=== PATIENT | female | born 1970 | race Caucasian/White ===

== ENCOUNTER 2020-12-01 14:52 | Outpatient (REF) | payer OTHER, MEDICAID, SELFPAY ==
--- NOTE | 2020-12-01 14:58 | XR_ITS ---
EXAMINATION: XR HIP, RIGHT CLINICAL INFORMATION: Pain COMPARISON: None TECHNIQUE: Two views of the right hip. FINDINGS: Bone alignment is normal. No fracture or dislocation is seen. The joint space is normal. Soft tissues are normal. XR/XR hip RT min 2V IMPRESSION: Normal right hip.
== END 2020-12-01 14:53 | disposition home or self-care (01) ==
LOC: HO.HMGCX 14:52
PROVIDERS: PCP Nurse Practitioner Family; Visit Provider Nurse Practitioner Family
DX: M25.551 Pain in right hip (principal)
CPT/HCPCS: 73502

== ENCOUNTER 2020-12-02 17:04 | Outpatient (REF) | payer OTHER, MEDICAID, SELFPAY ==
--- NOTE | 2020-12-02 17:09 | XR_ITS ---
EXAMINATION: XR LUMBAR SPINE AND SI JOINTS CLINICAL INFORMATION: Low back pain. COMPARISON: None. TECHNIQUE: 3 views lumbar spine. 3 views SI joint. FINDINGS: Lumbar Spine: There is normal lumbar lordosis. The vertebral heights and alignments are normal. The disc heights are preserved. There is moderate L4-L5 facet joint arthropathy and hypertrophy. No fracture or lytic process seen. Si Joint: There is mild sclerosis and hypertrophic changes left SI joint from sacroiliitis. The right SI joint space is normal. There is no sclerosis or lytic process. The sacrum appears unremarkable. XR/XR lumbar spine 2-3V IMPRESSION: Moderate left sacroiliitis. Moderate L4-L5 facet joint arthropathy. Unremarkable lumbar spine and right SI joint.
--- NOTE | 2020-12-02 17:09 | XR_ITS ---
EXAMINATION: XR LUMBAR SPINE AND SI JOINTS CLINICAL INFORMATION: Low back pain. COMPARISON: None. TECHNIQUE: 3 views lumbar spine. 3 views SI joint. FINDINGS: Lumbar Spine: There is normal lumbar lordosis. The vertebral heights and alignments are normal. The disc heights are preserved. There is moderate L4-L5 facet joint arthropathy and hypertrophy. No fracture or lytic process seen. Si Joint: There is mild sclerosis and hypertrophic changes left SI joint from sacroiliitis. The right SI joint space is normal. There is no sclerosis or lytic process. The sacrum appears unremarkable. XR/XR sacroiliac joint min 3V IMPRESSION: Moderate left sacroiliitis. Moderate L4-L5 facet joint arthropathy. Unremarkable lumbar spine and right SI joint.
== END 2020-12-02 17:05 | disposition home or self-care (01) ==
LOC: HO.HMGCX 17:04
PROVIDERS: PCP Nurse Practitioner Family; Visit Provider Nurse Practitioner Family
DX: M54.5 Low back pain (principal)
CPT/HCPCS: 72100; 72202

== ENCOUNTER 2022-02-08 08:42 | Outpatient (REF) | payer OTHER, SELFPAY ==
[2022-02-08 11:48] LABS: Basophils Absolute Auto 0.1 X10*3/uL (0.0-0.2); Basophils Percent Auto 0.5 % (0-2); Eosinophils Absolute Auto 0.2 X10*3/uL (0.0-0.4); Hemoglobin 12.7 g/dl (12.0-16.0); Imm Gran Abs Auto 0.02 X10*3/uL (0.00-0.03); Imm Gran Pct Auto 0.2 % (0.0-0.4); Lymphocytes Absolute Auto 2.8 X10*3/uL (1.2-4.9); Lymphocytes Percent Auto 29.3 % (20-40); MANUAL DIFF FLAG SCAN; Mean Corpuscular Volume 80.9 fL (80.0-98.0); Mean Platelet Volume 12.8 fL (9.4-12.3); Monocytes Absolute Auto 0.6 X10*3/uL (0.1-1.2); Monocytes Percent Auto 5.8 % (2-11); Neutrophils Absolute Auto 5.9 x10*3/uL (2.0-8.3); Neutrophils Percent Auto 62.2 % (45-73); PLT CLUMP 1; Red Blood Count 5.07 X10*6/uL (4.20-5.50); Red Cell Distribution Width 14.9 % (11.0-16.0); SCAN SMEAR FLAG 1
[2022-02-08 11:56] LABS: Estimated Average Glucose 212 mg/dL
[2022-02-08 12:02] LABS: White Blood Count 9.5 X10*3/uL (4.8-10.8)
[2022-02-08 12:03] LABS: Platelet Count 286 X10*3/uL (160-400)
[2022-02-08 12:04] LABS: Alanine Aminotransferase 21 U/L (0-31); Alkaline Phosphatase 95 U/L (39-117); Anion Gap 14 (12-20); Aspartate Amino Transferase 17 U/L (5-31); Bilirubin Total 0.5 mg/dL (0.0-1.0); Blood Urea Nitrogen 14 mg/dL (9-16); Calcium 9.3 mg/dL (8.4-10.2); Carbon Dioxide 22 mmol/L (22-29); Chloride 105 mmol/L (96-108); Cholesterol 178 mg/dL; Estimated Glomerular Filt Rate > 60; Glucose Fasting 222 mg/dL (60-99); HDL Cholesterol 47 mg/dL; LDL Cholesterol Calculated 111 mg/dl; Potassium 4.4 mmol/L (3.3-5.1); Sodium 137 mmol/L (135-145); Total Protein 7.5 g/dL (6.5-8.0); Triglycerides 104 mg/dL
[2022-02-08 12:08] LABS: Appearance Urine HAZY; Color Urine YELLOW; Glucose Urine UA 250 MG/DL (NEG); Leukocyte Esterase Urine NEG (NEG); Nitrite Urine NEG (NEG); PH 5.5 (5.0-8.0); Specific Gravity - Urine >= 1.030 (1.005-1.025); Urine Blood NEG (NEG); Urine Ketones 5 MG/DL (NEG); Urine Protein TRACE MG/DL (NEG-TRACE)
[2022-02-08 12:12] LABS: B Type Natriuretic Peptide 12 pg/mL (<100)
[2022-02-08 12:27] LABS: TSH reflex Free T4 1.32 uIU/mL (0.32-4.0)
[2022-02-08 12:57] LABS: SLIDE REVIEW VERIFIED
[2022-02-08 21:50] LABS: Creatinine Urine 156.83 mg/dL; Microalbum/Creatinine Ratio Ur 18.4 ug/mg cr
== END 2022-02-08 08:43 | disposition home or self-care (01) ==
LOC: HO.HMGCLDS 08:42
PROVIDERS: Visit Provider Nurse Practitioner Family
DX: N39.0 Urinary tract infection, site not specified (principal); R03.0 Elevated blood-pressure reading, without diagnosis of hypertension; R06.02 Shortness of breath; E11.9 Type 2 diabetes mellitus without complications; K58.9 Irritable bowel syndrome, unspecified
CPT/HCPCS: 36415; 80053; 80061; 81003; 82043; 83036; 83880; 84443; 85025

== ENCOUNTER 2022-03-12 09:00 | Outpatient (REF) | payer OTHER, SELFPAY ==
[2022-03-12 11:17] LABS: Appearance Urine CLOUDY; Color Urine YELLOW; Glucose Urine UA NEG (NEG); Leukocyte Esterase Urine 1+ (NEG); Nitrite Urine POS (NEG); PH 5.5 (5.0-8.0); Specific Gravity - Urine 1.025 (1.005-1.025); UACC Culture Trigger YES; Urine Blood TRACE (NEG); Urine Ketones NEG (NEG); Urine Protein NEG (NEG-TRACE)
[2022-03-12 11:25] LABS: Amorphous Sediment Urine 4+ /LPF; Squamous Epithelial Cell Urine TRACE /LPF
[2022-03-12 11:26] LABS: WBC Urine 50-75 /HPF (0-4)
[2022-03-12 11:30] LABS: Bacteria Urine TRACE /LPF; RBC Urine 0 /HPF (0)
[2022-03-12 12:04] LABS: Alanine Aminotransferase 23 U/L (0-31); Albumin Level 3.7 g/dL (3.5-5.0); Alkaline Phosphatase 92 U/L (39-117); Anion Gap 10 (12-20); Aspartate Amino Transferase 18 U/L (5-31); Bilirubin Total 0.4 mg/dL (0.0-1.0); Blood Urea Nitrogen 10 mg/dL (9-16); Carbon Dioxide 27 mmol/L (22-29); Chloride 103 mmol/L (96-108); Estimated Glomerular Filt Rate > 60; Glucose Random 173 mg/dL (60-115); Potassium 4.3 mmol/L (3.3-5.1); Sodium 136 mmol/L (135-145); Total Protein 6.9 g/dL (6.5-8.0)
[2022-03-12 12:40] LABS: Folate 7.7 ng/mL (> or = 4.0); Vitamin B12 464 pg/mL (200-900)
[2022-03-15 13:26] LABS: Anti Nuclear Antibody Screen NEGATIVE (NEGATIVE)
[2022-03-15 18:41] LABS: Lyme Abs Screen <0.90 index
[2022-03-17 21:37] LABS: DNAds, Crithidia Antibody Negative (Negative)
== END 2022-03-12 09:01 | disposition home or self-care (01) ==
LOC: HO.HMGCLDS 09:00
PROVIDERS: PCP Nurse Practitioner Family; Visit Provider Nurse Practitioner Family
DX: R53.83 Other fatigue (principal); R20.3 Hyperesthesia
CPT/HCPCS: 36415; 80053; 81001; 82607; 82746; 86038; 86039; 86255; 86617; 86618; 87086; 87088; 87186

== ENCOUNTER 2022-04-26 08:39 | Outpatient (REF) | payer OTHER, SELFPAY ==
--- NOTE | ~2022-04-26 | CT_ITS ---
EXAMINATION: CT CHEST WITHOUT CONTRAST CLINICAL INFORMATION: Abnormal lung findings. COMPARISON: Chest 03/04/2020. TECHNIQUE: Multidetector volumetric CT imaging of the chest was done. Axial MIP volume rendering provided. Sagittal and coronal reformatted images were obtained. This CT examination was performed using dose optimization techniques as appropriate, variously including the following: *Automated exposure control *Adjustment of mA and/or kV according to patient size (this includes techniques or standardized protocols for targeted exams where dose is matched to indication/reason for exam; i.e. extremities or head) *Use of iterative reconstruction technique DLP: 395 mGy-cm. 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 LUNGS: There is a 1 cm density with a punctate calcification in right lung apex image 93/7. There is a 1 cm pleural-based density left upper lobe image 100/7. There is a 7 mm nodule in the lingula axial image 342/7 and 5 mm nodule in the left lower lobe lateral basal segment axial image 351/7. Linear scarring is seen in the left lower lobe lateral basal segment. MEDIASTINUM: The thyroid lobes are symmetric and normal. The central trachea and the bronchi are widely patent. Heart size and the great vessels are normal caliber. There is no pericardial effusion. There are no abnormal lymph nodes. PLEURA: There is no pleural effusion. No pleural mass or thickening. AXILLA: Small shotty lymph nodes are seen in bilateral axilla. UPPER ABDOMEN: The liver is enlarged. Gallbladder is unremarkable. There is evidence of previous gastric reduction/sleeve surgery. OSSEOUS STRUCTURES: No aggressive lytic or sclerotic process seen. There is mild ventral spondylosis mid and lower dorsal spine. CT/CT chest wo con IMPRESSION: Small pulmonary nodules, largest 7 mm in the lingula. As per Fleischner guidelines, recommend follow-up in 6-12 months based on patient risk factors. No abnormal mediastinal or axillary lymphadenopathy. Fleischner guidelines were followed.
[2022-04-26 09:15] LABS: MANUAL DIFF FLAG NO
[2022-04-26 10:09] LABS: Basophils Absolute Auto 0.1 X10*3/uL (0.0-0.2); Basophils Percent Auto 0.5 % (0-2); Eosinophils Absolute Auto 0.2 X10*3/uL (0.0-0.4); Eosinophils Percent Auto 1.8 % (0-4); Hemoglobin 11.2 g/dl (12.0-16.0); Imm Gran Abs Auto 0.06 X10*3/uL (0.00-0.03); Imm Gran Pct Auto 0.5 % (0.0-0.4); Lymphocytes Absolute Auto 2.5 X10*3/uL (1.2-4.9); Lymphocytes Percent Auto 21.7 % (20-40); Mean Corpuscular Hemoglobin 25.5 pg (27.0-33.0); Mean Corpuscular Volume 79.5 fL (80.0-98.0); Mean Platelet Volume 11.7 fL (9.4-12.3); Monocytes Absolute Auto 0.6 X10*3/uL (0.1-1.2); Monocytes Percent Auto 5.6 % (2-11); Neutrophils Percent Auto 69.9 % (45-73); Platelet Count 295 X10*3/uL (160-400); Red Cell Distribution Width 14.3 % (11.0-16.0); White Blood Count 11.5 X10*3/uL (4.8-10.8)
[2022-04-26 10:52] LABS: Alanine Aminotransferase 20 U/L (0-31); Albumin Level 3.7 g/dL (3.5-5.0); Alkaline Phosphatase 90 U/L (39-117); Anion Gap 11 (12-20); Aspartate Amino Transferase 17 U/L (5-31); Bilirubin Total 0.4 mg/dL (0.0-1.0); Blood Urea Nitrogen 10 mg/dL (9-16); Calcium 8.6 mg/dL (8.4-10.2); Carbon Dioxide 27 mmol/L (22-29); Chloride 104 mmol/L (96-108); Estimated Glomerular Filt Rate > 60; Glucose Random 183 mg/dL (60-115); Potassium 4.3 mmol/L (3.3-5.1); Sodium 138 mmol/L (135-145); Total Protein 6.7 g/dL (6.5-8.0)
== END 2022-04-26 08:40 | disposition home or self-care (01) ==
LOC: HO.CT 08:39
PROVIDERS: PCP Nurse Practitioner Family; Visit Provider Nurse Practitioner Family
DX: R91.8 Other nonspecific abnormal finding of lung field (principal); R32 Unspecified urinary incontinence; R53.83 Other fatigue
CPT/HCPCS: 36415; 71250; 80053; 85025

== ENCOUNTER 2022-04-27 09:46 | Outpatient (REF) | payer OTHER, SELFPAY ==
[2022-04-27 12:16] LABS: Appearance Urine HAZY; Color Urine YELLOW; Glucose Urine UA NEG (NEG); Leukocyte Esterase Urine NEG (NEG); Nitrite Urine NEG (NEG); Specific Gravity - Urine 1.025 (1.005-1.025); Urine Blood NEG (NEG); Urine Ketones NEG (NEG); Urine Protein NEG (NEG-TRACE)
== END 2022-04-27 09:47 | disposition home or self-care (01) ==
LOC: HO.HMGCLNP 09:46
PROVIDERS: PCP Nurse Practitioner Family; Visit Provider Nurse Practitioner Family
DX: R32 Unspecified urinary incontinence (principal); R53.83 Other fatigue
CPT/HCPCS: 81003

== ENCOUNTER → 2022-04-29 09:29 | Outpatient (BNVA) | payer OTHER, SELFPAY | PROVIDERS: PCP Nurse Practitioner Family; Visit Provider Nurse Practitioner Family | DX: R25.1 Tremor, unspecified (principal); H53.9 Unspecified visual disturbance; G43.909 Migraine, unspecified, not intractable, without status migrainosus; R06.83 Snoring; G47.19 Other hypersomnia; M54.2 Cervicalgia; Z79.899 Other long term (current) drug therapy | CPT/HCPCS: 99202 ==

== ENCOUNTER 2022-04-30 10:16 | Outpatient (REF) | payer OTHER, SELFPAY ==
[2022-04-30 11:12] LABS: MANUAL DIFF FLAG NO
[2022-04-30 11:24] LABS: Basophils Absolute Auto 0.1 X10*3/uL (0.0-0.2); Basophils Percent Auto 0.6 % (0-2); Eosinophils Absolute Auto 0.1 X10*3/uL (0.0-0.4); Eosinophils Percent Auto 1.3 % (0-4); Hematocrit 36.3 % (37.0-47.0); Hemoglobin 11.6 g/dl (12.0-16.0); Imm Gran Abs Auto 0.05 X10*3/uL (0.00-0.03); Imm Gran Pct Auto 0.5 % (0.0-0.4); Lymphocytes Absolute Auto 2.5 X10*3/uL (1.2-4.9); Lymphocytes Percent Auto 23.5 % (20-40); Mean Corpuscular Hemoglobin 25.3 pg (27.0-33.0); Mean Corpuscular Volume 79.3 fL (80.0-98.0); Mean Platelet Volume 11.4 fL (9.4-12.3); Monocytes Absolute Auto 0.4 X10*3/uL (0.1-1.2); Monocytes Percent Auto 4.1 % (2-11); Neutrophils Absolute Auto 7.4 x10*3/uL (2.0-8.3); Platelet Count 333 X10*3/uL (160-400); Red Blood Count 4.58 X10*6/uL (4.20-5.50); Red Cell Distribution Width 14.4 % (11.0-16.0); White Blood Count 10.5 X10*3/uL (4.8-10.8)
[2022-04-30 11:32] LABS: Appearance Urine CLEAR; Color Urine YELLOW; Glucose Urine UA NEG (NEG); Leukocyte Esterase Urine NEG (NEG); Nitrite Urine NEG (NEG); Specific Gravity - Urine 1.025 (1.005-1.025); Urine Blood NEG (NEG); Urine Ketones NEG (NEG); Urine Protein NEG (NEG-TRACE)
[2022-04-30 11:57] LABS: Alanine Aminotransferase 19 U/L (0-31); Albumin Level 3.8 g/dL (3.5-5.0); Alkaline Phosphatase 92 U/L (39-117); Anion Gap 12 (12-20); Aspartate Amino Transferase 16 U/L (5-31); Bilirubin Total 0.3 mg/dL (0.0-1.0); Blood Urea Nitrogen 12 mg/dL (9-16); Calcium 8.8 mg/dL (8.4-10.2); Carbon Dioxide 27 mmol/L (22-29); Chloride 103 mmol/L (96-108); Estimated Glomerular Filt Rate > 60; Glucose Random 269 mg/dL (60-115); Potassium 4.4 mmol/L (3.3-5.1); Sodium 138 mmol/L (135-145)
[2022-05-03 17:32] LABS: Lyme Abs Screen <0.90 index
[2022-05-06 06:26] LABS: A. Phagocytophilum Ab IgG <1:64 (<1:64); A. Phagocytophilum Ab IgM <1:20 (<1:20); E. Chaffeensis Ab IgG <1:64 (<1:64); E. Chaffeensis Ab IgM <1:20 (<1:20)
== END 2022-04-30 10:17 | disposition home or self-care (01) ==
LOC: HO.HMGCLDS 10:16
PROVIDERS: Visit Provider Nurse Practitioner Family
DX: D72.829 Elevated white blood cell count, unspecified (principal); G43.909 Migraine, unspecified, not intractable, without status migrainosus; R53.83 Other fatigue
CPT/HCPCS: 36415; 80053; 81003; 85025; 86617; 86618; 86666

== ENCOUNTER → 2022-05-12 10:00 | Outpatient (REF) | payer OTHER, SELFPAY | LOC: HO.SL 10:00 | PROVIDERS: PCP Nurse Practitioner Family; Visit Provider Nurse Practitioner Family | DX: R06.83 Snoring (principal); G47.19 Other hypersomnia | CPT/HCPCS: 95806 ==

== ENCOUNTER 2022-06-03 10:25 | Outpatient (REF) | payer OTHER, SELFPAY | END 2022-06-03 10:26 | disposition home or self-care (01) | LOC: HO.LAB 10:25 | DX: R32 Unspecified urinary incontinence (principal); R33.9 Retention of urine, unspecified; N39.0 Urinary tract infection, site not specified | CPT/HCPCS: 51798; 87086; 87088; 87186; 99202 ==

== ENCOUNTER → 2022-07-22 09:02 | Outpatient (BNVA) | payer OTHER, SELFPAY | PROVIDERS: PCP Nurse Practitioner Family; Visit Provider Nurse Practitioner Family | DX: G43.909 Migraine, unspecified, not intractable, without status migrainosus (principal); R25.1 Tremor, unspecified; R26.9 Unspecified abnormalities of gait and mobility; F80.81 Childhood onset fluency disorder; H53.9 Unspecified visual disturbance; R44.2 Other hallucinations; Z79.899 Other long term (current) drug therapy | CPT/HCPCS: 99212 ==

== ENCOUNTER 2022-07-27 08:10 | Outpatient (REF) | payer OTHER, SELFPAY ==
[2022-07-27 11:31] LABS: MANUAL DIFF FLAG NO
[2022-07-27 11:41] LABS: Basophils Absolute Auto 0.1 X10*3/uL (0.0-0.2); Basophils Percent Auto 0.6 % (0-2); Eosinophils Absolute Auto 0.2 X10*3/uL (0.0-0.4); Eosinophils Percent Auto 1.5 % (0-4); Imm Gran Abs Auto 0.05 X10*3/uL (0.00-0.03); Imm Gran Pct Auto 0.5 % (0.0-0.4); Lymphocytes Absolute Auto 2.8 X10*3/uL (1.2-4.9); Lymphocytes Percent Auto 27.9 % (20-40); Mean Corpuscular HGB Conc 31.6 g/dl (31.0-35.0); Mean Corpuscular Volume 79.2 fL (80.0-98.0); Mean Platelet Volume 11.4 fL (9.4-12.3); Monocytes Absolute Auto 0.5 X10*3/uL (0.1-1.2); Monocytes Percent Auto 5.1 % (2-11); Neutrophils Absolute Auto 6.4 x10*3/uL (2.0-8.3); Neutrophils Percent Auto 64.4 % (45-73); Platelet Count 331 X10*3/uL (160-400); Red Cell Distribution Width 15.6 % (11.0-16.0); White Blood Count 9.9 X10*3/uL (4.8-10.8)
[2022-07-27 11:43] LABS: Appearance Urine Turbid; Color Urine Yellow; Glucose Urine UA Negative (Negative); Leukocyte Esterase Urine Large (3+) (Negative); Nitrite Urine Negative (Negative); Urine Blood Moderate (2+) (Negative); Urine Ketones Trace mg/dL (Negative); Urine Protein 100 (2+) mg/dL (Neg-Trace)
[2022-07-27 11:54] LABS: UMIC TRIGGER UACC YES
[2022-07-27 11:56] LABS: Alanine Aminotransferase 9 U/L (0-31); Albumin Level 3.9 g/dL (3.5-5.0); Alkaline Phosphatase 91 U/L (39-117); Anion Gap 15 (12-20); Aspartate Amino Transferase 15 U/L (5-31); Bilirubin Total 0.4 mg/dL (0.0-1.0); Blood Urea Nitrogen 14 mg/dL (9-16); Calcium 9.1 mg/dL (8.4-10.2); Carbon Dioxide 29 mmol/L (22-29); Chloride 100 mmol/L (96-108); Cholesterol 214 mg/dL; Estimated Glomerular Filt Rate > 60; Glucose Fasting 163 mg/dL (60-99); HDL Cholesterol 45 mg/dL; LDL Cholesterol Calculated 147 mg/dl; Potassium 4.6 mmol/L (3.3-5.1); Sodium 139 mmol/L (135-145); Total Protein 7.4 g/dL (6.5-8.0); Triglycerides 110 mg/dL
[2022-07-27 12:17] LABS: TSH reflex Free T4 1.57 uIU/mL (0.32-4.0)
[2022-07-27 12:18] LABS: Estimated Average Glucose 183 mg/dL
[2022-07-27 12:55] LABS: Bacteria Urine 2+ (None Seen); Hyaline Casts Urine 0-2 /LPF (0-2); RBC Urine >20 /HPF (0-2); Squamous Epithelial Cell Urine 0-2 /HPF (0-2); UACC Culture Trigger YES; WBC Urine >50 /HPF (0-5)
[2022-07-29 20:12] LABS: A. Phagocytphilium DNA,RT-PCR NOT DETECTED (NOT DETECTED); Babesia Microti DNA, RT-PCR NOT DETECTED (NOT DETECTED); Borrelia Miyamotoi,DNA RT-PCR NOT DETECTED (NOT DETECTED); E.Chaffeensis DNA RT-PCR NOT DETECTED (NOT DETECTED); Lyme(Borrelia ssp)DNA RT-PCR NOT DETECTED (NOT DETECTED)
[2022-07-30 17:25] LABS: Source-Tick borne disease BLOOD
== END 2022-07-27 08:11 | disposition home or self-care (01) ==
LOC: HO.HMGCLDS 08:10
PROVIDERS: PCP Nurse Practitioner Family; Visit Provider Nurse Practitioner Family
DX: E11.9 Type 2 diabetes mellitus without complications (principal); F80.81 Childhood onset fluency disorder; R41.0 Disorientation, unspecified; I10 Essential (primary) hypertension
CPT/HCPCS: 36415; 80053; 80061; 81001; 83036; 84443; 85025; 87086; 87798; 87801

== ENCOUNTER 2022-08-25 10:06 | Outpatient (REF) | payer OTHER, SELFPAY ==
[2022-08-25 12:05] LABS: C Reactive Protein 1.76 mg/dL (< or = 0.50)
[2022-08-25 14:27] LABS: Erythrocyte Sedimentation Rate 19 MM/HR (0-20)
[2022-08-31 09:16] LABS: HLA B27 Positive (Negative)
== END 2022-08-25 10:07 | disposition home or self-care (01) ==
LOC: HO.10HDL 10:06
PROVIDERS: Visit Provider Nurse Practitioner Family
DX: M25.50 Pain in unspecified joint (principal); Z79.899 Other long term (current) drug therapy
CPT/HCPCS: 36415; 85652; 86140; 86812; 99212

== ENCOUNTER 2022-09-01 12:57 | Outpatient (REF) | payer OTHER, SELFPAY ==
--- NOTE | 2022-09-01 13:02 | EEG_ITS ---
This is a 16-channel EEG with an EKG lead. The patient is reported awake during the tracing. Background EEG rhythm is 12 to 14 hertz 5 to 20 microvolt posteriorly and lower amplitude fast anteriorly. Photic stimulation does not produce any significant driving. Hyperventilation was not performed. Cardiac lead does not reveal any significant abnormalities. No sharp wave spikes or paroxysmal tendencies noted. IMPRESSION: Unremarkable EEG. MD MADDIE Moe/KOSTAS / [id number]
== END 2022-09-01 12:58 | disposition home or self-care (01) ==
LOC: HO.NEURO 12:57
PROVIDERS: PCP Nurse Practitioner Family; Visit Provider Nurse Practitioner Family
DX: R44.2 Other hallucinations (principal); R25.1 Tremor, unspecified; H53.9 Unspecified visual disturbance
CPT/HCPCS: 95816

== ENCOUNTER 2022-09-17 15:22 | Outpatient (REF) | payer OTHER, SELFPAY | END 2022-09-17 15:23 | disposition home or self-care (01) | LOC: HO.LAB 15:22 | PROVIDERS: Visit Provider Urology | DX: R33.9 Retention of urine, unspecified (principal); N39.0 Urinary tract infection, site not specified | CPT/HCPCS: 87086; 99212 ==

== ENCOUNTER → 2022-09-28 12:57 | Outpatient (BNVA) | payer OTHER, SELFPAY | PROVIDERS: PCP Nurse Practitioner Family; Visit Provider Nurse Practitioner Family | DX: M25.50 Pain in unspecified joint (principal) | CPT/HCPCS: 99212 ==

== ENCOUNTER 2022-09-30 15:34 | Outpatient (REF) | payer OTHER, SELFPAY ==
--- NOTE | ~2022-09-30 | XR_ITS ---
EXAMINATION: XR SACROILIAC JOINTS CLINICAL INFORMATION: Myalgia COMPARISON: None TECHNIQUE: 3 views of the sacroiliac joints FINDINGS: There is increased sclerosis at the left sacroiliac joint. The right sacroiliac joint is normal. No fracture or dislocation is seen. There are degenerative changes of the lower lumbar spine. Soft tissues are unremarkable. XR/XR sacroiliac joint min 3V IMPRESSION: Increased sclerosis at the left sacroiliac joint.
[2022-10-01 13:24] LABS: HBS Num1 0.55 mIU/mL (0-7.99); HBsAGNum1 0.38 S/CO (0.00-0.99); Hepatitis A Antibody IgM 0.11 Index (0-0.79); Hepatitis B Core Antibody Nonreactive (Nonreactive); Hepatitis B Surface Antigen Negative (Negative); ~HepC Num1 0.06 S/CO (0.00-0.79); ~Hepatitis A Antibody IgM Nonreactive (Nonreactive); ~Hepatitis B Surface Antibody NONREACTIVE (Nonreactive); ~Hepatitis C Antibody Nonreactive (Nonreactive)
[2022-10-03 15:31] LABS: TS Negative Control Passed; TS Panel A 0; TS Panel B 0; TS Positive Control Passed; TSpotTB Negative (Negative)
== END 2022-09-30 15:35 | disposition home or self-care (01) ==
LOC: HO.LAB 15:34
PROVIDERS: PCP Nurse Practitioner Family; Visit Provider Nurse Practitioner Family
DX: M79.18 Myalgia, other site (principal); M25.50 Pain in unspecified joint
CPT/HCPCS: 36415; 72202; 86481; 86704; 86706; 86709; 86803; 87340

== ENCOUNTER → 2022-11-03 09:05 | Outpatient (BNVA) | payer OTHER, SELFPAY | PROVIDERS: PCP Nurse Practitioner Family; Visit Provider Nurse Practitioner Family | DX: R25.1 Tremor, unspecified (principal); F80.81 Childhood onset fluency disorder; G43.909 Migraine, unspecified, not intractable, without status migrainosus; Z79.899 Other long term (current) drug therapy | CPT/HCPCS: 99212 ==

== ENCOUNTER → 2022-11-19 09:07 | Outpatient (BNVA) | payer OTHER, SELFPAY | PROVIDERS: PCP Nurse Practitioner Family; Visit Provider Urology | DX: Z13.89 Encounter for screening for other disorder (principal) ==

== ENCOUNTER → 2022-12-29 15:13 | Outpatient (BNVA) | payer OTHER, SELFPAY | PROVIDERS: PCP Nurse Practitioner Family; Visit Provider Nurse Practitioner Family | DX: M45.9 Ankylosing spondylitis of unspecified sites in spine (principal); Z79.899 Other long term (current) drug therapy | CPT/HCPCS: 99212 ==

== ENCOUNTER → 2023-02-03 14:27 | Outpatient (BNVA) | payer OTHER, SELFPAY | PROVIDERS: PCP Nurse Practitioner Family; Visit Provider Nurse Practitioner Family | DX: G43.909 Migraine, unspecified, not intractable, without status migrainosus (principal); G20 Parkinson's disease; G25.81 Restless legs syndrome | CPT/HCPCS: 99212 ==

== ENCOUNTER 2023-02-08 09:43 | Outpatient (REF) | payer OTHER, SELFPAY ==
[2023-02-08 11:24] LABS: Appearance Urine Clear; Color Urine Yellow; Glucose Urine UA Negative (Negative); Leukocyte Esterase Urine Moderate (2+) (Negative); Nitrite Urine Negative (Negative); Specific Gravity - Urine 1.015 (1.005-1.025); UMIC TRIGGER UACC YES; Urine Blood Negative (Negative); Urine Ketones Negative (Negative); Urine Protein Negative (Neg-Trace)
[2023-02-08 11:28] LABS: Bacteria Urine Trace (None Seen); Hyaline Casts Urine 0-2 /LPF (0-2); RBC Urine 0-2 /HPF (0-2); UACC Culture Trigger YES; WBC Urine >50 /HPF (0-5)
[2023-02-08 11:39] LABS: MANUAL DIFF FLAG NO
[2023-02-08 11:56] LABS: Basophils Absolute Auto 0.1 X10*3/uL (0.0-0.2); Basophils Percent Auto 0.8 % (0-2); Eosinophils Absolute Auto 0.2 X10*3/uL (0.0-0.4); Eosinophils Percent Auto 1.7 % (0-4); Hematocrit 39.6 % (37.0-47.0); Hemoglobin 12.4 g/dl (12.0-16.0); Imm Gran Abs Auto 0.01 X10*3/uL (0.00-0.03); Imm Gran Pct Auto 0.1 % (0.0-0.4); Lymphocytes Absolute Auto 3.4 X10*3/uL (1.2-4.9); Lymphocytes Percent Auto 37.5 % (20-40); Mean Corpuscular HGB Conc 31.3 g/dl (31.0-35.0); Mean Corpuscular Hemoglobin 24.9 pg (27.0-33.0); Mean Corpuscular Volume 79.7 fL (80.0-98.0); Mean Platelet Volume 11.5 fL (9.4-12.3); Monocytes Absolute Auto 0.6 X10*3/uL (0.1-1.2); Monocytes Percent Auto 6.6 % (2-11); Neutrophils Absolute Auto 4.9 x10*3/uL (2.0-8.3); Neutrophils Percent Auto 53.3 % (45-73); Platelet Count 276 X10*3/uL (160-400); Red Blood Count 4.97 X10*6/uL (4.20-5.50); Red Cell Distribution Width 14.6 % (11.0-16.0); White Blood Count 9.1 X10*3/uL (4.8-10.8)
[2023-02-08 12:21] LABS: Estimated Average Glucose 232 mg/dL; Hemoglobin A1c % 9.7 %
[2023-02-08 12:38] LABS: Erythrocyte Sedimentation Rate 14 MM/HR (0-20)
[2023-02-08 13:14] LABS: Alanine Aminotransferase 10 U/L (0-31); Albumin Level 3.8 g/dL (3.5-5.0); Alkaline Phosphatase 93 U/L (39-117); Anion Gap 13 (12-20); Aspartate Amino Transferase 19 U/L (5-31); Bilirubin Total 0.5 mg/dL (0.0-1.0); Blood Urea Nitrogen 8 mg/dL (9-16); C Reactive Protein 1.34 mg/dL (< or = 0.50); Calcium 9.1 mg/dL (8.4-10.2); Carbon Dioxide 29 mmol/L (22-29); Chloride 102 mmol/L (96-108); Cholesterol 194 mg/dL; Estimated Glomerular Filt Rate > 60; Glucose Fasting 192 mg/dL (60-99); HDL Cholesterol 42 mg/dL; LDL Cholesterol Calculated 132 mg/dl; Potassium 4.7 mmol/L (3.3-5.1); Sodium 139 mmol/L (135-145); Total Protein 6.9 g/dL (6.5-8.0); Triglycerides 104 mg/dL
[2023-02-08 13:22] LABS: Microalbum/Creatinine Ratio Ur 9.3 ug/mg cr
== END 2023-02-08 09:44 | disposition home or self-care (01) ==
LOC: HO.HMGCLDS 09:43
PROVIDERS: Nurse Practitioner Family; PCP Nurse Practitioner Family; Visit Provider Nurse Practitioner Family
DX: M45.9 Ankylosing spondylitis of unspecified sites in spine (principal); G20 Parkinson's disease; E11.9 Type 2 diabetes mellitus without complications; M54.9 Dorsalgia, unspecified; Z79.899 Other long term (current) drug therapy
CPT/HCPCS: 36415; 80053; 80061; 81001; 82043; 83036; 84443; 85025; 85652; 86140; 87086

== ENCOUNTER → 2023-02-22 13:59 | Outpatient (BNVA) | payer OTHER, SELFPAY | PROVIDERS: PCP Nurse Practitioner Family; Visit Provider Nurse Practitioner Family | DX: M45.9 Ankylosing spondylitis of unspecified sites in spine (principal) | CPT/HCPCS: 99212 ==

== ENCOUNTER → 2023-05-16 13:56 | Outpatient (BNVA) | payer OTHER, SELFPAY | PROVIDERS: PCP Nurse Practitioner Family; Visit Provider Nurse Practitioner Family | DX: G20 Parkinson's disease (principal); G25.81 Restless legs syndrome | CPT/HCPCS: 99212 ==

== ENCOUNTER 2023-05-20 13:15 | Outpatient (REF) | payer OTHER, SELFPAY ==
--- NOTE | ~2023-05-20 | CT_ITS ---
EXAMINATION: CT CHEST WITHOUT CONTRAST CLINICAL INFORMATION: Follow-up pulmonary nodules. COMPARISON: Prior CT examinations, most recently 04/26/2022. TECHNIQUE: Multidetector volumetric CT imaging of the chest was done. Axial MIP volume rendering provided. Sagittal and coronal reformatted images were obtained. This CT examination was performed using dose optimization techniques as appropriate, variously including the following: *Automated exposure control *Adjustment of mA and/or kV according to patient size (this includes techniques or standardized protocols for targeted exams where dose is matched to indication/reason for exam; i.e. 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 There is moderate elevation of the right hemidiaphragm. LUNGS: At the lateral right apex (7:169), a small endobronchial density is seen, likely inspissated mucous. Within the superior segment of the right lower (4:259), a stable 5 mm noncalcified pleural-based lymph node is seen. At the lateral right base (7:434), a stable 8 mm benign pleural-based lymph node is seen. At the posterior left apex (7:182), a stable 9 mm benign pleural-based lymph node is seen. In the lateral basal segment of the left lower lobe (7:490 and 491), stable 1.0 cm and 6 mm noncalcified nodules are seen. There is linear scar/subsegmental atelectasis seen at the lateral left base. These nodules are all stable from 08/25/2017, and they are considered benign. There is no mass, infiltrate or groundglass opacity. No generalized increase is seen in peripheral interlobular septal markings. No bleb or bullous formation is seen. There is no small airway thickening. The central airways appear patent. MEDIASTINUM: The mediastinum is normal. CORONARY ARTERY CALCIFICATION: None visualized on this study. PLEURA: There is no pleural effusion. No pleural mass or thickening. AXILLA: No lymphadenopathy. UPPER ABDOMEN: There is hepatic steatosis. The gallbladder is surgically absent. The adrenal glands are unremarkable. Postoperative changes are seen of the stomach. OSSEOUS STRUCTURES: There is multi-level thoracic spondylosis. No acute or aggressive osseous abnormality is seen. CT/CT chest wo IV con IMPRESSION: 1. There are multiple benign, stable bilateral lung nodules, as detailed. No new nodule, mass, infiltrate or groundglass opacity is seen. There is no thoracic lymphadenopathy or pleural effusion. 2. No new nodule, mass, infiltrate or groundglass opacity is seen 3. There is mild linear scar/subsegmental atelectasis at the lateral left base, without associated focal airway obstruction. 4. There are degenerative changes of the spine. No aggressive osseous lesion is seen. 5. There is hepatic steatosis. Fleischner guidelines were followed.
== END 2023-05-20 13:16 | disposition home or self-care (01) ==
LOC: HO.CT 13:15
PROVIDERS: PCP Nurse Practitioner Family; Visit Provider Nurse Practitioner Family
DX: R91.8 Other nonspecific abnormal finding of lung field (principal)
CPT/HCPCS: 71250

== ENCOUNTER 2023-06-15 09:35 | Outpatient (REF) | payer OTHER, SELFPAY ==
[2023-06-15 09:57] LABS: MANUAL DIFF FLAG NO
[2023-06-15 10:03] LABS: Basophils Absolute Auto 0.1 X10*3/uL (0.0-0.2); Basophils Percent Auto 0.6 % (0-2); Eosinophils Absolute Auto 0.2 X10*3/uL (0.0-0.4); Eosinophils Percent Auto 2.3 % (0-4); Hematocrit 38.3 % (37.0-47.0); Hemoglobin 12.2 g/dl (12.0-16.0); Imm Gran Abs Auto 0.04 X10*3/uL (0.00-0.03); Imm Gran Pct Auto 0.4 % (0.0-0.4); Lymphocytes Absolute Auto 3.4 X10*3/uL (1.2-4.9); Lymphocytes Percent Auto 35.8 % (20-40); Mean Corpuscular HGB Conc 31.9 g/dl (31.0-35.0); Mean Corpuscular Hemoglobin 25.4 pg (27.0-33.0); Mean Corpuscular Volume 79.8 fL (80.0-98.0); Mean Platelet Volume 11.1 fL (9.4-12.3); Monocytes Absolute Auto 0.6 X10*3/uL (0.1-1.2); Monocytes Percent Auto 6.1 % (2-11); Neutrophils Absolute Auto 5.1 x10*3/uL (2.0-8.3); Neutrophils Percent Auto 54.8 % (45-73); Platelet Count 283 X10*3/uL (160-400); Red Cell Distribution Width 14.3 % (11.0-16.0); White Blood Count 9.4 X10*3/uL (4.8-10.8)
[2023-06-15 10:47] LABS: Erythrocyte Sedimentation Rate 12 MM/HR (0-20)
[2023-06-15 10:55] LABS: Alanine Aminotransferase 14 U/L (0-31); Albumin Level 3.6 g/dL (3.5-5.0); Alkaline Phosphatase 73 U/L (39-117); Anion Gap 13 (12-20); Aspartate Amino Transferase 20 U/L (5-31); Bilirubin Total 0.3 mg/dL (0.0-1.0); Blood Urea Nitrogen 8 mg/dL (9-16); C Reactive Protein 0.74 mg/dL (< or = 0.50); Calcium 8.7 mg/dL (8.4-10.2); Carbon Dioxide 27 mmol/L (22-29); Chloride 106 mmol/L (96-108); Estimated Glomerular Filt Rate > 60; Glucose Random 157 mg/dL (60-115); Sodium 142 mmol/L (135-145); Total Protein 6.9 g/dL (6.5-8.0)
== END 2023-06-15 09:36 | disposition home or self-care (01) ==
LOC: HO.LAB 09:35
PROVIDERS: PCP Nurse Practitioner Family; Visit Provider Nurse Practitioner Family
DX: M45.9 Ankylosing spondylitis of unspecified sites in spine (principal)
CPT/HCPCS: 36415; 80053; 85025; 85652; 86140

== ENCOUNTER 2023-08-15 13:11 | Outpatient (AMB) | payer OTHER, SELFPAY ==
[2023-08-15 13:18] VITALS: BP 142/88; PULSE 88; O2SAT 95; BMI 56.6
--- NOTE | 2023-08-15 13:18 | MHC.PC.OV ---
Vital Signs 08/15/23 13:18 Height 5 ft 7 in Weight 361 lb 4 oz BMI 56.6 BP 142/88 H Blood Pressure Location Lt brachial Position Sitting Pulse 88 Pulse Source Pulse Oximeter Pulse Oximetry (%) 95 Oxygen Delivery Method Room Air Intake Visit Reasons: 3 Month F/Up Allergies No Known Allergies Allergy (Verified 08/15/23 13:21) Medication List - Last Reconciled 08/15/23 by ELENA Avalos-BC [4 wheeled walker with seat daily use] adalimumab (Humira(CF) Pen) inject one - 40 mg/0.4 mL pen every 2 weeks subcut alcohol swabs (CareTouch Alcohol Prep Pad topical pads) 1 pad topical DAILY amitriptyline 25 mg PO BEDTIME 30 days aspirin 81 mg PO DAILY 90 days atorvastatin 40 mg PO DAILY 90 days blood sugar diagnostic (FreeStyle Lite Strips) Use to check blood sugar daily blood-glucose meter (FreeStyle Lite Meter kit) Use to check blood sugar daily carbidopa-levodopa 25-100 mg 1 tab PO QID 30 days cholecalciferol (vitamin D3) 50 mcg PO DAILY 90 days dulaglutide 3 mg (0.5 mL) subcut QWEEK 30 days ferrous sulfate 325 mg PO TID 90 days FreeStyle Josias 2 Rheems (flash glucose scanning reader) tid NS FreeStyle Josias 2 Sensor (flash glucose sensor) tid NS gabapentin 1 cap at 8pm, 1 cap at 9:30pm, 3 caps at 11pm orally 3 times a day; 30 days galcanezumab-gnlm (Emgality Pen) 120 mg subcut ONCE 30 days insulin degludec (Tresiba FlexTouch U-100 insulin) 20 units (0.2 mL) subcut BEDTIME 30 days lancets (FreeStyle Lancets) Use to check blood sugar daily lisinopril 2.5 mg PO DAILY 90 days magnesium oxide 400 mg PO BEDTIME 30 days meloxicam 7.5 mg PO BID PRN 30 days metformin 1,000 mg PO BID 90 days naproxen 500 mg PO BID omeprazole 40 mg PO DAILY 90 days pen needle, diabetic (BD Ultra-Fine Emily Pen Needle) Use to inject insulin daily riboflavin (vitamin B2) 400 mg PO DAILY 30 days sertraline 200 mg (2 x 100 mg) PO DAILY sumatriptan succinate 100 mg PO Q2H PRN 21 days trazodone 100 mg PO BEDTIME 30 days trazodone 25 mg (1/2 x 50 mg) PO BEDTIME 30 days Tobacco use date assessed: 08/15/23 Dental Screening Dental Screen Date: 08/15/23 Did you have a dental visit in the last 12 months?: No Did you have a dental problem in the last 6 months where you did not have access to dental care?: No Was dental information given to patient?: No HPI 3 Month F/Up HPI Details Pt is a diabetic, on an NELLY and a statin. A1C in office today is 9.4. Microalbumin is up to date. Denies polyuria, polydipsia, does report neuropathy. Pt denies any signs and symptoms of hypoglycemia and does know how to correct it. Will increase tresiba from 12 units to 20 units. Pt reports intermittent chest discomfort. Will do an EKG in office today. Pt is following up with neurology and rheumatology. [facility] Medical History HLA B27 (HLA B27 positive) Retention of urine, unspecified UTI (urinary tract infection) Sacroiliitis Knee pain, bilateral Surgical History S/P gastric sleeve procedure Hx of cholecystectomy Family History Father HTN (hypertension) Diabetes Mother HTN (hypertension) Diabetes HLD (hyperlipidemia) Maternal Grandfather Substance use disorder Maternal Grandmother Diabetes Substance use disorder Maternal Uncle Substance use disorder Mental health disorder Paternal Grandmother Substance use disorder Social History Housing: House Alcohol intake: never Patient Tobacco Use Status: Never used Tobacco e-Cigarette/Vaping Use: Never Used Second Hand Smoke Exposure: No service: No Current occupational status: unemployed Cognitive needs: No Hearing needs: No Vision needs: No Questionnaire Thrive Questionnaire Date Thrive assessed: 07/12/22 Review of Systems Const Reports as per HPI Physical exam (Primary Care) Vital Signs: Last Vital Signs Pulse 88 08/15/23 13:18 BP 142/88 H 08/15/23 13:18 Pulse Ox 95 08/15/23 13:18 Oxygen Delivery Method Room Air 08/15/23 13:18 BMI result Body Mass Index 56.6 Tobacco/Smoking Status: Tobacco use Status Tobacco use date assessed 08/15/23 08/15/23 13:25 Patient Tobacco Use Status Never used Tobacco 08/15/23 13:25 e-Cigarette/Vaping Use Never Used 08/15/23 13:25 Thrive Assessment: Date of Thrive Assessment Date Thrive assessed 07/12/22 08/15/23 13:25 Const General: cooperative Nutritional Appearance: obese morbidly obese Orientation/consciousness: patient oriented x3 Resp Effort & Inspection: normal respiratory effort Auscultation: clear to auscultation bilaterally Cardio Rate: regular rate Rhythm: regular rhythm Heart sounds: S1 normal heart sound present and S2 normal heart sound present Neuro General: patient oriented x3 Extrem Other: bilat feet: minimal sensation with use of monofilament to right foot, + sensation to left foot Psych Appearance: grossly normal Mental Status: mental status grossly normal Affect: normal affect Attitude: cooperative Thought process: Normal thought process present Thought content: Normal thought content present Insight: Good insight present (Psych) Judgement: Good judgement present (Psych) Results AMB Hemoglobin A1c AMB Hemoglobin A1c 9.4 % Last Edit by Ara Patel CMA on 08/15/23 14:14 Results Reviewed Results Reviewed: Laboratory Last Values Hgb A1c (Clinic) 9.4 % (4.0-6.0) H 08/15/23 14:12 Assessment and Plan Assessment & Plan (1) Diabetes: Code(s): E11.9 - Type 2 diabetes mellitus without complications Plan The patient agreed to the use of a director medical science for this encounter. Scribed for CESILIA Ramírez by Estelita Laurent director medical science, on 08/15/2023 at 13:35 EST Orders: Orders AMB Hemoglobin A1c Today E11.9 - Type 2 diabetes mellitus without complications Medications: Changed From insulin degludec (Tresiba FlexTouch U-100 insulin) 12 units (0.12 mL) subcut BEDTIME 15 mL 1RF To insulin degludec (Tresiba FlexTouch U-100 insulin) 20 units (0.2 mL) subcut BEDTIME 6 mL 1RF 30 days Refilled FreeStyle Josais 2 Sensor (flash glucose sensor) tid 1 ea 0RF NS E11.9 - Type 2 diabetes mellitus without complications FreeStyle Josias 2 Rheems (flash glucose scanning reader) tid 1 ea 0RF NS E11.9 - Type 2 diabetes mellitus without complications Coding Level of Care Code Est Pt Level 3 (96569) Diagnoses Diabetes E11.9
== END 2023-08-15 14:37 | disposition home or self-care (01) ==
PROVIDERS: PCP Nurse Practitioner Family; Visit Provider Nurse Practitioner Family
DX: E11.9 Type 2 diabetes mellitus without complications (principal)
CPT/HCPCS: 83036; 99213

== ENCOUNTER 2023-09-16 16:03 | Emergency (ER) | payer OTHER, SELFPAY ==
--- NOTE | ~2023-09-16 | CT_ITS ---
EXAMINATION: CT ABDOMEN AND PELVIS WITH CONTRAST CLINICAL INFORMATION: Abdominal pain. Nausea and vomiting. COMPARISON: CT scan abdomen pelvis August 08, 2017 TECHNIQUE: Multidetector volumetric images were obtained from the superior aspect of the liver through the pubic symphysis following administration 85 mL of Omnipaque 350 intravenous contrast. Sagittal and coronal reformatted images were obtained on the technologist's workstation. Oral contrast: No This CT examination was performed using dose optimization techniques as appropriate, variously including the following: *Automated exposure control *Adjustment of mA and/or kV according to patient size (this includes techniques or standardized protocols for targeted exams where dose is matched to indication/reason for exam; i.e. extremities or head) *Use of iterative reconstruction technique DLP: 1498 mGy-cm FINDINGS: LUNG BASES: The visualized lung bases are unremarkable. LIVER, GALLBLADDER, AND BILIARY TREE: Diffuse low attenuation of liver parenchyma due to fatty change. No focal liver lesion or intrahepatic bile duct dilatation. The liver is enlarged. Right lobe of liver measures 25 cm superior inferior. Status post cholecystectomy. No calcified stone in the bile ducts. PANCREAS: Unremarkable. SPLEEN: Unremarkable. ADRENAL GLANDS: Unremarkable. KIDNEYS AND URETERS: The kidneys are normal in size, shape, and attenuation. No hydronephrosis, hydroureter, or calculi seen. No perinephric stranding. BLADDER: Unremarkable. GASTROINTESTINAL TRACT: Status post gastric surgery. No acute change of bowel. No bowel obstruction. No bowel wall thickening or edema. Moderate volume of stool in colon. The appendix is not visualized. There are no inflammatory changes of the mesentery. ABDOMINAL WALL: No significant hernia is appreciated. LYMPH NODES: Normal. VASCULAR: Unremarkable. PELVIC VISCERA: Unremarkable. OSSEOUS STRUCTURES: Unremarkable. CT/CT abdomen pelvis w IV con IMPRESSION: 1. No acute abnormality CT scan abdomen pelvis. 2. Hepatomegaly. Diffuse fatty change of liver. 3. Status post cholecystectomy. 4. Status post gastric surgery. No acute abnormality of the bowel. Fleischner guidelines were followed.
--- NOTE | ~2023-09-16 | US_ITS ---
EXAMINATION: US ABDOMEN LIMITED CLINICAL INFORMATION: Right upper quadrant tenderness. COMPARISON: 05/20/2023 CT scan TECHNIQUE: Real-time imaging of the right upper quadrant abdominal viscera. Examination is limited due to the patient's body habitus FINDINGS: PANCREAS: Obscured by overlying bowel gas LIVER: Limited evaluation due to diffusely increased echotexture and attenuation of sound beam likely related to underlying diffuse fatty infiltration. No focal hepatic lesion. There is no visible intrahepatic biliary duct dilatation seen. GALLBLADDER: Status post cholecystectomy. COMMON BILE DUCT: Not well delineated although there is a small 0.4 cm probable portion visualized RIGHT KIDNEY: Normal. No hydronephrosis. No renal calculi or focal parenchymal lesions. The kidney measures 11.8 cm in maximum dimension. FREE FLUID: None. US/US abdomen limited IMPRESSION: Limited examination due to the patient's body habitus and overlying bowel gas. Diffuse fatty infiltration of the liver.
[2023-09-16 16:20] VITALS: BP 171/107; PULSE 124; RESP 18; TEMP 36; O2SAT 97; BMI 58.1
--- NOTE | 2023-09-16 16:21 | ED_ITS ---
HPI - General Adult General Chief complaint: Abdominal Pain Stated complaint: Parkinson's, stomach pain, unable to eat Time Seen by Provider: 09/16/23 18:19 Source: patient Mode of arrival: ambulatory Limitations: no limitations History of Present Illness HPI narrative: Patient is a 53 year old assigned female at with a history of parkinsons, IBS, and DM presenting to the emergency department today with nausea, vomiting, and inability to eat for 3 weeks. Patient states that over the last 3 weeks she has had abdominal pain, nausea, vomiting, and has not been able to tolerate any solid foods. Patient denies any dizziness, lightheadedness, fever, chills, blurry vision, double vision, loss of vision, chest pain, difficulty breathing, shortness of breath, back pain, night sweats, pain with urination, increased urinary frequency, increased urinary urgency, blood in her urine or stool, syncope or a near syncopal episode, recent trauma or falls, bowel incontinence, bladder incontinence, bowel retention, bladder retention, or any other complaints at this time. Onset (ago): week(s) (3) Location: abdomen Radiation: non-radiation Severity: mild Severity scale (1-10): 4 Quality: aching and dull Pain Consistency: constant Relieving factors: none Exacerbating factors: none Associated symptoms: nausea/vomiting Treatments prior to arrival: none Related Data Home Medications Medication Instructions Recorded Confirmed naproxen 500 mg tablet 500 mg PO BID 05/16/23 08/15/23 Previous Rx's Medication Instructions Recorded alcohol swabs (CareTouch Alcohol 1 pad topical DAILY #100 ea 02/15/22 Prep Pad topical pads) blood-glucose meter (FreeStyle #1 ea 02/15/22 Lite Meter kit) magnesium oxide 400 mg (241.3 mg 400 mg PO BEDTIME 30 days #30 tabs 04/29/22 magnesium) tablet riboflavin (vitamin B2) 400 mg 400 mg PO DAILY 30 days #30 tabs 04/29/22 tablet sumatriptan succinate 100 mg tablet 100 mg PO Q2H PRN migraine 04/29/22 headache 21 days #12 tabs 4 wheeled walker with seat #1 ea 05/18/22 lancets 28 gauge (FreeStyle #100 ea 06/01/22 Lancets) ferrous sulfate 325 mg (65 mg 325 mg PO TID 90 days #270 tabs 08/05/22 iron) tablet cholecalciferol (vitamin D3) 50 50 mcg PO DAILY 90 days #90 caps 11/07/22 mcg (2,000 unit) capsule pen needle, diabetic 32 gauge x #100 ea 03/17/23 (BD Ultra-Fine Emily Pen Needle) aspirin 81 mg chewable tablet 81 mg PO DAILY 90 days #90 tabs 04/03/23 lisinopril 2.5 mg tablet 2.5 mg PO DAILY 90 days #90 tabs 04/03/23 metformin 1,000 mg tablet 1,000 mg PO BID 90 days #180 tabs 04/03/23 omeprazole 40 mg capsule,delayed 40 mg PO DAILY 90 days #90 caps 04/03/23 release atorvastatin 40 mg tablet 40 mg PO DAILY 90 days #90 tabs 04/20/23 blood sugar diagnostic (FreeStyle #100 ea 05/08/23 Lite Strips) dulaglutide 3 mg/0.5 mL 3 mg (0.5 mL) subcut QWEEK 30 days 05/12/23 subcutaneous pen injector #2.5 mL carbidopa 25 mg-levodopa 100 mg 1 tab PO QID 30 days #120 tabs 06/06/23 tablet amitriptyline 25 mg tablet 25 mg PO BEDTIME migraine 06/14/23 prevention 30 days #30 tabs gabapentin 100 mg capsule See Rx Instructions PO TID 30 days 06/27/23 #150 caps adalimumab 40 mg/0.4 mL See Rx Instructions subcut 06/28/23 subcutaneous pen kit (Humira(CF) .COMPLEX #2 ea Pen) galcanezumab-gnlm 120 mg/mL 120 mg subcut ONCE 30 days #1 mL 07/01/23 subcutaneous pen injector (Emgality Pen) sertraline 100 mg tablet 200 mg (2 x 100 mg) PO DAILY #180 08/09/23 tabs trazodone 100 mg tablet 100 mg PO BEDTIME 30 days #30 tabs 08/09/23 trazodone 50 mg tablet 25 mg (1/2 x 50 mg) PO BEDTIME 30 08/09/23 days #15 tabs FreeStyle Josias 2 Sensor (flash #1 ea 08/15/23 glucose sensor) insulin degludec 100 unit/mL (3 20 unit (0.2 mL) subcut BEDTIME 30 10/02/23 mL) subcutaneous pen (Tresiba days #6 mL FlexTouch U-100 insulin) FreeStyle Josias 2 [place] (flash #1 ea 08/18/23 glucose scanning reader) meloxicam 7.5 mg tablet 7.5 mg PO BID PRN pain 30 days #60 09/14/23 tabs cefuroxime axetil 250 mg tablet 250 mg PO BID 7 days #14 tabs 09/17/23 ondansetron 4 mg disintegrating 4 mg PO Q8H 3 days #9 tabs 09/17/23 tablet Allergies Allergy/AdvReac Type Severity Reaction Status Date / Time No Known Allergies Allergy Verified 09/16/23 16:25 Review of Systems 2 Constitutional: Constitutional: Reports no additional constitutional complaints, Denies chills, Denies fever(s) and Denies night sweats Eyes: Eyes: Reports no additional eye complaints, Denies blurry vision, Denies change in vision, Denies diplopia, Denies eye discharge, Denies loss of vision and Denies eye pain ENT: Denies dizziness Cardiovascular: Cardiovascular: Reports no additional cardiovascular complaints, Denies chest pain, Denies lightheadedness, Denies Loss of Consciousness and Denies dyspnea Respiratory: Respiratory: Reports no additional respiratory complaints and Denies dyspnea Gastrointestinal: Gastrointestinal: Reports no additional gastrointestinal complaints, Reports abdominal pain, Denies melena, Denies hematochezia, Denies change in bowel habits, Denies change in stool character, Reports nausea and Reports vomiting Genitourinary: Genitourinary: Denies hematuria, Denies urinary frequency, Denies dysuria, Denies urinary incontinence, Denies urinary hesitancy and Denies urinary urgency Musculoskeletal: Musculoskeletal: Reports no additional musculoskeletal complaints, Denies numbness and Denies tingling Neurologic: Denies dizziness, Denies loss of vision, Denies numbness and Denies tingling Psychiatric: Psychiatric: Reports no additional psychiatric complaints Endocrine: Endocrine: Reports no additional endocrine complaints Hematologic/Lymphatic: Hematologic/Lymphatic: Reports no additional hematologic/lymphatic complaints Allergic/Immunologic: Allergic/Immunologic: Reports no additional allergic/immunologic complaints PMFSH Past Medical History Attestation statement: The following information was validated with the patient. Source: old records reviewed and nursing notes reviewed Medical History HLA B27 (HLA B27 positive) Retention of urine, unspecified UTI (urinary tract infection) Sacroiliitis Knee pain, bilateral Surgical History S/P gastric sleeve procedure Hx of cholecystectomy Family History Family History Father HTN (hypertension) Diabetes Mother HTN (hypertension) Diabetes HLD (hyperlipidemia) Maternal Grandfather Substance use disorder Maternal Grandmother Diabetes Substance use disorder Maternal Uncle Substance use disorder Mental health disorder Paternal Grandmother Substance use disorder Social History Social History Housing: House Alcohol intake: never Patient Tobacco Use Status: Never used Tobacco e-Cigarette/Vaping Use: Never Used Second Hand Smoke Exposure: No Advance Directives: No Advance Directives Information Provided: No service: No Current occupational status: unemployed Cognitive needs: No Hearing needs: No Vision needs: No Physical Exam ED Vital Signs: Vital Signs - 24 hr 09/16/23 16:20 09/16/23 18:10 09/16/23 19:31 Temperature 96.8 F 98.2 F Pulse Rate 124 H 104 H 104 H Respiratory Rate 18 14 14 Blood Pressure 171/107 H 134/88 134/79 Pulse Oximetry 97 95 96 Oxygen Delivery Method Room Air Room Air 09/16/23 21:55 Temperature 98.2 F Pulse Rate 109 H Respiratory Rate 28 H Blood Pressure 147/89 H Pulse Oximetry 97 Oxygen Delivery Method Room Air BMI result Body Mass Index 58.1 Const General: cooperative, no acute distress, alert and awake Nutritional Appearance: obese morbidly obese Orientation/consciousness: patient oriented x3 Limitations: no limitations HENMT Head: Yes normal to inspection and Yes atraumatic Ears: hearing grossly normal bilaterally and external ears normal General nose exam: Normal external nose present, no nasal discharge noted and no epistaxis Face and sinus: Yes normal facial exam, No abrasion and No laceration Mouth: Normal oral and palatal mucosa present, no drooling and no muffled voice Eyes General: appearance normal, both eyes and all related structures Periorbital: periorbital findings normal Eyelids: Yes eyelids normal Conjunctivae: conjunctivae normal Pupils: Equal, round and reactive pupils present EOM: EOMs intact bilaterally Neck Neck: Yes normal visual inspection, Yes full ROM and Yes no lymphadenopathy Chest Chest palpation & inspection: normal inspection of the chest Resp Effort & Inspection: normal respiratory effort and able to speak in complete sentences GI Inspection: Yes normal to inspection Palpation (GI): Soft to palpation, not firm, nontender and no guarding Neuro General: patient oriented x3 and moves all extremities Cranial nerves: Yes Equal, round and reactive pupils present Cognition (Neuro): normal cognition Motor exam (neuro): 5/5 motor strength present throughout Sensory Exam: Normal double simultaneous stimulation for sensation Coordination: [id number] test normal Extrem General: Yes normal to inspection, Yes full ROM and Yes capillary refill normal Psych Appearance: grossly normal Mental Status: mental status grossly normal Affect: normal affect Attitude: cooperative Thought process: Normal thought process present Thought content: Normal thought content present Insight: Good insight present (Psych) Course Course Course Narrative: This is a rapid medical exam: Additional HPI, ROS, PE not included below will be deferred to primary provider. Patient is a 53-year-old female with history of DM, Parkinson's, IBS presenting to the emergency department with complaint of ongoing right upper quadrant abdominal pain radiating to epigastric area. Also reports nausea, vomiting, and diarrhea. Patient very tearful in triage. Patient and state that patient has had the pain for over a year, and has previously had an ultrasound but were told nothing abnormal was found. Patient states she has told all of her doctors about her symptoms but that they're not doing anything. States she has become so weak that she was unable to get out of bed to go to the bathroom today and urinated on herself. Plan: labs, UA, RUQ U/S Medications Administered Discontinued Medications Generic Name Dose Route Start Last Admin Trade Name Freq PRN Reason Stop Dose Admin Al Hydroxide/Mg Hydroxide 15 ml 09/16/23 21:17 09/16/23 22:08 Magnesium Hydrox/Alum Hydrox 30 Ml Oral.Susp PO 09/16/23 21:18 15 ml ONCE ONE Administration Potassium Chloride 10 meq in 100 mls @ 100 mls/hr 09/16/23 18:30 09/16/23 23:59 Potassium Chloride/H20 IV 09/16/23 22:29 100 mls/hr Q1H RABIA Administration Ceftriaxone Sodium 1 gm/ 50 mls @ 100 mls/hr 09/17/23 00:21 09/17/23 01:36 Sodium Chloride IV 09/17/23 00:50 100 mls/hr ONCE ONE Administration Iohexol 100 ml 09/16/23 19:19 09/16/23 19:20 Iohexol 350 Mg/Ml 100 Ml Infus..Btl IV 09/16/23 19:20 85 ml ONCE ONE Administration Morphine Sulfate 4 mg 09/16/23 18:31 09/16/23 18:45 Morphine Sulfate 4 Mg/Ml Cartridge IVPUSH 09/16/23 18:32 4 mg ONCE ONE Administration Protocol Ondansetron HCl 4 mg 09/16/23 18:21 09/16/23 18:45 Ondansetron Hcl 4 Mg/2 Ml Vial IVPUSH 09/16/23 18:22 4 mg ONCE ONE Administration Pantoprazole Sodium 40 mg 09/16/23 21:17 09/16/23 22:08 Pantoprazole Sodium 40 Mg/10 Ml Vial IVPUSH 09/16/23 21:18 40 mg ONCE ONE Administration Medical Decision Making Medical Decision Making [facility] Narrative: Patient is a 53 year old assigned female at with a history of parkinsons, IBS, and DM presenting to the emergency department today with nausea, vomiting, and abdominal pain. Patient's physical exam was unremarkable. Patient's blood work showed a decreased potassium of 2.8. Patient's urine showed an acute UTI. Patient's EKG was unremarkable. Patient's abdominal US and abdomen / pelvis CT with IV contrast showed no acute process. I explained my physical exam findings as well as all test results to the patient. I answered all questions asked by the patient. Patient received pain medication, antiemetic medication, and IV potassium which she stated helped her symptoms significantly. Patient was able to tolerate solids PO as well as liquids. Patient's CMP was repeated and her potassium improved to 3.1. Patient's clinical presentation is most consistent with IBS, UTI, and hypokalemia. Patient's clinical presentation is not consistent with sepsis (@0145). I stressed the importance of the patient taking her medication as prescribed. I stressed the importance of the patient following up with her primary care provider and a GI specialist. I stressed the importance of the patient returning to the emergency department immediately if her symptoms were to worsen or if she were to develop any dizziness, shortness of breath, difficulty breathing, chest pain, blurry vision, loss of vision, nausea, vomiting, abdominal pain, fever, chills, back pain, or any other complaints. Patient verbalized agreement and understanding with this treatment plan and discharge. Differential Diagnosis Differential Diagnoses: The differential diagnosis associated with the presentation includes Hypokalemia Nausea Vomiting Viral illness IBS UTI Admission/Observation Consideration of admission/observation: Escalation of care including admission/observation considered Patient would have been admitted to the hospital had her work up had any findings where hospital admission was appropriate and her clinical presentation warranted hospital admission. Lab Data [facility] Lab Attestation statement: I reviewed the patient's lab results. My interpretation of these results are in the [facility] Rationale portion of this note. 09/16/23 16:49 09/17/23 01:31 Labs: Lab Results 09/16/23 09/16/23 09/17/23 Range/Units 16:49 23:45 01:31 WBC 9.9 (4.8-10.8) X10*3/uL RBC 5.57 H (4.20-5.50) X10*6/uL Hgb 14.1 (12.0-16.0) g/dl Hct 43.6 (37.0-47.0) % MCV 78.3 L (80.0-98.0) fL MCH 25.3 L (27.0-33.0) pg MCHC 32.3 (31.0-35.0) g/dl RDW 13.7 (11.0-16.0) % Plt Count 526 H D (160-400) X10*3/uL MPV 11.1 (9.4-12.3) fL Immature Gran % (Auto) 0.6 H (0.0-0.4) % Neut % (Auto) 65.2 (45-73) % Lymph % (Auto) 25.1 (20-40) % [place] % (Auto) 7.7 (2-11) % Eos % (Auto) 0.6 (0-4) % Baso % (Auto) 0.8 (0-2) % Lymph # (Auto) 2.5 (1.2-4.9) X10*3/uL [place] # (Auto) 0.8 (0.1-1.2) X10*3/uL Eos # (Auto) 0.1 (0.0-0.4) X10*3/uL Baso # (Auto) 0.1 (0.0-0.2) X10*3/uL Abs Immat Gran (auto) 0.06 H (0.00-0.03) X10*3/uL Absolute Neuts (auto) 6.4 (2.0-8.3) x10*3/uL Absolute Nucleated RBC 0.000 (0.0-0.012) X10*3/uL Nucleated RBC % (auto) 0.0 (0.0-0.2) /100WBC Sodium 136 136 (135-145) mmol/L Potassium 2.8 L D 3.1 L (3.3-5.1) mmol/L Chloride 96 99 (96-108) mmol/L Carbon Dioxide 25 23 (22-29) mmol/L Anion Gap 18 17 (12-20) BUN 10 9 (9-16) mg/dL Creatinine 1.03 0.86 (0.5-1.4) mg/dL Estim Creat Clear Calc 99.5 119.1 Estimated GFR 56 > 60 Random Glucose 273 H 252 H (60-115) mg/dL Calcium 9.4 D 8.5 D (8.4-10.2) mg/dL Total Bilirubin 0.5 0.5 (0.0-1.0) mg/dL AST 18 16 (5-31) U/L ALT 18 15 (0-31) U/L Alkaline Phosphatase 77 66 (39-117) U/L Total Protein 8.9 H 7.6 (6.5-8.0) g/dL Albumin 3.9 3.4 L (3.5-5.0) g/dL Urine Color Yellow Urine Appearance Clear Urine pH 6.0 (5.0-9.0) Ur Specific [place] >= 1.030 H (1.005-1.025) Urine Protein 30 (1+) H (Neg-Trace) mg/dL Urine Glucose (UA) 100 H (Negative) mg/dL Urine Ketones 15 (Negative) mg/dL Urine Blood Negative (Negative) Urine Nitrite Negative (Negative) Ur Leukocyte Esterase Small (1+) H (Negative) Urine RBC 0-2 (0-2) /HPF Urine WBC 21-50 (0-5) /HPF Ur Squamous Epith Cells 3-5 (0-2) /HPF Urine Bacteria 3+ (None Seen) Hyaline Casts 6-10 (0-2) /LPF Independent Interpretation I performed an independent interpretation of an: EKG, Ultrasound and CT Scan Interpretation: My interpretation is in agreement with the radiologist's impression of these imaging studies. - EXAMINATION: US ABDOMEN LIMITED CLINICAL INFORMATION: Right upper quadrant tenderness. COMPARISON: 05/20/2023 CT scan TECHNIQUE: Real-time imaging of the right upper quadrant abdominal viscera. Examination is limited due to the patient's body habitus FINDINGS: PANCREAS: Obscured by overlying bowel gas LIVER: Limited evaluation due to diffusely increased echotexture and attenuation of sound beam likely related to underlying diffuse fatty infiltration. No focal hepatic lesion. There is no visible intrahepatic biliary duct dilatation seen. GALLBLADDER: Status post cholecystectomy. COMMON BILE DUCT: Not well delineated although there is a small 0.4 cm probable portion visualized RIGHT KIDNEY: Normal. No hydronephrosis. No renal calculi or focal parenchymal lesions. The kidney measures 11.8 cm in maximum dimension. FREE FLUID: None. US/US abdomen limited IMPRESSION: Limited examination due to the patient's body habitus and overlying bowel gas. Diffuse fatty infiltration of the liver. Dictated By: Dylan Allen MD Signed By: Electronically signed by Dylan Allen MD 09/16/23 4425 - EXAMINATION: CT ABDOMEN AND PELVIS WITH CONTRAST CLINICAL INFORMATION: Abdominal pain. Nausea and vomiting. COMPARISON: CT scan abdomen pelvis August 08, 2017 TECHNIQUE: Multidetector volumetric images were obtained from the superior aspect of the liver through the pubic symphysis following administration 85 mL of Omnipaque 350 intravenous contrast. Sagittal and coronal reformatted images were obtained on the technologist's workstation. Oral contrast: No This CT examination was performed using dose optimization techniques as appropriate, variously including the following: *Automated exposure control *Adjustment of mA and/or kV according to patient size (this includes techniques or standardized protocols for targeted exams where dose is matched to indication/reason for exam; i.e. extremities or head) *Use of iterative reconstruction technique DLP: 1498 mGy-cm FINDINGS: LUNG BASES: The visualized lung bases are unremarkable. LIVER, GALLBLADDER, AND BILIARY TREE: Diffuse low attenuation of liver parenchyma due to fatty change. No focal liver lesion or intrahepatic bile duct dilatation. The liver is enlarged. Right lobe of liver measures 25 cm superior inferior. Status post cholecystectomy. No calcified stone in the bile ducts. PANCREAS: Unremarkable. SPLEEN: Unremarkable. ADRENAL GLANDS: Unremarkable. KIDNEYS AND URETERS: The kidneys are normal in size, shape, and attenuation. No hydronephrosis, hydroureter, or calculi seen. No perinephric stranding. BLADDER: Unremarkable. GASTROINTESTINAL TRACT: Status post gastric surgery. No acute change of bowel. No bowel obstruction. No bowel wall thickening or edema. Moderate volume of stool in colon. The appendix is not visualized. There are no inflammatory changes of the mesentery. ABDOMINAL WALL: No significant hernia is appreciated. LYMPH NODES: Normal. VASCULAR: Unremarkable. PELVIC VISCERA: Unremarkable. OSSEOUS STRUCTURES: Unremarkable. CT/CT abdomen pelvis w IV con IMPRESSION: 1. No acute abnormality CT scan abdomen pelvis. 2. Hepatomegaly. Diffuse fatty change of liver. 3. Status post cholecystectomy. 4. Status post gastric surgery. No acute abnormality of the bowel. Fleischner guidelines were followed. Dictated By: Emeterio Cox MD Signed By: Electronically signed by Emeterio Cox MD 09/16/231958 - Vent. Rate: 104 BPM Atrial Rate: 104 BPM P-R Int: 140 ms QRS Dur: 088 ms QT Int: 328 ms P-R-T Axes: 000 -33 -53 degrees QTc Int: 431 ms Sinus tachycardia Left axis deviation Left ventricular hypertrophy with repolarization abnormality ( Rick product ) Abnormal ECG When compared with ECG of 04-MAR-2020 12:36, ST now depressed in Anterior leads DD/ 1805 Radiology Impression Discussion of test interpretation with radiology: I have reviewed the radiologist's reading. Prescription Management I considered prescription management with: Antibiotic (patient prescribed an antibiotic for her UTI) Chronic Conditions Patient?s care impacted by: Diabetes and Other (IBS, parkinsons) Critical Care Time Critical Care Time Critical Care Time: Yes Total Critical Care Time: 60 Attestation: I spent 60 minutes of Critical Care Time with this patient. This does not include time spent on separately reported billable procedures. Discharge Plan Discharge Clinical Impression: Acute hypokalemia, Urinary tract infection Patient Disposition: Home, Self-Care Instructions: Urinary Tract Infection in Women (DC), Potassium Content of Foods List (ED), Hypokalemia (ED) Additional Instructions: Follow up with your primary care provider and a GI specialist. Return to the emergency department immediately if your symptoms worsen or if you develop any dizziness, shortness of breath, difficulty breathing, chest pain, blurry vision, loss of vision, nausea, vomiting, abdominal pain, fever, chills, back pain, or any other complaints. Prescriptions: New cefuroxime axetil 250 mg tablet 250 mg PO BID 7 Days Qty: 14 0RF ondansetron 4 mg tablet,disintegrating 4 mg PO Q8H 3 Days Qty: 9 0RF No Action (DME) blood-glucose meter [FreeStyle Lite Meter] Kit See Rx Instructions .Route Qty: 1 0RF Rx Instructions: Use to check blood sugar daily alcohol swabs [CareTouch Alcohol Prep Pad] Pads, Medicated 1 pad topical DAILY Qty: 100 0RF Rx Instructions: Use to cleanse finger tip prior to checking blood sugar (DME) 4 wheeled walker with seat See Rx Instructions .Route .MEDSUPPLY Qty: 1 0RF Rx Instructions: daily use (DME) lancets [FreeStyle Lancets] 28 gauge misc See Rx Instructions .Route Qty: 100 0RF Rx Instructions: Use to check blood sugar daily ferrous sulfate 325 mg (65 mg iron) tablet 325 mg PO TID 90 Days Qty: 270 0RF cholecalciferol (vitamin D3) 50 mcg (2,000 unit) capsule 50 mcg PO DAILY 90 Days Qty: 90 0RF (DME) pen needle, diabetic [BD Ultra-Fine Emily Pen Needle] 32 gauge x 5/32 needle See Rx Instructions .Route Qty: 100 1RF Rx Instructions: Use to inject insulin daily metformin 1,000 mg tablet 1,000 mg PO BID 90 Days Qty: 180 1RF aspirin 81 mg tablet,chewable 81 mg PO DAILY 90 Days Qty: 90 1RF lisinopril 2.5 mg tablet 2.5 mg PO DAILY 90 Days Qty: 90 1RF omeprazole 40 mg capsule,delayed release(DR/EC) 40 mg PO DAILY 90 Days Qty: 90 1RF atorvastatin 40 mg tablet 40 mg PO DAILY 90 Days Qty: 90 1RF (DME) FreeStyle Lite Strips Strip See Rx Instructions .Route Qty: 100 1RF Rx Instructions: Use to check blood sugar daily carbidopa-levodopa 25-100 mg tablet 1 tab PO QID 30 Days Qty: 120 4RF Rx Instructions: take w/ a cracker 30 minutes before meals, amitriptyline 25 mg tablet 25 mg PO BEDTIME 30 Days Qty: 30 6RF gabapentin 100 mg capsule See Rx Instructions PO TID 30 Days Qty: 150 6RF Rx Instructions: 1 cap at 8pm, 1 cap at 9:30pm, 3 caps at 11pm orally 3 times a day; Humira(CF) Pen 40 mg/0.4 mL pen injector kit See Rx Instructions subcut .COMPLEX Qty: 2 2RF Rx Instructions: inject one - 40 mg/0.4 mL pen every 2 weeks subcut Emgality Pen 120 mg/mL pen injector 120 mg subcut ONCE 30 Days Qty: 1 6RF sertraline 100 mg tablet 200 mg PO DAILY Qty: 180 1RF trazodone 100 mg tablet 100 mg PO BEDTIME 30 Days Qty: 30 3RF Rx Instructions: take w/ 25mg to total 125mg qhs trazodone 50 mg tablet 25 mg PO BEDTIME 30 Days Qty: 15 3RF Rx Instructions: take w/ 100mg = 125mg qhs (DME) FreeStyle Josias 2 [place] Misc See Rx Instructions .Route Qty: 1 0RF Rx Instructions: Test blood sugars 4 times per day meloxicam 7.5 mg tablet 7.5 mg PO BID PRN (Reason: pain) 30 Days Qty: 60 0RF Rx Instructions: not to take concurrently with Naproxen. Use med sparingly dulaglutide 3 mg/0.5 mL pen injector 3 mg subcut QWEEK 30 Days Qty: 2.5 0RF insulin degludec [Tresiba FlexTouch U-100] 100 unit/mL (3 mL) insulin pen 20 unit subcut BEDTIME 30 Days Qty: 6 1RF (DME) FreeStyle Josias 2 Sensor Kit See Rx Instructions .Route Qty: 1 0RF Rx Instructions: tid magnesium oxide 400 mg (241.3 mg magnesium) tablet 400 mg PO BEDTIME 30 Days Qty: 30 6RF Rx Instructions: may hold for loose stools riboflavin (vitamin B2) 400 mg tablet 400 mg PO DAILY 30 Days Qty: 30 6RF sumatriptan succinate 100 mg tablet 100 mg PO Q2H PRN (Reason: migraine headache) 21 Days Qty: 12 6RF Rx Instructions: max 2 tabs per day or 4 tabs per week, may take with Ibuprofen naproxen 500 mg tablet 500 mg PO BID Referrals: [facility] [place] [facility] [Provider Group] (Call to establish and follow up with a GI specialist. ) Omer Pérez, SUPERVISOR [employer] [Primary Care Provider] - Print Language: Uzbek
[2023-09-16 16:55] LABS: MANUAL DIFF FLAG NO
[2023-09-16 17:00] LABS: Basophils Absolute Auto 0.1 X10*3/uL (0.0-0.2); Basophils Percent Auto 0.8 % (0-2); Eosinophils Absolute Auto 0.1 X10*3/uL (0.0-0.4); Eosinophils Percent Auto 0.6 % (0-4); Hematocrit 43.6 % (37.0-47.0); Hemoglobin 14.1 g/dl (12.0-16.0); Imm Gran Abs Auto 0.06 X10*3/uL (0.00-0.03); Imm Gran Pct Auto 0.6 % (0.0-0.4); Lymphocytes Absolute Auto 2.5 X10*3/uL (1.2-4.9); Lymphocytes Percent Auto 25.1 % (20-40); Mean Corpuscular HGB Conc 32.3 g/dl (31.0-35.0); Mean Corpuscular Hemoglobin 25.3 pg (27.0-33.0); Mean Corpuscular Volume 78.3 fL (80.0-98.0); Mean Platelet Volume 11.1 fL (9.4-12.3); Monocytes Absolute Auto 0.8 X10*3/uL (0.1-1.2); Monocytes Percent Auto 7.7 % (2-11); Neutrophils Absolute Auto 6.4 x10*3/uL (2.0-8.3); Neutrophils Percent Auto 65.2 % (45-73); Platelet Count 526 X10*3/uL (160-400); Red Blood Count 5.57 X10*6/uL (4.20-5.50); Red Cell Distribution Width 13.7 % (11.0-16.0); White Blood Count 9.9 X10*3/uL (4.8-10.8)
[2023-09-16 17:16] LABS: Alanine Aminotransferase 18 U/L (0-31); Albumin Level 3.9 g/dL (3.5-5.0); Alkaline Phosphatase 77 U/L (39-117); Anion Gap 18 (12-20); Aspartate Amino Transferase 18 U/L (5-31); Bilirubin Total 0.5 mg/dL (0.0-1.0); Blood Urea Nitrogen 10 mg/dL (9-16); Calcium 9.4 mg/dL (8.4-10.2); Carbon Dioxide 25 mmol/L (22-29); Chloride 96 mmol/L (96-108); Creatinine Clr Calc Pharmacy 99.5; Estimated Glomerular Filt Rate 56; Glucose Random 273 mg/dL (60-115); Potassium 2.8 mmol/L (3.3-5.1); Sodium 136 mmol/L (135-145); Total Protein 8.9 g/dL (6.5-8.0)
--- NOTE | 2023-09-16 17:44 | ECG_ITS ---
Test Reason : WEAKNESS Blood Pressure : / mmHG Vent. Rate : 104 BPM Atrial Rate : 104 BPM P-R Int : 140 ms QRS Dur : 088 ms QT Int : 328 ms P-R-T Axes : 000 -33 -53 degrees QTc Int : 431 ms Sinus tachycardia Left anterior fascicular block Intra-ventricular conduction delay Left ventricular hypertrophy with repolarization abnormality ( Rick product ) Abnormal ECG When compared with ECG of 04-MAR-2020 12:36, Heart rate has increased Nonspecific ST abnormality Lateral leads is new Referred By: Carolina Man Electronically Signed By:NICOLETTE RANDHAWA MD
[2023-09-16 18:10] VITALS: BP 134/88; PULSE 104; RESP 14; O2SAT 95
[2023-09-16] MEDS: ondansetron HCL 4 MG/2 ML VIAL IVPUSH (18:45)
[2023-09-16] MEDS: Morphine Sulfate 4 MG/ML CARTRIDGE IVPUSH (18:45)
[2023-09-16] MEDS: Potassium Chloride/H20 10 MEQ/100 ML PIGGYBACK 100 MEQ IV ×4 (18:46→23:59)
--- NOTE | 2023-09-16 18:52 | PC.NURSE ---
iv established, medicated per the MAR. potassium infusing at this time. call pedersen within reach.
[2023-09-16] MEDS: iohexoL 350 MG/ML 100 ML INFUS..BTL IV (19:20)
[2023-09-16 19:31] VITALS: BP 134/79; PULSE 104; RESP 14; TEMP 36.8; O2SAT 96
--- NOTE | 2023-09-16 19:55 | PC.NURSE ---
Patient reports taking augmentin for bronchitis and developed severe itchines and hives as well as itchy scratchy throat. IV line placed, patient given meds per MAR, ekg complete, VSS, and patient remains on the monitor.
--- NOTE | 2023-09-16 20:08 | PC.NURSE ---
Pt back from CT, 1st bsg of KCL still running
[2023-09-16 21:55] VITALS: BP 147/89; PULSE 109; RESP 28; TEMP 36.8; O2SAT 97
[2023-09-16] MEDS: Magnesium Hydrox/Alum Hydrox 30 ML ORAL.SUSP 15 ML PO (22:08)
[2023-09-16] MEDS: Pantoprazole Sodium 40 MG/10 ML VIAL IVPUSH (22:08)
[2023-09-17 00:03] LABS: Appearance Urine Clear; Color Urine Yellow; Glucose Urine UA 100 mg/dL (Negative); Leukocyte Esterase Urine Small (1+) (Negative); Nitrite Urine Negative (Negative); Specific Gravity - Urine >= 1.030 (1.005-1.025); UMIC TRIGGER UACC YES; Urine Blood Negative (Negative); Urine Ketones 15 mg/dL (Negative); Urine Protein 30 (1+) mg/dL (Neg-Trace)
[2023-09-17 00:17] LABS: Bacteria Urine 3+ (None Seen); RBC Urine 0-2 /HPF (0-2); UACC Culture Trigger YES; WBC Urine 21-50 /HPF (0-5)
[2023-09-17] MEDS: cefTRIAXone sodium 1 GM in 0.9 % Sodium Chloride 50 ML IV (01:36)
[2023-09-17 01:51] LABS: Alanine Aminotransferase 15 U/L (0-31); Albumin Level 3.4 g/dL (3.5-5.0); Alkaline Phosphatase 66 U/L (39-117); Anion Gap 17 (12-20); Aspartate Amino Transferase 16 U/L (5-31); Bilirubin Total 0.5 mg/dL (0.0-1.0); Blood Urea Nitrogen 9 mg/dL (9-16); Calcium 8.5 mg/dL (8.4-10.2); Carbon Dioxide 23 mmol/L (22-29); Chloride 99 mmol/L (96-108); Creatinine Clr Calc Pharmacy 119.1; Estimated Glomerular Filt Rate > 60; Glucose Random 252 mg/dL (60-115); Potassium 3.1 mmol/L (3.3-5.1); Sodium 136 mmol/L (135-145); Total Protein 7.6 g/dL (6.5-8.0)
[2023-09-17 02:19] VITALS: BP 139/79; PULSE 100; RESP 16; TEMP 36.8; O2SAT 95
== END 2023-09-17 02:40 | disposition home or self-care (01) ==
PROVIDERS: Physician Assistant Medical; Registered Nurse Emergency; Emergency Provider Emergency Medicine; PCP Nurse Practitioner Family
DX: G20.A1 Parkinson's disease without dyskinesia, without mention of fluctuations (principal); R10.11 Right upper quadrant pain; R00.0 Tachycardia, unspecified; R11.2 Nausea with vomiting, unspecified; R10.13 Epigastric pain; Z79.899 Other long term (current) drug therapy
CPT/HCPCS: 36415; 74177; 76705; 80053; 81001; 81003; 85025; 87086; 87088; 87186; 93005; 96365; 96366; 96367; 96375; 99285; C9113; J0696; J2270; J2405; Q9967

== ENCOUNTER 2023-09-19 10:32 | Outpatient (AMB) | payer OTHER, SELFPAY ==
--- NOTE | 2023-09-19 10:34 | A.OFFPC_ITS ---
Vital Signs 09/19/23 10:43 BP 120/90 H Blood Pressure Location Rt brachial Position Sitting Pulse 104 H Pulse Source Pulse Oximeter Pulse Oximetry (%) 98 Oxygen Delivery Method Room Air Intake Visit Reasons: ABD pain and gastro Intake Note: Patient here for abdominal pain and Having a hard time eating because it hurts so much, when she went to ed she was advised of potassium being very low. she feels very weak. Allergies No Known Allergies Allergy (Verified 09/19/23 12:14) Medication List - Last Reconciled 09/19/23 by ELENA Avalos- [4 wheeled walker with seat daily use] adalimumab (Humira(CF) Pen) inject one - 40 mg/0.4 mL pen every 2 weeks subcut alcohol swabs (CareTouch Alcohol Prep Pad topical pads) 1 pad topical DAILY amitriptyline 25 mg PO BEDTIME 30 days aspirin 81 mg PO DAILY 90 days atorvastatin 40 mg PO DAILY 90 days carbidopa-levodopa 25-100 mg 1 tab PO QID 30 days cefuroxime axetil 250 mg PO BID 7 days cholecalciferol (vitamin D3) 50 mcg PO DAILY 90 days dulaglutide 3 mg (0.5 mL) subcut QWEEK 30 days ferrous sulfate 325 mg PO TID 90 days FreeStyle Josias 2 [place] (flash glucose scanning reader) Test blood sugars 4 times per day NS FreeStyle Josias 2 Sensor (flash glucose sensor) 4 times a day NS gabapentin 1 cap at 8pm, 1 cap at 9:30pm, 3 caps at 11pm orally 3 times a day; 30 days galcanezumab-gnlm (Emgality Pen) 120 mg subcut ONCE 30 days insulin degludec (Tresiba FlexTouch U-100 insulin) 20 units (0.2 mL) subcut BEDTIME 30 days lancets (FreeStyle Lancets) Use to check blood sugar daily lisinopril 2.5 mg PO DAILY 90 days magnesium oxide 400 mg PO BEDTIME 30 days meloxicam 7.5 mg PO BID PRN 30 days metformin 1,000 mg PO BID 90 days naproxen 500 mg PO BID omeprazole 40 mg PO DAILY 90 days ondansetron 4 mg PO Q8H 3 days pen needle, diabetic (BD Ultra-Fine Emily Pen Needle) Use to inject insulin daily riboflavin (vitamin B2) 400 mg PO DAILY 30 days sertraline 200 mg (2 x 100 mg) PO DAILY sumatriptan succinate 100 mg PO Q2H PRN 21 days trazodone 100 mg PO BEDTIME 30 days trazodone 25 mg (1/2 x 50 mg) PO BEDTIME 30 days Tobacco use date assessed: 08/15/23 HPI ABD pain and gastro HPI Details Pt was seen in the ER on 09/16 c/o abdominal pain, N/V, and inability to eat. Labs showed decreased potassium of 2.8. UA showed acute UTI. EKG was unremarkable. Abdominal US and CT were negative for acute process. Pt was given pain meds, antiemetics, and IV potassium. Pt's potassium improved to 3.1. She was d/c with cefuroxime and zofran. Pt is on a long acting insulin, has difficulty with pricking her finger (parkinsons). She also has weak extremities. WILL SEND SENSOR AND TRANSMITTER. Because of the nausea, ? delayed gastric emptying from use of GLP-1 agonist, will stop this, but will not adjust her tresiba until sugars are witnessed (another reason for the senor). Pt reports that her last bowel movement was diarrhea 3 days ago. Pt is having trouble with her appetite. Encouraged bland diet. referring to Gastro, ? endo PFSH Medical History HLA B27 (HLA B27 positive) Retention of urine, unspecified UTI (urinary tract infection) Sacroiliitis Knee pain, bilateral Surgical History S/P gastric sleeve procedure Hx of cholecystectomy Family History Father HTN (hypertension) Diabetes Mother HTN (hypertension) Diabetes HLD (hyperlipidemia) Maternal Grandfather Substance use disorder Maternal Grandmother Diabetes Substance use disorder Maternal Uncle Substance use disorder Mental health disorder Paternal Grandmother Substance use disorder Social History Housing: House Alcohol intake: never Patient Tobacco Use Status: Never used Tobacco e-Cigarette/Vaping Use: Never Used Second Hand Smoke Exposure: No service: No Current occupational status: unemployed Cognitive needs: No Hearing needs: No Vision needs: No Questionnaire Thrive Questionnaire Date Thrive assessed: 07/12/22 Review of Systems Const Reports as per HPI Physical exam (Primary Care) Vital Signs: Last Vital Signs Pulse 104 H 09/19/23 10:43 BP 120/90 H 09/19/23 10:43 Pulse Ox 98 09/19/23 10:43 Oxygen Delivery Method Room Air 09/19/23 10:43 Tobacco/Smoking Status: Tobacco use Status Tobacco use date assessed 08/15/23 09/19/23 10:37 Patient Tobacco Use Status Never used Tobacco 09/19/23 10:37 e-Cigarette/Vaping Use Never Used 09/19/23 10:37 Thrive Assessment: Date of Thrive Assessment Date Thrive assessed 07/12/22 09/19/23 10:37 Const Other: in a wheelchair General: cooperative Nutritional Appearance: obese morbidly obese Orientation/consciousness: patient oriented x3 Resp Effort & Inspection: normal respiratory effort Auscultation: clear to auscultation bilaterally Cardio Rate: regular rate Rhythm: regular rhythm Heart sounds: S1 normal heart sound present, S2 normal heart sound present and no murmurs GI Other: slightly indurated LLQ, tenderness with palpation (generalized) Neuro General: patient oriented x3 Psych Appearance: grossly normal Mental Status: mental status grossly normal Speech and movement: Normal speech and movement present Affect: normal affect Attitude: cooperative Thought process: Normal thought process present Thought content: Normal thought content present Insight: Good insight present (Psych) Judgement: Good judgement present (Psych) Assessment and Plan Assessment & Plan (1) Parkinsons: Code(s): G20 - Parkinson's disease (2) Nausea & vomiting: Code(s): R11.2 - Nausea with vomiting, unspecified Plan The patient agreed to the use of a certified court/medical interpreter for this encounter. Scribed for CESILIA Ramírez by Estelita Laurent certified court/medical interpreter, on 09/19/2023 at 11:10 EST. Orders: Orders Pancreatic Elastase-1 Today R11.2 - Nausea with vomiting, unspecified H Pylori Breath Test Today R11.2 - Nausea with vomiting, unspecified Referrals Gastroenterology Referral R11.2 - Nausea with vomiting, unspecified Medications: Changed From FreeStyle Josias 2 Sensor (flash glucose sensor) tid 1 ea 0RF NS E11.9 - Type 2 diabetes mellitus without complications, G20 - Parkinson's disease To FreeStyle Josias 2 Sensor (flash glucose sensor) 4 times a day 1 ea 0RF NS E11.9 - Type 2 diabetes mellitus without complications, G20 - Parkinson's disease Coding Level of Care Code Est Pt Level 3 (69867) Diagnoses Parkinsons G20 Nausea & vomiting R11.2
[2023-09-19 10:43] VITALS: BP 120/90; PULSE 104; O2SAT 98
== END 2023-09-19 11:37 | disposition home or self-care (01) ==
LOC: HO.HMGC 10:32
PROVIDERS: PCP Nurse Practitioner Family; Visit Provider Nurse Practitioner Family
DX: G20.A1 Parkinson's disease without dyskinesia, without mention of fluctuations (principal); R11.2 Nausea with vomiting, unspecified
CPT/HCPCS: 99213

== ENCOUNTER 2023-10-04 09:02 | Outpatient (AMB) | payer OTHER, SELFPAY ==
--- NOTE | 2023-10-04 09:05 | MHC.OFFVIS ---
Intake Vital Signs 10/04/23 09:09 Height 5 ft 9 in Weight 364 lb BMI 53.7 BP 140/90 H Blood Pressure Location Lt brachial Position Sitting Pulse 87 Intake Visit Reasons: Nausea with vomiting Intake Note: Jackie presents in the office as a new patient for nausea and vomiting. CC: Extreme pains in her stomach, nausea, vomiting, diarrhea. When she eats her stomach hurts but even when she does not eat her stomach will still have pains. She was told that they do not deal with this in the ED. Her potassium was very low and she was given 4 bags at the ED. She was still having low levels when she left. Her complaint in the ED was changed. She went because she was having difficulty swallowing. She was told to eat a cracker and she was unable to do that. Senior Sql Developer Required: No Allergies No Known Allergies Allergy (Verified 10/04/23 09:10) Medication List - Last Reconciled 10/04/23 by Demi Arenas PA-C [4 wheeled walker with seat daily use] alcohol swabs (CareTouch Alcohol Prep Pad topical pads) 1 pad topical DAILY amitriptyline 25 mg PO BEDTIME 30 days aspirin 81 mg PO DAILY 90 days atorvastatin 40 mg PO DAILY 90 days blood sugar diagnostic (FreeStyle Lite Strips) test blood sugar 3 times per day carbidopa-levodopa 25-100 mg 1 tab PO QID 30 days cefuroxime axetil 250 mg PO BID cholecalciferol (vitamin D3) 50 mcg PO DAILY 90 days ferrous sulfate 325 mg PO TID 90 days FreeStyle Josias 2 [place] (flash glucose scanning reader) Test blood sugars 4 times per day NS FreeStyle Josias 2 Sensor (flash glucose sensor) 4 times a day NS gabapentin 1 cap at 8pm, 1 cap at 9:30pm, 3 caps at 11pm orally 3 times a day; 30 days galcanezumab-gnlm (Emgality Pen) 120 mg subcut ONCE 30 days Humira(CF) Pen (adalimumab) inject one - 40 mg/0.4 mL pen every 2 weeks subcut NS insulin degludec (Tresiba FlexTouch U-100 insulin) 20 units (0.2 mL) subcut BEDTIME 30 days lancets (FreeStyle Lancets) Use to check blood sugar daily lisinopril 2.5 mg PO DAILY 90 days magnesium oxide 400 mg PO BEDTIME 30 days meloxicam 7.5 mg PO BID PRN 30 days metformin 1,000 mg PO BID 90 days naproxen 500 mg PO BID omeprazole 40 mg PO DAILY 90 days ondansetron 4 mg PO Q8H 3 days pen needle, diabetic (BD Ultra-Fine Emily Pen Needle) Use to inject insulin daily riboflavin (vitamin B2) 400 mg PO DAILY 30 days sertraline 200 mg (2 x 100 mg) PO DAILY sumatriptan succinate 100 mg PO Q2H PRN 21 days trazodone 100 mg PO BEDTIME 30 days trazodone 25 mg (1/2 x 50 mg) PO BEDTIME 30 days HPI HPI Comments History of Present Illness Details Reviewed PCP note- Pt was seen in the ER on 09/16 c/o abdominal pain, N/V, and inability to eat. Labs showed decreased potassium of 2.8. UA showed acute UTI. EKG was unremarkable. Abdominal US and CT were negative for acute process. Pt was given pain meds, antiemetics, and IV potassium. Pt's potassium improved to 3.1. She was d/c with cefuroxime and zofran. Pt is on a long acting insulin, has difficulty with pricking her finger (parkinsons). She also has weak extremities 53-year-old female referred after being seen in the ED a with nausea, diarrhea she is extremely anxious today and tearful- present- She has difficulty eating- wandering pain- pain worse with food- could only eat 1 bite -nausea- needs to lie down vomits acid loose stool BS - not well controlled 01/2020- Dr. Lantigua EGD colonoscopy - neg bx, no HP, no polyps DX parkinsons-last year PFSH Medical History HLA B27 (HLA B27 positive) Retention of urine, unspecified UTI (urinary tract infection) Sacroiliitis Knee pain, bilateral Surgical History Hx of colonoscopy S/P gastric sleeve procedure Hx of cholecystectomy Family History Father HTN (hypertension) Diabetes Mother HTN (hypertension) Diabetes HLD (hyperlipidemia) Maternal Grandfather Substance use disorder Maternal Grandmother Diabetes Substance use disorder Maternal Uncle Substance use disorder Mental health disorder Paternal Grandmother Substance use disorder Social History Housing: House Alcohol intake: never Patient Tobacco Use Status: Never used Tobacco e-Cigarette/Vaping Use: Never Used Second Hand Smoke Exposure: No service: No Current occupational status: unemployed Cognitive needs: No Hearing needs: No Vision needs: No Review of Systems Const All systems reviewed & are unremarkable except as noted in HPI and below Card Denies chest pain and Denies dyspnea Resp Denies dyspnea Physical Exam Vital Signs: Last Vital Signs Pulse 87 10/04/23 09:09 BP 140/90 H 10/04/23 09:09 BMI result Body Mass Index 53.7 Const General: no acute distress Nutritional Appearance: obese Limitations: wheelchair Eyes Sclerae: sclerae normal Resp Effort & Inspection: normal respiratory effort and able to speak in complete sentences Auscultation: clear to auscultation bilaterally, no rales, no rhonchi and no wheezes Cardio Rate: regular rate Rhythm: regular rhythm Heart sounds: S1 normal heart sound present, S2 normal heart sound present and no murmurs GI Palpation (GI): Soft to palpation, nontender (Very mild, Diffuse) and no guarding Auscultation: normal bowel sounds Psych Speech and movement: Clear speech present Affect: normal affect Attitude: cooperative Assessment & Plan Assessment & Plan (1) Nausea & vomiting: Comment: A 53-year-old female Parkinson's fairly new diagnosis referred with nausea vomiting, wondering, vague abdominal pain somewhat difficult to assess wheelchair dependent Reviewed EGD colonoscopy blood sugars not well controlled-may play a role Code(s): R11.2 - Nausea with vomiting, unspecified Plan carafate GES F/U T- Orders: Orders NM gastric emptying study 10/04/23 R11.2 - Nausea with vomiting, unspecified, G20 - Parkinson's disease, E11.9 - Type 2 diabetes mellitus without complications Medications: New sucralfate 1 g PO QIDACHS PRN 90 tabs 0RF heartburn 21 days Changed From cefuroxime axetil 250 mg PO BID 7 days 14 tabs 0RF To cefuroxime axetil 250 mg PO BID Patient Instructions: Pleasant, present, somewhat difficult to assess Will get gastric emptying study Trial of sucralfate Monitor blood sugars try to better control Follow-up with Dr. Lantigua is available for consult Encouraged to call questions or concerns Coding Level of Care Code New Pt Level 4 (48844) Diagnoses Nausea & vomiting R11.2 Time Spent (min) 35 Comment present
[2023-10-04 09:09] VITALS: BP 140/90; PULSE 87; BMI 53.7
== END 2023-10-04 10:21 | disposition home or self-care (01) ==
PROVIDERS: PCP Nurse Practitioner Family; Visit Provider Physician Assistant
DX: R11.2 Nausea with vomiting, unspecified (principal)
CPT/HCPCS: 99204

== ENCOUNTER → 2023-10-04 09:02 | Outpatient (BNVA) | payer OTHER, SELFPAY | PROVIDERS: PCP Nurse Practitioner Family; Visit Provider Physician Assistant | DX: R11.2 Nausea with vomiting, unspecified (principal) | CPT/HCPCS: 99202 ==

== ENCOUNTER 2023-11-04 14:24 | Outpatient (AMB) | payer OTHER, SELFPAY ==
[2023-11-04 14:25] VITALS: BP 150/84; PULSE 111; TEMP 36.1; O2SAT 99; BMI 48.8
--- NOTE | 2023-11-04 14:25 | A.OFFVIS_ITS ---
Intake Vital Signs 11/04/23 14:25 Height 5 ft 9 in Weight 330 lb 11.094 oz BMI 48.8 BP 150/84 H Blood Pressure Location Rt radial Position Sitting Pulse 111 H Pulse Source Pulse Oximeter Temp 97 F Temp Source Skin Pulse Oximetry (%) 99 Oxygen Delivery Method Room Air Intake Visit Reasons: Intake Note: Pt last seen 02/22/23 presents today for follow up and test results. 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 Accompanied by: Spouse Allergies No Known Allergies Allergy (Verified 11/04/23 14:32) Medication List - Last Reconciled 11/04/23 by Vijaya Blank MD [4 wheeled walker with seat daily use] alcohol swabs (CareTouch Alcohol Prep Pad topical pads) 1 pad topical DAILY amitriptyline 25 mg PO BEDTIME 30 days aspirin 81 mg PO DAILY 90 days atorvastatin 40 mg PO DAILY 90 days blood sugar diagnostic (FreeStyle Lite Strips) test blood sugar 3 times per day carbidopa-levodopa 25-100 mg 1 tab PO QID 30 days cefuroxime axetil 250 mg PO BID cholecalciferol (vitamin D3) 50 mcg PO DAILY 90 days ferrous sulfate 325 mg PO TID 90 days FreeStyle Josias 2 Rand (flash glucose scanning reader) Test blood sugars 4 times per day NS FreeStyle Josias 2 Sensor (flash glucose sensor) 4 times a day NS gabapentin 1 cap at 8pm, 1 cap at 9:30pm, 3 caps at 11pm orally 3 times a day; 30 days galcanezumab-gnlm (Emgality Pen) 120 mg subcut ONCE 30 days Humira(CF) Pen (adalimumab) inject one - 40 mg/0.4 mL pen every 2 weeks subcut NS insulin degludec (Tresiba FlexTouch U-100 insulin) 20 units (0.2 mL) subcut BEDTIME 30 days lancets (FreeStyle Lancets) Use to check blood sugar daily lisinopril 2.5 mg PO DAILY 90 days magnesium oxide 400 mg PO BEDTIME 30 days meloxicam 7.5 mg PO BID PRN 30 days metformin 1,000 mg PO BID 90 days naproxen 500 mg PO BID omeprazole 40 mg PO DAILY 90 days ondansetron 4 mg PO Q8H 3 days pen needle, diabetic (BD Ultra-Fine Emily Pen Needle) Use to inject insulin daily riboflavin (vitamin B2) 400 mg PO DAILY 30 days sertraline 200 mg (2 x 100 mg) PO DAILY sucralfate 1 g PO QIDACHS PRN 21 days sumatriptan succinate 100 mg PO Q2H PRN 21 days trazodone 100 mg PO BEDTIME 30 days trazodone 25 mg (1/2 x 50 mg) PO BEDTIME 30 days HPI HPI Comments History of Present Illness Details This is a 53-year-old female with HLA B27 positive ankylosing spondylitis who presents for follow-up. She was last seen by Zenia Delarosa 02/2023. On Humira 40 mg every other week. Well tolerated Patient states that she is doing about the same overall. She mentions that was a change/Labs in her insurance for about a month and a half in August. She missed 2-3 doses of her Humira. She is back on it since September. She states that she has been having upper neck pain arm bilateral shoulder pain. She also has diffuse pain. Bilateral eastman pain, hand pain, elbow pain PFSH Medical History HLA B27 (HLA B27 positive) Retention of urine, unspecified UTI (urinary tract infection) Sacroiliitis Knee pain, bilateral Surgical History Hx of colonoscopy S/P gastric sleeve procedure Hx of cholecystectomy Family History Father HTN (hypertension) Diabetes Mother HTN (hypertension) Diabetes HLD (hyperlipidemia) Maternal Grandfather Substance use disorder Maternal Grandmother Diabetes Substance use disorder Maternal Uncle Substance use disorder Mental health disorder Paternal Grandmother Substance use disorder Social History Housing: House Alcohol intake: never Patient Tobacco Use Status: Never used Tobacco e-Cigarette/Vaping Use: Never Used Second Hand Smoke Exposure: No service: No Current occupational status: unemployed Cognitive needs: No Hearing needs: No Vision needs: No Review of Systems ENT Reports neck pain Musc Reports back pain, Reports arthralgias, Denies joint swelling and Reports neck pain Physical Exam Vital Signs: Last Vital Signs Temp 97 F 11/04/23 14:25 Pulse 111 H 11/04/23 14:25 BP 150/84 H 11/04/23 14:25 Pulse Ox 99 11/04/23 14:25 Oxygen Delivery Method Room Air 11/04/23 14:25 BMI result Body Mass Index 48.8 Const General: cooperative, healthy appearing and comfortable Nutritional Appearance: obese morbidly obese Orientation/consciousness: patient oriented x3 Limitations: wheelchair (Wheelchair with long distances, cane at home) HEENT Mouth: moist mucous membranes Resp Effort & Inspection: normal respiratory effort and able to speak in complete sentences Cardio Rate: regular rate Rhythm: regular rhythm Skin General skin exam: no rashes or lesions noted Neuro General: patient oriented x3 Extrem Other: No active synovitis For fibromyalgia tender points Normal range of motion of her neck without significant limitation Results Reviewed Results Reviewed: [address] [address] XRay Report Signed Patient: Jackie Lawson MR#: [id number] : 1970 Acct:[id number] Age/Sex: 52 / F ADM Date: 09/30/22 Loc: [facility].LAB Attending Dr: Jazmine Delarosa NP Ordering Physician: Jazmine Delarosa NP Date of Service: 09/30/22 Procedure(s): XR sacroiliac joint min 3V Accession Number(s): [id number] cc: Jazmine Delarosa NP~ EXAMINATION: XR SACROILIAC JOINTS CLINICAL INFORMATION: Myalgia COMPARISON: None TECHNIQUE: 3 views of the sacroiliac joints FINDINGS: There is increased sclerosis at the left sacroiliac joint. The right sacroiliac joint is normal. No fracture or dislocation is seen. There are degenerative changes of the lower lumbar spine. Soft tissues are unremarkable. XR/XR sacroiliac joint min 3V IMPRESSION: Increased sclerosis at the left sacroiliac joint. Assessment & Plan Assessment & Plan (1) Ankylosing spondylitis: Comment: +HLA b27 dx 09/2022 left sacroiliitis on x-ray. Elevated inflammatory markers Humira 10/2022 effective Code(s): M45.9 - Ankylosing spondylitis of unspecified sites in spine Plan: This is a 53-year-old female with HLA B27 positive ankylosing spondylitis who presents for follow-up. Doing well on Humira 40 mg every other week. Her MSK complaints today are likely due to combination of degenerative arthritis and fibromyalgia. Continue Humira 40 mg every other week. Advised patient to try [id number] Salonpas patches for her neck pain. Labs before next visit in 6 months (2) Immunization counseling: Code(s): Z71.85 - Encounter for immunization safety counseling Plan: Advised patient to get flu vaccine for this season, new COVID booster and RSV vaccines Plan I spent 27 minutes reviewing patient's chart, evaluating patient, ordering diagnostic workup, counseling patient and documenting in the chart Orders: Orders Comprehensive Met. Panel 6 Months M45.9 - Ankylosing spondylitis of unspecified sites in spine T Spot TB 6 Months Z11.7 - Encounter for testing for latent tuberculosis infection Complete Blood Count Auto Diff 6 Months M45.9 - Ankylosing spondylitis of unspecified sites in spine C Reactive Protein 6 Months M45.9 - Ankylosing spondylitis of unspecified sites in spine Erythrocyte Sedimentation Rate 6 Months M45.9 - Ankylosing spondylitis of unspecified sites in spine Hepatitis A,B,C Profile 6 Months Z11.59 - Encounter for screening for other viral diseases Medications: Refilled Humira(CF) Pen (adalimumab) inject one - 40 mg/0.4 mL pen every 2 weeks subcut 2 ea 5RF NS M45.9 - Ankylosing spondylitis of unspecified sites in spine Coding Level of Care Code Est Pt Level 4 (03524) Diagnoses Ankylosing spondylitis M45.9 Immunization counseling Z71.85
== END 2023-11-04 15:01 | disposition home or self-care (01) ==
PROVIDERS: PCP Nurse Practitioner Family; Visit Provider Student in an Organized Health Care Education/Training Program
DX: M45.9 Ankylosing spondylitis of unspecified sites in spine (principal); Z71.85 Encounter for immunization safety counseling
CPT/HCPCS: 99214

== ENCOUNTER → 2023-11-04 14:24 | Outpatient (BNVA) | payer OTHER, SELFPAY | PROVIDERS: PCP Nurse Practitioner Family; Visit Provider Student in an Organized Health Care Education/Training Program | DX: M54.9 Dorsalgia, unspecified (principal); Z71.85 Encounter for immunization safety counseling | CPT/HCPCS: 99212 ==

== ENCOUNTER → 2023-11-08 07:52 | Outpatient (REF) | payer OTHER, MEDICAID, SELFPAY ==
--- NOTE | ~2023-11-08 | NM_ITS ---
EXAMINATION: NM RADIONUCLIDE SOLID FOOD GASTRIC EMPTYING 4-HOUR STUDY CLINICAL INFORMATION: Nausea with vomiting, unspecified. COMPARISON: CT of the abdomen and pelvis and right upper quadrant abdominal ultrasound done on 09/16/2023. TECHNIQUE: A standard meal consisting of 4 oz of Egg Beaters brand tagged with 855 microcuries Tc-99m Sulfur Colloid, 8 oz water and 1/2 of toast with jelly was administered orally to the patient. Images were obtained using a dual head gamma camera in the anterior and posterior projections over of the stomach immediately post ingestion and at hourly intervals up to 4 hours post ingestion. The anterior and posterior counts at each time interval were averaged using the geometric mean and expressed as percentage of the immediate post ingestion counts. FINDINGS: There is good visualization of activity in the stomach immediately post ingestion. As the study progresses, there is good clearance of activity from the stomach and visualization of progressively increasing small bowel activity. By the end of the study, there is almost no retention noted in the stomach. Retention in the stomach at each time interval was: 1 hour 51% (normal 37%-90%) 2 hours 17% (normal 30%-60%) 3 hours 4% 4 hours estimation was not performed since only 4% was detected at 3 hours interval. MI/MI gastric emptying study IMPRESSION: Normal 4-hour solid food gastric emptying study. For solid meal, rapid gastric emptying is less than 30% at 60 minutes. Delayed gastric emptying criteria is more than 60% remaining at 120 minutes or more than 10% at 240 minutes. The 4-hour value is the best discriminator of a normal or abnormal result). Gastric emptying study grading per JNMT Consensus Recommendations in 2008 (https://tech.snmjournals.org/content/36//44) Grade 1 (mild retention): 11-20% at 4h Grade 2 (moderate retention): 21-35% at 4h Grade 3 (severe retention): 36-50% at 4h Grade 4 (very severe retention): >50% retention at 4h
== END ==
LOC: HO.NUCMED 07:52
PROVIDERS: PCP Nurse Practitioner Family; Visit Provider Physician Assistant
DX: R11.2 Nausea with vomiting, unspecified (principal); G20.C Parkinsonism, unspecified; E11.9 Type 2 diabetes mellitus without complications
CPT/HCPCS: 78264; A9541

== ENCOUNTER 2023-11-18 11:32 | Outpatient (REF) | payer OTHER, SELFPAY ==
[2023-11-18 13:34] LABS: MANUAL DIFF FLAG NO
[2023-11-18 13:53] LABS: Basophils Absolute Auto 0.1 X10*3/uL (0.0-0.2); Basophils Percent Auto 0.7 % (0-2); Eosinophils Absolute Auto 0.1 X10*3/uL (0.0-0.4); Hematocrit 37.5 % (37.0-47.0); Hemoglobin 12.3 g/dl (12.0-16.0); Imm Gran Abs Auto 0.04 X10*3/uL (0.00-0.03); Imm Gran Pct Auto 0.3 % (0.0-0.4); Lymphocytes Percent Auto 24.2 % (20-40); Mean Corpuscular HGB Conc 32.8 g/dl (31.0-35.0); Mean Corpuscular Hemoglobin 25.8 pg (27.0-33.0); Mean Corpuscular Volume 78.6 fL (80.0-98.0); Mean Platelet Volume 11.4 fL (9.4-12.3); Monocytes Absolute Auto 0.6 X10*3/uL (0.1-1.2); Monocytes Percent Auto 4.7 % (2-11); Neutrophils Absolute Auto 8.5 x10*3/uL (2.0-8.3); Neutrophils Percent Auto 69.1 % (45-73); Platelet Count 348 X10*3/uL (160-400); Red Blood Count 4.77 X10*6/uL (4.20-5.50); Red Cell Distribution Width 14.9 % (11.0-16.0); White Blood Count 12.3 X10*3/uL (4.8-10.8)
[2023-11-18 14:34] LABS: Erythrocyte Sedimentation Rate 29 MM/HR (0-20)
[2023-11-18 14:35] LABS: Ferritin 203 ng/mL (10-250)
[2023-11-18 14:39] LABS: Albumin Level 3.7 g/dL (3.5-5.0); Alkaline Phosphatase 93 U/L (39-117); Anion Gap 11 (12-20); Aspartate Amino Transferase 14 U/L (5-31); Bilirubin Total 0.3 mg/dL (0.0-1.0); Blood Urea Nitrogen 9 mg/dL (9-16); C Reactive Protein 1.83 mg/dL (< or = 0.50); Calcium 9.3 mg/dL (8.4-10.2); Carbon Dioxide 28 mmol/L (22-29); Chloride 100 mmol/L (96-108); Estimated Glomerular Filt Rate > 60; Glucose Random 303 mg/dL (60-115); Magnesium 1.9 mg/dL (1.6-2.6); Potassium 4.4 mmol/L (3.3-5.1); Sodium 135 mmol/L (135-145); Total Protein 8.1 g/dL (6.5-8.0)
[2023-11-18 14:48] LABS: Folate 4.5 ng/mL (> or = 4.0); Vitamin B12 536 pg/mL (200-900)
[2023-11-18 14:50] LABS: Alanine Aminotransferase < 5 U/L (0-31)
[2023-11-21 16:34] LABS: Ceruloplasmin 33 mg/dL (18-53)
[2023-11-22 14:38] LABS: Anti Nuclear Antibody Screen NEGATIVE (NEGATIVE)
[2023-11-22 15:23] LABS: IgA 375 mg/dL (47-310); IgG 1819 mg/dL (600-1640); IgM 64 mg/dL (50-300)
[2023-11-23 09:13] LABS: Zinc 58 mcg/dL (60-130)
[2023-11-23 18:58] LABS: Vitamin K1 300 pg/mL (130-1500)
[2023-11-24 05:39] LABS: Vitamin A 51 mcg/dL (38-98)
[2023-11-24 05:53] LABS: Alpha-Tocopherol 11.1 mg/L (5.7-19.9); Beta-Gamma Tocopherol <1.0 mg/L (<=4.3)
[2023-11-24 12:08] LABS: Vitamin B6 <2.0 ng/mL (2.1-21.7)
[2023-11-24 20:49] LABS: Transglutaminase Ab IgG 7.6 U/mL; Transglutaminase IgA <1.0 U/mL
[2023-11-24 22:23] LABS: Vitamin B1 9 nmol/L (8-30)
[2023-11-25 08:14] LABS: Immunoglobulin E 24 kU/L (<OR=114)
[2023-11-25 21:48] LABS: Nicotinamide 23 ng/mL; Vit B3 - Nicotinic Acid <20 ng/mL
[2023-11-26 06:13] LABS: Calcitonin 17 pg/mL (<=5)
[2023-11-26 16:58] LABS: Vitamin C <0.1 mg/dL (0.3-2.7)
[2023-11-28 01:59] LABS: Vitamin B5 (Pantothenic Acid) 42 ng/mL (<275)
== END 2023-11-18 11:33 | disposition home or self-care (01) ==
LOC: HO.LAB 11:32
PROVIDERS: PCP Nurse Practitioner Family; Visit Provider Internal Medicine Gastroenterology
DX: R11.2 Nausea with vomiting, unspecified (principal); G25.81 Restless legs syndrome; M45.9 Ankylosing spondylitis of unspecified sites in spine; R10.33 Periumbilical pain; G89.29 Other chronic pain; K75.81 Nonalcoholic steatohepatitis (NASH); R79.82 Elevated C-reactive protein (CRP); G20.C Parkinsonism, unspecified
CPT/HCPCS: 36415; 80053; 82164; 82180; 82306; 82308; 82390; 82607; 82728; 82746; 82784; 82785; 83735; 84207; 84425; 84446; 84590; 84591; 84597; 84630; 85025; 85652; 86003; 86038; 86140; 86364; 99212

== ENCOUNTER 2023-11-18 11:32 | Outpatient (AMB) | payer OTHER, SELFPAY ==
--- NOTE | 2023-11-18 11:40 | MHC.OFFVIS ---
Intake Vital Signs 11/18/23 11:44 Height 5 ft 9 in BMI Reason not done Patient refused/unable BP 140/74 H Blood Pressure Location Lt brachial Position Sitting Pulse 81 Intake Visit Reasons: N/V Intake Note: Jackie presents in the office as a follow up for Nausea and Vomiting. CC: She is having a lot of nausea and abdominal pains. She states that she gets on and off constipation and diarrhea. 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 Labs showed decreased potassium of 2.8. UA suggestive of acute UTI. EKG was unremarkable. Abdominal US and CT were negative for acute process. Pt was given pain meds, antiemetics, and IV potassium. Pt's potassium improved to 3.1. She was d/c with cefuroxime and zofran. OTHER DATA: 01/2020-EGD colonoscopy - neg bx, no HP, no polyp 11/05- GES--normal 4 hr emptying INTERIM: she feels v bad with nausea, on carbidopa for long time she has epigastric pain and hardness she has diarrhea and constipation both she takes humira for and emglaity for migraines she feels zofran ODT doesn;t work well due to taste she takes meloxicam on and off and variable effect for OA she has lost 35# over 3-4 months but does say has had stomach issues for years but not as bad EXAM: GENERAL: The patient is obese and in wheel chair VITAL SIGNS:see workflow HEENT: Nonicteric sclerae, PERRLA, EOMI. Oropharynx clear. Moist mucous membranes. Conjunctivae appear well perfused. No thyroid mass. CHEST: Chest wall is nontender. HEART: Regular rate and rhythm without murmurs. LUNGS: Clear to auscultation bilaterally. ABDOMEN: Soft, positive bowel sounds, nontender, no organomegaly.no flank tenderness SKIN: No rash, no excessive bruising, petechiae, or purpura. NEUROLOGIC: Cranial nerves II-XII intact without motor/sensory deficit. Tremor noted A/P: 1/ Nausea, maybe due to PD or meds vs GI toxicity, gastritis PLAN: 1/ change meloxicam to celebrex and consistency with PPI 2/ consider changing levidopa to longer acting form and take with snack 3/ small bowle follow thru to r/o stricture, mass, inflammation 4/ check rast for food allergies 5/ might need brain imaging to r/o central lesion 6/ change zofran can also consider tigan 7/ check nutrient levels PFSH Medical History HLA B27 (HLA B27 positive) Retention of urine, unspecified UTI (urinary tract infection) Sacroiliitis Knee pain, bilateral Surgical History Hx of colonoscopy S/P gastric sleeve procedure Hx of cholecystectomy Family History Father HTN (hypertension) Diabetes Mother HTN (hypertension) Diabetes HLD (hyperlipidemia) Maternal Grandfather Substance use disorder Maternal Grandmother Diabetes Substance use disorder Maternal Uncle Substance use disorder Mental health disorder Paternal Grandmother Substance use disorder Social History Housing: House Alcohol intake: never Patient Tobacco Use Status: Never used Tobacco e-Cigarette/Vaping Use: Never Used Second Hand Smoke Exposure: No service: No Current occupational status: unemployed Cognitive needs: No Hearing needs: No Vision needs: No Physical Exam Vital Signs: Last Vital Signs Pulse 81 11/18/23 11:44 BP 140/74 H 11/18/23 11:44 Assessment & Plan Assessment & Plan (1) Nausea & vomiting: Code(s): R11.2 - Nausea with vomiting, unspecified Plan: A/P: 1/ Nausea, maybe due to PD or meds vs GI toxicity, gastritis PLAN: 1/ change meloxicam to celebrex and consistency with PPI 2/ consider changing levidopa to longer acting form and take with snack 3/ small bowle follow thru to r/o stricture, mass, inflammation 4/ check rast for food allergies 5/ might need brain imaging to r/o central lesion 6/ change zofran can also consider tigan 7/ check nutrient levels (2) Restless leg syndrome: Code(s): G25.81 - Restless legs syndrome Plan: A/P: 1/ Nausea, maybe due to PD or meds vs GI toxicity, gastritis PLAN: 1/ change meloxicam to celebrex and consistency with PPI 2/ consider changing levidopa to longer acting form and take with snack 3/ small bowle follow thru to r/o stricture, mass, inflammation 4/ check rast for food allergies 5/ might need brain imaging to r/o central lesion 6/ change zofran can also consider tigan 7/ check nutrient levels (3) Parkinsonism: Code(s): G20 - Parkinson's disease Plan: A/P: 1/ Nausea, maybe due to PD or meds vs GI toxicity, gastritis PLAN: 1/ change meloxicam to celebrex and consistency with PPI 2/ consider changing levidopa to longer acting form and take with snack 3/ small bowle follow thru to r/o stricture, mass, inflammation 4/ check rast for food allergies 5/ might need brain imaging to r/o central lesion 6/ change zofran can also consider tigan 7/ check nutrient levels (4) Ankylosing spondylitis: Comment: +HLA b27 dx 09/2022 left sacroiliitis on x-ray. Elevated inflammatory markers Humira 10/2022 effective Code(s): M45.9 - Ankylosing spondylitis of unspecified sites in spine Plan: A/P: 1/ Nausea, maybe due to PD or meds vs GI toxicity, gastritis PLAN: 1/ change meloxicam to celebrex and consistency with PPI 2/ consider changing levidopa to longer acting form and take with snack 3/ small bowle follow thru to r/o stricture, mass, inflammation 4/ check rast for food allergies 5/ might need brain imaging to r/o central lesion 6/ change zofran can also consider tigan 7/ check nutrient levels Orders: Orders Vitamin B1 Today G20 - Parkinson's disease, G2.81 - Restless legs syndrome, M45.9 - Ankylosing spondylitis of unspecified sites in spine, R11.2 - Nausea with vomiting, unspecified Vitamin B3 (Niacin) Today G20 - Parkinson's disease, G25.81 - Restless legs syndrome, M45.9 - Ankylosing spondylitis of unspecified sites in spine, R11.2 - Nausea with vomiting, unspecified Vitamin B6 Today G20 - Parkinson's disease, G25.81 - Restless legs syndrome, M45.9 - Ankylosing spondylitis of unspecified sites in spine, R11.2 - Nausea with vomiting, unspecified Vitamin C Today G20 - Parkinson's disease, G25.81 - Restless legs syndrome, M45.9 - Ankylosing spondylitis of unspecified sites in spine, R11.2 - Nausea with vomiting, unspecified Vitamin K1 Today G20 - Parkinson's disease, G25.81 - Restless legs syndrome, M45.9 - Ankylosing spondylitis of unspecified sites in spine, R11.2 - Nausea with vomiting, unspecified Zinc Today G20 - Parkinson's disease, G25.81 - Restless legs syndrome, M45.9 - Ankylosing spondylitis of unspecified sites in spine, R11.2 - Nausea with vomiting, unspecified Vitamin E Today G20 - Parkinson's disease, G25.81 - Restless legs syndrome, M45.9 - Ankylosing spondylitis of unspecified sites in spine, R11.2 - Nausea with vomiting, unspecified Complete Blood Count Auto Diff Today G20 - Parkinson's disease, G25.81 - Restless legs syndrome, M45.9 - Ankylosing spondylitis of unspecified sites in spine, R11.2 - Nausea with vomiting, unspecified Transglutaminase Ab IgG Today G20 - Parkinson's disease, G25.81 - Restless legs syndrome, G89.29 - Other chronic pain, M45.9 - Ankylosing spondylitis of unspecified sites in spine, R10.33 - Periumbilical pain, R11.2 - Nausea with vomiting, unspecified Rast Allergen Today G20 - Parkinson's disease, G25.81 - Restless legs syndrome, M45.9 - Ankylosing spondylitis of unspecified sites in spine, R11.2 - Nausea with vomiting, unspecified C Reactive Protein Today G20 - Parkinson's disease, G25.81 - Restless legs syndrome, M45.9 - Ankylosing spondylitis of unspecified sites in spine, R11.2 - Nausea with vomiting, unspecified Angiotensin Converting Enzyme Today G20 - Parkinson's disease, G25.81 - Restless legs syndrome, M45.9 - Ankylosing spondylitis of unspecified sites in spine, R11.2 - Nausea with vomiting, unspecified MARGOTH Reflex Titer and Pattern Today G20 - Parkinson's disease, G25.81 - Restless legs syndrome, M45.9 - Ankylosing spondylitis of unspecified sites in spine, R11.2 - Nausea with vomiting, unspecified, R79.82 - Elevated C-reactive protein (CRP) Vitamin A Today G20 - Parkinson's disease, G25.81 - Restless legs syndrome, M45.9 - Ankylosing spondylitis of unspecified sites in spine, R11.2 - Nausea with vomiting, unspecified Vitamin B12 and Folate Today G20 - Parkinson's disease, G25.81 - Restless legs syndrome, M45.9 - Ankylosing spondylitis of unspecified sites in spine, R11.2 - Nausea with vomiting, unspecified Vitamin B5 (Pantothenic Acid) Today G20 - Parkinson's disease, G25.81 - Restless legs syndrome, M45.9 - Ankylosing spondylitis of unspecified sites in spine, R11.2 - Nausea with vomiting, unspecified Vitamin D 25-OH Total Today G20 - Parkinson's disease, G25.81 - Restless legs syndrome, M45.9 - Ankylosing spondylitis of unspecified sites in spine, R11.2 - Nausea with vomiting, unspecified Comprehensive Met. Panel Today G20 - Parkinson's disease, G25.81 - Restless legs syndrome, K75.81 - Nonalcoholic steatohepatitis (ZAMUDIO), M45.9 - Ankylosing spondylitis of unspecified sites in spine, R11.2 - Nausea with vomiting, unspecified Transglutaminase IgA Today G20 - Parkinson's disease, G25.81 - Restless legs syndrome, M45.9 - Ankylosing spondylitis of unspecified sites in spine, R11.2 - Nausea with vomiting, unspecified Immunoglobulin E Today G20 - Parkinson's disease, G25.81 - Restless legs syndrome, M45.9 - Ankylosing spondylitis of unspecified sites in spine, R11.2 - Nausea with vomiting, unspecified Immunoglobulins,IgG IgA IgM Today G20 - Parkinson's disease, G25.81 - Restless legs syndrome, M45.9 - Ankylosing spondylitis of unspecified sites in spine, R11.2 - Nausea with vomiting, unspecified Magnesium Today G20 - Parkinson's disease, G25.81 - Restless legs syndrome, M45.9 - Ankylosing spondylitis of unspecified sites in spine, R11.2 - Nausea with vomiting, unspecified Ferritin Today G20 - Parkinson's disease, G25.81 - Restless legs syndrome, M45.9 - Ankylosing spondylitis of unspecified sites in spine, R11.2 - Nausea with vomiting, unspecified Erythrocyte Sedimentation Rate Today G20 - Parkinson's disease, G25.81 - Restless legs syndrome, M45.9 - Ankylosing spondylitis of unspecified sites in spine, R11.2 - Nausea with vomiting, unspecified Ceruloplasmin Today G20 - Parkinson's disease, G25.81 - Restless legs syndrome, M45.9 - Ankylosing spondylitis of unspecified sites in spine, R11.2 - Nausea with vomiting, unspecified Calcitonin Today G20 - Parkinson's disease, G25.81 - Restless legs syndrome, M45.9 - Ankylosing spondylitis of unspecified sites in spine, R11.2 - Nausea with vomiting, unspecified FL upper GI small bowel Today G20 - Parkinson's disease, R11.2 - Nausea with vomiting, unspecified Medications: New ondansetron HCl 4 mg PO Q8H 60 tabs 1RF celecoxib (Celebrex) 200 mg PO BID 60 caps 2RF Discontinued ondansetron Discontinued Reason: Doctor's Order 4 mg PO Q8H 3 days 9 tabs 0RF meloxicam not to take concurrently with Naproxen. Use med sparingly Discontinued Reason: Doctor's Order 7.5 mg PO BID 30 days PRN 60 tabs 0RF pain Coding Level of Care Code Est Pt Level 4 (44746) Diagnoses Nausea & vomiting R11.2 Restless leg syndrome G25.81 Parkinsonism G20 Ankylosing spondylitis M45.9
[2023-11-18 11:44] VITALS: BP 140/74; PULSE 81
== END 2023-11-18 12:39 | disposition home or self-care (01) ==
PROVIDERS: PCP Nurse Practitioner Family; Visit Provider Internal Medicine Gastroenterology
DX: R11.2 Nausea with vomiting, unspecified (principal); G25.81 Restless legs syndrome; M45.9 Ankylosing spondylitis of unspecified sites in spine
CPT/HCPCS: 99214

== ENCOUNTER 2023-11-23 14:35 | Outpatient (AMB) | payer OTHER, SELFPAY ==
--- NOTE | 2023-11-23 14:31 | MHC.PC.OV ---
Intake Visit Reasons: [facility] [phone] Allergies No Known Allergies Allergy (Verified 11/23/23 14:31) Medication List - Last Reconciled 11/23/23 by ELENA Avalos- [4 wheeled walker with seat daily use] alcohol swabs (CareTouch Alcohol Prep Pad topical pads) 1 pad topical DAILY amitriptyline 25 mg PO BEDTIME 30 days aspirin 81 mg PO DAILY 90 days atorvastatin 40 mg PO DAILY 90 days blood sugar diagnostic (FreeStyle Lite Strips) test blood sugar 3 times per day carbidopa-levodopa 25-100 mg 1 tab PO QID 30 days celecoxib (Celebrex) 200 mg PO BID cholecalciferol (vitamin D3) 50 mcg PO DAILY 90 days ferrous sulfate 325 mg PO TID 90 days FreeStyle Josias 2 [place] (flash glucose scanning reader) Test blood sugars 4 times per day NS FreeStyle Josias 2 Sensor (flash glucose sensor) 4 times a day NS gabapentin 1 cap at 8pm, 1 cap at 9:30pm, 3 caps at 11pm orally 3 times a day; 30 days galcanezumab-gnlm (Emgality Pen) 120 mg subcut ONCE 30 days Humira(CF) Pen (adalimumab) inject one - 40 mg/0.4 mL pen every 2 weeks subcut NS insulin degludec (Tresiba FlexTouch U-100 insulin) 30 units (0.3 mL) subcut BEDTIME 30 days lancets (FreeStyle Lancets) Use to check blood sugar daily lisinopril 2.5 mg PO DAILY 90 days magnesium oxide 400 mg PO BEDTIME 30 days metformin 1,000 mg PO BID 90 days omeprazole 40 mg PO DAILY 90 days ondansetron HCl 4 mg PO Q8H pen needle, diabetic (BD Ultra-Fine Emily Pen Needle) Use to inject insulin daily riboflavin (vitamin B2) 400 mg PO DAILY 30 days sertraline 200 mg (2 x 100 mg) PO DAILY sucralfate 1 g PO QIDACHS PRN 21 days sumatriptan succinate 100 mg PO Q2H PRN 21 days trazodone 100 mg PO BEDTIME 30 days trazodone 25 mg (1/2 x 50 mg) PO BEDTIME 30 days Tobacco use date assessed: 11/23/23 Dental Screening Dental Screen Date: 11/23/23 Did you have a dental visit in the last 12 months?: No Did you have a dental problem in the last 6 months where you did not have access to dental care?: No Was dental information given to patient?: Patient has dentist HPI [facility] [phone] HPI Details Pt is a diabetic, on an NELLY and a statin. Due for A1C, will order. Microalbumin is up to date. Denies polyuria, polydipsia, does report neuropathy. Pt denies any signs and symptoms of hypoglycemia and does know how to correct it. Pt reports that her blood sugar has been in the 200s +. Will increase tresiba from 20 to 30 units. [facility] Medical History HLA B27 (HLA B27 positive) Retention of urine, unspecified UTI (urinary tract infection) Sacroiliitis Knee pain, bilateral Surgical History Hx of colonoscopy S/P gastric sleeve procedure Hx of cholecystectomy Family History Father HTN (hypertension) Diabetes Mother HTN (hypertension) Diabetes HLD (hyperlipidemia) Maternal Grandfather Substance use disorder Maternal Grandmother Diabetes Substance use disorder Maternal Uncle Substance use disorder Mental health disorder Paternal Grandmother Substance use disorder Social History Housing: House Alcohol intake: never Patient Tobacco Use Status: Never used Tobacco e-Cigarette/Vaping Use: Never Used Second Hand Smoke Exposure: No service: No Current occupational status: unemployed Cognitive needs: No Hearing needs: No Vision needs: No Questionnaire Thrive Questionnaire Date Thrive assessed: 07/12/22 Review of Systems Const Reports as per HPI Physical exam (Primary Care) Tobacco/Smoking Status: Tobacco use Status Tobacco use date assessed 11/23/23 11/23/23 14:34 Patient Tobacco Use Status Never used Tobacco 11/23/23 14:34 e-Cigarette/Vaping Use Never Used 11/23/23 14:34 Thrive Assessment: Date of Thrive Assessment Date Thrive assessed 07/12/22 11/23/23 14:34 Const General: cooperative Orientation/consciousness: patient oriented x3 Neuro General: patient oriented x3 Psych Mental Status: mental status grossly normal Speech and movement: Clear speech present Affect: normal affect Attitude: cooperative Thought process: Normal thought process present Thought content: Normal thought content present Insight: Good insight present (Psych) Judgement: Good judgement present (Psych) Telehealth Telehealth Location of provider rendering services: practice address Location of patient: address on file Patient Identification confirmed using: Name, : Yes Telehealth method: voice only Patient verbally consented to treatment: Yes Patient verbally consented to billing insurance company: Yes Patient informed of any privacy concerns related to visit: Yes Minutes spent on Phone/Video with Pt.: 15 Assessment and Plan Assessment & Plan (1) Diabetes: Code(s): E11.9 - Type 2 diabetes mellitus without complications Plan The patient agreed to the use of a medical practitioners for this encounter. Scribed for CESILIA Ramírez by Estelita Laurent medical practitioners, on 11/23/2023 at 15:00 EST. Medications: Changed From insulin degludec (Tresiba FlexTouch U-100 insulin) 20 units (0.2 mL) subcut BEDTIME 30 days 6 mL 1RF To insulin degludec (Tresiba FlexTouch U-100 insulin) 30 units (0.3 mL) subcut BEDTIME 30 days 9 mL 1RF Coding Level of Care Code Tele Est Pt Level 3 (72907) Diagnoses Diabetes E11.9
== END 2023-11-23 15:52 | disposition home or self-care (01) ==
LOC: HO.HMGC 14:35
PROVIDERS: PCP Nurse Practitioner Family; Visit Provider Nurse Practitioner Family
DX: E11.9 Type 2 diabetes mellitus without complications (principal)
CPT/HCPCS: 99213

== ENCOUNTER 2023-12-13 10:25 | Outpatient (AMB) | payer OTHER, SELFPAY ==
--- NOTE | 2023-12-13 10:40 | A.OFFVIS_ITS ---
Intake Vital Signs 12/13/23 10:46 Height 5 ft 9 in Weight 331 lb 8 oz BMI 48.9 BP 140/70 H Blood Pressure Location Lt brachial Position Sitting Pulse 84 Pulse Source Pulse Oximeter Pulse Oximetry (%) 97 Oxygen Delivery Method Room Air Intake Visit Reasons: 3m f/u visual disturbance/hyperasthesia -CONF Intake Note: Patient presents for 3 month f/u increasing med Carbidoba. Having some constipation problems. Allergies No Known Allergies Allergy (Verified 12/13/23 10:45) HPI HPI Comments History of Present Illness Details 53-year-old female presents for f/u visi t of parkinsonism, migraine, and RLS. She is having increased constipation and nausea. She has seen Dr Lantigua [facility], who has scheduled her for GI studies . Started her on Zofran prn. She is trying to increase fluids, takes prunes in the am. She does take iron for h/o anemia. She also states her recent lab work, showed multiple vitamin deficiencies and she is to be scheduled for a thyroid ultrasound. Pt reports she is is tolerating CD-LD well, and it is still helpful- may notice some wearing off before next dose. When on, she has decreased tremor, decreased brain fog, improved ability to speak. Swallowing is a bit better- trying to be mindful of doing the swallowing strategies. Pt reports that her RLS is better She notes she is not sleeping as well, Trazodone used to help but not as much now. Her migraines are better- less often and less severe. She is having 1-2 migraine days per week- not needing to lay down, She does think the Amitriptyline and propranolol was helping. She has started Emgality, which is working well. Sumatriptan usually works well, if taken at the 1st sign. But sometimes if takes too late or migraine attack more severe it may not work as well.?? ? [facility] Medical History (Updated 12/25/23 @ 22:14 by ELENA Amaya) Parkinsons HLA B27 (HLA B27 positive) Retention of urine, unspecified UTI (urinary tract infection) Sacroiliitis Knee pain, bilateral Surgical History Hx of colonoscopy S/P gastric sleeve procedure Hx of cholecystectomy Family History Father HTN (hypertension) Diabetes Mother HTN (hypertension) Diabetes HLD (hyperlipidemia) Maternal Grandfather Substance use disorder Maternal Grandmother Diabetes Substance use disorder Maternal Uncle Substance use disorder Mental health disorder Paternal Grandmother Substance use disorder Social History Housing: House Alcohol intake: never Patient Tobacco Use Status: Never used Tobacco e-Cigarette/Vaping Use: Never Used Second Hand Smoke Exposure: No service: No Current occupational status: unemployed Cognitive needs: No Hearing needs: No Vision needs: No Review of Systems Const All systems reviewed & are unremarkable except as noted in HPI and below Physical Exam Vital Signs: Last Vital Signs Pulse 84 12/13/23 10:46 BP 140/70 H 12/13/23 10:46 Pulse Ox 97 12/13/23 10:46 Oxygen Delivery Method Room Air 12/13/23 10:46 BMI result Body Mass Index 48.9 Const General: cooperative and no acute distress Resp Effort & Inspection: normal respiratory effort and able to speak in complete sentences Neuro Other: General: Decreased facial expression Mild hypophonia- less stuttering and bradyphrenia BUE postural tremor. Improved FFM Stands slowly, short steps, steady gait with walker Results Reviewed Results Reviewed: Last Resulted Lab Tests 11/18/23 13:30 WBC 12.3 H RBC 4.77 Hgb 12.3 Hct 37.5 MCV 78.6 L MCH 25.8 L MCHC 32.8 RDW 14.9 Plt Count 348 D ESR 29 H Sodium 135 Potassium 4.4 D Chloride 100 Carbon Dioxide 28 Anion Gap 11 L BUN 9 Creatinine 0.78 Random Glucose 303 H Calcium 9.3 D Magnesium 1.9 Ferritin 203 Total Bilirubin 0.3 AST 14 ALT < 5 Alkaline Phosphatase 93 C-Reactive Protein 1.83 H Total Protein 8.1 H Albumin 3.7 Ceruloplasmin 33 Angiotensin Convert Enz 21.0 Vitamin A 51 Vitamin B1 9 Nicotinic Acid <20 Nicotinamide 23 Pantothenic Acid 42 Vitamin B6 <2.0 L Vitamin B12 536 Vitamin C <0.1 L 25-OH Vitamin D Total 20.0 L Alpha-Tocopherol Vit E 11.1 B- and G-Tocopherol <1.0 Vitamin K1 300 Folate 4.5 Zinc 58 L IgG Total 1819 H IgA Total 375 H IgM 64 IgE 24 MARGOTH Screen NEGATIVE Tiss Transglutamin IgG 7.6 Tiss Transglutamin IgA <1.0 Assessment & Plan Assessment & Plan (1) Parkinsonism: Code(s): G20 - Parkinson's disease (2) Tremor: Comment: ? neuroleptic induced PDism Code(s): R25.1 - Tremor, unspecified (3) Restless leg syndrome: Code(s): G25.81 - Restless legs syndrome (4) Migraine: Code(s): G43.909 - Migraine, unspecified, not intractable, without status migrainosus (5) Vitamin C deficiency: Code(s): E54 - Ascorbic acid deficiency (6) Vitamin B6 deficiency: Code(s): E53.1 - Pyridoxine deficiency (7) Zinc deficiency: Code(s): E60 - Dietary zinc deficiency (8) Constipation: Code(s): K59.00 - Constipation, unspecified (9) Vitamin D deficiency: Code(s): E55.9 - Vitamin D deficiency, unspecified Plan Reviewed recent lab results and notes from GI. Pt misunderstood communication letter from GI. Sent orders for Vit C, Zinc, Vit D, Vit B6 supplementation. Ordered f/u parathyroid, TSH, ion Ca levels. Pt does want to proceed w/ thyroid US. Recent H&H, ferritin- WNL. Advised to stop ferrous sulfate. Monitor constipation. Communicated w/ GI of above. For tremor, gait difficulties, and visual/olfactory disturbances: DaTSCAN- normal. EEG- normal. Continue Carbidopa-Levodopa 25-100mg to 1 tab 3-4 x's per day. Would not increase CD-LD until her vitamin deficiencies have been repleted. For restless legs: Continue decreased dose of trazodone Continue Gabapentin 100mg cap- 1 cap at 8pm, 1 cap at 9:30pm, 3 caps at 11pm ? For swallowing issues: Continue safe swallowing strategies- chin tuck, double swallow, alt liquids/solids, avoiding high choke risk foods. Consider FIELD LABORATORY OPERATOR eval & tx if s/s worsen. ? For migraine: Continue Amitriptyline 25mg qhs- consider decreasing in f/u d/t RLS s/s. Continue Emgality, as pt has had good effect from use. Continue riboflavin 400 mg daily in a.m. and magnesium 400 mg daily at bedtime. Continue sumatriptan to 100 mg as needed. Previous tx trials- Topiramate- effective but caused cognitive difficulties. Pt currently on Lisinopril- no effect for migraine. Propranolol- ineffective, Migraine tx contraindications- None at this time. ? f/u in 3-4 months or sooner prn. Orders: Orders TSH reflex Free T4 12/15/23 R25.1 - Tremor, unspecified, E34.9 - Endocrine disorder, unspecified, R53.83 - Other fatigue, K59.00 - Constipation, unspecified, E55.9 - Vitamin D deficiency, unspecified Parathyroid Hormone Intact 12/15/23 R25.1 - Tremor, unspecified, E34.9 - Endocrine disorder, unspecified, R53.83 - Other fatigue, K59.00 - Constipation, unspecified, E55.9 - Vitamin D deficiency, unspecified Calcium, Ionized 12/15/23 R25.1 - Tremor, unspecified, E34.9 - Endocrine disorder, unspecified, R53.83 - Other fatigue, K59.00 - Constipation, unspecified, E55.9 - Vitamin D deficiency, unspecified Medications: New pyridoxine (vitamin B6) 50 mg PO BID 60 tabs 3RF 30 days E53.1 - Pyridoxine deficiency cholecalciferol (vitamin D3) 1,250 mcg PO QWEEK 8 caps 0RF 8 weeks ascorbic acid (vitamin C) 500 mg PO BID 60 tabs 3RF 30 days E54 - Ascorbic acid deficiency zinc gluconate 50 mg PO DAILY 30 tabs 3RF 30 days E60 - Dietary zinc deficiency Coding Level of Care Code Est Pt Level 4 (64237) Diagnoses Parkinsonism G20 Tremor R25.1 Restless leg syndrome G25.81 Migraine G43.909 Vitamin C deficiency E54 Vitamin B6 deficiency E53.1 Zinc deficiency E60 Constipation K59.00 Vitamin D deficiency E55.9
[2023-12-13 10:46] VITALS: BP 140/70; PULSE 84; O2SAT 97; BMI 48.9
== END 2023-12-13 11:32 | disposition home or self-care (01) ==
PROVIDERS: PCP Nurse Practitioner Family; Visit Provider Nurse Practitioner Family
DX: G20.A1 Parkinson's disease without dyskinesia, without mention of fluctuations (principal); G25.81 Restless legs syndrome; G43.909 Migraine, unspecified, not intractable, without status migrainosus; E54 Ascorbic acid deficiency; E53.1 Pyridoxine deficiency; E60 Dietary zinc deficiency; K59.00 Constipation, unspecified; E55.9 Vitamin D deficiency, unspecified
CPT/HCPCS: 99214

== ENCOUNTER → 2023-12-13 10:25 | Outpatient (BNVA) | payer OTHER, SELFPAY | PROVIDERS: PCP Nurse Practitioner Family; Visit Provider Nurse Practitioner Family | DX: G20.A1 Parkinson's disease without dyskinesia, without mention of fluctuations (principal); G25.81 Restless legs syndrome; G43.909 Migraine, unspecified, not intractable, without status migrainosus; E54 Ascorbic acid deficiency; E53.1 Pyridoxine deficiency; E60 Dietary zinc deficiency; K59.00 Constipation, unspecified; E55.9 Vitamin D deficiency, unspecified; Z79.899 Other long term (current) drug therapy | CPT/HCPCS: 99212 ==

== ENCOUNTER 2023-12-15 16:36 | Outpatient (REF) | payer OTHER, SELFPAY ==
[2023-12-15 17:40] LABS: TSH reflex Free T4 1.08 uIU/mL (0.32-4.0)
[2023-12-16 05:37] LABS: Parathyroid Hormone Intact 58.8 pg/mL (8.7-77.1)
[2023-12-16 19:28] LABS: Calcium, Ionized 5.1 mg/dL (4.7-5.5)
== END 2023-12-15 16:37 | disposition home or self-care (01) ==
LOC: HO.LAB 16:36
PROVIDERS: PCP Nurse Practitioner Family; Visit Provider Nurse Practitioner Family
DX: R25.1 Tremor, unspecified (principal); E34.9 Endocrine disorder, unspecified; R53.83 Other fatigue; K59.00 Constipation, unspecified; E55.9 Vitamin D deficiency, unspecified
CPT/HCPCS: 36415; 82330; 83970; 84443

== ENCOUNTER 2023-12-20 07:59 | Outpatient (REF) | payer OTHER, SELFPAY ==
--- NOTE | ~2023-12-20 | FL_ITS ---
EXAMINATION: XR FLUOROSCOPY UPPER GI WITH AIR WITH SMALL BOWEL SERIES CLINICAL INFORMATION: Dysphagia. Abdominal pain. Constipation/diarrhea. History of sleeve gastrectomy. COMPARISON: No prior upper GI or small bowel series. Correlation made with CT abdomen and pelvis 09/16/2023. TECHNIQUE: Fluoroscopic air contrast upper GI examination was performed utilizing standard techniques with thin and thick barium and effervescent granules. Numerous spot images were obtained. FINDINGS: Lateral cine images of the oropharynx and hypopharynx demonstrate normal swallow mechanism with normal epiglottic inversion and soft palate elevation. There is trace laryngeal penetration with thick barium. No tracheal penetration, glottic or subglottic aspiration identified. No nasopharyngeal reflux present. Hypopharyngeal structures appear normal without evidence of mass or diverticulum. There was no significant cricopharyngeal achalasia. Dual and single contrast images of the esophagus demonstrate normal caliber, contour, and mucosal pattern. No evidence of stricture, mass, or ulcerations identified. Esophageal peristalsis was normal. No evidence of hiatus hernia identified. No significant gastroesophageal reflux was seen during the course of the examination and on reflux views. Dual contrast and single contrast images of the stomach demonstrated a contour consistent with prior history of sleeve gastrectomy. There are multiple areas of contrast pooling in the fundus and body of the stomach that may represent superficial mucosal ulcers. No masses or other abnormalities are seen.. Contrast freely passed into the gastric antrum and duodenal bulb without delay. Single and air-contrast images of the duodenal bulb demonstrate no abnormality. The duodenal sweep has a normal appearance, course, and mucosal fold appearance. No malrotation. The imaged proximal jejunum has a normal fold pattern and caliber. There are no dilated loops of small bowel present. No strictures or masses are present. The terminal ileum has a normal appearance. Contrast is seen within the colon at 30 minutes, representing mildly increased transit time. Circuit Court Magistrate view demonstrates periarticular sclerosis of the left SI joint synovial aspect, and ankylosis of the fibrous portion of the joint. Right SI joint appears largely normal. There are mild degenerative changes in both hip joints. Facet disease is noted in the lower lumbar spine, degenerative in nature. There are cholecystectomy clips present. Liver shadow appears enlarged. Surgical clips seen overlying the stomach region from prior sleeve gastrectomy. FLUOROSCOPY TIME: 3 minutes 54 seconds Number of Spot Images: 15 Number of Cine: 11 DOSE AREA PRODUCT: 3700 uGy-m2 (microgray-meter squared) FL/FL upper GI small bowel IMPRESSION: 1. Trace laryngeal penetration with thick barium. 2. Postsurgical changes consistent with prior history of sleeve gastrectomy, with expected postop appearance. No dilatation noted. 3. Multiple small foci of contrast pooling in the fundus and body the stomach that may represent superficial mucosal ulcerations. Erosive gastritis is a consideration. Recommend correlation with EGD. 4. Somewhat increased transit time through the small bowel, which otherwise has a normal caliber and mucosal appearance. This is nonspecific. 5. There are changes of left sacroiliitis as detailed. Given unilaterality and appearance, this is most likely degenerative. 6. Suspect hepatomegaly. This procedure was performed by Meño Blackwell PA-C, and supervised by Dr. Martinez
== END 2023-12-20 08:00 | disposition home or self-care (01) ==
LOC: HO.XRAY 07:59
PROVIDERS: PCP Nurse Practitioner Family; Visit Provider Internal Medicine Gastroenterology
DX: R11.2 Nausea with vomiting, unspecified (principal); G20.C Parkinsonism, unspecified
CPT/HCPCS: 74240; 74248

== ENCOUNTER → 2023-12-20 08:02 | Outpatient (BNV) | payer OTHER, SELFPAY | PROVIDERS: PCP Nurse Practitioner Family; Visit Provider Radiology Diagnostic Radiology | DX: R13.10 Dysphagia, unspecified (principal) | CPT/HCPCS: 74246 ==

== ENCOUNTER 2024-01-03 13:14 | Outpatient (REF) | payer OTHER, SELFPAY ==
--- NOTE | ~2024-01-03 | US_ITS ---
EXAMINATION: US THYROID CLINICAL INFORMATION: Endocrine disorder, unspecified. High calcitonin-rule out thyroid lesion. COMPARISON: None available. TECHNIQUE: Linear transducer fermin-scale and color Doppler examination with attention to the region of the thyroid. FINDINGS: SIZE: Measurements of the thyroid lobes and nodules are given in sagittal, anteroposterior and transverse dimensions respectively. Right Thyroid Lobe: 4.2 x 1.5 x 1.7 cm, volume 5.3 mL. Parenchyma: The gland echotexture is homogeneous. Thyroid vascularity is normal. Left Thyroid Lobe: 4.4 x 1.2 x 1.6 cm, volume 4.4 mL. Parenchyma: The gland echotexture is homogeneous. Thyroid vascularity is normal. Isthmus: 0.6 cm in maximum AP dimension. Estimated total number of nodules greater than or equal to 1 cm: 1. Proofing Machine Operator nodules are described as follows: 1. Location: Right isthmus. Size: 0.9 x 0.5 x 1 cm, volume 0.25 mL. Nodule characteristics: Composition: Cystic(0). ACR TI-RADS total points: 0 ACR TI-RADS category: 1 2. Location: Left mid. Size: 0.3 x 0.2 x 0.3 cm, volume 0.01 mL. Nodule characteristics: Composition: Spongiform (0). Echogenicity: Anechoic (0). Shape: Not taller than wide (0). Margins: Smooth (0). Echogenic Foci: None (0). ACR TI-RADS total points: 0 ACR TI-RADS category: 1 3. Location: Right isthmus. Size: 0.7 x 0.4 x 0.5 cm, volume 0.08 mL. Nodule characteristics: Composition: Solid (2). Echogenicity: Hyperechoic (1). Shape: Taller than wide (3). Margins: Irregular (2). Echogenic Foci: None (0). ACR TI-RADS total points: 8 ACR TI-RADS category: 5 NODES: No lymphadenopathy is seen in the tissue surrounding the thyroid gland. US/US thyroid IMPRESSION: A 0.7 cm right isthmus TR5 thyroid nodule. ACR TI-RADS RECOMMENDATION REFERENCE: Ultrasound-guided fine-needle aspiration, followup ultrasound, no further follow up. * TR1 (0 point) and TR2 (2 points): No FNA or follow up. * TR3 (3 points): FNA if more than or equal to 2.5 cm in maximum dimension, followup ultrasound in 1, 3 and 5 years if 1.5 to 2.4 cm in maximum dimension. * TR4 (4-6 points): FNA if more than or equal to 1.5 cm in maximum dimension, followup ultrasound in 1, 2, 3 and 5 years if 1 to 1.4 cm in maximum dimension. * TR5 (more than or equal to 7 points): FNA if more than or equal to 1 cm in maximum dimension, followup ultrasound every year for 5 years if 0.5 to 0.9 cm in maximum dimension. * TR3, TR4 or TR5 nodules that are below the size threshold for followup receive no follow up.
== END 2024-01-03 13:15 | disposition home or self-care (01) ==
LOC: HO.US 13:14
PROVIDERS: PCP Nurse Practitioner Family; Visit Provider Internal Medicine Gastroenterology
DX: E34.9 Endocrine disorder, unspecified (principal)
CPT/HCPCS: 76536

== ENCOUNTER 2024-03-09 11:16 | Outpatient (REF) | payer OTHER, SELFPAY ==
[2024-03-09 14:14] LABS: Magnesium 1.6 mg/dL (1.6-2.6)
[2024-03-09 14:23] LABS: Ferritin 129 ng/mL (10-250); Vitamin D 25-OH Total 14.2 ng/mL (>30)
[2024-03-09 14:35] LABS: Folate 4.4 ng/mL (> or = 4.0); Vitamin B12 524 pg/mL (200-900)
[2024-03-13 17:03] LABS: Zinc 60 mcg/dL (60-130)
[2024-03-13 21:44] LABS: Calcitonin 13 pg/mL (<=5)
[2024-03-14 02:33] LABS: Alpha-Tocopherol 5.7 mg/L (5.7-19.9); Beta-Gamma Tocopherol <1.0 mg/L (<=4.3)
[2024-03-14 13:08] LABS: Vitamin B6 <2.0 ng/mL (2.1-21.7)
[2024-03-14 17:04] LABS: Vitamin A 33 mcg/dL (38-98)
[2024-03-14 22:53] LABS: Vitamin C 0.2 mg/dL (0.3-2.7)
[2024-03-15 06:19] LABS: Vitamin B1 9 nmol/L (8-30)
[2024-03-15 19:57] LABS: Vitamin K1 216 pg/mL (130-1500)
[2024-03-16 02:38] LABS: Nicotinamide <20 ng/mL; Vit B3 - Nicotinic Acid <20 ng/mL
[2024-03-16 02:43] LABS: Vitamin B5 (Pantothenic Acid) 42 ng/mL (<275)
== END 2024-03-09 11:17 | disposition home or self-care (01) ==
LOC: HO.LAB 11:16
PROVIDERS: PCP Nurse Practitioner Family; Visit Provider Internal Medicine Gastroenterology
DX: M54.9 Dorsalgia, unspecified (principal); R11.2 Nausea with vomiting, unspecified; E46 Unspecified protein-calorie malnutrition; E55.9 Vitamin D deficiency, unspecified
CPT/HCPCS: 36415; 82180; 82306; 82308; 82607; 82728; 82746; 83735; 84207; 84425; 84446; 84590; 84591; 84597; 84630; 99212

== ENCOUNTER 2024-03-09 11:16 | Outpatient (AMB) | payer OTHER, SELFPAY ==
[2024-03-09 11:21] VITALS: BP 146/74; PULSE 82; BMI 48.9
--- NOTE | 2024-03-09 11:21 | MHC.OFFVIS ---
Vital Signs 03/09/24 11:21 Height 5 ft 9 in Weight 331 lb BMI 48.9 BP 146/74 H Blood Pressure Location Lt brachial Position Sitting Pulse 82 Intake Visit Reasons: 8 weeks follow up Intake Note: Jackie presents in the office as a 8 week follow up. CC: Pain in her stomach when she eats, mucus in her throat constantly. Allergies No Known Allergies Allergy (Verified 03/09/24 11:25) HPI HPI 8 weeks follow up: Details: 53 yr old f w/ Parkinsons, DM, and OA being seen for f/u for nausea and vomiting RECAP: Saw [facility] initially Pt was seen in the ER on 09/16 c/o abdominal pain, N/V, and inability to eat. Labs showed decreased potassium of 2.8. UA suggestive of acute UTI. EKG was unremarkable. Abdominal US and CT were negative for acute process. Pt was given pain meds, antiemetics, and IV potassium. Pt's potassium improved to 3.1. She was d/c with cefuroxime and zofran. OTHER DATA: 01/2020-EGD colonoscopy - neg bx, no HP, no polyp 11/05- GES--normal 4 hr emptying INTERIM: she has been taking celebrex and works better than meloxicam she still has fullness, mucous and swallowing she has nausea, not been changed to long form of levidopa to see if helps the nausea yet migraines are better, not as bad still gets soem pain from spine from she has pin point pain in RUQ, abn ba swallow ? erosive gastritis EXAM: GENERAL: The patient is obese and in wheel chair VITAL SIGNS:see workflow HEENT: Nonicteric sclerae, PERRLA, EOMI. Oropharynx clear. Moist mucous membranes. Conjunctivae appear well perfused. No thyroid mass. CHEST: Chest wall is nontender. HEART: Regular rate and rhythm without murmurs. LUNGS: Clear to auscultation bilaterally. ABDOMEN: Soft, positive bowel sounds, tender epigastrium, pin point over RUQ, no organomegaly.no flank tenderness SKIN: No rash, no excessive bruising, petechiae, or purpura. NEUROLOGIC: Cranial nerves II-XII intact without motor/sensory deficit. Tremor noted A/P: 1/ Nausea, maybe due to PD or meds vs GI toxicity, gastritis 2/ multiple nutrient defcn 3/ rasied calcitionin but neg US thyroid PLAN: 1/ EGD--check with anesthesia due to BMI 2/ recheck nutrient levels and calcitonin 3/ cont with celebrex PFSH Medical History Parkinsons HLA B27 (HLA B27 positive) Retention of urine, unspecified UTI (urinary tract infection) Sacroiliitis Knee pain, bilateral Surgical History Hx of colonoscopy S/P gastric sleeve procedure Hx of cholecystectomy Family History Father HTN (hypertension) Diabetes Mother HTN (hypertension) Diabetes HLD (hyperlipidemia) Maternal Grandfather Substance use disorder Maternal Grandmother Diabetes Substance use disorder Maternal Uncle Substance use disorder Mental health disorder Paternal Grandmother Substance use disorder Social History Housing: House Alcohol intake: never Patient Tobacco Use Status: Never used Tobacco e-Cigarette/Vaping Use: Never Used Second Hand Smoke Exposure: No service: No Current occupational status: unemployed Cognitive needs: No Hearing needs: No Vision needs: No Physical Exam Vital Signs: Last Vital Signs Pulse 82 03/09/24 11:21 BP 146/74 H 03/09/24 11:21 BMI result Body Mass Index 48.9 Assessment & Plan Assessment & Plan (1) Ankylosing spondylitis: Code(s): M45.9 - Ankylosing spondylitis of unspecified sites in spine Category: Medical Plan: A/P: 1/ Nausea, maybe due to PD or meds vs GI toxicity, gastritis 2/ multiple nutrient defcn 3/ rasied calcitionin but neg US thyroid PLAN: 1/ EGD--check with anesthesia due to BMI 2/ recheck nutrient levels and calcitonin 3/ cont with celebrex (2) Nausea & vomiting: Code(s): R11.2 - Nausea with vomiting, unspecified Category: Medical Plan: A/P: 1/ Nausea, maybe due to PD or meds vs GI toxicity, gastritis 2/ multiple nutrient defcn 3/ rasied calcitionin but neg US thyroid PLAN: 1/ EGD--check with anesthesia due to BMI 2/ recheck nutrient levels and calcitonin 3/ cont with celebrex (3) Malnutrition: Code(s): E46 - Unspecified protein-calorie malnutrition Category: Medical Plan: A/P: 1/ Nausea, maybe due to PD or meds vs GI toxicity, gastritis 2/ multiple nutrient defcn 3/ rasied calcitionin but neg US thyroid PLAN: 1/ EGD--check with anesthesia due to BMI 2/ recheck nutrient levels and calcitonin 3/ cont with celebrex (4) Vitamin D deficiency: Code(s): E55.9 - Vitamin D deficiency, unspecified Category: Medical Plan: A/P: 1/ Nausea, maybe due to PD or meds vs GI toxicity, gastritis 2/ multiple nutrient defcn 3/ rasied calcitionin but neg US thyroid PLAN: 1/ EGD--check with anesthesia due to BMI 2/ recheck nutrient levels and calcitonin 3/ cont with celebrex Orders: Orders Vitamin A 03/09/24 E46 - Unspecified protein-calorie malnutrition Vitamin B12 and Folate 03/09/24 E46 - Unspecified protein-calorie malnutrition Vitamin B3 (Niacin) 03/09/24 E46 - Unspecified protein-calorie malnutrition Vitamin D 25-OH Total 03/09/24 E46 - Unspecified protein-calorie malnutrition Vitamin C 03/09/24 E46 - Unspecified protein-calorie malnutrition Vitamin K1 03/09/24 E46 - Unspecified protein-calorie malnutrition Vitamin E 03/09/24 E46 - Unspecified protein-calorie malnutrition Ferritin 03/09/24 E46 - Unspecified protein-calorie malnutrition Magnesium 03/09/24 E46 - Unspecified protein-calorie malnutrition Vitamin B1 03/09/24 E46 - Unspecified protein-calorie malnutrition Vitamin B5 (Pantothenic Acid) 03/09/24 E46 - Unspecified protein-calorie malnutrition Vitamin B6 03/09/24 E46 - Unspecified protein-calorie malnutrition Zinc 03/09/24 E46 - Unspecified protein-calorie malnutrition Calcitonin 03/09/24 E55.9 - Vitamin D deficiency, unspecified Referrals Pain Management Referral M45.9 - Ankylosing spondylitis of unspecified sites in spine, R11.2 - Nausea with vomiting, unspecified Coding Level of Care Code Est Pt Level 4 (39592) Diagnoses Ankylosing spondylitis M45.9 Nausea & vomiting R11.2 Malnutrition E46 Vitamin D deficiency E55.9
== END 2024-03-09 12:47 | disposition home or self-care (01) ==
PROVIDERS: PCP Nurse Practitioner Family; Visit Provider Internal Medicine Gastroenterology
DX: M45.9 Ankylosing spondylitis of unspecified sites in spine (principal); R11.2 Nausea with vomiting, unspecified; E46 Unspecified protein-calorie malnutrition; E55.9 Vitamin D deficiency, unspecified
CPT/HCPCS: 99214

== ENCOUNTER 2024-04-05 12:06 | Outpatient (REF) | payer OTHER, SELFPAY ==
--- NOTE | ~2024-04-05 | US_ITS ---
EXAMINATION: US THYROID CLINICAL INFORMATION: Endocrine disorder, unspecified. Follow up of right isthmus nodule. COMPARISON: Thyroid ultrasound 01/03/2024. TECHNIQUE: Linear transducer grayscale and color Doppler examination with attention to the region of the thyroid. FINDINGS: SIZE: Measurements of the thyroid lobes and nodules are given in sagittal, anteroposterior and transverse dimensions respectively. Right Thyroid Lobe: 5.1 x 1.6 x 1.7 cm, volume 7.1 mL. Previously 4.2 x 1.5 x 1.7 cm, volume 5.3 mL. Parenchyma: The gland echotexture is homogeneous. Thyroid vascularity is normal. Left Thyroid Lobe: 4.8 x 1.5 x 1.6 cm, volume 5.7 mL. Previously 4.4 x 1.2 x 1.6 cm, volume 4.4 mL. Parenchyma: The gland echotexture is homogeneous. Thyroid vascularity is normal. Isthmus: 0.6 cm in maximum AP dimension. Previously 0.6 cm. Estimated total number of nodules greater than or equal to 1 cm: 0. 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 Location: Right lower pole. Size: 0.4 x 0.3 x 0.2 cm, volume 0.01 mL. Previously: Not documented. Nodule characteristics: Composition: Cystic(0). ACR TI-RADS total points: 0 ACR TI-RADS category: 1 2. Location: Right isthmus. Size: 0.7 x 0.5 x 0.6 cm, volume 0.09 mL. Previously: 0.9 x 0.5 x 1.0 cm, volume 0.25 mL. Nodule characteristics: Composition: Cystic(0). ACR TI-RADS total points: 0 Previous: 0 ACR TI-RADS category: 1 Previous: 1 Significant change in size (>/= 20% in 2 dimensions and minimal increase of 2 mm or 50% or greater increase in volume): No Change in features: No Change in ACR TI-RADS risk category: No 3. Location: Left mid pole. Size: 0.3 x 0.3 x 0.2 cm, volume 0.01 mL. Previously: 0.3 x 0.3 x 0.3 cm, volume 0.01 mL. Nodule characteristics: Composition: Spongiform (0). ACR TI-RADS total points: 0 Previous: 0 ACR TI-RADS category: 1 Previous: 1 Significant change in size (>/= 20% in 2 dimensions and minimal increase of 2 mm or 50% or greater increase in volume): No Change in features: No Change in ACR TI-RADS risk category: No 4. Location: Right isthmus. Size: 0.9 x 0.5 x 0.4 cm, volume 0.12 mL. Previously: 0.7 x 0.4 x 0.5 cm, volume 0.07 mL. Nodule characteristics: Composition: Solid/almost completely solid (2). Echogenicity: Hyperechoic (1). Shape: Not taller than wide (0). Margins: Smooth (0). Echogenic Foci: None (0). ACR TI-RADS total points: 3 Previous: 8 ACR TI-RADS category: 3 Previous: 5 Significant change in size (>/= 20% in 2 dimensions and minimal increase of 2 mm or 50% or greater increase in volume): Yes Change in features: No Change in ACR TI-RADS risk category: No NODES: No lymphadenopathy is seen in the tissue surrounding the thyroid gland. US/US thyroid IMPRESSION: Bilateral thyroid nodules and cysts are seen, as detailed. No specific imaging follow-up is recommended. ACR TI-RADS RECOMMENDATION REFERENCE: Ultrasound-guided fine-needle aspiration, follow up ultrasound, no further followup. * TR1 (0 point) and TR2 (2 points): No FNA or followup * TR3 (3 points): FNA if more than or equal to 2.5 cm in maximum dimension, follow up ultrasound in 1, 3 and 5 years if 1.5 to 2.4 cm in maximum dimension. * TR4 (4-6 points): FNA if more than or equal to 1.5 cm in maximum dimension, follow up ultrasound in 1, 2, 3 and 5 years if 1 to 1.4 cm in maximum dimension. * TR5 (more than or equal to 7 points): FNA if more than or equal to 1 cm in maximum dimension, follow up ultrasound every year for 5 years if 0.5 to 0.9 cm in maximum dimension. * TR3, TR4 or TR5 nodules that are below the size threshold for follow up receive no followup.
== END 2024-04-05 12:07 | disposition home or self-care (01) ==
LOC: HO.US 12:06
PROVIDERS: PCP Nurse Practitioner Family; Visit Provider Internal Medicine Gastroenterology
DX: E34.9 Endocrine disorder, unspecified (principal)
CPT/HCPCS: 76536

== ENCOUNTER 2024-04-12 08:13 | Day surgery (SDC) | payer OTHER, SELFPAY ==
--- NOTE | 2024-04-11 08:35 | P.CONAN_ITS ---
Documented by User: Rivka Mcginnis NP 04/11/24 08:36 HPI - Anesthesia Eval Consult details Narrative: 53yo F for Upper Endoscopy PMFSH Active Problems Active Problems: All Active Problems Malnutrition (Acute) Vitamin D deficiency (Acute) Constipation (Acute) Elevated calcitonin level (Acute) Zinc deficiency (Acute) Vitamin B6 deficiency (Acute) Vitamin C deficiency (Acute) Immunization counseling (Acute) Nausea & vomiting (Acute) Restless leg syndrome (Acute) Parkinsonism (Acute) Ankylosing spondylitis (Acute) Diabetes (Acute) Mental confusion (Acute) Stuttering (Acute) Retention of urine, unspecified (Acute) UTI (urinary tract infection) (Acute) Pulmonary nodules/lesions, multiple (Acute) Cervicalgia (Acute) Gait difficulty (Acute) Migraine (Acute) Sleep disorder (Acute) Tremor (Acute) Body aches (Acute) Leukocytosis (Acute) Fatigue (Acute) Obesity (Acute) Pulmonary nodules (Acute) Urinary incontinence (Acute) Touch sensitivity increased (Acute) Fatigue (Acute) Visual disturbances (Acute) Increasing shortness of breath (Acute) IBS (irritable bowel syndrome) (Acute) Diabetes (Acute) Elevated BP without diagnosis of hypertension (Acute) Lower back pain (Acute) Right hip pain (Acute) Knee pain, bilateral (Acute) UTI (urinary tract infection) (Acute) Past Medical History Medical History Parkinsons HLA B27 (HLA B27 positive) Retention of urine, unspecified UTI (urinary tract infection) Sacroiliitis Knee pain, bilateral Family History Family History Father HTN (hypertension) Diabetes Mother HTN (hypertension) Diabetes HLD (hyperlipidemia) Maternal Grandfather Substance use disorder Maternal Grandmother Diabetes Substance use disorder Maternal Uncle Substance use disorder Mental health disorder Paternal Grandmother Substance use disorder Surgical History Surgical History Hx of colonoscopy S/P gastric sleeve procedure Hx of cholecystectomy Social History Social History Housing: House Alcohol intake: never Patient Tobacco Use Status: Never used Tobacco e-Cigarette/Vaping Use: Never Used Second Hand Smoke Exposure: No service: No Current occupational status: unemployed Cognitive needs: No Hearing needs: No Vision needs: No Meds Allergies Allergy/AdvReac Type Severity Reaction Status Date / Time No Known Allergies Allergy Verified 03/09/24 11:25 Assessment and Plan Assessment Anesthesia Assessment: Chart Reviewed Documented by User: Trista Roberts MD 04/12/24 10:31 [facility] Active Problems Active Problems: All Active Problems Malnutrition (Acute) Vitamin D deficiency (Acute) Constipation (Acute) Elevated calcitonin level (Acute) Zinc deficiency (Acute) Vitamin B6 deficiency (Acute) Vitamin C deficiency (Acute) Immunization counseling (Acute) Nausea & vomiting (Acute) Restless leg syndrome (Acute) Parkinsonism (Acute) Ankylosing spondylitis (Acute) Diabetes (Acute) Mental confusion (Acute) Stuttering (Acute) Retention of urine, unspecified (Acute) UTI (urinary tract infection) (Acute) Pulmonary nodules/lesions, multiple (Acute) Cervicalgia (Acute) Gait difficulty (Acute) Migraine (Acute) Sleep disorder (Acute) Tremor (Acute) Body aches (Acute) Leukocytosis (Acute) Fatigue (Acute) Morbid Obesity (Acute) BMI 48.9 Pulmonary nodules (Acute) Urinary incontinence (Acute) Touch sensitivity increased (Acute) Fatigue (Acute) Visual disturbances (Acute) Increasing shortness of breath (Acute) IBS (irritable bowel syndrome) (Acute) Diabetes (Acute) Elevated BP without diagnosis of hypertension (Acute) Lower back pain (Acute) Right hip pain (Acute) Knee pain, bilateral (Acute) UTI (urinary tract infection) (Acute) Past Medical History Medical History Parkinsons HLA B27 (HLA B27 positive) Retention of urine, unspecified UTI (urinary tract infection) Sacroiliitis Knee pain, bilateral Family History Family History Father HTN (hypertension) Diabetes Mother HTN (hypertension) Diabetes HLD (hyperlipidemia) Maternal Grandfather Substance use disorder Maternal Grandmother Diabetes Substance use disorder Maternal Uncle Substance use disorder Mental health disorder Paternal Grandmother Substance use disorder Family history of problems with anesthesia: No Surgical History Surgical History Hx of colonoscopy S/P gastric sleeve procedure Hx of cholecystectomy History of Problems with Anesthesia: No Social History Social History Housing: House Alcohol intake: never Patient Tobacco Use Status: Never used Tobacco e-Cigarette/Vaping Use: Never Used Second Hand Smoke Exposure: No service: No Current occupational status: unemployed Cognitive needs: No Hearing needs: No Vision needs: No Meds Allergies Allergy/AdvReac Type Severity Reaction Status Date / Time No Known Allergies Allergy Verified 03/09/24 11:25 Exam Height,Weight and Vital Signs: Height 5 ft 9 in Weight 150.139 kg T 97.2 HR 91 RR 18 BP 127/70 Sats 95%(RA) Pertinent Lab Results Pertinent Lab Results: Lab Results 04/12/24 Range/Units 09:16 POC Glucose 246 H (60-115) mg/dL Airway Mallampati Class: III TM Dist: >3cm Neck ROM: Full Heart: RRR Lungs: CTAB Assessment and Plan Assessment Anesthesia Assessment: Anesthesia Plan Discussed and Chart Reviewed Final Anesthetic Review Family History of Problems with Anesthesia: No History of Problems with Anesthesia: No NPO: Yes ASA Class: III Final Preanesthetic Review: No Changes in Pt Med Stat, Meds/Allgs Chart Reviewe d, Consent Obtained/Reviewed and Anes Risks/Benef Reviewed Patient Risk: Intermediate Procedure Risk: Low Assessment/Block/Sedation in SS: Assess/Block/Sedation-SS Anesthetic Plan Anesthetic Plan: TIVA Disposition: Standard PACU
[2024-04-12 08:40] VITALS: BMI 48.9
--- NOTE | 2024-04-12 08:54 | P.HPSUR_ITS ---
Pre-Procedural Eval Section A - 24 Hr Update-Section A only Date of Service: 04/12/24 Section B - Complete if H&P > 30 days Chief Complaint: Chronic or unspecified gastric ulcer,nausea,vomit Relevant Family History (Specify if Yes): No Relevant Social History: None Present Medications: see Short Stay Collaborative assessment Medical History: Significant History (Parkinsons HLA B27 (HLA B27 positive) Re tention of urine, unspecified UTI (urinary tract infection) Sacroiliitis Knee pain, bilateral) History of Previous Operations: Relevant previous surgery/procedure and date(s) ( Hx of colonoscopy S/P gastric sleeve procedure Hx of cholecystectomy) Allergies: Allergies Allergy/AdvReac Type Severity Reaction Status Date / Time No Known Allergies Allergy Verified 03/09/24 11:25 Review of Systems Sugical H&P ROS: Negative: Constitution, Cardiovascular, Respiratory, Neurological, Psychiatric, Hem-Onc, Allergic/Immunologic, Gastrointestinal, Genitourinary, Musculoskeletal, Integumentary, Endocrine and Eyes/Ears/Nose/Throat Exam Surgical H&P Exam: Normal: HEENT, Normal: Heart, Normal: Lungs, Normal: Extremities, Normal: Abdomen, Normal: Skin and Normal: Neurological Plan Diagnosis/Plan: Unchanged I have reviewed the history and physical and performed a pertinent physical examination on my patient. No changes have occurred unless specified. Time Spent With Patient Time: Total time managing care of this patient today ____ minutes.
[2024-04-12 09:21] LABS: Glucose, Whole Blood 246 mg/dL (60-115)
--- NOTE | 2024-04-12 09:45 | W.PM.OPN ---
Operative Note Operative Note Date of Service: 04/12/24 Narrative: Procedure Description: EGD Indication: nausea Anesthesia: MAC FLEXIBLE TRANSORAL UPPER GASTROINTESTINAL ENDOSCOPY UPPER ENDOSCOPY Consent: Indications for the procedure and potential complications of bleeding, perforation, reaction to medications and missed diagnosis were discussed with the patient and informed consent was obtained. Instrument: Olympus GIF H 190 J mid size upper endoscope Monitoring: Vital signs and clinical assessment, continuous EKG monitoring, Pulse oximetry, Carbon Dioxide monitoring and blood pressure monitoring were done throughout the procedure. Procedure: The patient was placed in the left lateral decubitis position and pre-procedure medications were administered and a bite block was placed. The endoscope was inserted into the mouth and advanced under direct vision to the third part of duodenum. A careful inspection was made as the upper endoscope was withdrawn including a retroflexed examination of the proximal stomach; Findings and interventions are described below. Findings: Larynx:normal Esophagus: GE junction at 38 cm, diaphragm hiatus at 38 cm, mild esophagitis at GEJ, bx taken from here and from distal and proximal esophagus Stomach: Patchy erythema with reduced motility and bile acid . Biopsies were obtained. Grade 2 flap valve on retroflexed examination of the cardia. one area in the fundus was more erythematous and slightly coarse, separate bx taken. Pylorus seemed tight and was dilated using wire guided balloon to 20 mm with some heme noted around the pylorus Duodenum: Normal bulb and descending duodenum, bx taken Intervention: Biopsies as noted above, Impression/Findings: gastritis tight pylorus gastritis mild esophagitis PLAN: await bx results GERD precautions
[2024-04-12 10:28] VITALS: BP 121/59; PULSE 90; RESP 24; TEMP 36.6; O2SAT 97
[2024-04-12 10:43] VITALS: BP 125/68; PULSE 87; RESP 20; O2SAT 96
[2024-04-12 10:58] VITALS: BP 151/86; PULSE 82; RESP 20; TEMP 36.5; O2SAT 97
== END 2024-04-12 11:28 | disposition home or self-care (01) ==
PROVIDERS: PCP Nurse Practitioner Family; Visit Provider Internal Medicine Gastroenterology
PROC: 0DJ08ZZ Inspection of Upper Intestinal Tract, Via Natural or Artificial Opening Endoscopic (ICD-10-PCS; CPT 43235; principal; 2024-04-12 10:10)
DX: R11.0 Nausea (principal); K20.90 Esophagitis, unspecified without bleeding; K29.70 Gastritis, unspecified, without bleeding; K31.89 Other diseases of stomach and duodenum; E11.9 Type 2 diabetes mellitus without complications; G20.A1 Parkinson's disease without dyskinesia, without mention of fluctuations
CPT/HCPCS: 43245; 43239; 82947; 88305; 88313; 88341; 88342; C1726; J2704

== ENCOUNTER → 2024-04-12 08:13 | Outpatient (BNV) | payer OTHER, SELFPAY | PROVIDERS: PCP Nurse Practitioner Family; Visit Provider Internal Medicine Gastroenterology | DX: R11.0 Nausea (principal); K29.70 Gastritis, unspecified, without bleeding; K20.90 Esophagitis, unspecified without bleeding; K31.1 Adult hypertrophic pyloric stenosis | CPT/HCPCS: 43239; 43245 ==

== ENCOUNTER 2024-04-17 14:12 | Outpatient (AMB) | payer OTHER, SELFPAY ==
--- NOTE | 2024-04-17 14:15 | MHC.PC.OV ---
Vital Signs 04/17/24 14:21 04/17/24 15:36 Height 5 ft 9 in Weight 321 lb BMI 47.4 BP 132/98 H 118/80 Blood Pressure Location Rt brachial Lt brachial Position Sitting Sitting Pulse 92 Pulse Source Pulse Oximeter Pulse Oximetry (%) 97 Oxygen Delivery Method Room Air Intake Visit Reasons: 3M F/U rescheduled from 03/01/24 Intake Note: Patient here for Diabetes f/u Allergies No Known Allergies Allergy (Verified 04/17/24 14:22) Tobacco use date assessed: 11/23/23 Dental Screening Dental Screen Date: 11/23/23 HPI 3M F/U rescheduled from 03/01/24 HPI Details Pt is a diabetic, on an NELLY and a statin. A1C in office today is 13.2. Due for microalbumin, Denies polyuria, polydipsia, does report neuropathy. Pt denies any signs and symptoms of hypoglycemia and does know how to correct it. Pt reports that she has only been taking 16 units of tresiba, informed pt that she should be taking at least 30 units. Will have pt increase tresiba by 2 units at a time until her blood sugar is under 200. Will start ozempic 0.25mg. [facility] Medical History Parkinsons HLA B27 (HLA B27 positive) Retention of urine, unspecified UTI (urinary tract infection) Sacroiliitis Knee pain, bilateral Surgical History Hx of colonoscopy S/P gastric sleeve procedure Hx of cholecystectomy Family History Father HTN (hypertension) Diabetes Mother HTN (hypertension) Diabetes HLD (hyperlipidemia) Maternal Grandfather Substance use disorder Maternal Grandmother Diabetes Substance use disorder Maternal Uncle Substance use disorder Mental health disorder Paternal Grandmother Substance use disorder Social History Housing: House Alcohol intake: never Patient Tobacco Use Status: Never used Tobacco e-Cigarette/Vaping Use: Never Used Second Hand Smoke Exposure: No service: No Current occupational status: unemployed Cognitive needs: No Hearing needs: No Vision needs: No Questionnaire PHQ-9 Over the last 2 weeks, how often have you been bothered by any of the following problems? 56793 - PHQ-9 Billing: Patient declined-do not bill Source: Developed by Drs. Mike Busch, Patricia Brandt, Dashawn David and colleagues, with an educational annika from [email or web address]. Thrive Questionnaire Date Thrive assessed: 07/12/22 MANUELA-7 AMB Questionnaire MANUELA-7 Assessment Billing MANUELA-7 Assessment Tool: pt declined-do not bill Review of Systems Const Reports as per HPI Physical exam (Primary Care) Vital Signs: Last Vital Signs Pulse 92 04/17/24 14:21 BP 118/80 04/17/24 15:36 Pulse Ox 97 04/17/24 14:21 Oxygen Delivery Method Room Air 04/17/24 14:21 BMI result Body Mass Index 47.4 Tobacco/Smoking Status: Tobacco use Status Tobacco use date assessed 11/23/23 04/17/24 14:15 Patient Tobacco Use Status Never used Tobacco 04/17/24 14:15 e-Cigarette/Vaping Use Never Used 04/17/24 14:15 Thrive Assessment: Date of Thrive Assessment Date Thrive assessed 07/12/22 04/17/24 14:15 Const General: cooperative Nutritional Appearance: obese morbidly obese Orientation/consciousness: patient oriented x3 Resp Effort & Inspection: normal respiratory effort Auscultation: clear to auscultation bilaterally Cardio Rate: regular rate Rhythm: regular rhythm Heart sounds: S1 normal heart sound present and S2 normal heart sound present Neuro General: patient oriented x3 Extrem Other: bilat feet: + sensation with use of monofilament, feet intact Psych Appearance: grossly normal Mental Status: mental status grossly normal Speech and movement: Normal speech and movement present Affect: normal affect Attitude: cooperative Thought process: Normal thought process present Thought content: Normal thought content present Insight: Good insight present (Psych) Judgement: Good judgement present (Psych) Results AMB Hemoglobin A1c AMB Hemoglobin A1c 13.2 % Last Edit by MALACHI Lowery on 04/17/24 14:49 Results Reviewed Results Reviewed: Laboratory Last Values Hgb A1c (Clinic) 13.2 % (4.0-6.0) H 04/17/24 14:48 Assessment and Plan Assessment & Plan (1) Diabetes: Code(s): E11.9 - Type 2 diabetes mellitus without complications Plan: starting with tresiba 30 units. may go up by 2 units every 3 days, if morning sugars are passed 200. continue increase until morning sugars are under 200 Plan The patient agreed to the use of a medical billing coordinator for this encounter. Scribed for CESILIA Ramírez by Estelita Laurent medical billing coordinator, on 04/17/2024 at 15:05 EST. Orders: Orders AMB Hemoglobin A1c Today E11.9 - Type 2 diabetes mellitus without complications Medications: New semaglutide (Ozempic) for 4 weeks 0.25 mg (0.368 mL) subcut QWEEK 1.84 mL 0RF 30 days Refilled pen needle, diabetic (BD Ultra-Fine Emily Pen Needle) Use to inject insulin daily 100 ea 1RF E11.9 - Type 2 diabetes mellitus without complications Coding Level of Care Code Est Pt Level 3 (26334) Diagnoses Diabetes E11.9
[2024-04-17 14:21] VITALS: BP 132/98; PULSE 92; O2SAT 97; BMI 47.4
[2024-04-17 15:36] VITALS: BP 118/80
== END 2024-04-17 15:41 | disposition home or self-care (01) ==
PROVIDERS: PCP Nurse Practitioner Family; Visit Provider Nurse Practitioner Family
DX: E11.9 Type 2 diabetes mellitus without complications (principal)
CPT/HCPCS: 83036; 99213

== ENCOUNTER 2024-05-03 10:44 | Outpatient (REF) | payer OTHER, SELFPAY ==
[2024-05-03 11:08] LABS: MANUAL DIFF FLAG NO
[2024-05-03 13:01] LABS: Basophils Percent Auto 0.6 % (0-2); Eosinophils Absolute Auto 0.1 X10*3/uL (0.0-0.4); Eosinophils Percent Auto 2.4 % (0-4); Hematocrit 39.6 % (37.0-47.0); Hemoglobin 12.9 g/dl (12.0-16.0); Imm Gran Abs Auto 0.01 X10*3/uL (0.00-0.03); Imm Gran Pct Auto 0.2 % (0.0-0.4); Lymphocytes Absolute Auto 1.8 X10*3/uL (1.2-4.9); Lymphocytes Percent Auto 34.1 % (20-40); Mean Corpuscular HGB Conc 32.6 g/dl (31.0-35.0); Mean Corpuscular Hemoglobin 25.5 pg (27.0-33.0); Mean Corpuscular Volume 78.4 fL (80.0-98.0); Mean Platelet Volume 11.4 fL (9.4-12.3); Monocytes Absolute Auto 0.5 X10*3/uL (0.1-1.2); Monocytes Percent Auto 8.9 % (2-11); Neutrophils Absolute Auto 2.9 x10*3/uL (2.0-8.3); Neutrophils Percent Auto 53.8 % (45-73); Platelet Count 254 X10*3/uL (160-400); Red Blood Count 5.05 X10*6/uL (4.20-5.50); Red Cell Distribution Width 14.2 % (11.0-16.0); White Blood Count 5.4 X10*3/uL (4.8-10.8)
[2024-05-03 13:45] LABS: Alanine Aminotransferase < 5 U/L (0-31); Albumin Level 3.7 g/dL (3.5-5.0); Alkaline Phosphatase 82 U/L (39-117); Anion Gap 14 (12-20); Aspartate Amino Transferase 29 U/L (5-31); Bilirubin Total 0.4 mg/dL (0.0-1.0); Blood Urea Nitrogen 7 mg/dL (9-16); C Reactive Protein 4.22 mg/dL (< or = 0.50); Calcium 9.1 mg/dL (8.4-10.2); Carbon Dioxide 26 mmol/L (22-29); Chloride 102 mmol/L (96-108); Estimated Glomerular Filt Rate > 60; Glucose Random 262 mg/dL (60-115); Potassium 3.5 mmol/L (3.3-5.1); Sodium 138 mmol/L (135-145); Total Protein 7.9 g/dL (6.5-8.0)
[2024-05-03 13:55] LABS: Erythrocyte Sedimentation Rate 27 MM/HR (0-20)
[2024-05-04 04:33] LABS: HBS Num1 0.49 mIU/mL (0-7.99); HBc Num1 0.14 S/CO (0.00-0.79); HBsAGNum1 0.27 S/CO (0.00-0.99); Hepatitis A Antibody IgM 0.16 Index (0-0.79); Hepatitis B Core Antibody Nonreactive (Nonreactive); Hepatitis B Surface Antigen Negative (Negative); ~HepC Num1 0.12 S/CO (0.00-0.79); ~Hepatitis A Antibody IgM Nonreactive (Nonreactive); ~Hepatitis B Surface Antibody NONREACTIVE (Nonreactive); ~Hepatitis C Antibody Nonreactive (Nonreactive)
[2024-05-07 22:39] LABS: TS Negative Control Passed; TS Panel A 0; TS Panel B 0; TS Positive Control Passed; TSpotTB Negative (Negative)
== END 2024-05-03 10:45 | disposition home or self-care (01) ==
LOC: HO.LAB 10:44
PROVIDERS: PCP Nurse Practitioner Family; Visit Provider Student in an Organized Health Care Education/Training Program
DX: M45.9 Ankylosing spondylitis of unspecified sites in spine (principal); Z11.7 Encounter for testing for latent tuberculosis infection; Z11.59 Encounter for screening for other viral diseases
CPT/HCPCS: 36415; 80053; 85025; 85652; 86140; 86481; 86704; 86706; 86709; 86803; 87340

== ENCOUNTER 2024-05-08 13:37 | Outpatient (AMB) | payer OTHER, SELFPAY ==
[2024-05-08 13:38] VITALS: BP 118/68; PULSE 81; O2SAT 98; BMI 46.6
--- NOTE | 2024-05-08 13:38 | A.OFFVIS_ITS ---
Vital Signs 05/08/24 13:38 Height 5 ft 9 in Weight 315 lb 4.176 oz BMI 46.6 BP 118/68 Blood Pressure Location Rt brachial Position Sitting Pulse 81 Pulse Source Pulse Oximeter Pulse Oximetry (%) 98 Oxygen Delivery Method Room Air Intake Visit Reasons: /cm Allergies No Known Allergies Allergy (Verified 05/08/24 13:42) Medication List - Last Reconciled 05/08/24 by Vijaya Blank MD [4 wheeled walker with seat daily use] alcohol swabs (CareTouch Alcohol Prep Pad topical pads) 1 pad topical DAILY amitriptyline 25 mg PO BEDTIME 30 days ascorbic acid (vitamin C) 500 mg PO BID 30 days aspirin 81 mg PO DAILY 90 days atorvastatin 40 mg PO DAILY 90 days blood sugar diagnostic (FreeStyle Lite Strips) test blood sugar 3 times per day carbidopa-levodopa 25-100 mg 1 tab PO QID 90 days celecoxib 200 mg PO BID cholecalciferol (vitamin D3) 50 mcg PO DAILY 90 days cholecalciferol (vitamin D3) 1,250 mcg PO QWEEK 8 weeks ferrous sulfate 325 mg PO TID 90 days FreeStyle Josias 2 [place] (flash glucose scanning reader) Test blood sugars 4 times per day NS FreeStyle Josias 2 Sensor (flash glucose sensor) 4 times a day NS gabapentin 1 cap at 8pm, 1 cap at 9:30pm, 3 caps at 11pm orally 3 times a day; 30 days galcanezumab-gnlm (Emgality Pen) 120 mg subcut ONCE 30 days Humira(CF) Pen (adalimumab) inject one - 40 mg/0.4 mL pen every 2 weeks subcut NS insulin degludec (Tresiba FlexTouch U-100 insulin) 30 units (0.3 mL) subcut BEDTIME 30 days lancets (FreeStyle Lancets) Use to check blood sugar daily lisinopril 2.5 mg PO DAILY 90 days magnesium oxide 400 mg PO BEDTIME 30 days metformin 1,000 mg PO BID 90 days omeprazole 40 mg PO DAILY 90 days ondansetron HCl 4 mg PO Q8H pen needle, diabetic (BD Ultra-Fine Emily Pen Needle) Use to inject insulin daily pyridoxine (vitamin B6) 50 mg PO BID 30 days riboflavin (vitamin B2) 400 mg PO DAILY 30 days semaglutide (Ozempic) 0.25 mg (0.368 mL) subcut QWEEK 30 days sertraline 200 mg (2 x 100 mg) PO DAILY sumatriptan succinate 100 mg PO Q2H PRN 21 days trazodone 25 mg (1/2 x 50 mg) PO BEDTIME 30 days trazodone 100 mg PO BEDTIME 90 days zinc gluconate 50 mg PO DAILY 30 days HPI Comments Details: This is a 53-year-old female with HLA B27 positive ankylosing spondylitis who presents for follow-up. She was last seen 10/2023 On Humira 40 mg every other week. Well tolerated Patient states that she feels a little worse overall. Continues to have pain in her neck, upper back, lower back, elbows, hands, shins, knees. Morning stiffness of her back lasts 1-2 hours. She states that she had a viral infection about 2-3 weeks ago and cleared it about a week ago. [facility] Medical History Parkinsons HLA B27 (HLA B27 positive) Retention of urine, unspecified UTI (urinary tract infection) Sacroiliitis Knee pain, bilateral Surgical History Hx of colonoscopy S/P gastric sleeve procedure Hx of cholecystectomy Family History Father HTN (hypertension) Diabetes Mother HTN (hypertension) Diabetes HLD (hyperlipidemia) Maternal Grandfather Substance use disorder Maternal Grandmother Diabetes Substance use disorder Maternal Uncle Substance use disorder Mental health disorder Paternal Grandmother Substance use disorder Social History Housing: House Alcohol intake: never Patient Tobacco Use Status: Never used Tobacco e-Cigarette/Vaping Use: Never Used Second Hand Smoke Exposure: No service: No Current occupational status: unemployed Cognitive needs: No Hearing needs: No Vision needs: No Female Reproductive History Menstrual Total pregnancies: 3 Full term: 2 Ab spontaneous: 1 Review of Systems ENT Reports neck pain Musc Reports back pain, Reports arthralgias, Denies joint swelling, Reports neck pain and Reports stiffness Physical Exam Vital Signs: Last Vital Signs Pulse 81 05/08/24 13:38 BP 118/68 05/08/24 13:38 Pulse Ox 98 05/08/24 13:38 Oxygen Delivery Method Room Air 05/08/24 13:38 BMI result Body Mass Index 46.6 Const General: cooperative, healthy appearing and comfortable Nutritional Appearance: obese morbidly obese Orientation/consciousness: patient oriented x3 Limitations: wheelchair (Wheelchair with long distances, cane at home) HEENT Mouth: moist mucous membranes Resp Effort & Inspection: normal respiratory effort and able to speak in complete sentences Cardio Rate: regular rate Rhythm: regular rhythm Skin General skin exam: no rashes or lesions noted Neuro General: patient oriented x3 Extrem Other: Multiple tender paraspinal muscles in the cervical and lumbar area Few tender MCPs and PIP is both hands Bilateral wrist pain with full flexion and extension Bilateral knee pain with flexion Bilateral knee warmth Results Reviewed Results Reviewed: [address] [address] XRay Report Signed Patient: Jackie Lawson MR#: [id number] : 1970 Acct:[id number] Age/Sex: 52 / F ADM Date: 09/30/22 Loc: HO.LAB Attending Dr: Jazmine Delarosa NP Ordering Physician: Jazmine Delarosa NP Date of Service: 09/30/22 Procedure(s): XR sacroiliac joint min 3V Accession Number(s): [id number] cc: Jazmine Delarosa NP~ EXAMINATION: XR SACROILIAC JOINTS CLINICAL INFORMATION: Myalgia COMPARISON: None TECHNIQUE: 3 views of the sacroiliac joints FINDINGS: There is increased sclerosis at the left sacroiliac joint. The right sacroiliac joint is normal. No fracture or dislocation is seen. There are degenerative changes of the lower lumbar spine. Soft tissues are unremarkable. XR/XR sacroiliac joint min 3V IMPRESSION: Increased sclerosis at the left sacroiliac joint. Assessment & Plan Assessment & Plan (1) Ankylosing spondylitis: Comment: +HLA b27 sacroiliitis on x-ray dx 09/2022 Humira 10/2022 Code(s): M45.9 - Ankylosing spondylitis of unspecified sites in spine Category: Medical Qualifiers: Ankylosing spondylitis location: multiple sites in spine Qualified Code(s): M45.0 - Ankylosing spondylitis of multiple sites in spine Plan: This is a 53-year-old female with HLA B27 positive ankylosing spondylitis who presents for follow-up. On Humira 40 mg every other week. Patient continues to have active disease. Continues to have multiple swollen and tender joints. Ongoing back stiffness. Inflammatory markers significantly elevated. Will need to change DMARDs. JOANN Gonzales Discussed risks and benefits of Rinvoq. Discussed black box warning associated with JAYDA inhibitors including increased risk of cardiovascular events, thromboembolic phenomenon and increased risk of malignancy. Patient fully aware. I provided patient with a Rinvoq sample for 3-4 weeks. Advised patient to start Rinvoq at least 2 weeks after last Humira dose. Get the 1st dose of Shingrix vaccine before she starts Rinvoq. Advised patient to call the office if she feels improved and we will work on prior authorization Labs before next visit in 3 months (2) Immunization counseling: Code(s): Z71.85 - Encounter for immunization safety counseling Category: Medical Plan: Shingrix vaccine as mentioned above Plan I spent 27 minutes reviewing patient's chart, evaluating patient, ordering diagnostic workup, counseling patient and documenting in the chart Orders: Orders Erythrocyte Sedimentation Rate 3 Months M45.0 - Ankylosing spondylitis of multiple sites in spine Rheumatoid Factor 3 Months M25.50 - Pain in unspecified joint Complete Blood Count Auto Diff 3 Months M45.0 - Ankylosing spondylitis of multiple sites in spine Comprehensive Met. Panel 3 Months M45.0 - Ankylosing spondylitis of multiple sites in spine C Reactive Protein 3 Months M45.0 - Ankylosing spondylitis of multiple sites in spine Cyclic Citrullinated Peptide 3 Months M25.50 - Pain in unspecified joint Medications: New Rinvoq ER (upadacitinib) lot # [id number] Exp date: 08/05/25 2 boxes sample 15 mg PO DAILY 28 tabs 0RF NS Discontinued Humira(CF) Pen (adalimumab) Discontinued Reason: Doctor's Order inject one - 40 mg/0.4 mL pen every 2 weeks subcut 2 ea 5RF NS M45.9 - Ankylosing spondylitis of unspecified sites in spine Coding Level of Care Code Est Pt Level 4 (57534) Diagnoses Ankylosing spondylitis of multiple sites in spine M45.0 Ankylosing spondylitis location: multiple sites in spine Immunization counseling Z71.85
== END 2024-05-08 14:15 | disposition home or self-care (01) ==
PROVIDERS: PCP Nurse Practitioner Family; Visit Provider Student in an Organized Health Care Education/Training Program
DX: M45.0 Ankylosing spondylitis of multiple sites in spine (principal); Z71.85 Encounter for immunization safety counseling
CPT/HCPCS: 99214

== ENCOUNTER → 2024-05-08 13:37 | Outpatient (BNVA) | payer OTHER, SELFPAY | PROVIDERS: PCP Nurse Practitioner Family; Visit Provider Student in an Organized Health Care Education/Training Program | DX: M45.0 Ankylosing spondylitis of multiple sites in spine (principal); Z71.85 Encounter for immunization safety counseling; Z79.620 Long term (current) use of immunosuppressive biologic | CPT/HCPCS: 99212 ==

== ENCOUNTER 2024-05-09 10:54 | Outpatient (AMB) | payer OTHER, SELFPAY ==
--- NOTE | 2024-05-09 10:55 | MHC.OFFVIS ---
Vital Signs 05/09/24 11:09 Height 5 ft 9 in Weight 315 lb BMI 46.5 BP 138/96 H Blood Pressure Location Lt radial Position Sitting Respiration 16 Pulse 74 Pulse Source Pulse Oximeter Pulse Oximetry (%) 95 Oxygen Delivery Method Room Air Intake Visit Reasons: myofascial pain Allergies No Known Allergies Allergy (Verified 05/09/24 11:09) HPI Comments Details: Jackie is a very pleasant 53-year-old female who presents to the office today, accompanied by her , for evaluation and management of her chronic neck and lower back pain. Past medical history significant for restless leg syndrome, Parkinson's disease, ankylosing spondylitis, diabetes, fibromyalgia, urinary retention, gait difficulty, migraines, sleep disorder, tremor, leukocytosis, fatigue, obesity, pulmonary nodules, fatigue, irritable bowel syndrome. Endorses neck and lower back pain. Pain midline cervical across the upper back and tops of both shoulders. Worse with movement in tender to palpation. Pain today is rated as an 8/10, constant and worse in the evenings in the middle of the night. Endorses midline lower back pain with radiation across to both sides, left worse than right. Worse with movement and tender to palpation Endorses some tenderness to palpation along bilateral thoracic lumbar musculature also. Lower back pain does not radiate down either lower extremity, denies any new numbness, tingling, shooting, zipping, stabbing, electrical pain of either lower extremity. Neck pain radiates towards the base of the head and across to the left shoulder. Patient suffers from migraines along with headaches, potentially associated with this neck pain. Most recent A1c 04/17/2024 was 13.2. She reports there have been some difficulties in treating as at times insurance would not approve her medications and she had to struggle to get them. Recently started a 2nd injection for her diabetes. Currently averaging blood sugar just above 200, working on dietary modifications. Previously blood sugars would be in the 400s. Currently under the care of Neurology for the headaches, restless leg, Parkinson's and migraines. For her restless legs prescribed gabapentin 500mg in a staggered dose near bedtime. Currently under the care of rheumatology. Had a visit yesterday where they discontinued Humira and are starting her on Rinvoq. Her CRP was 4.22 on 05/03/2024 states she feels like the Humira initially had helped but feels like over time it has started to lose its effectiveness. Patient has completed physical therapy more than 1 year ago at [facility]. She is currently taking nonsteroidal anti-inflammatory medications daily with minimal improvement of her pain. Patient has never attempted chiropractor, acupuncture, massage or injections for her neck or back pain. In terms of muscle damage condition is described as aching, stabbing, sharp, dull, tiring, exhausting, throbbing. Pain is negatively impacting patient's enjoyment of life, general activity, mood, recreational activity, sleep and walking [facility] Medical History Parkinsons HLA B27 (HLA B27 positive) Retention of urine, unspecified UTI (urinary tract infection) Sacroiliitis Knee pain, bilateral Surgical History Hx of colonoscopy S/P gastric sleeve procedure Hx of cholecystectomy Family History Father HTN (hypertension) Diabetes Mother HTN (hypertension) Diabetes HLD (hyperlipidemia) Maternal Grandfather Substance use disorder Maternal Grandmother Diabetes Substance use disorder Maternal Uncle Substance use disorder Mental health disorder Paternal Grandmother Substance use disorder Social History Housing: House Alcohol intake: never Patient Tobacco Use Status: Never used Tobacco e-Cigarette/Vaping Use: Never Used Second Hand Smoke Exposure: No service: No Current occupational status: unemployed Cognitive needs: No Hearing needs: No Vision needs: No Review of Systems Const All systems reviewed & are unremarkable except as noted in HPI and below Physical Exam Vital Signs: Last Vital Signs Pulse 74 05/09/24 11:09 Resp 16 05/09/24 11:09 BP 138/96 H 05/09/24 11:09 Pulse Ox 95 05/09/24 11:09 Oxygen Delivery Method Room Air 05/09/24 11:09 BMI result Body Mass Index 46.5 General: awake, alert, oriented. Answers questions appropriately. Fully engaged in examination. Skin: warm, dry, intact HEENT: Normocephalic. Hearing intact. Cardiac: External chest normal in appearance. Respiratory: No cough, audible wheezing or stridor. Abdomen: without gross distension. MS: No obvious swelling or deformities. Significantly tender across upper, middle, lower trapezius muscle. Tenderness along thoracic and lumbar musculature. Tenderness to cervical and lumbar midline vertebrae and paraspinal muscles. Cervical range motion intact Neurological: Oriented to person, place, time and situation. Thought process intact. Utilizing wheelchair for transportation Psychiatric: Appropriate mood and affect. Good judgment and insight. Results Reviewed Results Reviewed: 09/2022 XR/XR sacroiliac joint min 3V FINDINGS: There is increased sclerosis at the left sacroiliac joint. The right sacroiliac joint is normal. No fracture or dislocation is seen. There are degenerative changes of the lower lumbar spine. Soft tissues are unremarkable. IMPRESSION: Increased sclerosis at the left sacroiliac joint. Assessment & Plan Assessment & Plan (1) Ankylosing spondylitis: Comment: +HLA b27 sacroiliitis on x-ray dx 09/2022 Humira 10/2022 Code(s): M45.9 - Ankylosing spondylitis of unspecified sites in spine Category: Medical Qualifiers: Ankylosing spondylitis location: multiple sites in spine Qualified Code(s): M45.0 - Ankylosing spondylitis of multiple sites in spine (2) Myofascial low back pain: Code(s): M54.50 - Low back pain, unspecified Category: Medical (3) Myofascial neck pain: Code(s): M54.2 - Cervicalgia Category: Medical Plan Jackie is a very pleasant 53-year-old female who presented to the office today for evaluation management of her chronic neck and back pain. Order placed for PT eval and treat Discussed options for treatment including increasing gabapentin to 300 mg t.i.d. versus adding muscle relaxer and maintaining gabapentin at 500 mg daily. Will start patient on tizanidine, re-evaluate in 1 month and may increase gabapentin dose at that time. Tizanidine 2 mg p.o. t.i.d. as needed, patient advised on cautions for use Lengthy discussion with the patient and her today regarding treatment options. Given current A1c greater than 13, steroid injections and surgical procedures are not an option due to the increased risks. We will plan to follow up after physical therapy, this will also allow time for therapeutic effects of the Rinvoq and evaluate effects of tizanidine. All questions and concerns were answered, patient agrees to the plan. Follow-up in 1 month, sooner if needed Medications: New tizanidine May cause drowsiness. Do not take with alcohol or other [employer] Depressants. 2 mg PO TID PRN 90 tabs 1RF muscle spasticity Coding Level of Care Code New Pt Level 4 (03709) Diagnoses Ankylosing spondylitis of multiple sites in spine M45.0 Ankylosing spondylitis location: multiple sites in spine Myofascial low back pain M54.50 Myofascial neck pain M54.2
[2024-05-09 11:09] VITALS: BP 138/96; PULSE 74; RESP 16; O2SAT 95; BMI 46.5
== END 2024-05-09 12:01 | disposition home or self-care (01) ==
PROVIDERS: PCP Nurse Practitioner Family; Referring Provider Nurse Practitioner; Visit Provider Registered Nurse Emergency
DX: M45.0 Ankylosing spondylitis of multiple sites in spine (principal); M54.50 Low back pain, unspecified; M54.2 Cervicalgia
CPT/HCPCS: 99204

== ENCOUNTER → 2024-05-09 10:54 | Outpatient (BNVA) | payer OTHER, SELFPAY | PROVIDERS: PCP Nurse Practitioner Family; Referring Provider Nurse Practitioner; Visit Provider Registered Nurse Emergency | DX: M45.0 Ankylosing spondylitis of multiple sites in spine (principal); M79.7 Fibromyalgia; M54.2 Cervicalgia; G89.29 Other chronic pain | CPT/HCPCS: 99202 ==

== ENCOUNTER 2024-05-10 12:25 | Outpatient (REF) | payer OTHER, SELFPAY ==
--- NOTE | ~2024-05-10 | MM_ITS ---
EXAMINATION: MM SCREENING DIGITAL BREAST TOMOSYNTHESIS, BILATERAL CLINICAL INFORMATION: Screening. Asymptomatic. COMPARISON: Mammography: This study is compared with the prior exam dated 2016. There are no interval mammograms. TECHNIQUE: Digital breast tomosynthesis is performed in both the craniocaudal and mediolateral oblique views along with computer-aided detection (CAD). Synthesized 2D images are generated from the tomosynthesis. FINDINGS: The breasts are almost entirely fatty (ACR BI-RADS breast composition Category a). There are no significant masses, abnormal calcifications, or other abnormalities. MM/MM tomosynthesis screening BI IMPRESSION: No mammographic evidence of malignancy. ASSESSMENT: BI-RADS BI-RADS 1 - Negative RECOMMENDATION: Routine annual mammography screening. 1 year F/U This examination should not preclude the clinical evaluation of a suspicious palpable abnormality. This patient's information was entered into a reminder system with a target due date for their next mammogram.
== END 2024-05-10 12:26 | disposition home or self-care (01) ==
LOC: HO.MAMMO 12:25
PROVIDERS: PCP Nurse Practitioner Family; Visit Provider Nurse Practitioner Family
DX: Z12.31 Encounter for screening mammogram for malignant neoplasm of breast (principal)
CPT/HCPCS: 77063; 77067

== ENCOUNTER → 2024-05-10 12:30 | Outpatient (BNV) | payer OTHER, SELFPAY | PROVIDERS: PCP Nurse Practitioner Family; Visit Provider Radiology Diagnostic Radiology | DX: Z12.31 Encounter for screening mammogram for malignant neoplasm of breast (principal) | CPT/HCPCS: 77063; 77067 ==

== ENCOUNTER 2024-06-06 12:54 | Outpatient (AMB) | payer OTHER, SELFPAY ==
--- NOTE | 2024-06-06 13:03 | MHC.OFFVIS ---
Vital Signs 06/06/24 13:05 Height 5 ft 9 in Weight 315 lb BMI 46.5 BP 140/70 H Blood Pressure Location Rt brachial Position Sitting Pulse 73 Pulse Source Pulse Oximeter Pulse Oximetry (%) 96 Oxygen Delivery Method Room Air Intake Visit Reasons: 1 Month Follow Up Allergies No Known Allergies Allergy (Verified 05/09/24 11:09) HPI Comments Details: Jackie presents back to the office today for follow-up, she is accompanied by her . Reports some improvement with the tizanidine. Started physical therapy last week ago. States feeling better after starting physical therapy. At last visit patient used a wheelchair to get from the car to the office, today she was able to ambulate that distance with a cane. States is unsure i she is feeling any improvement in her inflammation since starting Rinvoq. She will be following up with this at rheumatology shortly She reports her blood sugars have been improved recently though at her last PCP visit her A1c was 13.5. Insurance had denied continuous glucose monitor. She has not been evaluated by Endocrinology and would welcome a referral. Prior: Jackie is a very pleasant 53-year-old female who presents to the office today, accompanied by her , for evaluation and management of her chronic neck and lower back pain. Past medical history significant for restless leg syndrome, Parkinson's disease, ankylosing spondylitis, diabetes, fibromyalgia, urinary retention, gait difficulty, migraines, sleep disorder, tremor, leukocytosis, fatigue, obesity, pulmonary nodules, fatigue, irritable bowel syndrome. Endorses neck and lower back pain. Pain midline cervical across the upper back and tops of both shoulders. Worse with movement in tender to palpation. Pain today is rated as an 8/10, constant and worse in the evenings in the middle of the night. Endorses midline lower back pain with radiation across to both sides, left worse than right. Worse with movement and tender to palpation Endorses some tenderness to palpation along bilateral thoracic lumbar musculature also. Lower back pain does not radiate down either lower extremity, denies any new numbness, tingling, shooting, zipping, stabbing, electrical pain of either lower extremity. Neck pain radiates towards the base of the head and across to the left shoulder. Patient suffers from migraines along with headaches, potentially associated with this neck pain. Most recent A1c 04/17/2024 was 13.2. She reports there have been some difficulties in treating as at times insurance would not approve her medications and she had to struggle to get them. Recently started a 2nd injection for her diabetes. Currently averaging blood sugar just above 200, working on dietary modifications. Previously blood sugars would be in the 400s. Currently under the care of Neurology for the headaches, restless leg, Parkinson's and migraines. For her restless legs prescribed gabapentin 500mg in a staggered dose near bedtime. Currently under the care of rheumatology. Had a visit yesterday where they discontinued Humira and are starting her on Rinvoq. Her CRP was 4.22 on 05/03/2024 states she feels like the Humira initially had helped but feels like over time it has started to lose its effectiveness. Patient has completed physical therapy more than 1 year ago at [facility]. She is currently taking nonsteroidal anti-inflammatory medications daily with minimal improvement of her pain. Patient has never attempted chiropractor, acupuncture, massage or injections for her neck or back pain. In terms of muscle damage condition is described as aching, stabbing, sharp, dull, tiring, exhausting, throbbing. Pain is negatively impacting patient's enjoyment of life, general activity, mood, recreational activity, sleep and walking [facility] Medical History Parkinsons HLA B27 (HLA B27 positive) Retention of urine, unspecified UTI (urinary tract infection) Sacroiliitis Knee pain, bilateral Surgical History Hx of colonoscopy S/P gastric sleeve procedure Hx of cholecystectomy Family History Father HTN (hypertension) Diabetes Mother HTN (hypertension) Diabetes HLD (hyperlipidemia) Maternal Grandfather Substance use disorder Maternal Grandmother Diabetes Substance use disorder Maternal Uncle Substance use disorder Mental health disorder Paternal Grandmother Substance use disorder Social History Housing: House Alcohol intake: never Patient Tobacco Use Status: Never used Tobacco e-Cigarette/Vaping Use: Never Used Second Hand Smoke Exposure: No service: No Current occupational status: unemployed Cognitive needs: No Hearing needs: No Vision needs: No Review of Systems Const All systems reviewed & are unremarkable except as noted in HPI and below Physical Exam Vital Signs: Last Vital Signs Pulse 73 06/06/24 13:05 BP 140/70 H 06/06/24 13:05 Pulse Ox 96 06/06/24 13:05 Oxygen Delivery Method Room Air 06/06/24 13:05 BMI result Body Mass Index 46.5 General: awake, alert, oriented. Answers questions appropriately. Fully engaged in examination. Skin: warm, dry, intact HEENT: Normocephalic. Hearing intact. Cardiac: External chest normal in appearance. Respiratory: No cough, audible wheezing or stridor. Abdomen: without gross distension. MS: No obvious swelling or deformities. Able to transition from sit to stand with minimal assistance Significantly tender across upper, middle, lower trapezius muscle. Tenderness along thoracic and lumbar musculature. Tenderness to cervical and lumbar midline vertebrae and paraspinal muscles. Cervical range motion intact Neurological: Oriented to person, place, time and situation. Thought process intact. Ambulates with use of cane Psychiatric: Appropriate mood and affect. Good judgment and insight. Results Reviewed Results Reviewed: 09/2022 XR/XR sacroiliac joint min 3V FINDINGS: There is increased sclerosis at the left sacroiliac joint. The right sacroiliac joint is normal. No fracture or dislocation is seen. There are degenerative changes of the lower lumbar spine. Soft tissues are unremarkable. IMPRESSION: Increased sclerosis at the left sacroiliac joint. Assessment & Plan Assessment & Plan (1) Diabetes: Code(s): E11.9 - Type 2 diabetes mellitus without complications Category: Medical (2) Ankylosing spondylitis: Comment: +HLA b27 sacroiliitis on x-ray dx 09/2022 Humira 10/2022 Code(s): M45.9 - Ankylosing spondylitis of unspecified sites in spine Category: Medical Qualifiers: Ankylosing spondylitis location: multiple sites in spine Qualified Code(s): M45.0 - Ankylosing spondylitis of multiple sites in spine (3) Myofascial low back pain: Code(s): M54.50 - Low back pain, unspecified Category: Medical (4) Myofascial neck pain: Code(s): M54.2 - Cervicalgia Category: Medical Plan Continue with physical therapy as planned Tizanidine dose increase to 4 mg p.o. t.i.d. as needed. Patient advised on cautions for use. Referral placed for endocrinology due to patient's current A1c greater than 13. All questions and concerns were answered, patient agrees to the plan. Follow-up after PT, sooner if needed Orders: Referrals Endocrinology Referral E11.9 - Type 2 diabetes mellitus without complications Medications: Changed From tizanidine May cause drowsiness. Do not take with alcohol or other FAST FOOD SALES ASSISTANT Depressants. 2 mg PO TID PRN 90 tabs 1RF muscle spasticity To tizanidine May cause drowsiness. Do not take with alcohol or other FAST FOOD SALES ASSISTANT Depressants. 4 mg PO TID PRN 90 tabs 1RF muscle spasticity Coding Level of Care Code Est Pt Level 3 (02584) Diagnoses Diabetes E11.9 Ankylosing spondylitis of multiple sites in spine M45.0 Ankylosing spondylitis location: multiple sites in spine Myofascial low back pain M54.50 Myofascial neck pain M54.2
[2024-06-06 13:05] VITALS: BP 140/70; PULSE 73; O2SAT 96; BMI 46.5
== END 2024-06-06 13:42 | disposition home or self-care (01) ==
PROVIDERS: PCP Nurse Practitioner Family; Visit Provider Registered Nurse Emergency
DX: M45.0 Ankylosing spondylitis of multiple sites in spine (principal); M54.50 Low back pain, unspecified; M54.2 Cervicalgia; E11.9 Type 2 diabetes mellitus without complications
CPT/HCPCS: 99213

== ENCOUNTER → 2024-06-06 12:54 | Outpatient (BNVA) | payer OTHER, SELFPAY | PROVIDERS: PCP Nurse Practitioner Family; Visit Provider Registered Nurse Emergency | DX: M45.0 Ankylosing spondylitis of multiple sites in spine (principal); M54.50 Low back pain, unspecified; M54.2 Cervicalgia; E11.9 Type 2 diabetes mellitus without complications | CPT/HCPCS: 99212 ==

== ENCOUNTER 2024-06-26 10:59 | Outpatient (AMB) | payer OTHER, SELFPAY ==
--- NOTE | 2024-06-26 11:13 | A.OFFVIS_ITS ---
Vital Signs 06/26/24 11:14 Height 5 ft 9 in Weight 328 lb 7.82 oz BMI 48.5 BP 100/70 Blood Pressure Location Rt brachial Position Sitting Pulse 82 Pulse Source Pulse Oximeter Intake Visit Reasons: T2DM/LVM Intake Note: New Patient presents today for to establish treatment for Type 2 Diabetes Mellitus: Last Diabetic eye exam was on: DUE Last Podiatry exam was on: Does not see a Document Management Analyst Most recent HbA1c: 13.2%, 04/17/2024 Random Glucose- 342 mg/dL, Today Motorcycle Maker Required: No Accompanied by: Self / Same As Patient Allergies No Known Allergies Allergy (Verified 05/09/24 11:09) HPI Comments Details: This is a 53-year-old female with a past medical history of type 2 diabetes with neuropathy, parkinsonism, migraine, pulmonary nodules, multinodular thyroid, IBS and obesity presenting for a diabetic consult. She is accompanied by her , Kailash. She was diagnosed some 3 or 4 years ago with type 2 diabetes. She has been managed by her primary care. Hemoglobin a1c 13.2% 04/17/24. She did not have her glucometer. She does not check her blood glucose regularly due to difficulty with her tremor. POC 342. Glucose was 259 this morning at home, fasting. Denies dizziness, blurry vision, nausea, polyuria. Current medication regimen: Ozempic 0.25 mg, metformin 1000 mg twice daily, Tresiba 30 units She had gastric sleeve surgery more than 10 years ago. Compliance issues: none Diet: Breakfast-egg sandwich with cheese or bowl of cereal Lunch-sometimes does not eat lunch, frozen dinner, sliced cheese and crackers, lr salad kit from grocery store Dinner-grilled chicken, pork chops, rice, fried or baked potato Snacks/desserts: granola, breakfast bars, bbq chips Hypoglycemia symptoms: no hypoglycemic events Hyperglycemia symptoms: polydipsia. Month ago she had a couple of times at home when she checked her sugar, and the machine would not read. She drinks lot of water and rested. When she rechecked it was in range of the machine. Her mother and grandmother have type 2 diabetes. No family history of type 1 diabetes. Eye exam: [facility] She received a text message to schedule the appointment. Microvascular complications: bilateral neuropathy Macrovascular complications: no known Hypertension: treated with Lisinopril 2.5 mg. Hyperlipidemia: treated with Atorvastatin 40 mg. LDL at goal <100. ROS: Constitutional: No fevers or chills or unexplained weight loss Respiratory: No shortness of breath Cardiovascular: No chest pain Neurologic: No headache, dizziness, syncope Physical exam: Constitutional: Alert, in no distress. Eyes: Pupils are equal, round and reactive to light. Extraocular muscles intact. Neck: Supple, Full range of motion. No lymphadenopathy. No palpable thyroid masses. Respiratory: Clear to auscultation. Cardiovascular: S1 S2 regular. No murmurs. Neurologic: Resting tremor Right foot: Warm and well perfused. No clubbing, cyanosis or edema. DP pulse 3+. Decreased vibratory sensation. Mildly decreased sensation to monofilament. Left foot: Warm and well perfused. No clubbing, cyanosis or edema. DP pulse 3+. Decreased vibratory sensation. Mildly decreased sensation to monofilament. Psychiatric: Normal mood and affect [facility] Medical History (Updated 06/26/24 @ 13:05 by ROGE Roach) Hyperlipidemia Diabetic neuropathy Diabetes mellitus with hyperglycemia Parkinsons HLA B27 (HLA B27 positive) Retention of urine, unspecified UTI (urinary tract infection) Sacroiliitis Knee pain, bilateral Surgical History Hx of colonoscopy S/P gastric sleeve procedure Hx of cholecystectomy Family History Father HTN (hypertension) Diabetes Mother HTN (hypertension) Diabetes HLD (hyperlipidemia) Maternal Grandfather Substance use disorder Maternal Grandmother Diabetes Substance use disorder Maternal Uncle Substance use disorder Mental health disorder Paternal Grandmother Substance use disorder Social History Housing: House Alcohol intake: never Patient Tobacco Use Status: Never used Tobacco e-Cigarette/Vaping Use: Never Used Second Hand Smoke Exposure: No service: No Current occupational status: unemployed Cognitive needs: No Hearing needs: No Vision needs: No Physical Exam Vital Signs: Last Vital Signs Pulse 82 06/26/24 11:14 BP 100/70 06/26/24 11:14 BMI result Body Mass Index 48.5 Results Reviewed Results Reviewed: Laboratory Last Values Glucose (Clinic) 342 mg/dL (60-115) H 06/26/24 11:22 Laboratory Tests 02/08/23 09/16/23 04/17/24 09:56 23:45 14:48 Creatinine Estimated GFR Hgb A1c (Clinic) 13.2 H Urine Protein 30 (1+) H Microalb/Creat Ratio 9.3 05/03/24 11:07 Creatinine 0.73 Estimated GFR > 60 Hgb A1c (Clinic) Urine Protein Microalb/Creat Ratio Assessment & Plan Assessment & Plan (1) Diabetes mellitus with hyperglycemia: Code(s): E11.65 - Type 2 diabetes mellitus with hyperglycemia Category: Medical Qualifiers: Diabetes mellitus group home insulin use: with director long term care use Diabetes mellitus type: type 2 Qualified Code(s): E11.65 - Type 2 diabetes mellitus with hyperglycemia; Z79.4 - alf (current) use of insulin (2) Diabetic neuropathy: Code(s): E11.40 - Type 2 diabetes mellitus with diabetic neuropathy, unspecified Category: Medical Qualifiers: Diabetes mellitus complication detail: diabetic polyneuropathy Diabetes mellitus type: type 2 Qualified Code(s): E11.42 - Type 2 diabetes mellitus with diabetic polyneuropathy (3) Hyperlipidemia: Code(s): E78.5 - Hyperlipidemia, unspecified Category: Medical Qualifiers: Hyperlipidemia type: mixed hyperlipidemia Qualified Code(s): E78.2 - Mixed hyperlipidemia Plan In summary this is a very pleasant, 53-year-old female with Parkinson's seen today for poorly controlled type 2 diabetes. Case discussed with Dr. Stewart. Patient would benefit greatly from CGM. She has difficulty with fingerstick glucose due to parkinsonian tremor. Ordered Dexcom. Referred to community health educator. Refer to dietitian. Reviewed treatment for hypo and hyperglycemia. Glucose tablets sent to pharmacy. She will picker feeder the prescription for Ozempic 0.5 mg and start that. If a.m. readings are still over 200 in a week she will increase Tresiba from 30 to 35 units. Continue metformin 1000 mg twice daily. Discussed pathophysiology of Type II Diabetes Mellitus with the patient in detail.? I explained the group home risks and complications associated with uncontrolled diabetes including nephropathy, neuropathy, peripheral vascular disease, retinopathy, increased risk of heart disease and stroke.? She will contact the [facility] to schedule her eye exam. She needs an updated lipid profile and urine for microalbumin. Follow-up in 1 month to review CGM data. 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 Medications: New blood-glucose sensor (Dexcom G7 Sensor device) apply new sensor every 7 days as directed 3 ea 11RF blood-glucose meter,continuous (Dexcom G7 Senior Procurement Manager) As directed 1 ea 0RF Discontinued FreeStyle Josias 2 [place] (flash glucose scanning reader) Discontinued Reason: Doctor's Order Test blood sugars 4 times per day 1 ea 0RF diabetes NS E11.9 - Type 2 diabetes mellitus without complications, G20 - Parkinson's disease FreeStyle Josias 2 Sensor (flash glucose sensor) Discontinued Reason: Doctor's Order 4 times a day 1 ea 0RF NS E11.9 - Type 2 diabetes mellitus without complications, G20 - Parkinson's disease Patient Instructions: property and supply officer ozempic 0.5 mg once weekly and start this In a week if morning glucose readings is still over 200 increase Tresiba to 35 units I will send a continuous glucometer to the pharmacy I have referred you to see the community health educator and entertainment agent Please have labwork completed Coding Level of Care Code New Pt Level 5 (88127) Complex EM visit Add On G2211 Diagnoses Type 2 diabetes mellitus with hyperglycemia, with long-term current use of insulin E11.65; Z79.4 Diabetes mellitus director long term care insulin use: with director long term care use Diabetes mellitus type: type 2 Diabetic polyneuropathy associated with type 2 diabetes mellitus E11.42 Diabetes mellitus complication detail: diabetic polyneuropathy Diabetes mellitus type: type 2 Mixed hyperlipidemia E78.2 Hyperlipidemia type: mixed hyperlipidemia Time Spent (min) 60 Comment Seeing the patient, diabetic Education, reviewing chart and labs, updating chart
[2024-06-26 11:14] VITALS: BP 100/70; PULSE 82; BMI 48.5
[2024-06-26 11:27] LABS: Glucose, Whole Blood 342 mg/dL (60-115)
== END 2024-06-26 15:53 | disposition home or self-care (01) ==
PROVIDERS: PCP Nurse Practitioner Family; Visit Provider Physician Assistant Medical
DX: E11.65 Type 2 diabetes mellitus with hyperglycemia (principal); Z79.4 Long term (current) use of insulin; E11.42 Type 2 diabetes mellitus with diabetic polyneuropathy; E78.2 Mixed hyperlipidemia
CPT/HCPCS: 99205; G2211

== ENCOUNTER → 2024-06-26 10:59 | Outpatient (BNVA) | payer OTHER, SELFPAY | PROVIDERS: PCP Nurse Practitioner Family; Visit Provider Physician Assistant Medical | DX: E11.65 Type 2 diabetes mellitus with hyperglycemia (principal); E11.42 Type 2 diabetes mellitus with diabetic polyneuropathy; E78.2 Mixed hyperlipidemia; Z79.4 Long term (current) use of insulin | CPT/HCPCS: 82947; 99202 ==

== ENCOUNTER 2024-07-02 11:37 | Outpatient (AMB) | payer OTHER, SELFPAY ==
[2024-07-02 11:45] VITALS: BMI 47.2
--- NOTE | 2024-07-02 11:45 | A.OFFVIS_ITS ---
VS Expanded 07/02/24 11:45 07/09/24 11:36 Height 5 ft 9 in 5 ft 9 in Weight 319 lb 10.724 oz 319 lb BMI 47.2 47.1 Intake Visit Reasons: T2DM/CONFIRMED Allergies No Known Allergies Allergy (Verified 05/09/24 11:09) Nutrition Presentation Details: Pt presents for MNT for T2DM on custodial insulin. The Pt was referred by Cindy Molina Pt reports having hx of gastric sleeve surgery > 10 yrs ago Meal preparation - mostly by food frequency Pt reports finding increase snacks throughout the day fruits: 0-1/d veg:daily 2-3 servings dairy: 3-5 serving/d fish : 0-1x/wk starches > 25 serving/d ETOH: denies smoking: denies BS Monitoring Most Recent Diabetes Results: Creatinine 0.73 mg/dL (0.5-1.4) 05/03/24 Blood Urea Nitrogen 7 mg/dL (9-16) L 05/03/24 Sodium 138 mmol/L (135-145) 05/03/24 Potassium 3.5 mmol/L (3.3-5.1) 05/03/24 Chloride 102 mmol/L (96-108) 05/03/24 Carbon Dioxide 26 mmol/L (22-29) 05/03/24 Calcium 9.1 mg/dL (8.4-10.2) 05/03/24 AST 29 U/L (5-31) 05/03/24 ALT < 5 U/L (0-31) 05/03/24 Total Protein 7.9 g/dL (6.5-8.0) 05/03/24 Albumin 3.7 g/dL (3.5-5.0) 05/03/24 HMS-Pxkqsok-Sl.Jeor Equation Height: 5 ft 9 in Weight: 319 lb Resting Metabolic Rate: 2114.21 Calculated Activity Level: Sedentary Calories Needed to Maintain Weight: 2537.05 Diagnosis Nutrition problem #1: food nutri know defi As related to (etiology) #1: lack of nutrit education and diagnosis (A1c at 13.2 (04/2024)) As evidenced by (sign/symptom) #1: knowledge deficit of diet [facility] Medical History (Updated 06/26/24 @ 13:05 by ROGE Roach) Hyperlipidemia Diabetic neuropathy Diabetes mellitus with hyperglycemia Parkinsons HLA B27 (HLA B27 positive) Retention of urine, unspecified UTI (urinary tract infection) Sacroiliitis Knee pain, bilateral Surgical History Hx of colonoscopy S/P gastric sleeve procedure Hx of cholecystectomy Family History Father HTN (hypertension) Diabetes Mother HTN (hypertension) Diabetes HLD (hyperlipidemia) Maternal Grandfather Substance use disorder Maternal Grandmother Diabetes Substance use disorder Maternal Uncle Substance use disorder Mental health disorder Paternal Grandmother Substance use disorder Social History Housing: House Alcohol intake: never Patient Tobacco Use Status: Never used Tobacco e-Cigarette/Vaping Use: Never Used Second Hand Smoke Exposure: No service: No Current occupational status: unemployed Cognitive needs: No Hearing needs: No Vision needs: No Assessment & Plan Assessment & Plan (1) Diabetes mellitus with hyperglycemia: Code(s): E11.65 - Type 2 diabetes mellitus with hyperglycemia Category: Medical Qualifiers: Diabetes mellitus type: type 2 Diabetes mellitus custodial insulin use: with custodial use Qualified Code(s): E11.65 - Type 2 diabetes mellitus with hyperglycemia; Z79.4 - 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 Plan: Wt: 145 Kg ( 06/2024 ) Est kcal needs as per MSJ: 2500 (40% carb, 30% protein/fat) Est fluid needs as per 25-30 ml/d: 4400 Est prot per day as per 1 g/kg bw: 145 Recommend fiber intake : 8-10 g per day and gradually increase to 25-28 g per day for women and 35-38 g for men or as tolerated Recommend sodium intake per day : less than 1500 mg less than 2000 mg Educated patient on: ( R = reviewed V = verbalizes understanding N/R = needs review N/A = not applicable * Food sources of carbohydrate, adequate serving sizes and its role in various health conditions: R V N/R * Differences between complex carbohydrates a simple carbohydrates, role of fiber in diet: R V N/R * Lean protein sources of foods: R * Differences between types of fats and role in diet (mono on saturated fat fatty acids, saturated fatty acids, trans fats): R V N/R * Food sources of sodium in salt and healthy modifications for heart health in kidney health: R V R/V * Vitamins and minerals: R V N/R * Healthy plate method concept: R * Physical activity: Benefits a precaution: R V N/R * Hypoglycemia protocol (rule of 15): R V N/R * Dietary prevention of Hyperglycemia: R Patient Instructions: Have milk in place of juice or sugary beverages with meals Follow healthy plate method at dinner Include 1-2 serving of protein as bedtime snack and reduce carb to less than 30 g Coding Level of Care Code Nutr Indiv Intake (26583) Diagnoses Type 2 diabetes mellitus with hyperglycemia, with long-term current use of insulin E11.65; Z79.4 Diabetes mellitus type: type 2 Diabetes mellitus custodial insulin use: with long term care administrator use Time Spent (min) 30
[2024-07-09 11:36] VITALS: BMI 47.1
== END 2024-07-02 12:18 | disposition home or self-care (01) ==
PROVIDERS: PCP Nurse Practitioner Family; Visit Provider Dietitian, Registered
DX: E11.65 Type 2 diabetes mellitus with hyperglycemia (principal); Z79.4 Long term (current) use of insulin

== ENCOUNTER → 2024-07-02 11:37 | Outpatient (BNVA) | payer OTHER, SELFPAY | PROVIDERS: PCP Nurse Practitioner Family; Visit Provider Dietitian, Registered | DX: E11.65 Type 2 diabetes mellitus with hyperglycemia (principal); Z71.3 Dietary counseling and surveillance; Z79.4 Long term (current) use of insulin | CPT/HCPCS: 97802 ==

== ENCOUNTER 2024-07-18 11:00 | Outpatient (AMB) | payer OTHER, SELFPAY ==
--- NOTE | 2024-07-18 11:35 | MHC.AMDMED ---
Intake Intake Visit Reasons: [place] Reviewer Sales Required: No Accompanied by: Spouse Allergies No Known Allergies Allergy (Verified 07/18/24 13:20) HPI Comprehensive Diabetes Asmnt Most Recent Diabetes Results: Microalb/Creat Ratio 7.2 ug/mg cr (<30) 07/18/24 Cholesterol 176 mg/dL (<200) 07/18/24 HDL Cholesterol 42 mg/dL (>40) 07/18/24 Triglycerides 67 mg/dL (<150) 07/18/24 [facility] Medical History (Updated 06/26/24 @ 13:05 by ROGE Rocah) Hyperlipidemia Diabetic neuropathy Diabetes mellitus with hyperglycemia Parkinsons HLA B27 (HLA B27 positive) Retention of urine, unspecified UTI (urinary tract infection) Sacroiliitis Knee pain, bilateral Surgical History Hx of colonoscopy S/P gastric sleeve procedure Hx of cholecystectomy Family History Father HTN (hypertension) Diabetes Mother HTN (hypertension) Diabetes HLD (hyperlipidemia) Maternal Grandfather Substance use disorder Maternal Grandmother Diabetes Substance use disorder Maternal Uncle Substance use disorder Mental health disorder Paternal Grandmother Substance use disorder Social History Housing: House Alcohol intake: never Patient Tobacco Use Status: Never used Tobacco e-Cigarette/Vaping Use: Never Used Second Hand Smoke Exposure: No service: No Current occupational status: unemployed Cognitive needs: No Hearing needs: No Vision needs: No Assessment & Plan Assessment & Plan (1) Diabetes mellitus with hyperglycemia: Code(s): E11.65 - Type 2 diabetes mellitus with hyperglycemia Qualifiers: Diabetes mellitus type: type 2 Diabetes mellitus intermediate card tender insulin use: with intermediate card tender use Qualified Code(s): E11.65 - Type 2 diabetes mellitus with hyperglycemia; 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 Discussed lag time between finger stick and sensor data.? Instructed patient she should always keep blood glucometer for backup testing if needed Reviewed delay of CGM from fingersticks Reminded pt that if symptoms do not match sensor still needs to check fingersticks. Reviewed patient's glucose data from salesperson handbags Patient's average glucose 294 mg/dL Patient above 97% At target 3% Below target 0% Learning objectives: The patient was provided with verbal and written education on the following topics as outlined below. The patient met all learning objectives and was able to verbalize understanding and provide teach back of education topics discussed . The patient was provided with the opportunity to ask questions and all questions were answered. Patient Assessment Assess patient education level/literacy/barriers Patient questions/concerns patient was diagnosed approximately 3-4 years ago, patient's last A1c on 04/17/2024 13.2% Patient is currently on Ozempic 0.5 mg weekly Tresiba 35 units daily What is Diabetes? Pathophysiology How the body produces and uses insulin Identify type of DM Risk factors Signs of Diabetes Brief overview of Diabetes Management Monitoring blood sugar Following a meal plan Regular exercise Maintaining a healthy weight Taking medication as needed Members of the care team (PCP, RN, MA, RD, CDE, air cargo ground crew supervisor) Introduction to Nutrition Importance of healthy diet in managing DM Diet is personalized to individual preference Review patient?s regular diet/food preferences Who prepares meals/does food shopping/ Dining out?/ Barriers? How diet effects glucose Eating 3 balanced meals a day with small, healthy snacks between meals Review food groups Carbohydrates: What is a carbohydrate/Which food/food groups are considered carbohydrates Effect of carbohydrates on blood glucose Portion sizes Reading food labels Basic carb counting (if applicable per nursing assessment) Plate method Meal planning Recommendations: Follow plate method, consistent carbs and read nutritional labels. Smart Goal: Educational Materials: The patient was provided with the following written educational materials: Planning Healthy Meals Handout Patient Response to instructions: Comprehension of Instructions: Fair Readiness to make changes: Contemplation How confident they feel about making changes: Fair Portions of this note were created using voice recognition software, please excuse any words or phrases that may have been misinterpreted. Patient Instructions: Patient instruction: CGM provides information on blood glucose control throughout the day, including hyperglycemia and hypoglycemia. ? Continue to monitor blood glucose as instructed. Follow nutrition guidelines provided. Report any discomfort promptly to health care provider. ?Stay well-hydrated. You can bathe ,shower, swim and exercise while wearing the glucose sensor. Do not submerge glucose sensor in water for more than 30 minutes. Include regular daily activity. ADA recommends 30 minutes of exercise 5 days a week. Weight loss talk to PCP or Wrapper Stemmer Operator before starting new plan. Test blood sugar as directed; Fasting and 2hpp largest meal. Watch trends in results. Utilize results and to assess how food, physical activity and medications affect blood sugar results. Bring glucometer or CGM to next visit. Be knowledgeable about diabetes medication, its action, side effects, efficacy, toxicity, prescribed dosage, appropriate timing and frequency of administration, effect of missed and delayed doses and instructions for storage, travel and safety. Problem solving techniques to monitor hypo/hyperglycemia episodes and treatments. Reduce risk reduction behaviors, smoking cessation, regular eye, foot and dental examinations. Patient will follow-up with clinical nurse educator in 6 weeks Coding Level of Care Code Est Pt Level 1 (41410) Diagnoses Type 2 diabetes mellitus with hyperglycemia, with long-term current use of insulin E11.65; Z79.4 Diabetes mellitus type: type 2 Diabetes mellitus intermediate card tender insulin use: with retirement use
== END 2024-07-18 11:58 | disposition home or self-care (01) ==
PROVIDERS: PCP Nurse Practitioner Family; Visit Provider Registered Nurse Diabetes Educator
DX: E11.65 Type 2 diabetes mellitus with hyperglycemia (principal); Z79.4 Long term (current) use of insulin

== ENCOUNTER → 2024-07-18 11:00 | Outpatient (BNVA) | payer OTHER, SELFPAY | PROVIDERS: PCP Nurse Practitioner Family; Visit Provider Registered Nurse Diabetes Educator | DX: E11.65 Type 2 diabetes mellitus with hyperglycemia (principal); Z79.4 Long term (current) use of insulin | CPT/HCPCS: 99211 ==

== ENCOUNTER 2024-07-18 12:03 | Outpatient (REF) | payer OTHER, SELFPAY ==
[2024-07-18 13:16] LABS: Cholesterol 176 mg/dL (<200); HDL Cholesterol 42 mg/dL (>40); LDL Cholesterol Calculated 121 mg/dL (<100); Triglycerides 67 mg/dL (<150)
[2024-07-18 13:57] LABS: Creatinine Urine 96.32 mg/dL; Microalbum/Creatinine Ratio Ur 7.2 ug/mg cr (<30)
[2024-07-22 21:48] LABS: Glutamic acid decarboxylase Ab <5 IU/mL (<5)
== END 2024-07-18 12:04 | disposition home or self-care (01) ==
LOC: HO.10HDL 12:03
PROVIDERS: Visit Provider Physician Assistant Medical
DX: E11.65 Type 2 diabetes mellitus with hyperglycemia (principal); M45.0 Ankylosing spondylitis of multiple sites in spine; M54.50 Low back pain, unspecified; M54.2 Cervicalgia
CPT/HCPCS: 36415; 80061; 82043; 82570; 86341; 99212

== ENCOUNTER 2024-07-18 12:59 | Outpatient (AMB) | payer OTHER, SELFPAY ==
[2024-07-18 13:19] VITALS: BP 119/71; PULSE 84; O2SAT 94; BMI 46.9
--- NOTE | 2024-07-18 13:19 | MHC.OFFVIS ---
Vital Signs 07/18/24 13:19 Height 5 ft 9 in Weight 317 lb 7.45 oz BMI 46.9 BP 119/71 Blood Pressure Location Lt brachial Position Sitting Pulse 84 Pulse Source Pulse Oximeter Pulse Oximetry (%) 94 Oxygen Delivery Method Room Air Intake Visit Reasons: 6 Week Follow Up Allergies No Known Allergies Allergy (Verified 07/18/24 13:20) Medication List - Last Reconciled 07/18/24 by Brittany Willis [4 wheeled walker with seat daily use] alcohol swabs (CareTouch Alcohol Prep Pad topical pads) 1 pad topical DAILY amitriptyline 25 mg PO BEDTIME 30 days ascorbic acid (vitamin C) 500 mg PO BID 30 days aspirin 81 mg PO DAILY 90 days atorvastatin 40 mg PO DAILY 90 days blood sugar diagnostic (FreeStyle Lite Strips) test blood sugar 3 times per day blood-glucose meter,continuous (DexWiseNetworks G7 Market Risk Analyst) As directed blood-glucose sensor ([employer] G7 Sensor device) apply new sensor every 10 days as directed carbidopa-levodopa 25-100 mg 1 tab PO QID 90 days celecoxib 200 mg PO BID cholecalciferol (vitamin D3) 50 mcg PO DAILY 90 days cholecalciferol (vitamin D3) 1,250 mcg PO QWEEK 8 weeks ferrous sulfate 325 mg PO TID 90 days gabapentin 1 cap at 8pm, 1 cap at 9:30pm, 3 caps at 11pm orally 3 times a day; 30 days galcanezumab-gnlm (Emgality Pen) 120 mg subcut ONCE 30 days glucose 16 grams (4 x 4 gram) PO Q15M PRN insulin degludec (Tresiba FlexTouch U-100 insulin) 30 units (0.3 mL) subcut BEDTIME 30 days lancets (FreeStyle Lancets) Use to check blood sugar daily lisinopril 2.5 mg PO DAILY 90 days magnesium oxide 400 mg PO BEDTIME 30 days metformin 1,000 mg PO BID 90 days omeprazole 40 mg PO DAILY 90 days ondansetron HCl 4 mg PO Q8H pen needle, diabetic (BD Ultra-Fine Emily Pen Needle) Use to inject insulin daily pyridoxine (vitamin B6) 50 mg PO BID 30 days riboflavin (vitamin B2) 400 mg PO DAILY 30 days Rinvoq ER (upadacitinib) 15 mg PO DAILY NS semaglutide (Ozempic) 0.5 mg (0.736 mL) subcut QWEEK 30 days sertraline 200 mg (2 x 100 mg) PO DAILY sumatriptan succinate 100 mg PO Q2H PRN 21 days tizanidine 4 mg PO TID PRN trazodone 25 mg (1/2 x 50 mg) PO BEDTIME 30 days trazodone 100 mg PO BEDTIME 90 days zinc gluconate 50 mg PO DAILY 30 days HPI Comments Details: Patient presents back to the office today for follow-up, she is accompanied by her Today reporting pain at 9/10 She was attending PT but stopped going in June as it became too difficult. She finds some relief with the tizanidine muscle relaxer but pain persists Since last visit she was evaluated by endocrinology. She has CGM, states her blood sugars are now averaging in the low 200s where previously they were in the upper 300s Appointment with follow up for endocrinology this month, she is hoping that her A1c will be much improved Prior: Jackie presents back to the office today for follow-up, she is accompanied by her . Reports some improvement with the tizanidine. Started physical therapy last week ago. States feeling better after starting physical therapy. At last visit patient used a wheelchair to get from the car to the office, today she was able to ambulate that distance with a cane. States is unsure i she is feeling any improvement in her inflammation since starting Rinvoq. She will be following up with this at rheumatology shortly She reports her blood sugars have been improved recently though at her last PCP visit her A1c was 13.5. Insurance had denied continuous glucose monitor. She has not been evaluated by Endocrinology and would welcome a referral. Prior: Jackie is a very pleasant 53-year-old female who presents to the office today, accompanied by her , for evaluation and management of her chronic neck and lower back pain. Past medical history significant for restless leg syndrome, Parkinson's disease, ankylosing spondylitis, diabetes, fibromyalgia, urinary retention, gait difficulty, migraines, sleep disorder, tremor, leukocytosis, fatigue, obesity, pulmonary nodules, fatigue, irritable bowel syndrome. Endorses neck and lower back pain. Pain midline cervical across the upper back and tops of both shoulders. Worse with movement in tender to palpation. Pain today is rated as an 8/10, constant and worse in the evenings in the middle of the night. Endorses midline lower back pain with radiation across to both sides, left worse than right. Worse with movement and tender to palpation Endorses some tenderness to palpation along bilateral thoracic lumbar musculature also. Lower back pain does not radiate down either lower extremity, denies any new numbness, tingling, shooting, zipping, stabbing, electrical pain of either lower extremity. Neck pain radiates towards the base of the head and across to the left shoulder. Patient suffers from migraines along with headaches, potentially associated with this neck pain. Most recent A1c 04/17/2024 was 13.2. She reports there have been some difficulties in treating as at times insurance would not approve her medications and she had to struggle to get them. Recently started a 2nd injection for her diabetes. Currently averaging blood sugar just above 200, working on dietary modifications. Previously blood sugars would be in the 400s. Currently under the care of Neurology for the headaches, restless leg, Parkinson's and migraines. For her restless legs prescribed gabapentin 500mg in a staggered dose near bedtime. Currently under the care of rheumatology. Had a visit yesterday where they discontinued Humira and are starting her on Rinvoq. Her CRP was 4.22 on 05/03/2024 states she feels like the Humira initially had helped but feels like over time it has started to lose its effectiveness. Patient has completed physical therapy more than 1 year ago at [facility]. She is currently taking nonsteroidal anti-inflammatory medications daily with minimal improvement of her pain. Patient has never attempted chiropractor, acupuncture, massage or injections for her neck or back pain. In terms of muscle damage condition is described as aching, stabbing, sharp, dull, tiring, exhausting, throbbing. Pain is negatively impacting patient's enjoyment of life, general activity, mood, recreational activity, sleep and walking [facility] Medical History (Updated 06/26/24 @ 13:05 by ROGE Roach) Hyperlipidemia Diabetic neuropathy Diabetes mellitus with hyperglycemia Parkinsons HLA B27 (HLA B27 positive) Retention of urine, unspecified UTI (urinary tract infection) Sacroiliitis Knee pain, bilateral Surgical History Hx of colonoscopy S/P gastric sleeve procedure Hx of cholecystectomy Family History Father HTN (hypertension) Diabetes Mother HTN (hypertension) Diabetes HLD (hyperlipidemia) Maternal Grandfather Substance use disorder Maternal Grandmother Diabetes Substance use disorder Maternal Uncle Substance use disorder Mental health disorder Paternal Grandmother Substance use disorder Social History Housing: House Alcohol intake: never Patient Tobacco Use Status: Never used Tobacco e-Cigarette/Vaping Use: Never Used Second Hand Smoke Exposure: No service: No Current occupational status: unemployed Cognitive needs: No Hearing needs: No Vision needs: No Review of Systems Const All systems reviewed & are unremarkable except as noted in HPI and below Physical Exam Vital Signs: Last Vital Signs Pulse 84 07/18/24 13:19 BP 119/71 07/18/24 13:19 Pulse Ox 94 07/18/24 13:19 Oxygen Delivery Method Room Air 07/18/24 13:19 BMI result Body Mass Index 46.9 General: awake, alert, oriented. Answers questions appropriately. Fully engaged in examination. Skin: warm, dry, intact HEENT: Normocephalic. Hearing intact. Cardiac: External chest normal in appearance. Respiratory: No cough, audible wheezing or stridor. Abdomen: without gross distension. MS: No obvious swelling or deformities. Neurological: Oriented to person, place, time and situation. Thought process intact. Patient in wheelchair Psychiatric: Appropriate mood and affect. Good judgment and insight. Results Reviewed Results Reviewed: 09/2022 XR/XR sacroiliac joint min 3V FINDINGS: There is increased sclerosis at the left sacroiliac joint. The right sacroiliac joint is normal. No fracture or dislocation is seen. There are degenerative changes of the lower lumbar spine. Soft tissues are unremarkable. IMPRESSION: Increased sclerosis at the left sacroiliac joint. Assessment & Plan Assessment & Plan (1) Diabetes: Code(s): E11.9 - Type 2 diabetes mellitus without complications Category: Medical (2) Ankylosing spondylitis: Comment: +HLA b27 sacroiliitis on x-ray dx 09/2022 Humira 10/2022 Code(s): M45.9 - Ankylosing spondylitis of unspecified sites in spine Category: Medical Qualifiers: Ankylosing spondylitis location: multiple sites in spine Qualified Code(s): M45.0 - Ankylosing spondylitis of multiple sites in spine (3) Myofascial low back pain: Code(s): M54.50 - Low back pain, unspecified Category: Medical (4) Myofascial neck pain: Code(s): M54.2 - Cervicalgia Category: Medical Plan Will add gabapentin 300 mg twice daily, 300 in the morning and 300 in the afternoon. She will continue with her routine bedtime dosing that is prescribed by Neurology. Continue with Tizanidine dose increase to 4 mg p.o. t.i.d. as needed. Patient advised on cautions for use. Follow up with endocrinology as planned All questions and concerns were answered, patient agrees to the plan. Follow-up in 3 months, sooner if needed Medications: New gabapentin 300 mg in the morning and 300 mg in the afternoon. Continue with current gabapentin bedtime dosing 300 mg PO BID 60 caps 3RF Coding Level of Care Code Est Pt Level 3 (56889) Complex EM visit Add On G2211 Diagnoses Diabetes E11.9 Ankylosing spondylitis of multiple sites in spine M45.0 Ankylosing spondylitis location: multiple sites in spine Myofascial low back pain M54.50 Myofascial neck pain M54.2
== END 2024-07-18 14:02 | disposition home or self-care (01) ==
PROVIDERS: PCP Nurse Practitioner Family; Visit Provider Registered Nurse Emergency
DX: E11.9 Type 2 diabetes mellitus without complications (principal); M45.0 Ankylosing spondylitis of multiple sites in spine; M54.50 Low back pain, unspecified; M54.2 Cervicalgia
CPT/HCPCS: 99213; G2211

== ENCOUNTER 2024-07-24 11:34 | Outpatient (AMB) | payer OTHER, SELFPAY ==
--- NOTE | 2024-07-24 11:35 | MHC.OFFVIS ---
Vital Signs 07/24/24 11:40 BMI Reason not done Patient refused/unable BP 128/84 Blood Pressure Location Rt brachial Position Sitting Pulse 80 Pulse Source Pulse Oximeter Intake Visit Reasons: DMII/CONFIRMED Intake Note: Patient present today to follow up on Type 2 Diabetes Mellitus. Last Diabetic Eye exam: Has an appointment tomorrow 07/25/2024 Last Podiatry Visit: Does not see a Licensed Funeral Director Random Glucose: 203 mg/dl through Dexcom G7, tried finger sticking x3 unable to get results. HgA1C: 10.2% 07/24/2024 Commercial Administrator Required: No Accompanied by: Spouse Allergies No Known Allergies Allergy (Verified 07/24/24 13:53) HPI Comments Details: This is a 54-year-old female with a past medical history of type 2 diabetes with neuropathy, parkinsonism, migraine, pulmonary nodules, multinodular thyroid, IBS and obesity presenting for continued diabetic management. She is accompanied by her , Kailash. She was diagnosed some 3 or 4 years ago with type 2 diabetes. I reviewed today's CGM download: GMI 9.5% Average glucose: 260 Standard deviation 61 mg/dL Blood glucose in target range (70-180) 9% of the time Blood glucose high (181-250) 39 % of the time Blood glucose very high (>250) 52% of the time Blood glucose low (55-69) 0% of the time Blood glucose very low (less than 55) 0% of the time She has persistent hyperglycemia throughout the course of 24 hours with an increase in BG around 6pm. Hemoglobin a1c 13.2% 04/17/24. Today it is 10.2%. Current medication regimen: Ozempic 0.5 mg, metformin 1000 mg twice daily, Tresiba 35 units She had gastric sleeve surgery more than 10 years ago. Compliance issues: none She met with the in service educator and machine operator general. She is happy with how these visits went. Hypoglycemia symptoms: no hypoglycemic events Hyperglycemia symptoms: Polydipsia. Eye exam: [facility] She received a text message to schedule the appointment. Microvascular complications: bilateral neuropathy Macrovascular complications: no known Hypertension: treated with Lisinopril 2.5 mg. Her blood pressure is suboptimal today, but she was emotionally charged during the visit talking about her chronic medical issues and how she has lost her independence. Hyperlipidemia: treated with Atorvastatin 40 mg. LDL 121 with a goal of less than 100. ROS: Constitutional: No fevers or chills or unexplained weight loss Respiratory: No shortness of breath Cardiovascular: No chest pain Neurologic: No headache, dizziness, syncope Physical exam: Constitutional: Alert, in no distress. Eyes: Pupils are equal, round and reactive to light. Extraocular muscles intact. Neck: Supple, Full range of motion. No lymphadenopathy. No palpable thyroid masses. Respiratory: Clear to auscultation. Cardiovascular: S1 S2 regular. No murmurs. Neurologic: Resting tremor Psychiatric: Tearful at times [facility] Medical History (Updated 06/26/24 @ 13:05 by ROGE Roach) Hyperlipidemia Diabetic neuropathy Diabetes mellitus with hyperglycemia Parkinsons HLA B27 (HLA B27 positive) Retention of urine, unspecified UTI (urinary tract infection) Sacroiliitis Knee pain, bilateral Surgical History Hx of colonoscopy S/P gastric sleeve procedure Hx of cholecystectomy Family History Father HTN (hypertension) Diabetes Mother HTN (hypertension) Diabetes HLD (hyperlipidemia) Maternal Grandfather Substance use disorder Maternal Grandmother Diabetes Substance use disorder Maternal Uncle Substance use disorder Mental health disorder Paternal Grandmother Substance use disorder Social History Housing: House Alcohol intake: never Patient Tobacco Use Status: Never used Tobacco e-Cigarette/Vaping Use: Never Used Second Hand Smoke Exposure: No service: No Current occupational status: unemployed Cognitive needs: No Hearing needs: No Vision needs: No Physical Exam Vital Signs: Last Vital Signs Pulse 80 07/24/24 11:40 BP 128/84 07/24/24 11:40 Results AMB Hemoglobin A1c AMB Hemoglobin A1c 10.2 % Last Edit by BERNICE Epps on 07/24/24 12:06 Results Reviewed Results Reviewed: Laboratory Last Values Hgb A1c (Clinic) 10.2 % (4.0-6.0) H 07/24/24 12:01 Laboratory Tests 04/17/24 05/03/24 07/18/24 14:48 11:07 12:10 Creatinine 0.73 Estimated GFR > 60 Hgb A1c (Clinic) 13.2 H Triglycerides 67 Cholesterol 176 LDL Cholesterol, Calc 121 H HDL Cholesterol 42 Urine Creatinine 96.32 Urine Microalbumin 7.0 Microalb/Creat Ratio 7.2 Assessment & Plan Assessment & Plan (1) Diabetes mellitus with hyperglycemia: Code(s): E11.65 - Type 2 diabetes mellitus with hyperglycemia Category: Medical Qualifiers: Diabetes mellitus intermission coordinator insulin use: with intermission coordinator use Diabetes mellitus type: type 2 Qualified Code(s): E11.65 - Type 2 diabetes mellitus with hyperglycemia; Z79.4 - intermediate teacher (current) use of insulin (2) Diabetic neuropathy: Code(s): E11.40 - Type 2 diabetes mellitus with diabetic neuropathy, unspecified Category: Medical Qualifiers: Diabetes mellitus complication detail: diabetic polyneuropathy Diabetes mellitus type: type 2 Qualified Code(s): E11.42 - Type 2 diabetes mellitus with diabetic polyneuropathy (3) Hyperlipidemia: Code(s): E78.5 - Hyperlipidemia, unspecified Category: Medical Qualifiers: Hyperlipidemia type: mixed hyperlipidemia Qualified Code(s): E78.2 - Mixed hyperlipidemia Plan In summary this is a very pleasant, 54-year-old female with Parkinson's seen today for poorly controlled type 2 diabetes with improving glycemic control. Appreciate consultation with in service educator and dietitian. Reviewed treatment for hypo and hyperglycemia. She will increase Tresiba from 35 to 40 units nightly and increase Ozempic to 1 mg weekly. Continue metformin 1000 mg twice daily. We discussed prandial insulin, however she is not prepared for this, and she notes that she has had issues for many years with her stomach. She has seen GI for this. She is concerned she could administer short-acting insulin and then not eat as big of a meal as planned and cause low blood sugar. We will defer it at this time. I will see how she does with these medication changes. We could also consider adding an SGLT2 now that her A1c has improved. Discussed pathophysiology of Type II Diabetes Mellitus with the patient in detail.? I explained the intermission coordinator risks and complications associated with uncontrolled diabetes including nephropathy, neuropathy, peripheral vascular disease, retinopathy, increased risk of heart disease and stroke.? Her LDL cholesterol is not at goal. We discussed options. Continue lifestyle modifications. Trial increase atorvastatin to 80 mg. If she develops increase in body aches or muscle pains from baseline she will decrease to 40 mg again and contact the office. Check LFTs and lipid profile in 6 weeks. She will contact the [facility] to schedule her eye exam. Patient and I discussed her chronic health concerns at length today. She feels depressed about her loss of independence and is tearful frequently during the visit. Patient says that she has looked into support groups for Parkinson's. Her has also encouraged her. I have also recommended individual therapy and offered to place a referral. She will think about this. I gave her information for [email or web address]-they have a help line that may be able to connect her with a support group. Follow-up in 2 months for diabetes. Orders: Orders AMB Hemoglobin A1c Today E11.65 - Type 2 diabetes mellitus with hyperglycemia, Z79.4 - intermediate teacher (current) use of insulin Lipid Panel Today E11.65 - Type 2 diabetes mellitus with hyperglycemia, E78.2 - Mixed hyperlipidemia, Z79.4 - intermediate teacher (current) use of insulin Aspartate Amino Transferase Today E11.65 - Type 2 diabetes mellitus with hyperglycemia, E78.2 - Mixed hyperlipidemia, Z79.4 - care home (current) use of insulin Alanine Aminotransferase Today E11.65 - Type 2 diabetes mellitus with hyperglycemia, E78.2 - Mixed hyperlipidemia, Z79.4 - intermediate teacher (current) use of insulin Medications: New atorvastatin 80 mg PO BEDTIME 90 tabs 3RF semaglutide (Ozempic) 1 mg (0.75 mL) subcut QWEEK 3 mL 3RF Discontinued atorvastatin Discontinued Reason: Doctor's Order 40 mg PO DAILY 90 days 90 tabs 1RF semaglutide (Ozempic) for 4 weeks Discontinued Reason: Doctor's Order 0.5 mg (0.736 mL) subcut QWEEK 30 days 3.68 mL 0RF Patient Instructions: increase Ozempic 1 mg once weekly Increase Tresiba to 40 units nightly Call the office if you have any low blood sugar events Please return to the lab in 6 weeks for fasting labs INcrease Atorvastatin to 80 mg nightly. If you develop body aches or muscle pains or different than baseline please stop it and call the office Coding Level of Care Code Est Pt Level 5 (34185) Diagnoses Type 2 diabetes mellitus with hyperglycemia, with long-term current use of insulin E11.65; Z79.4 Diabetes mellitus [facility] insulin use: with [facility] use Diabetes mellitus type: type 2 Diabetic polyneuropathy associated with type 2 diabetes mellitus E11.42 Diabetes mellitus complication detail: diabetic polyneuropathy Diabetes mellitus type: type 2 Mixed hyperlipidemia E78.2 Hyperlipidemia type: mixed hyperlipidemia Time Spent (min) 50 Comment direct patient care and completing documentation
[2024-07-24 11:40] VITALS: BP 128/84; PULSE 80
== END 2024-07-24 12:40 | disposition home or self-care (01) ==
PROVIDERS: PCP Nurse Practitioner Family; Visit Provider Physician Assistant Medical
DX: E11.65 Type 2 diabetes mellitus with hyperglycemia (principal); Z79.4 Long term (current) use of insulin; E11.42 Type 2 diabetes mellitus with diabetic polyneuropathy; E78.2 Mixed hyperlipidemia
CPT/HCPCS: 99215

== ENCOUNTER → 2024-07-24 11:34 | Outpatient (BNVA) | payer OTHER, SELFPAY | PROVIDERS: PCP Nurse Practitioner Family; Visit Provider Physician Assistant Medical | DX: E11.65 Type 2 diabetes mellitus with hyperglycemia (principal); E11.42 Type 2 diabetes mellitus with diabetic polyneuropathy; E78.2 Mixed hyperlipidemia; Z79.4 Long term (current) use of insulin | CPT/HCPCS: 83036; 99212 ==

== ENCOUNTER 2024-07-24 13:51 | Outpatient (AMB) | payer OTHER, SELFPAY ==
[2024-07-24 13:53] VITALS: BP 122/88; PULSE 81; O2SAT 99; BMI 46.8
--- NOTE | 2024-07-24 13:53 | A.OFFPC_ITS ---
Vital Signs 07/24/24 13:53 Height 5 ft 9 in Weight 317 lb BMI 46.8 BP 122/88 Blood Pressure Location Rt brachial Position Sitting Pulse 81 Pulse Source Pulse Oximeter Pulse Oximetry (%) 99 Oxygen Delivery Method Room Air Intake Visit Reasons: 3 month follow up Allergies No Known Allergies Allergy (Verified 07/24/24 13:53) Tobacco use date assessed: 07/24/24 Dental Screening Dental Screen Date: 07/24/24 Did you have a dental visit in the last 12 months?: Yes Did you have a dental problem in the last 6 months where you did not have access to dental care?: No Was dental information given to patient?: Patient has dentist HPI 3 month follow up HPI Details Pt is a diabetic, sees endo. Pt is following up with pain management and neurology. Pt reports doing well overall, speaking in full sentences. She is losing weight. Denies fever, chills, and dizziness. [facility] Medical History Hyperlipidemia Diabetic neuropathy Diabetes mellitus with hyperglycemia Parkinsons HLA B27 (HLA B27 positive) Retention of urine, unspecified UTI (urinary tract infection) Sacroiliitis Knee pain, bilateral Surgical History Hx of colonoscopy S/P gastric sleeve procedure Hx of cholecystectomy Family History Father HTN (hypertension) Diabetes Mother HTN (hypertension) Diabetes HLD (hyperlipidemia) Maternal Grandfather Substance use disorder Maternal Grandmother Diabetes Substance use disorder Maternal Uncle Substance use disorder Mental health disorder Paternal Grandmother Substance use disorder Social History Housing: House Alcohol intake: never Patient Tobacco Use Status: Never used Tobacco e-Cigarette/Vaping Use: Never Used Second Hand Smoke Exposure: No service: No Current occupational status: unemployed Cognitive needs: No Hearing needs: No Vision needs: No Questionnaire Thrive Questionnaire Date Thrive assessed: 07/24/24 I am a: Patient What is your living situation today?: I choose not to answer this question Within the past 12 months, did the food you bought not last and you didn't have the money to get more?: I choose not to answer this question Within the past 12 months, did you worry whether your food would run out before you got money to buy more?: I choose not to answer this question Do you have trouble paying for medicines?: I choose not to answer this question Do you have trouble getting transportation to medical appointments?: I choose not to answer this question Do you have trouble paying your heating and electricity bill?: I choose not to answer this question Do you have trouble taking care of your child, family member or friend?: I choose not to answer this question Do you have trouble with day-to-day activities such as bathing, preparing meals, shopping, managing finances, etc.?: I choose not to answer this question Are you currently unemployed and looking for a job?: I choose not to answer this question Are you interested in more education?: I choose not to answer this question Please select the resources that you would like help with: None Currently or been in a relationship where the following occur: I choose not to answer THRIVE Score: 0 AUDIT C Alcohol Use Questionnaire (AUDIT-C) 1. How often do you have a drink containing alcohol?: Never 3. How often do you have six or more drinks on one occasion?: Never Total Score: 0 Score Reviewed/Action Taken: Yes MANUELA-7 AMB Questionnaire MANUELA-7 Date MANUELA - 7 assessed: 07/24/24 Feeling nervous, anxious, or on edge: 3 = Nearly every day Not being able to stop or control worryin = Not at all Worrying too much about different things: 0 = Not at all Trouble relaxin = Not at all Being so restless that it is hard to sit still: 0 = Not at all Becoming easily annoyed or irritable: 0 = Not at all Feeling afraid as if something awful might happen: 0 = Not at all Total MANUELA-7 score (0-4 normal; 5-9 mild; 10-14 moderate; 15-21 severe): 3 Source: Developed by Drs. Mike Busch, Patricia Brandt, Dashawn David and colleagues, with an educational annika from [employer] MANUELA-7 Assessment Billing MANUELA-7 Assessment Tool: MANUELA-7 Assessment 88938 Review of Systems Const Reports as per HPI Physical exam (Primary Care) Vital Signs: Last Vital Signs Pulse 81 07/24/24 13:53 BP 122/88 07/24/24 13:53 Pulse Ox 99 07/24/24 13:53 Oxygen Delivery Method Room Air 07/24/24 13:53 BMI result Body Mass Index 46.8 Tobacco/Smoking Status: Tobacco use Status Tobacco use date assessed 07/24/24 07/24/24 13:54 Patient Tobacco Use Status Never used Tobacco 07/24/24 13:54 e-Cigarette/Vaping Use Never Used 07/24/24 13:54 Thrive Assessment: Date of Thrive Assessment Date Thrive assessed 07/24/24 07/24/24 13:54 Currently or been in a relationship where the following occur: I choose not to answer Const General: cooperative Nutritional Appearance: obese morbidly obese Orientation/consciousness: patient oriented x3 Resp Effort & Inspection: normal respiratory effort Auscultation: clear to auscultation bilaterally Cardio Rate: regular rate Rhythm: regular rhythm Heart sounds: S1 normal heart sound present and S2 normal heart sound present Neuro General: patient oriented x3 Psych Appearance: grossly normal Mental Status: mental status grossly normal Speech and movement: Normal speech and movement present Affect: normal affect Attitude: cooperative Thought process: Normal thought process present Thought content: Normal thought content present Insight: Good insight present (Psych) Judgement: Good judgement present (Psych) Results AMB Hemoglobin A1c AMB Hemoglobin A1c 10.2 % Last Edit by BERNICE Epps on 07/24/24 12:06 Assessment and Plan Assessment & Plan (1) Diabetes mellitus with hyperglycemia: Code(s): E11.65 - Type 2 diabetes mellitus with hyperglycemia Qualifiers: Diabetes mellitus remote computer terminal operator insulin use: with remote computer terminal operator use Diabetes mellitus type: type 2 Qualified Code(s): E11.65 - Type 2 diabetes mellitus with hyperglycemia; Z79.4 - remote computer terminal operator (current) use of insulin Plan: seeing endo (2) Obesity: Code(s): E66.9 - Obesity, unspecified Plan: working on diet, on a GLP-1 agonist Plan The patient agreed to the use of a medical review coordinator for this encounter. Scribed for CESILIA Ramírez by rené Marroquin scribe, on 07/24/2024 at 14:05 EST. Orders: Referrals Endocrinology Referral E11.65 - Type 2 diabetes mellitus with hyperglycemia, Z79.4 - remote computer terminal operator (current) use of insulin Coding Level of Care Code Est Pt Level 3 (98981) Diagnoses Type 2 diabetes mellitus with hyperglycemia, with long-term current use of insulin E11.65; Z79.4 Diabetes mellitus remote computer terminal operator insulin use: with long-term use Diabetes mellitus type: type 2 Obesity E66.9 Additional Codes MANUELA-7 Assessment Billing - MANUELA-7 Assessment Tool: MANUELA-7 Assessment [id number] ([id number])
== END 2024-07-24 14:52 | disposition home or self-care (01) ==
PROVIDERS: PCP Nurse Practitioner Family; Visit Provider Nurse Practitioner Family
DX: E11.65 Type 2 diabetes mellitus with hyperglycemia (principal); Z79.4 Long term (current) use of insulin; Z68.42 Body mass index [BMI] 45.0-49.9, adult; E66.9 Obesity, unspecified
CPT/HCPCS: 83036; 99213

== ENCOUNTER 2024-09-25 11:33 | Outpatient (AMB) | payer OTHER, SELFPAY ==
--- NOTE | 2024-09-25 11:36 | MHC.OFFVIS ---
Vital Signs 09/25/24 11:39 Height 5 ft 9 in Weight 306 lb 3.553 oz BMI 45.2 BP 134/84 Blood Pressure Location Lt brachial Position Sitting Pulse 79 Pulse Source Pulse Oximeter Intake Visit Reasons: DM Intake Note: Patient present today to follow up on Type 2 Diabetes Mellitus. Last Diabetic Eye exam: Jul 25, 2024 Last Podiatry Visit: Does not see a Power Transformer Assembler Random Glucose: 214 mg/dl HgA1C: 10.2% 07/24/2024 Pack Puller Required: No Accompanied by: Sister Allergies No Known Allergies Allergy (Verified 09/25/24 11:40) HPI Comments Details: This is a 54-year-old female with a past medical history of type 2 diabetes with neuropathy, parkinsonism, migraine, pulmonary nodules, multinodular thyroid, IBS and obesity presenting for continued diabetic management. She was last seen in endocrinology on 07/24/2024. She is accompanied by her sister today. Her sister is visiting from [place] because their brother from liver failure secondary to alcoholism. He really struggled, and they are very sad but also feel a sense of a relief he is not suffering anymore. Patient lost her father 6 months ago. She was diagnosed about 4 years ago with type 2 diabetes. Reviewed CGM download 09/11-09/24 Average glucose 168 GMI 7.3% Standard deviation 46 mg/dL Very high 7% High 25% In range 68% 0% hypoglycemia There is a pattern of hyperglycemia in the evenings. Hemoglobin a1c 13.2% 04/17/24. 07/24/2024 10.2%. Current medication regimen: Ozempic 1 mg weekly, metformin 1000 mg twice daily, Tresiba 40 units She had gastric sleeve surgery more than 10 years ago. Compliance issues: none She met with the clinical staff educator and vocational training instructor. She is happy with how these visits went. She has lost about 10 lb since 07/24/2024. Hypoglycemia symptoms: no hypoglycemic events Hyperglycemia symptoms: None. Previous polydipsia. Eye exam: [facility]. Microvascular complications: bilateral neuropathy Macrovascular complications: no known Hypertension: treated with Lisinopril 2.5 mg. Her blood pressure is suboptimal again today. Hyperlipidemia: treated with Atorvastatin 80 mg. LDL 121 with a goal of less than 100. The dose was increased. ROS: Constitutional: No fevers or chills or unexplained weight loss Respiratory: No shortness of breath Cardiovascular: No chest pain Neurologic: No headache, dizziness, syncope Physical exam: Constitutional: Alert, in no distress. Eyes: Pupils are equal, round and reactive to light. Extraocular muscles intact. Neck: Supple, Full range of motion. No lymphadenopathy. No palpable thyroid masses. Respiratory: Clear to auscultation. Cardiovascular: S1 S2 regular. No murmurs. Neurologic: Resting tremor, speech sometimes slower Psychiatric: Tearful at times [facility] Medical History (Reviewed 07/24/24 @ 14:53 by Omer Pérez, [facility]) Hyperlipidemia Diabetic neuropathy Diabetes mellitus with hyperglycemia Parkinsons HLA B27 (HLA B27 positive) Retention of urine, unspecified UTI (urinary tract infection) Sacroiliitis Knee pain, bilateral Surgical History Hx of colonoscopy S/P gastric sleeve procedure Hx of cholecystectomy Family History Father HTN (hypertension) Diabetes Mother HTN (hypertension) Diabetes HLD (hyperlipidemia) Maternal Grandfather Substance use disorder Maternal Grandmother Diabetes Substance use disorder Maternal Uncle Substance use disorder Mental health disorder Paternal Grandmother Substance use disorder Social History Housing: House Alcohol intake: never Patient Tobacco Use Status: Never used Tobacco e-Cigarette/Vaping Use: Never Used Second Hand Smoke Exposure: No service: No Current occupational status: unemployed Cognitive needs: No Hearing needs: No Vision needs: No Physical Exam Vital Signs: Last Vital Signs Pulse 79 09/25/24 11:39 BP 134/84 09/25/24 11:39 BMI result Body Mass Index 45.2 Assessment & Plan Assessment & Plan (1) Diabetes mellitus with hyperglycemia: Code(s): E11.65 - Type 2 diabetes mellitus with hyperglycemia Category: Medical Qualifiers: Diabetes mellitus type: type 2 Diabetes mellitus [facility] insulin use: with [facility] use Qualified Code(s): E11.65 - Type 2 diabetes mellitus with hyperglycemia; Z79.4 - tank terminal gauger (current) use of insulin (2) Diabetic neuropathy: Code(s): E11.40 - Type 2 diabetes mellitus with diabetic neuropathy, unspecified Category: Medical Qualifiers: Diabetes mellitus type: type 2 Diabetes mellitus complication detail: diabetic polyneuropathy Qualified Code(s): E11.42 - Type 2 diabetes mellitus with diabetic polyneuropathy (3) Hyperlipidemia: Code(s): E78.5 - Hyperlipidemia, unspecified Category: Medical Qualifiers: Hyperlipidemia type: mixed hyperlipidemia Qualified Code(s): E78.2 - Mixed hyperlipidemia (4) Hypertension: Code(s): I10 - Essential (primary) hypertension Category: Medical Qualifiers: Hypertension type: primary hypertension Qualified Code(s): I10 - Essential (primary) hypertension Plan In summary this is a very pleasant, 54-year-old female with Parkinson's seen today for type 2 diabetes with significantly improved glycemic control per CGM. Appreciate consultation with clinical staff educator and dietitian. Reviewed treatment for hypo and hyperglycemia. She will continue Tresiba 40 units nightly and increase Ozempic to 2 mg weekly. Continue metformin 1000 mg twice daily. Congratulated patient on weight loss. She is making substantial efforts to improve her diet. Discussed pathophysiology of Type II Diabetes Mellitus with the patient in detail.? I explained the [facility] risks and complications associated with uncontrolled diabetes including nephropathy, neuropathy, peripheral vascular disease, retinopathy, increased risk of heart disease and stroke.? Her LDL cholesterol was not at goal. She increased atorvastatin to 80 mg. Check LFTs and lipid panel prior to next appointment since she will also be due for A1C then. Ordered screening BNP per current ADA recommendations. [facility] her [facility]. Hypertension-Increase Lisinopril to 5 mg daily. Check renal function and K prior to next visit. Follow-up in 5 weeks for Type II diabetes. Orders: Orders Basic Metabolic Panel Today I10 - Essential (primary) hypertension B Type Natriuretic Peptide Today E11.9 - Type 2 diabetes mellitus without complications Hemoglobin A1c Today E11.9 - Type 2 diabetes mellitus without complications Medications: New semaglutide (Ozempic) 2 mg (0.75 mL) subcut QWEEK 3 mL 5RF lisinopril 5 mg PO DAILY 90 tabs 0RF Discontinued lisinopril Discontinued Reason: Doctor's Order 2.5 mg PO DAILY 90 days 90 tabs 1RF semaglutide (Ozempic) Discontinued Reason: Doctor's Order 1 mg (0.75 mL) subcut QWEEK 3 mL 3RF Patient Instructions: Please have fasting blood work done in about 1 month to recheck your cholesterol and liver function tests on the higher dose of atorvastatin and BNP level and hemoglobin a1c. Increase Lisinopril 5 mg. Increase Ozempic to 2 mg once weekly. Continue Tresiba 40 units and metformin 1000 mg twice daily. Coding Level of Care Code Est Pt Level 5 (73319) Complex EM visit Add On G2211 Diagnoses Type 2 diabetes mellitus with hyperglycemia, with long-term current use of insulin E11.65; Z79.4 Diabetes mellitus type: type 2 Diabetes mellitus [facility] insulin use: with [facility] use Diabetic polyneuropathy associated with type 2 diabetes mellitus E11.42 Diabetes mellitus type: type 2 Diabetes mellitus complication detail: diabetic polyneuropathy Mixed hyperlipidemia E78.2 Hyperlipidemia type: mixed hyperlipidemia Primary hypertension I10 Hypertension type: primary hypertension Time Spent (min) 60 Comment direct patient care, completing documentation
[2024-09-25 11:39] VITALS: BP 134/84; PULSE 79; BMI 45.2
[2024-09-25 11:52] LABS: Glucose, Whole Blood 214 mg/dL (60-115)
== END 2024-09-25 12:40 | disposition home or self-care (01) ==
PROVIDERS: PCP Nurse Practitioner Family; Visit Provider Physician Assistant Medical
DX: E11.65 Type 2 diabetes mellitus with hyperglycemia (principal); Z79.4 Long term (current) use of insulin; E11.42 Type 2 diabetes mellitus with diabetic polyneuropathy; E78.2 Mixed hyperlipidemia; I10 Essential (primary) hypertension

== ENCOUNTER → 2024-09-25 11:33 | Outpatient (BNVA) | payer OTHER, SELFPAY | PROVIDERS: PCP Nurse Practitioner Family; Visit Provider Physician Assistant Medical | DX: E11.65 Type 2 diabetes mellitus with hyperglycemia (principal); E11.42 Type 2 diabetes mellitus with diabetic polyneuropathy; E78.2 Mixed hyperlipidemia; I10 Essential (primary) hypertension; Z79.4 Long term (current) use of insulin | CPT/HCPCS: 82947; 99212 ==

== ENCOUNTER 2024-10-17 12:42 | Outpatient (AMB) | payer OTHER, SELFPAY ==
--- NOTE | 2024-10-17 12:57 | MHC.OFFVIS ---
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 Denies any side effects. Continues with tizanidine 4 mg 3 times daily Blood sugars have been well controlled with her continuous glucose monitor. Now averaging around 160. Pain today is rated as an 8/10 Prior: Patient presents back to the office today for follow-up, she is accompanied by her Today reporting pain at 9/10 She was attending PT but stopped going in June as it became too difficult. She finds some relief with the tizanidine muscle relaxer but pain persists Since last visit she was evaluated by endocrinology. She has CGM, states her blood sugars are now averaging in the low 200s where previously they were in the upper 300s Appointment with follow up for endocrinology this month, she is hoping that her A1c will be much improved Prior: Jackie presents back to the office today for follow-up, she is accompanied by her . Reports some improvement with the tizanidine. Started physical therapy last week ago. States feeling better after starting physical therapy. At last visit patient used a wheelchair to get from the car to the office, today she was able to ambulate that distance with a cane. States is unsure i she is feeling any improvement in her inflammation since starting Rinvoq. She will be following up with this at rheumatology shortly She reports her blood sugars have been improved recently though at her last PCP visit her A1c was 13.5. Insurance had denied continuous glucose monitor. She has not been evaluated by Endocrinology and would welcome a referral. Prior: Jackie is a very pleasant 53-year-old female who presents to the office today, accompanied by her , for evaluation and management of her chronic neck and lower back pain. Past medical history significant for restless leg syndrome, Parkinson's disease, ankylosing spondylitis, diabetes, fibromyalgia, urinary retention, gait difficulty, migraines, sleep disorder, tremor, leukocytosis, fatigue, obesity, pulmonary nodules, fatigue, irritable bowel syndrome. Endorses neck and lower back pain. Pain midline cervical across the upper back and tops of both shoulders. Worse with movement in tender to palpation. Pain today is rated as an 8/10, constant and worse in the evenings in the middle of the night. Endorses midline lower back pain with radiation across to both sides, left worse than right. Worse with movement and tender to palpation Endorses some tenderness to palpation along bilateral thoracic lumbar musculature also. Lower back pain does not radiate down either lower extremity, denies any new numbness, tingling, shooting, zipping, stabbing, electrical pain of either lower extremity. Neck pain radiates towards the base of the head and across to the left shoulder. Patient suffers from migraines along with headaches, potentially associated with this neck pain. Most recent A1c 04/17/2024 was 13.2. She reports there have been some difficulties in treating as at times insurance would not approve her medications and she had to struggle to get them. Recently started a 2nd injection for her diabetes. Currently averaging blood sugar just above 200, working on dietary modifications. Previously blood sugars would be in the 400s. Currently under the care of Neurology for the headaches, restless leg, Parkinson's and migraines. For her restless legs prescribed gabapentin 500mg in a staggered dose near bedtime. Currently under the care of rheumatology. Had a visit yesterday where they discontinued Humira and are starting her on Rinvoq. Her CRP was 4.22 on 05/03/2024 states she feels like the Humira initially had helped but feels like over time it has started to lose its effectiveness. Patient has completed physical therapy more than 1 year ago at [facility]. She is currently taking nonsteroidal anti-inflammatory medications daily with minimal improvement of her pain. Patient has never attempted chiropractor, acupuncture, massage or injections for her neck or back pain. In terms of muscle damage condition is described as aching, stabbing, sharp, dull, tiring, exhausting, throbbing. Pain is negatively impacting patient's enjoyment of life, general activity, mood, recreational activity, sleep and walking [facility] Medical History (Updated 09/25/24 @ 13:01 by ROGE Roach) Hypertension Hyperlipidemia Diabetic neuropathy Diabetes mellitus with hyperglycemia Parkinsons HLA B27 (HLA B27 positive) Retention of urine, unspecified UTI (urinary tract infection) Sacroiliitis Knee pain, bilateral Surgical History Hx of colonoscopy S/P gastric sleeve procedure Hx of cholecystectomy Family History Father HTN (hypertension) Diabetes Mother HTN (hypertension) Diabetes HLD (hyperlipidemia) Maternal Grandfather Substance use disorder Maternal Grandmother Diabetes Substance use disorder Maternal Uncle Substance use disorder Mental health disorder Paternal Grandmother Substance use disorder Social History Housing: House Alcohol intake: never Patient Tobacco Use Status: Never used Tobacco e-Cigarette/Vaping Use: Never Used Second Hand Smoke Exposure: No service: No Current occupational status: unemployed Cognitive needs: No Hearing needs: No Vision needs: No Review of Systems Const All systems reviewed & are unremarkable except as noted in HPI and below Physical Exam Vital Signs: Last Vital Signs Pulse 79 10/17/24 13:04 BP 141/91 H 10/17/24 13:04 Pulse Ox 98 10/17/24 13:04 Oxygen Delivery Method Room Air 10/17/24 13:04 BMI result Body Mass Index 44.9 General: awake, alert, oriented. Answers questions appropriately. Fully engaged in examination. Skin: warm, dry, intact HEENT: Normocephalic. Hearing intact. Cardiac: External chest normal in appearance. Respiratory: No cough, audible wheezing or stridor. Abdomen: without gross distension. MS: No obvious swelling or deformities. Neurological: Oriented to person, place, time and situation. Thought process intact. Patient in wheelchair Psychiatric: Appropriate mood and affect. Good judgment and insight. Results Reviewed Results Reviewed: 09/2022 XR/XR sacroiliac joint min 3V FINDINGS: There is increased sclerosis at the left sacroiliac joint. The right sacroiliac joint is normal. No fracture or dislocation is seen. There are degenerative changes of the lower lumbar spine. Soft tissues are unremarkable. IMPRESSION: Increased sclerosis at the left sacroiliac joint. Assessment & Plan Assessment & Plan (1) Diabetes: Code(s): E11.9 - Type 2 diabetes mellitus without complications Category: Medical (2) Ankylosing spondylitis: Comment: +HLA b27 sacroiliitis on x-ray dx 09/2022 Humira 10/2022 Code(s): M45.9 - Ankylosing spondylitis of unspecified sites in spine Category: Medical Qualifiers: Ankylosing spondylitis location: multiple sites in spine Qualified Code(s): M45.0 - Ankylosing spondylitis of multiple sites in spine (3) Myofascial low back pain: Code(s): M54.50 - Low back pain, unspecified Category: Medical (4) Myofascial neck pain: Code(s): M54.2 - Cervicalgia Category: Medical Plan Will increase gabapentin to 300 mg 3 times daily. If patient tolerates 3 times daily dosing will consider increase to 400 mg 3 times daily at next visit. Continue with Tizanidine dose increase to 4 mg p.o. t.i.d. as needed. Patient advised on cautions for use. All questions and concerns were answered, patient agrees to the plan. Follow-up in 1 month, sooner if needed Medications: Changed From gabapentin 300 mg in the morning and 300 mg in the afternoon. Continue with current gabapentin bedtime dosing 300 mg PO BID 60 caps 3RF To gabapentin 300 mg PO TID 60 caps 3RF Coding Level of Care Code Est Pt Level 4 (68178) Complex EM visit Add On G2211 Diagnoses Diabetes E11.9 Ankylosing spondylitis of multiple sites in spine M45.0 Ankylosing spondylitis location: multiple sites in spine Myofascial low back pain M54.50 Myofascial neck pain M54.2
[2024-10-17 13:04] VITALS: BP 141/91; PULSE 79; O2SAT 98; BMI 44.9
== END 2024-10-17 13:51 | disposition home or self-care (01) ==
PROVIDERS: PCP Nurse Practitioner Family; Visit Provider Registered Nurse Emergency
DX: E11.9 Type 2 diabetes mellitus without complications (principal); M45.0 Ankylosing spondylitis of multiple sites in spine; M54.50 Low back pain, unspecified; M54.2 Cervicalgia
CPT/HCPCS: 99214; G2211

== ENCOUNTER → 2024-10-17 12:42 | Outpatient (BNVA) | payer OTHER, SELFPAY | PROVIDERS: PCP Nurse Practitioner Family; Visit Provider Registered Nurse Emergency | DX: M45.0 Ankylosing spondylitis of multiple sites in spine (principal); M54.50 Low back pain, unspecified; M54.2 Cervicalgia; E11.9 Type 2 diabetes mellitus without complications | CPT/HCPCS: 99212 ==

== ENCOUNTER 2024-10-30 09:39 | Outpatient (AMB) | payer OTHER, SELFPAY ==
--- NOTE | 2024-10-30 09:51 | A.OFFVIS_ITS ---
Vital Signs 10/30/24 09:52 Height 5 ft 9 in Weight 299 lb 13.259 oz BMI 44.3 BP 124/78 Blood Pressure Location Rt brachial Position Sitting Pulse 79 Pulse Source Pulse Oximeter Intake Visit Reasons: DM/LVM Intake Note: Patient present today to follow up on Type 2 Diabetes Mellitus. Last Diabetic Eye exam: Jul 25, 2024 Last Podiatry Visit: Does not see a Field Crop Technical Officer Most Recent HgA1C: 7.2% 10/30/2024 Random Glucose: 131 mg/dL, Today Lathmaker Required: No Accompanied by: Significant Other Allergies No Known Allergies Allergy (Verified 10/17/24 13:05) HPI Comments Details: This is a 54-year-old female with a past medical history of type 2 diabetes with neuropathy, parkinsonism, migraine, pulmonary nodules, multinodular thyroid, IBS and obesity presenting for continued diabetic management. Accompanied by her , Kailash. She was diagnosed about 4 years ago with type 2 diabetes. Reviewed Dexcom download dated 10/16/2024 through 10/29/2024 GMI 6.9% Average glucose 148 Standard deviation 40 mg/dL 20% hyperglycemia 80% in range She has some hyperglycemia in the afternoon and evening. The sensor reports some lows, but the patient says this was from laying on her sensor at night, and when she changed position it corrected and she had no symptoms of hypoglycemia. There is a pattern of hyperglycemia in the evenings. Hemoglobin a1c 13.2% 04/17/24. 07/24/2024 10.2%. 10/30/24 7.2%. Current medication regimen: Ozempic 2 mg weekly, metformin 1000 mg twice daily, Tresiba 40 units She had gastric sleeve surgery more than 10 years ago. Compliance issues: none She met with the staff development educator and tea bag packer. She is happy with how these visits went. She is happy with her weight loss. Hypoglycemia symptoms: no hypoglycemic events Hyperglycemia symptoms: None. Eye exam: due for eye [facility]. Microvascular complications: bilateral neuropathy Macrovascular complications: no known Hypertension: Her blood pressure is normal today following a dose increase from 2.5-5 mg of lisinopril. Hyperlipidemia: treated with Atorvastatin 80 mg. LDL 121 with a goal of less than 100. The dose was increased. She is due for blood work. She reports chronic abdominal pain x at least 1 year on the right/middle area. It has gradually worsened over the last several months and is fairly constant for a couple months. Patient says it is always tender to press on it. It is not associated with eating, nausea, vomiting, diarrhea or blood in stools. They were wondering how to get this addressed. She reports a history of frequent UTIs and thinks she has one now due to urinary frequency and malodorous urine for several days. Denies hematuria, dysuria, nausea, vomiting, flank pain, fevers or chills. ROS: Constitutional: No unexplained weight loss, fever, chills or night sweats. Respiratory: No shortness of breath Cardiovascular: No chest pain Gastrointestinal: No anorexia, nausea, vomiting or diarrhea. No blood in stool. Genitourinary: see HPI Endocrine: No cold or heat intolerance. No polyuria or polydipsia. Physical exam: Constitutional: Alert, in no distress. Neck: Supple, Full range of motion. No lymphadenopathy. Respiratory: Clear to auscultation. Cardiovascular: S1 S2 regular. No murmurs. No carotid bruits. Gastrointestinal: Abdomen soft, +tenderness of the right mid abdomen, no guarding or rigitidty, no palpable mass but exam is limited due to habitus Genitourinary: No costovertebral angle tenderness. Psychiatric: Normal mood and affect [facility] Medical History (Updated 10/30/24 @ 10:34 by ROGE Roach) Urinary frequency Chronic abdominal pain Hypertension Hyperlipidemia Diabetic neuropathy Diabetes mellitus with hyperglycemia Parkinsons HLA B27 (HLA B27 positive) Retention of urine, unspecified UTI (urinary tract infection) Sacroiliitis Knee pain, bilateral Surgical History Hx of colonoscopy S/P gastric sleeve procedure Hx of cholecystectomy Family History Father HTN (hypertension) Diabetes Mother HTN (hypertension) Diabetes HLD (hyperlipidemia) Maternal Grandfather Substance use disorder Maternal Grandmother Diabetes Substance use disorder Maternal Uncle Substance use disorder Mental health disorder Paternal Grandmother Substance use disorder Social History Housing: House Alcohol intake: never Patient Tobacco Use Status: Never used Tobacco e-Cigarette/Vaping Use: Never Used Second Hand Smoke Exposure: No service: No Current occupational status: unemployed Cognitive needs: No Hearing needs: No Vision needs: No Office Procedures Glucose Monitoring Details Details: see HPI [id number] - Glucose monitoring, continuous-physician I&R Procedure code (CPT) selection complete Results AMB Hemoglobin A1c AMB Hemoglobin A1c 7.2 % Last Edit by BERNICE Teran on 10/30/24 10:09 Assessment & Plan Assessment & Plan (1) Diabetes mellitus with hyperglycemia: Code(s): E11.65 - Type 2 diabetes mellitus with hyperglycemia Category: Medical Qualifiers: Diabetes mellitus type: type 2 Diabetes mellitus skilled nursing insulin use: with skilled nursing use Qualified Code(s): E11.65 - Type 2 diabetes mellitus with hyperglycemia; Z79.4 - extermination supervisor (current) use of insulin (2) Diabetic neuropathy: Code(s): E11.40 - Type 2 diabetes mellitus with diabetic neuropathy, unspecified Category: Medical Qualifiers: Diabetes mellitus type: type 2 Diabetes mellitus complication detail: diabetic polyneuropathy Qualified Code(s): E11.42 - Type 2 diabetes mellitus with diabetic polyneuropathy (3) Hyperlipidemia: Code(s): E78.5 - Hyperlipidemia, unspecified Category: Medical Qualifiers: Hyperlipidemia type: mixed hyperlipidemia Qualified Code(s): E78.2 - Mixed hyperlipidemia (4) Hypertension: Code(s): I10 - Essential (primary) hypertension Category: Medical Qualifiers: Hypertension type: primary hypertension Qualified Code(s): I10 - Essential (primary) hypertension (5) Chronic abdominal pain: Code(s): R10.9 - Unspecified abdominal pain; G89.29 - Other chronic pain Category: Medical (6) Urinary frequency: Code(s): R35.0 - Frequency of micturition Category: Medical Plan In summary this is a very pleasant, 54-year-old female with Parkinson's seen today for controlled Type II diabetes per CGM. Appreciate consultation with staff development educator and dietitian. Reviewed treatment for hypo and hyperglycemia. She will continue Tresiba 40 units nightly, Ozempic to 2 mg weekly and metformin 1000 mg twice daily. Congratulated patient on weight loss. She is making substantial efforts to improve her diet. Discussed pathophysiology of Type II Diabetes Mellitus with the patient in detail.? I explained the joint terminal attack controller risks and complications associated with uncontrolled diabetes including nephropathy, neuropathy, peripheral vascular disease, retinopathy, increased risk of heart disease and stroke.? Her LDL cholesterol was not at goal. She increased atorvastatin to 80 mg. Check LFTs and lipid panel.. Ordered screening BNP per current ADA recommendations. Hypertension-Controlled. Continue Lisinopril to 5 mg daily. Check renal function and K. Ordered UA and Culture for evaluation of possible UTI as a courtesy today. Advised patient to contact her PCP for evaluation of chronic abdominal pain, and I will give him a heads up via [facility].. Warning signs warranting ER evaluation reviewed. Follow-up in 3 months for Type II diabetes. Orders: Orders AMB Hemoglobin A1c Today E11.65 - Type 2 diabetes mellitus with hyperglycemia, Z79.4 - extermination supervisor (current) use of insulin UA w Microscopic Today R35.0 - Frequency of micturition, R39.9 - Unspecified symptoms and signs involving the genitourinary system Urine Culture Today R35.0 - Frequency of micturition, R39.9 - Unspecified symptoms and signs involving the genitourinary system AMB Glucose Monitoring Today E11.9 - Type 2 diabetes mellitus without co mplications Medications: New insulin degludec (Tresiba FlexTouch U-100 insulin) 40 units (0.4 mL) subcut BEDTIME 15 mL 5RF Coding Level of Care Code Est Pt Level 4 (25307) Diagnoses Type 2 diabetes mellitus with hyperglycemia, with long-term current use of insulin E11.65; Z79.4 Diabetes mellitus type: type 2 Diabetes mellitus joint terminal attack controller insulin use: with joint terminal attack controller use Diabetic polyneuropathy associated with type 2 diabetes mellitus E11.42 Diabetes mellitus type: type 2 Diabetes mellitus complication detail: diabetic polyneuropathy Mixed hyperlipidemia E78.2 Hyperlipidemia type: mixed hyperlipidemia Primary hypertension I10 Hypertension type: primary hypertension Chronic abdominal pain R10.9; G89.29 Urinary frequency R35.0 CPT Codes Details - CPT: 78217 - Glucose monitoring, continuous-physician I&R ([id number])
[2024-10-30 09:52] VITALS: BP 124/78; PULSE 79; BMI 44.3
[2024-10-30 10:03] LABS: Glucose, Whole Blood 131 mg/dL (60-115)
== END 2024-10-30 10:31 | disposition home or self-care (01) ==
PROVIDERS: PCP Nurse Practitioner Family; Visit Provider Physician Assistant Medical
DX: E11.65 Type 2 diabetes mellitus with hyperglycemia (principal); Z79.4 Long term (current) use of insulin; E11.42 Type 2 diabetes mellitus with diabetic polyneuropathy; E78.2 Mixed hyperlipidemia; I10 Essential (primary) hypertension; R10.9 Unspecified abdominal pain; G89.29 Other chronic pain; R35.0 Frequency of micturition

== ENCOUNTER → 2024-10-30 09:39 | Outpatient (BNVA) | payer OTHER, SELFPAY | PROVIDERS: PCP Nurse Practitioner Family; Visit Provider Physician Assistant Medical | DX: E11.65 Type 2 diabetes mellitus with hyperglycemia (principal); E11.42 Type 2 diabetes mellitus with diabetic polyneuropathy; E78.2 Mixed hyperlipidemia; I10 Essential (primary) hypertension; R10.9 Unspecified abdominal pain; R35.0 Frequency of micturition; G89.29 Other chronic pain; Z79.4 Long term (current) use of insulin | CPT/HCPCS: 82947; 83036; 99212 ==

== ENCOUNTER 2024-10-30 10:46 | Outpatient (REF) | payer OTHER, SELFPAY ==
[2024-10-30 12:04] LABS: Appearance Urine Cloudy; Color Urine Dark Yellow; Glucose Urine UA Negative (Negative); Leukocyte Esterase Urine Large (3+) (Negative); Nitrite Urine Positive (Negative); PH 5.5 (5.0-9.0); Specific Gravity - Urine 1.025 (1.005-1.025); UMIC TRIGGER UA YES; Urine Blood Trace (Negative); Urine Ketones Negative (Negative); Urine Protein Trace mg/dL (Neg-Trace)
[2024-10-30 12:09] LABS: Bacteria Urine 2+ (None Seen); RBC Urine 0-2 /HPF (0-2); WBC Urine >50 /HPF (0-5)
[2024-10-30 12:11] LABS: Anion Gap 11 (12-20); Blood Urea Nitrogen 11 mg/dL (9-16); Calcium 8.7 mg/dL (8.4-10.2); Carbon Dioxide 28 mmol/L (22-29); Chloride 104 mmol/L (96-108); Estimated Glomerular Filt Rate > 60; Glucose Random 103 mg/dL (60-115); Potassium 3.8 mmol/L (3.3-5.1); Sodium 139 mmol/L (135-145)
[2024-10-30 12:50] LABS: B Type Natriuretic Peptide < 10 pg/mL (<100)
== END 2024-10-30 10:47 | disposition home or self-care (01) ==
LOC: HO.10HDL 10:46
PROVIDERS: Visit Provider Physician Assistant Medical
DX: E11.9 Type 2 diabetes mellitus without complications (principal); R39.9 Unspecified symptoms and signs involving the genitourinary system; R35.0 Frequency of micturition; I10 Essential (primary) hypertension
CPT/HCPCS: 36415; 80048; 81001; 83880; 87086; 87088; 87186

== ENCOUNTER 2024-11-21 10:14 | Outpatient (AMB) | payer OTHER, SELFPAY ==
--- NOTE | 2024-11-21 10:11 | A.OFFVIS_ITS ---
Intake Visit Reasons: 1 month FU Allergies No Known Allergies Allergy (Verified 10/17/24 13:05) HPI Comments Details: Telephone visit completed today for follow-up, medication management At previous visit gabapentin was increased to 300 mg 3 times daily. Patient has been tolerating well. She states she has not noticed a significant improvement in her pain. She is interested in increasing the dose again today. Continues with tizanidine 3 times daily Denies any new medications, diagnoses, allergies since last visit. Prior: Patient presents back to the office today, accompanied by her , for follow-up chronic pain and medication management She reports some improvement with her gabapentin increased to 300 mg twice daily at last visit. Denies any side effects. Continues with tizanidine 4 mg 3 times daily Blood sugars have been well controlled with her continuous glucose monitor. Now averaging around 160. Pain today is rated as an 8/10 Prior: Patient presents back to the office today for follow-up, she is accompanied by her Today reporting pain at 9/10 She was attending PT but stopped going in June as it became too difficult. She finds some relief with the tizanidine muscle relaxer but pain persists Since last visit she was evaluated by endocrinology. She has CGM, states her blood sugars are now averaging in the low 200s where previously they were in the upper 300s Appointment with follow up for endocrinology this month, she is hoping that her A1c will be much improved Prior: Jackie presents back to the office today for follow-up, she is accompanied by her . Reports some improvement with the tizanidine. Started physical therapy last week ago. States feeling better after starting physical therapy. At last visit patient used a wheelchair to get from the car to the office, today she was able to ambulate that distance with a cane. States is unsure i she is feeling any improvement in her inflammation since starting Rinvoq. She will be following up with this at rheumatology shortly She reports her blood sugars have been improved recently though at her last PCP visit her A1c was 13.5. Insurance had denied continuous glucose monitor. She has not been evaluated by Endocrinology and would welcome a referral. Prior: Jackie is a very pleasant 53-year-old female who presents to the office today, accompanied by her , for evaluation and management of her chronic neck and lower back pain. Past medical history significant for restless leg syndrome, Parkinson's disease, ankylosing spondylitis, diabetes, fibromyalgia, urinary retention, gait difficulty, migraines, sleep disorder, tremor, leukocytosis, fatigue, obesity, pulmonary nodules, fatigue, irritable bowel syndrome. Endorses neck and lower back pain. Pain midline cervical across the upper back and tops of both shoulders. Worse with movement in tender to palpation. Pain today is rated as an 8/10, constant and worse in the evenings in the middle of the night. Endorses midline lower back pain with radiation across to both sides, left worse than right. Worse with movement and tender to palpation Endorses some tenderness to palpation along bilateral thoracic lumbar musculature also. Lower back pain does not radiate down either lower extremity, denies any new numbness, tingling, shooting, zipping, stabbing, electrical pain of either lower extremity. Neck pain radiates towards the base of the head and across to the left shoulder. Patient suffers from migraines along with headaches, potentially associated with this neck pain. Most recent A1c 04/17/2024 was 13.2. She reports there have been some difficulties in treating as at times insurance would not approve her medications and she had to struggle to get them. Recently started a 2nd injection for her diabetes. Currently averaging blood sugar just above 200, working on dietary modifications. Previously blood sugars would be in the 400s. Currently under the care of Neurology for the headaches, restless leg, Parkinson's and migraines. For her restless legs prescribed gabapentin 500mg in a staggered dose near bedtime. Currently under the care of rheumatology. Had a visit yesterday where they discontinued Humira and are starting her on Rinvoq. Her CRP was 4.22 on 05/03/2024 states she feels like the Humira initially had helped but feels like over time it has started to lose its effectiveness. Patient has completed physical therapy more than 1 year ago at [facility]. She is currently taking nonsteroidal anti-inflammatory medications daily with minimal improvement of her pain. Patient has never attempted chiropractor, acupuncture, massage or injections for her neck or back pain. In terms of muscle damage condition is described as aching, stabbing, sharp, dull, tiring, exhausting, throbbing. Pain is negatively impacting patient's enjoyment of life, general activity, mood, recreational activity, sleep and walking [facility] Medical History (Updated 10/30/24 @ 17:29 by Omer Pérez, [facility]) Urinary frequency Chronic abdominal pain Hypertension Hyperlipidemia Diabetic neuropathy Diabetes mellitus with hyperglycemia Parkinsons HLA B27 (HLA B27 positive) Retention of urine, unspecified UTI (urinary tract infection) Sacroiliitis Knee pain, bilateral Surgical History Hx of colonoscopy S/P gastric sleeve procedure Hx of cholecystectomy Family History Father HTN (hypertension) Diabetes Mother HTN (hypertension) Diabetes HLD (hyperlipidemia) Maternal Grandfather Substance use disorder Maternal Grandmother Diabetes Substance use disorder Maternal Uncle Substance use disorder Mental health disorder Paternal Grandmother Substance use disorder Social History Housing: House Alcohol intake: never Patient Tobacco Use Status: Never used Tobacco e-Cigarette/Vaping Use: Never Used Second Hand Smoke Exposure: No service: No Current occupational status: unemployed Cognitive needs: No Hearing needs: No Vision needs: No Review of Systems Const All systems reviewed & are unremarkable except as noted in HPI and below Physical Exam Telephone visit only, physical exam and vital signs deferred Telehealth Telehealth Telehealth Platform: Telephone Location of provider rendering services: practice address Location of patient: address on file Patient Identification confirmed using: Name, : Yes Telehealth method: voice only Patient verbally consented to treatment: Yes Patient verbally consented to billing insurance company: Yes Patient informed of any privacy concerns related to visit: Yes Minutes spent on Phone/Video with Pt.: 11 Assessment & Plan Assessment & Plan (1) Diabetes: Code(s): E11.9 - Type 2 diabetes mellitus without complications Category: Medical (2) Ankylosing spondylitis: Comment: +HLA b27 sacroiliitis on x-ray dx 09/2022 Humira 10/2022 Code(s): M45.9 - Ankylosing spondylitis of unspecified sites in spine Category: Medical Qualifiers: Ankylosing spondylitis location: multiple sites in spine Qualified Code(s): M45.0 - Ankylosing spondylitis of multiple sites in spine (3) Myofascial low back pain: Code(s): M54.50 - Low back pain, unspecified Category: Medical (4) Myofascial neck pain: Code(s): M54.2 - Cervicalgia Category: Medical Plan Gabapentin increased to 400 mg 3 times daily. Patient advised on cautions for use. If tolerated well consider increasing to 600 mg 3 times daily at next visit Continue with Tizanidine 4 mg p.o. t.i.d. as needed. Patient advised on cautions for use. All questions and concerns were answered, patient agrees to the plan. Follow-up in 1-2 months, sooner if needed Medications: Changed From gabapentin 300 mg PO TID 60 caps 3RF To gabapentin 400 mg PO TID 90 caps 3RF Coding Level of Care Code Tele Est Pt Level 3 (50900) Complex EM visit Add On G2211 Diagnoses Diabetes E11.9 Ankylosing spondylitis of multiple sites in spine M45.0 Ankylosing spondylitis location: multiple sites in spine Myofascial low back pain M54.50 Myofascial neck pain M54.2
== END 2024-11-21 10:25 | disposition home or self-care (01) ==
LOC: HO.PMC 10:14
PROVIDERS: PCP Nurse Practitioner Family; Visit Provider Registered Nurse Emergency
DX: E11.9 Type 2 diabetes mellitus without complications (principal); M45.0 Ankylosing spondylitis of multiple sites in spine; M54.50 Low back pain, unspecified; M54.2 Cervicalgia
CPT/HCPCS: 99213; G2211

== ENCOUNTER 2024-12-12 16:30 | Outpatient (REF) | payer OTHER, SELFPAY ==
--- NOTE | ~2024-12-12 | CT_ITS ---
CLINICAL HISTORY: R10.9 - Unspecified abdominal pain CT abdomen and pelvis without contrast Comparison: None Findings: The lung bases are clear. The liver, spleen, adrenal glands and pancreas demonstrate no acute process. The pancreas is mildly atrophic. The gallbladder is surgically absent. Kidneys demonstrate neither obstruction nor suspicious lesion. The bladder is decompressed. There is no bowel obstruction or free air. The appendix is not definitively visualized. No focal inflammatory process involving the right lower quadrant. Diffuse haziness throughout the mesentery with scattered subcentimeter lymph nodes present. Uterus and adnexa are unremarkable. No acute osseous abnormality. Impression: Mild diffuse haziness throughout the mesentery with scattered subcentimeter lymph nodes present. This is nonspecific but can be seen with mild mesenteric adenitis. Additional incidental findings as detailed. This document has been electronically signed by: Keith Hurtado MD on 12/13/2024 10:55:23
== END 2024-12-12 16:31 | disposition home or self-care (01) ==
LOC: HO.CT 16:30
PROVIDERS: PCP Nurse Practitioner Family; Visit Provider Nurse Practitioner Family
DX: R10.9 Unspecified abdominal pain (principal)
CPT/HCPCS: 74176

== ENCOUNTER → 2024-12-12 16:33 | Outpatient (BNV) | payer OTHER, SELFPAY | PROVIDERS: PCP Nurse Practitioner Family; Visit Provider Radiology Vascular & Interventional Radiology | DX: R10.9 Unspecified abdominal pain (principal) | CPT/HCPCS: 74176 ==

== ENCOUNTER 2025-01-31 14:26 | Outpatient (AMB) | payer OTHER, SELFPAY ==
--- NOTE | 2025-01-31 14:27 | A.OFFPC_ITS ---
Vital Signs 01/31/25 14:28 Height 5 ft 9 in Weight 281 lb BMI 41.5 BP 132/80 Blood Pressure Location Lt brachial Position Sitting Pulse 81 Pulse Source Pulse Oximeter Pulse Oximetry (%) 98 Oxygen Delivery Method Room Air Intake Visit Reasons: Annual PE Executive Vice President Required: No Accompanied by: Spouse Allergies No Known Allergies Allergy (Verified 01/31/25 14:29) Tobacco use date assessed: 01/31/25 Dental Screening Dental Screen Date: 01/31/25 Did you have a dental visit in the last 12 months?: No Did you have a dental problem in the last 6 months where you did not have access to dental care?: No Was dental information given to patient?: Patient declined HPI Annual PE HPI Details History of Present Illness The patient is a 54-year-old female presenting with continuous abdominal discomfort and mesenteric adenitis. Her symptoms, which are primarily localized to the right upper quadrant, have been longstanding without any significant exacerbation. An earlier CAT scan in November indicated mesenteric adenitis. Despite the discomfort, she denies recent fevers, diarrhea, bloody stools, or any changes in her bowel habits. She experiences intermittent chills and constipation but has not reported vomiting or issues with food tolerance. Physical examination indicates tenderness on deep palpation of the right upper quadrant, yet previous assessments have not shown significant alterations or complications. Health Maintenance - Colon screening is current. - Mammogram is up to date. - Patient continues care with specialist s for neurological, endocrine, and pain management concerns. Social History Review of Systems - Gastrointestinal: Reports continuous a bdominal discomfort, intermittent constipation. - General: Denies recent fever. Reports intermittent chills. - Urinary: Denies any current urinary is sues. - Respiratory: Denies shortness of breat h. - Cardiovascular: Denies chest pain. - Neuropsychiatric: Denies suicidal or h omicidal ideation. Physical Exam General: Cooperative, healthy appearing, comfortable, no acute distress and well developed, obese Orientation: Patient oriented x3 Limitations: No limitations Head: Normal to inspection Ears: Hearing grossly normal bilaterally Nose: Normal external nose present Face and sinus: Normal facial exam Eyes: Appearance normal, both eyes and all related structures Neck: Normal visual inspection and Yes full ROM Respiratory: Normal respiratory effort and able to speak in complete sentences. Clear to auscultation bilaterally Cardiovascular: Regular rate and rhythm. Normal S1 and S2 GI: Tenderness with very deep palpation of the right upper quadrant Skin: No rashes or lesions noted Neuro: Patient oriented x3 Extremities: Normal to inspection, feet were intact, no sensation with use of monofilament to distal toes/feet. Results - Imaging: Previous CAT scan from [facility] showed mesenteric adenitis. Plan A repeat CAT scan is planned to reassess the current status of the mesenteric adenitis and its relation to the patient's persistent abdominal discomfort. During this evaluation, I will continue monitoring her symptoms and manage her constipation as needed. Coordination with her current specialists is essential to ensure a comprehensive treatment approach. As she is not exhibiting any urgent or emergent symptoms, the focus remains on gathering further imaging evidence to guide potential treatment adjustments. Communication regarding the absence of specific symptoms, such as diarrhea or bloody stools, suggests no immediate complication risk. Discussion Notes I discussed with the patient the necessity of repeating the CAT scan to evaluate the persistence or resolution of the mesenteric adenitis. The potential risks and benefits of further imaging were addressed, focusing on ensuring continuous care and evaluation of her long-standing abdominal discomfort. I highlighted the importance of ongoing surveillance for additional symptoms that might suggest other underlying conditions. Possible follow-ups were outlined, contingent upon the new imaging results. The patient was assured of coordinated care alongside her neurological, endocrine, and pain management teams to ensure an integrated treatment plan. Patient Instructions - Schedule and complete a follow-up CAT scan as discussed to reassess abdominal concerns. - Monitor symptoms such as new or worsen ing abdominal pain, fever, or changes in bowel habits, and report any significant changes. - Continue with current specialist appoi ntments for neurological, endocrine, and pain management care. - Maintain usual diet and bowel regimen to manage constipation, and increase fib er as tolerated. - Follow up with the clinic after the CA T scan to discuss results and further management. COUNTS INCLUDE 234 BEDS AT THE [facility] Medical History Urinary frequency Chronic abdominal pain Hypertension Hyperlipidemia Diabetic neuropathy Diabetes mellitus with hyperglycemia Parkinsons HLA B27 (HLA B27 positive) Retention of urine, unspecified UTI (urinary tract infection) Sacroiliitis Knee pain, bilateral Surgical History Hx of colonoscopy S/P gastric sleeve procedure Hx of cholecystectomy Family History Father HTN (hypertension) Diabetes Mother HTN (hypertension) Diabetes HLD (hyperlipidemia) Maternal Grandfather Substance use disorder Maternal Grandmother Diabetes Substance use disorder Maternal Uncle Substance use disorder Mental health disorder Paternal Grandmother Substance use disorder Social History Housing: House Alcohol intake: never Patient Tobacco Use Status: Never used Tobacco e-Cigarette/Vaping Use: Never Used Second Hand Smoke Exposure: No service: No Current occupational status: unemployed Cognitive needs: No Hearing needs: No Vision needs: No Questionnaire PHQ-9 Over the last 2 weeks, how often have you been bothered by any of the following problems? 14342 - PHQ-9 Billing: Patient declined-do not bill Source: Developed by Drs. Mike Busch, Patricia Brandt, Dashawn David and colleagues, with an educational annika from [employer]. Thrive Questionnaire Date Thrive assessed: 01/31/25 I am a: Patient What is your living situation today?: I have a steady place to live Within the past 12 months, did the food you bought not last and you didn't have the money to get more?: Never true Within the past 12 months, did you worry whether your food would run out before you got money to buy more?: Never true Do you have trouble paying for medicines?: I choose not to answer this question Do you have trouble getting transportation to medical appointments?: Yes Do you have trouble paying your heating and electricity bill?: I choose not to answer this question Do you have trouble taking care of your child, family member or friend?: No Do you have trouble with day-to-day activities such as bathing, preparing meals, shopping, managing finances, etc.?: I choose not to answer this question Are you currently unemployed and looking for a job?: No Are you interested in more education?: No Please select the resources that you would like help with: None Currently or been in a relationship where the following occur: No concerns reported THRIVE Score: 1 AUDIT C Alcohol Use Questionnaire (AUDIT-C) 1. How often do you have a drink containing alcohol?: Never 3. How often do you have six or more drinks on one occasion?: Never Total Score: 0 Score Reviewed/Action Taken: Yes MANUELA-7 AMB Questionnaire MANUELA-7 Date MANUELA - 7 assessed: 07/24/24 Source: Developed by Drs. Mike Busch, Patricia Brandt, Dashawn David and colleagues, with an educational annika from [employer]. Physical exam (Primary Care) Vital Signs: Last Vital Signs Pulse 81 01/31/25 14:28 BP 132/80 01/31/25 14:28 Pulse Ox 98 01/31/25 14:28 Oxygen Delivery Method Room Air 01/31/25 14:28 BMI result Body Mass Index 41.5 Tobacco/Smoking Status: Tobacco use Status Tobacco use date assessed 01/31/25 01/31/25 14:33 Patient Tobacco Use Status Never used Tobacco 01/31/25 14:28 e-Cigarette/Vaping Use Never Used 01/31/25 14:28 Thrive Assessment: Date of Thrive Assessment Date Thrive assessed 01/31/25 01/31/25 14:33 Currently or been in a relationship where the following occur: No concerns reported Coding Level of Care Code Est Pt Prev Care 40-64y(35277) Diagnoses Mesenteric lymphadenitis I88.0 Encounter for routine adult physical exam with abnormal findings Z. Assessment & Plan Assessment & Plan (1) Mesenteric lymphadenitis: Code(s): I88.0 - Nonspecific mesenteric lymphadenitis Category: Medical (2) Encounter for routine adult physical exam with abnormal findings: Code(s): Z00. - Encounter for general adult medical examination with abnormal findings Category: Medical Plan . Orders: Orders CT abdomen pelvis wo IV con Today I88.0 - Nonspecific mesenteric lymphadenitis Complete Blood Count Auto Diff Today Z00. - Encounter for general adult medical examination with abnormal findings TSH reflex Free T4 Today Z00. - Encounter for general adult medical examination with abnormal findings Comprehensive Kirkman. Panel Fast Today Z00. - Encounter for general adult medical examination with abnormal findings UA CC w/rflx Micro + Cult Today Z00. - Encounter for general adult medical examination with abnormal findings Lipid Panel Today Z00. - Encounter for general adult medical examination with abnormal findings Vitamin D 25-OH Total Today Z00. - Encounter for general adult medical examination with abnormal findings
[2025-01-31 14:28] VITALS: BP 132/80; PULSE 81; O2SAT 98; BMI 41.5
== END 2025-01-31 16:17 | disposition home or self-care (01) ==
LOC: HO.HMCC 14:27
PROVIDERS: PCP Nurse Practitioner Family; Visit Provider Nurse Practitioner Family
DX: I88.0 Nonspecific mesenteric lymphadenitis (principal); Z00.01 Encounter for general adult medical examination with abnormal findings

== ENCOUNTER → 2025-01-31 14:26 | Outpatient (BNVA) | payer OTHER, SELFPAY | PROVIDERS: PCP Nurse Practitioner Family; Visit Provider Nurse Practitioner Family | DX: Z00.01 Encounter for general adult medical examination with abnormal findings (principal); I88.0 Nonspecific mesenteric lymphadenitis | CPT/HCPCS: 99396 ==

== ENCOUNTER 2025-02-01 10:54 | Outpatient (AMB) | payer OTHER, SELFPAY ==
--- NOTE | 2025-02-01 10:57 | MHC.OFFVIS ---
Vital Signs 02/01/25 11:04 Height 5 ft 9 in Weight 284 lb 2.813 oz BMI 42.0 BP 108/74 Blood Pressure Location Rt brachial Position Sitting Pulse 67 Pulse Source Pulse Oximeter Pulse Oximetry (%) 99 Oxygen Delivery Method Room Air Intake Visit Reasons: T2DM Intake Note: Patient present today to follow up on Type 2 Diabetes Mellitus. Last Diabetic Eye exam: July 25, 2024 Last Podiatry Visit: Does not see a Office Support Specialist Random Glucose: 92 mg/dl HgA1C: 6.0% 02/01/25 Food Service Associate Required: No Accompanied by: Spouse Allergies No Known Allergies Allergy (Verified 02/01/25 11:05) HPI Comments Details: This is a 54-year-old female with a past medical history of type 2 diabetes with neuropathy, parkinsonism, migraine, pulmonary nodules, multinodular thyroid, IBS and obesity presenting for continued diabetic management. Accompanied by her , Kailash. She was diagnosed about 4.5 years ago with type 2 diabetes. Reviewed Dexcom download Average glucose 124 mg/dL G MS 6.3% Coefficient of variation 25.9% 0% very high 8% high 92% in range 0% low Patient has blood sugars within target range throughout the day. Hemoglobin a1c 6.0% today. Current medication regimen: Ozempic 2 mg weekly, metformin 1000 mg twice daily, Tresiba 40 units She had gastric sleeve surgery more than 10 years ago. Compliance issues: none She met with the child day care provider and veterinary radiologist. She is happy with her weight loss. Hypoglycemia symptoms: no hypoglycemic events Hyperglycemia symptoms: None. [facility]. Microvascular complications: bilateral neuropathy Macrovascular complications: no known Hypertension: Controlled on lisinopril 5 mg daily. Hyperlipidemia: treated with Atorvastatin 80 mg. LDL 121 with a goal of less than 100. The dose was increased. She is due for blood work. She saw her primary care provider to evaluate chronic abdominal pain. It started more than a year ago, and she says it predated her medications for diabetes. 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 Respiratory: No shortness of breath Cardiovascular: No chest pain Gastrointestinal: No anorexia, nausea, vomiting or diarrhea. No blood in stool. Endocrine: No cold or heat intolerance. No polyuria or polydipsia. Physical exam: Constitutional: Alert, in no distress. Neck: Supple, Full range of motion. No lymphadenopathy. Respiratory: Clear to auscultation. Cardiovascular: S1 S2 regular. No murmurs. Right foot: Warm and well perfused. No clubbing, cyanosis or edema. Intact the people's. Decreased vibratory sensation. Decreased sensation to monofilament. No open wound. Left foot: Warm and well perfused. No clubbing, cyanosis or edema. Intact DP pulse. Decreased vibratory sensation. Intact sensation to monofilament. No open wound. [facility] Medical History Urinary frequency Chronic abdominal pain Hypertension Hyperlipidemia Diabetic neuropathy Diabetes mellitus with hyperglycemia Parkinsons HLA B27 (HLA B27 positive) Retention of urine, unspecified UTI (urinary tract infection) Sacroiliitis Knee pain, bilateral Surgical History Hx of colonoscopy S/P gastric sleeve procedure Hx of cholecystectomy Family History Father HTN (hypertension) Diabetes Mother HTN (hypertension) Diabetes HLD (hyperlipidemia) Maternal Grandfather Substance use disorder Maternal Grandmother Diabetes Substance use disorder Maternal Uncle Substance use disorder Mental health disorder Paternal Grandmother Substance use disorder Social History Housing: House Alcohol intake: never Patient Tobacco Use Status: Never used Tobacco e-Cigarette/Vaping Use: Never Used Second Hand Smoke Exposure: No service: No Current occupational status: unemployed Cognitive needs: No Hearing needs: No Vision needs: No Physical Exam Vital Signs: Last Vital Signs Pulse 67 02/01/25 11:04 BP 108/74 02/01/25 11:04 Pulse Ox 99 02/01/25 11:04 Oxygen Delivery Method Room Air 02/01/25 11:04 BMI result Body Mass Index 42.0 Office Procedures Glucose Monitoring Details Details: see [facility] [address] - Glucose monitoring, continuous-physician I&R Procedure code (CPT) selection complete Results AMB Hemoglobin A1c AMB Hemoglobin A1c 6.0 % Last Edit by BERNICE Epps on 02/01/25 11:33 Results Reviewed Results Reviewed: Laboratory Last Values Glucose (Clinic) 92 mg/dL (60-115) 02/01/25 11:22 Hgb A1c (Clinic) 6.0 % (4.0-6.0) 02/01/25 11:28 Laboratory Tests 07/18/24 10/30/24 10/30/24 12:10 10:03 10:25 Creatinine Estimated GFR Hgb A1c (Clinic) 7.2 H B-Natriuretic Peptide < 10 LDL Cholesterol, Calc 121 H HDL Cholesterol 42 Urine Creatinine 96.32 Urine Microalbumin 7.0 Microalb/Creat Ratio 7.2 10/30/24 10:52 Creatinine 0.74 Estimated GFR > 60 Hgb A1c (Clinic) B-Natriuretic Peptide LDL Cholesterol, Calc HDL Cholesterol Urine Creatinine Urine Microalbumin Microalb/Creat Ratio Assessment & Plan Assessment & Plan (1) Diabetes mellitus with hyperglycemia: Code(s): E11.65 - Type 2 diabetes mellitus with hyperglycemia Category: Medical Qualifiers: Diabetes mellitus terminal computer operator insulin use: with shelter use Diabetes mellitus type: type 2 Qualified Code(s): E11.65 - Type 2 diabetes mellitus with hyperglycemia; Z79.4 - retirement (current) use of insulin (2) Diabetic neuropathy: Code(s): E11.40 - Type 2 diabetes mellitus with diabetic neuropathy, unspecified Category: Medical Qualifiers: Diabetes mellitus complication detail: diabetic polyneuropathy Diabetes mellitus type: type 2 Qualified Code(s): E11.42 - Type 2 diabetes mellitus with diabetic polyneuropathy (3) Hyperlipidemia: Code(s): E78.5 - Hyperlipidemia, unspecified Category: Medical Qualifiers: Hyperlipidemia type: mixed hyperlipidemia Qualified Code(s): E78.2 - Mixed hyperlipidemia (4) Hypertension: Code(s): I10 - Essential (primary) hypertension Category: Medical Qualifiers: Hypertension type: primary hypertension Qualified Code(s): I10 - Essential (primary) hypertension Plan In summary this is a very pleasant, 54-year-old female with Parkinson's seen today for controlled Type II diabetes. Reviewed treatment for hypo and hyperglycemia. She will continue Tresiba 40 units nightly, Ozempic to 2 mg weekly and metformin 1000 mg twice daily. Congratulated patient on weight loss. She has made substantial efforts to improve her diet. Patient does not feel like her GI symptoms are related to the medications, but I offered to decrease her dose of metformin or Ozempic as a trial since she is very well-controlled. She declined at this time. She will change the metformin to extended release since she is due for the refill, and many patients experience less GI side effects then with immediate release metformin. Discussed pathophysiology of Type II Diabetes Mellitus with the patient in detail.? I explained the shelter risks and complications associated with uncontrolled diabetes including nephropathy, neuropathy, peripheral vascular disease, retinopathy, increased risk of heart disease and stroke.? Her LDL cholesterol was not at goal. She increased atorvastatin to 80 mg. Recheck cholesterol. Hypertension-Controlled. Continue Lisinopril to 5 mg daily. Follow-up in 3 months for Type II diabetes. Orders: Orders AMB Glucose Monitoring Today E11.9 - Type 2 diabetes mellitus without complications Lipid Panel Today E78.5 - Hyperlipidemia, unspecified AMB Hemoglobin A1c Today E11.65 - Type 2 diabetes mellitus with hyperglycemia, Z79.4 - remote computer terminal operator (current) use of insulin Comprehensive Met. Panel Today E11.65 - Type 2 diabetes mellitus with hyperglycemia, Z79.4 - retirement (current) use of insulin Medications: New metformin ER 1,000 mg (2 x 500 mg) PO BID 360 tabs 3RF Discontinued metformin Discontinued Reason: Doctor's Order 1,000 mg PO BID 90 days 180 tabs 1RF Coding Level of Care Code Est Pt Level 4 (28397) Diagnoses Type 2 diabetes mellitus with hyperglycemia, with long-term current use of insulin E11.65; Z79.4 Diabetes mellitus terminal computer operator insulin use: with terminal computer operator use Diabetes mellitus type: type 2 Diabetic polyneuropathy associated with type 2 diabetes mellitus E11.42 Diabetes mellitus complication detail: diabetic polyneuropathy Diabetes mellitus type: type 2 Mixed hyperlipidemia E78.2 Hyperlipidemia type: mixed hyperlipidemia Primary hypertension I10 Hypertension type: primary hypertension CPT Codes Details - CPT: 86470 - Glucose monitoring, continuous-physician I&R ([id number])
[2025-02-01 11:04] VITALS: BP 108/74; PULSE 67; O2SAT 99; BMI 42.0
[2025-02-01 11:38] LABS: Glucose, Whole Blood 92 mg/dL (60-115)
== END 2025-02-01 12:20 | disposition home or self-care (01) ==
LOC: HO.ENCR 10:54
PROVIDERS: PCP Nurse Practitioner Family; Visit Provider Physician Assistant Medical
DX: E11.65 Type 2 diabetes mellitus with hyperglycemia (principal); Z79.4 Long term (current) use of insulin; E11.42 Type 2 diabetes mellitus with diabetic polyneuropathy; E78.2 Mixed hyperlipidemia; I10 Essential (primary) hypertension

== ENCOUNTER → 2025-02-01 10:54 | Outpatient (BNVA) | payer OTHER, SELFPAY | PROVIDERS: PCP Nurse Practitioner Family; Visit Provider Physician Assistant Medical | DX: E11.65 Type 2 diabetes mellitus with hyperglycemia (principal); E11.42 Type 2 diabetes mellitus with diabetic polyneuropathy; Z79.4 Long term (current) use of insulin; Z79.84 Long term (current) use of oral hypoglycemic drugs; E78.2 Mixed hyperlipidemia; I10 Essential (primary) hypertension | CPT/HCPCS: 82947; 83036; 99212 ==

== ENCOUNTER 2025-02-19 08:50 | Outpatient (AMB) | payer OTHER, SELFPAY ==
--- NOTE | 2025-02-19 08:51 | A.OFFVIS_ITS ---
Vital Signs 02/19/25 08:52 Height 5 ft 9 in Weight 285 lb BMI 42.1 BP 140/90 H Blood Pressure Location Rt brachial Position Sitting Pulse 79 Pulse Source Pulse Oximeter Pulse Oximetry (%) 98 Oxygen Delivery Method Room Air Intake Visit Reasons: 3 [id number] Intake Note: Patient presents for follow up. Allergies No Known Allergies Allergy (Verified 02/20/25 09:34) Medication List - Last Reconciled 02/19/25 by ELENA Amaya [4 wheeled walker with seat daily use] alcohol swabs (CareTouch Alcohol Prep Pad topical pads) 1 pad topical DAILY amitriptyline 25 mg PO BEDTIME 30 days ascorbic acid (vitamin C) 500 mg PO BID 30 days aspirin 81 mg PO DAILY 90 days atorvastatin 80 mg PO BEDTIME blood sugar diagnostic (FreeStyle Lite Strips) test blood sugar 3 times per day blood-glucose,translation director,cont (Dexcom G7 Front Office Associate) DIRECTED blood-glucose sensor (Dexcom G7 Sensor device) apply new sensor every 10 days as directed carbidopa-levodopa 25-100 mg 1 tab PO QID 90 days celecoxib 200 mg PO BID cholecalciferol (vitamin D3) 1,250 mcg PO QWEEK 8 weeks ferrous sulfate 325 mg PO TID 90 days gabapentin 400 mg PO TID galcanezumab-gnlm (Emgality Pen) 120 mg subcut ONCE 30 days glucose 16 grams (4 x 4 gram) PO Q15M PRN insulin degludec (Tresiba FlexTouch U-100 insulin) 40 units (0.4 mL) subcut BEDTIME lancets (FreeStyle Lancets) Use to check blood sugar daily lisinopril 5 mg PO DAILY magnesium oxide 400 mg PO BEDTIME 30 days metformin ER 1,000 mg (2 x 500 mg) PO BID omeprazole 40 mg PO DAILY 90 days ondansetron HCl 4 mg PO Q8H pen needle, diabetic (BD Ultra-Fine Emily Pen Needle) Use to inject insulin daily pyridoxine (vitamin B6) 50 mg PO BID 30 days riboflavin (vitamin B2) 400 mg PO DAILY 30 days semaglutide (Ozempic) 2 mg (0.75 mL) subcut QWEEK sertraline 200 mg (2 x 100 mg) PO DAILY sumatriptan succinate 100 mg PO Q2H PRN 21 days tizanidine 4 mg PO TID trazodone 100 mg PO BEDTIME 90 days trazodone 25 mg (1/2 x 50 mg) PO BEDTIME 30 days zinc gluconate 50 mg PO DAILY 30 days HPI Comments Details: 54-year-old female presents for f/u visit of parkinsonism, migraine, and RLS. Patient is accompanied by her . She notes a left lower rib margin painful lump- has had for some time now- and ask us to look at it. She has been slowly loosing weight- states note on a diet- however is on Ozempic. She continues to have tremor and voice, her CD-LD is helpful, but sometimes needs to take an extra 1-2 tablets in a day. She is more prone to dropping something, has difficulty gripping something. For example, difficulty dry coffee filters. This can be frustrating. And worries she will drop something. Denies hand numbness/tingling in her hands. She can still be off-balance at times. But she is trying to stay active. It takes a lot of cognitive energy to do certain tasks- such as going to an appointment- as the effort to speak clearly, think clearly, suppress the tremor- but then is physically and mentally tired. Swallowing is stable- tries to eat slowly and take small bites, but sometimes can cough while eating but no actual choking. She reports her RLS persist- states it is annoying, it is a familial condition. Has added meditation and soothing hobbies- which is overall helpful.. Her migraines are stable. She is having 2 migraine days per week- the migraine attacks are not as severe- not needing to lay down during the attacks. She does think the Amitriptyline and propranolol was helping. She has stopped Emgality, as she was having difficulty filling it. Sumatriptan usually works well, if taken at the 1st sign and lies down. But sometimes if if she takes the sumatriptan to late, the migraine attack we will be more severe in the sumatriptan may not work as well.?? ? Typical migraine characteristics: usually right frontal or parietal associated with photophobia, phonophobia, dizziness, nausea, vomiting, brain fog, runny nose. [facility] Medical History Urinary frequency Chronic abdominal pain Hypertension Hyperlipidemia Diabetic neuropathy Diabetes mellitus with hyperglycemia Parkinsons HLA B27 (HLA B27 positive) Retention of urine, unspecified UTI (urinary tract infection) Sacroiliitis Knee pain, bilateral Surgical History Hx of colonoscopy S/P gastric sleeve procedure Hx of cholecystectomy Family History Father HTN (hypertension) Diabetes Mother HTN (hypertension) Diabetes HLD (hyperlipidemia) Maternal Grandfather Substance use disorder Maternal Grandmother Diabetes Substance use disorder Maternal Uncle Substance use disorder Mental health disorder Paternal Grandmother Substance use disorder Social History Housing: House Alcohol intake: never Patient Tobacco Use Status: Never used Tobacco e-Cigarette/Vaping Use: Never Used Second Hand Smoke Exposure: No service: No Current occupational status: unemployed Cognitive needs: No Hearing needs: No Vision needs: No Physical Exam Vital Signs: Last Vital Signs Pulse 79 02/19/25 08:52 BP 140/90 H 02/19/25 08:52 Pulse Ox 98 02/19/25 08:52 Oxygen Delivery Method Room Air 02/19/25 08:52 BMI result Body Mass Index 42.1 Const General: cooperative and no acute distress Resp Effort & Inspection: normal respiratory effort and able to speak in complete sentences Neuro Other: General: Decreased facial expression Mild hypophonia- less stuttering and bradyphrenia BUE postural tremor. FFM- slightly decreased fluidity Foot taps- decreased fluidity Stands slowly, short steps, steady gait with walker BUE weak hand grasps Carmine weak pinch/pull test. Assessment & Plan Assessment & Plan (1) Parkinsonism: Comment: ? neuroleptic induced PDism Code(s): G20 - Parkinson's disease Category: Medical (2) Tremor: Comment: ? neuroleptic induced PDism Code(s): R25.1 - Tremor, unspecified Category: Medical (3) Restless leg syndrome: Code(s): G25.81 - Restless legs syndrome Category: Medical (4) Migraine: Comment: Episodic migraine without aura Code(s): G43.909 - Migraine, unspecified, not intractable, without status migrainosus Category: Medical Qualifiers: Migraine type: migraine (< 15 days per month) without aura Status migrainosus presence: without status migrainosus Intractability: not intractable Qualified Code(s): G43.009 - Migraine without aura, not intractable, without status migrainosus (5) Paresthesia and pain of both upper extremities: Code(s): R20.2 - Paresthesia of skin; M79.601 - Pain in right arm; M79.602 - Pain in left arm Category: Medical (6) Hand weakness: Code(s): R29.898 - Other symptoms and signs involving the musculoskeletal system Category: Medical Plan Regarding left lower anterior rib lump: Patient advised to go to urgent care to have this further evaluated. For history of gann vitamin deficiency in setting of hand weakness and paresthesias: Check labs for vitamin deficiency status. We will order a BUE EMG/NCS Request orthopedic evaluation For tremor, gait difficulties, and visual/olfactory disturbances: DaTSCAN- normal. EEG- normal. Continue Carbidopa-Levodopa 25-100mg to 1 tab 4 times a day, may take extra 1-2 tabs per day as needed. Encouraged to increase physical activity as able. For restless legs: Recheck ferritin and iron profile Continue decreased dose of trazodone Continue Gabapentin or 100 mg t.i.d. Patient education resources shared, such as the both ?navigating life with restless leg syndrome? by Dr. Henderson. ? For swallowing issues: Continue safe swallowing strategies- chin tuck, double swallow, alt liquids/solids, avoiding high choke risk foods. Consider [employer] eval & tx if s/s worsen. ? Episodic migraine without aura prevention Continue Amitriptyline 25mg qhs- consider decreasing in f/u d/t RLS s/s. Resume Emgality 120mg/ml auto-injection- as this previously was effective with greater than 30% reduction in monthly migraine days. * Loading dose: 240mg (2 120mg/ml auto-injections) via subcutaneous injection in 2 different sites). * Then 30 days after loading dose, start Maintenance dose: 120mg (120mg/ml autoinjector) subcutaneous injection every month. Continue riboflavin 400 mg daily in a.m. and magnesium 400 mg daily at bedtime. Previous tx trials- Topiramate- effective but caused cognitive difficulties. Pt currently on Lisinopril- no effect for migraine. Propranolol- ineffective after 2 months., For acute migraine treatment Continue sumatriptan to 100 mg as needed. Acute migraine tx contraindications- None at this time. ? f/u in 6 months or sooner prn. Orders: Orders NE nerve conduction velocity 02/19/25 R29.898 - Other symptoms and signs involving the musculoskeletal system, R20.2 - Paresthesia of skin, M79.601 - Pain in right arm, M79.602 - Pain in left arm Zinc 02/20/25 R20.2 - Paresthesia of skin, M79.601 - Pain in right arm, M79.602 - Pain in left arm, E66.9 - Obesity, unspecified, E11.9 - Type 2 diabetes melli tus without complications, E60 - Dietary zinc deficiency, E53.1 - Pyridoxine deficiency, E55.9 - Vitamin D deficiency, unspecified, E46 - Unspecified protein-calorie malnutrition Vitamin B6 02/20/25 R20.2 - Paresthesia of skin, M79.601 - Pain in right arm, M79.602 - Pain in left arm, E66.9 - Obesity, unspecified, E11.9 - Type 2 diabetes mellitus without complications, E60 - Dietary zinc deficiency, E53.1 - Pyridoxine deficiency, E55.9 - Vitamin D deficiency, unspecified, E46 - Unspecified protein-calorie malnutrition Complete Blood Count Auto Diff 02/20/25 R20.2 - Paresthesia of skin, M79.601 - Pain in right arm, M79.602 - Pain in left arm, E66.9 - Obesity, unspecified, E11.9 - Type 2 diabetes mellitus without complications, E60 - Dietary zinc deficiency, E53.1 - Pyridoxine deficiency, E55.9 - Vitamin D deficiency, unspecified, E46 - Unspecified protein-calorie malnutrition Comprehensive Met. Panel 02/20/25 R20.2 - Paresthesia of skin, M79.601 - Pain in right arm, M79.602 - Pain in left arm, E66.9 - Obesity, unspecified, E11.9 - Type 2 diabetes mellitus without complications, E60 - Dietary zinc deficiency, E53.1 - Pyridoxine deficiency, E55.9 - Vitamin D deficiency, unspecified, E46 - Unspecified protein-calorie malnutrition Ferritin 02/20/25 R20.2 - Paresthesia of skin, M79.601 - Pain in right arm, M79.602 - Pain in left arm, E66.9 - Obesity, unspecified, E11.9 - Type 2 diabetes mellitus without complications, E60 - Dietary zinc deficiency, E53.1 - Pyridoxine deficiency, E55.9 - Vitamin D deficiency, unspecified, E46 - Unspecified protein-calorie malnutrition Erythrocyte Sedimentation Rate 02/20/25 R20.2 - Paresthesia of skin, M79.601 - Pain in right arm, M79.602 - Pain in left arm, E66.9 - Obesity, unspecified, E11.9 - Type 2 diabetes mellitus without complications, E60 - Dietary zinc deficiency, E53.1 - Pyridoxine deficiency, E55.9 - Vitamin D deficiency, unspecified, E46 - Unspecified protein-calorie malnutrition CRP High Sensitivity 02/20/25 R20.2 - Paresthesia of skin, M79.601 - Pain in right arm, M79.602 - Pain in left arm, E66.9 - Obesity, unspecified, E11.9 - Type 2 diabetes mellitus without complications, E60 - Dietary zinc deficiency, E53.1 - Pyridoxine deficiency, E55.9 - Vitamin D deficiency, unspecified, E46 - Unspecified protein-calorie malnutrition NE electromyogram (EMG) 02/19/25 R29.898 - Other symptoms and signs involving the musculoskeletal system, R20.2 - Paresthesia of skin, M79.601 - Pain in right arm, M79.602 - Pain in left arm Copper, serum 02/20/25 R20.2 - Paresthesia of skin, M79.601 - Pain in right arm, M79.602 - Pain in left arm, E66.9 - Obesity, unspecified, E11.9 - Type 2 diabetes mellitus without complications, E60 - Dietary zinc deficiency, E53.1 - Pyridoxine deficiency, E55.9 - Vitamin D deficiency, unspecified, E46 - Unspecified protein-calorie malnutrition Vitamin B1 02/20/25 R20.2 - Paresthesia of skin, M79.601 - Pain in right arm, M79.602 - Pain in left arm, E66.9 - Obesity, unspecified, E11.9 - Type 2 diabetes mellitus without complications, E60 - Dietary zinc deficiency, E53.1 - Pyridoxine deficiency, E55.9 - Vitamin D deficiency, unspecified, E46 - Unspecified protein-calorie malnutrition IRON PROFILE 02/20/25 R20.2 - Paresthesia of skin, M79.601 - Pain in right arm, M79.602 - Pain in left arm, E66.9 - Obesity, unspecified, E11.9 - Type 2 diabetes mellitus without complications, E60 - Dietary zinc deficiency, E53.1 - Pyridoxine deficiency, E55.9 - Vitamin D deficiency, unspecified, E46 - Unspecified protein-calorie malnutrition Homocysteine 02/19/25 R20.2 - Paresthesia of skin, M79.601 - Pain in right arm, M79.602 - Pain in left arm, E66.9 - Obesity, unspecified, E11.9 - Type 2 diabetes mellitus without complications, E60 - Dietary zinc deficiency, E53.1 - Pyridoxine deficiency, E55.9 - Vitamin D deficiency, unspecified, E46 - Unspecified protein-calorie malnutrition Vitamin B12 and Folate 02/20/25 R20.2 - Paresthesia of skin, M79.601 - Pain in right arm, M79.602 - Pain in left arm, E66.9 - Obesity, unspecified, E11.9 - Type 2 diabetes mellitus without complications, E60 - Dietary zinc deficiency, E53.1 - Pyridoxine deficiency, E55.9 - Vitamin D deficiency, unspecified, E46 - Unspecified protein-calorie malnutrition Vitamin C 02/19/25 R20.2 - Paresthesia of skin, M79.601 - Pain in right arm, M79.602 - Pain in left arm, E66.9 - Obesity, unspecified, E11.9 - Type 2 diabetes mellitus without complications, E60 - Dietary zinc deficiency, E53.1 - Pyridoxine deficiency, E55.9 - Vitamin D deficiency, unspecified, E46 - Unspecified protein-calorie malnutrition Referrals Orthopedics Referral R20.2 - Paresthesia of skin, M79.601 - Pain in right arm, M79.602 - Pain in left arm, R29.898 - Other symptoms and signs involving the musculoskeletal system Medications: New galcanezumab-gnlm (Emgality Pen) Loading dose: 120 mg subcu injection x2 in alternate sites (total 240 mg). To be followed by maintenance dose of 120 mg subcu q.month. 240 mg (2 mL) subcut ONCE 2 mL 0RF 30 days Changed From carbidopa-levodopa 25-100 mg 1 tab PO QID 90 days 360 tabs 1RF To carbidopa-levodopa 25-100 mg and may take extra 1-2 tabs per day prn tremor/voice. 1 tab PO QID 450 tabs 1RF 90 days From sumatriptan succinate max 2 tabs per day or 4 tabs per week, may take with Ibuprofen 100 mg PO Q2H 21 days PRN 12 tabs 6RF migraine headache To sumatriptan succinate max 2 tabs per day or 4 tabs per week 100 mg PO Q2H PRN 12 tabs 6RF migraine headache 30 days Refilled riboflavin (vitamin B2) 400 mg PO DAILY 30 tabs 6RF 30 days Discontinued galcanezumab-gnlm Discontinued Reason: Doctor's Order 120 mg subcut ONCE 30 days 1 mL 6RF G43.909 - Migraine, unspecified, not intractable, without status migrainosus Coding Level of Care Code Est Pt Level 4 (91119) Complex EM visit Add On G2211 Diagnoses Parkinsonism G20 Tremor R25.1 Restless leg syndrome G25.81 Migraine without aura and without status migrainosus, not intractable G43.009 Migraine type: migraine (< 15 days per month) without aura Status migrainosus presence: without status migrainosus Intractability: not intractable Paresthesia and pain of both upper extremities R20.2; M79.601; M79.602 Hand weakness R29.898
[2025-02-19 08:52] VITALS: BP 140/90; PULSE 79; O2SAT 98; BMI 42.1
== END 2025-02-19 10:20 | disposition home or self-care (01) ==
LOC: HO.HSMS 08:50
PROVIDERS: PCP Nurse Practitioner Family; Visit Provider Nurse Practitioner Family
DX: G20.C Parkinsonism, unspecified (principal); G25.81 Restless legs syndrome; G43.009 Migraine without aura, not intractable, without status migrainosus; R20.2 Paresthesia of skin; M79.601 Pain in right arm; M79.602 Pain in left arm; R29.898 Other symptoms and signs involving the musculoskeletal system
CPT/HCPCS: 99214; G2211

== ENCOUNTER → 2025-02-19 08:50 | Outpatient (BNVA) | payer OTHER, SELFPAY | PROVIDERS: PCP Nurse Practitioner Family; Visit Provider Nurse Practitioner Family | DX: G20.C Parkinsonism, unspecified (principal); G43.009 Migraine without aura, not intractable, without status migrainosus; G25.81 Restless legs syndrome; R20.2 Paresthesia of skin; M79.601 Pain in right arm; M79.602 Pain in left arm; R29.898 Other symptoms and signs involving the musculoskeletal system | CPT/HCPCS: 99212 ==

== ENCOUNTER 2025-02-20 09:29 | Outpatient (AMB) | payer OTHER, SELFPAY ==
--- NOTE | 2025-02-20 09:32 | MHC.OFFWIV ---
Intake Vital Signs 02/20/25 09:33 Height 5 ft 9 in Weight 279 lb BMI 41.2 BP 120/88 Blood Pressure Location Rt brachial Position Sitting Pulse 80 Pulse Source Pulse Oximeter Pulse Oximetry (%) 100 Oxygen Delivery Method Room Air Intake Visit Reasons: EP pain on upper LT side under the breast Intake Note: Patient here for lump under left breast that has been present for at least 6 months, it has grown in size and has become very tender. Patient Tobacco Use Status: Never used Tobacco Allergies No Known Allergies Allergy (Verified 02/20/25 09:34) Do you need a note to return to daycare/school/sports/work: No HPI HPI Comments History of Present Illness Details History of Present Illness - The patient is a 54-year-old female presenting with left sided lower rib pain with a painful and growing mass . - Six months duration of a painful and enlarging mass in this area, with increased pain on palpation. - Constipation noted, associated with a history of Irritable Bowel Syndrome (IBS), but no acute changes related to the mass. - Imaging studies, including CAT scans and ultrasounds, previous to this visit showed no acute changes in abdominal organs in both September 2023 and November 2022; however, past results did mention swollen lymph nodes and mesenteric haziness. - The patient has no associated fever, night sweats, bloody stools, or constipation directly connected to this mass, apart from the chronic IBS symptoms. Physical Exam General: Cooperative, healthy appearing, comfortable, no acute distress and well developed Orientation: Patient oriented x3 Limitations: No limitations Head: Normal to inspection Ears: Hearing grossly normal bilaterally Nose: Normal External nose present Face and sinus: Normal facial exam Eyes: Appearance normal, both eyes and all related structures Neck: Normal visual inspection and Yes full ROM Chest: left sided T7-T8 midclavicular area in the soft tissue, I am unable to palpate mass but TTP on the skin in this area Respiratory: Normal respiratory effort and able to speak in complete sentences. Skin: No rashes or lesions noted Neuro: Patient oriented x3 Extremities: Normal to inspection [facility] Medical History Urinary frequency Chronic abdominal pain Hypertension Hyperlipidemia Diabetic neuropathy Diabetes mellitus with hyperglycemia Parkinsons HLA B27 (HLA B27 positive) Retention of urine, unspecified UTI (urinary tract infection) Sacroiliitis Knee pain, bilateral Surgical History Hx of colonoscopy S/P gastric sleeve procedure Hx of cholecystectomy Family History Father HTN (hypertension) Diabetes Mother HTN (hypertension) Diabetes HLD (hyperlipidemia) Maternal Grandfather Substance use disorder Maternal Grandmother Diabetes Substance use disorder Maternal Uncle Substance use disorder Mental health disorder Paternal Grandmother Substance use disorder Social History Housing: House Alcohol intake: never Patient Tobacco Use Status: Never used Tobacco e-Cigarette/Vaping Use: Never Used Second Hand Smoke Exposure: No service: No Current occupational status: unemployed Cognitive needs: No Hearing needs: No Vision needs: No Review of Systems Const All systems reviewed & are unremarkable except as noted in HPI and below Physical Exam Vital Signs: Last Vital Signs Pulse 80 02/20/25 09:33 BP 120/88 02/20/25 09:33 Pulse Ox 100 02/20/25 09:33 Oxygen Delivery Method Room Air 02/20/25 09:33 BMI result Body Mass Index 41.2 Assessment & Plan Assessment & Plan (1) Rib pain on left side: Code(s): R07.81 - Pleurodynia Plan: I messaged pt's PCP to order a targeted soft tissue ultrasound of the soft tissue in the T7-T8 midclavicular rib area to better characterize the mass reported by the patient, taking into account that previous imaging studies did not provide conclusive results. This imaging will be crucial in assessing any potential pathological growth such as a lipoma or other soft tissue concerns. Despite the lack of acute findings in recent studies, the increasing pain and noticeable growth of the mass necessitate further investigation with more specific imaging. This approach will help determine the appropriate management and treatment once the ultrasound findings are reviewed. Instructions for further steps will follow based on the results obtained from this diagnostic procedure. Patient was informed and verbally consented to the use of an ambient scribe for clinic note documentation during this visit. Coding Level of Care Code Est Pt Level 4 (34981) Diagnoses Rib pain on left side R07.81
[2025-02-20 09:33] VITALS: BP 120/88; PULSE 80; O2SAT 100; BMI 41.2
== END 2025-02-20 10:06 | disposition home or self-care (01) ==
PROVIDERS: PCP Nurse Practitioner Family; Visit Provider Physician Assistant
DX: R07.81 Pleurodynia (principal)

== ENCOUNTER 2025-02-20 09:29 | Outpatient (REF) | payer OTHER, SELFPAY ==
[2025-02-20 13:24] LABS: MANUAL DIFF FLAG NO
[2025-02-20 13:33] LABS: Appearance Urine Turbid; Color Urine Yellow; Glucose Urine UA Negative (Negative); Leukocyte Esterase Urine Negative (Negative); Nitrite Urine Negative (Negative); PH 5.5 (5.0-9.0); Specific Gravity - Urine >= 1.030 (1.005-1.025); Urine Blood Negative (Negative); Urine Ketones Negative (Negative); Urine Protein Negative (Neg-Trace)
[2025-02-20 13:44] LABS: Basophils Absolute Auto 0.1 X10*3/uL (0.0-0.2); Basophils Percent Auto 0.6 % (0-2); Eosinophils Absolute Auto 0.2 X10*3/uL (0.0-0.4); Eosinophils Percent Auto 1.4 % (0-4); Hematocrit 38.9 % (37.0-47.0); Hemoglobin 12.4 g/dl (12.0-16.0); Imm Gran Abs Auto 0.04 X10*3/uL (0.00-0.03); Imm Gran Pct Auto 0.4 % (0.0-0.4); Lymphocytes Absolute Auto 2.7 X10*3/uL (1.2-4.9); Mean Corpuscular HGB Conc 31.9 g/dl (31.0-35.0); Mean Corpuscular Hemoglobin 25.2 pg (27.0-33.0); Mean Corpuscular Volume 79.1 fL (80.0-98.0); Mean Platelet Volume 12.1 fL (9.4-12.3); Monocytes Absolute Auto 0.5 X10*3/uL (0.1-1.2); Neutrophils Percent Auto 66.6 % (45-73); Platelet Count 317 X10*3/uL (160-400); Red Blood Count 4.92 X10*6/uL (4.20-5.50); Red Cell Distribution Width 15.8 % (11.0-16.0); White Blood Count 10.6 X10*3/uL (4.8-10.8)
[2025-02-20 14:06] LABS: Alanine Aminotransferase 13 U/L (0-31); Albumin Level 3.8 g/dL (3.5-5.0); Alkaline Phosphatase 92 U/L (39-117); Anion Gap 10 (12-20); Aspartate Amino Transferase 23 U/L (5-31); Bilirubin Total 0.5 mg/dL (0.0-1.0); Blood Urea Nitrogen 14 mg/dL (9-16); Calcium 9.1 mg/dL (8.4-10.2); Carbon Dioxide 24 mmol/L (22-29); Chloride 109 mmol/L (96-108); Cholesterol 176 mg/dL (<200); Estimated Glomerular Filt Rate > 60; Glucose Fasting 124 mg/dL (60-99); Glucose Random 122 mg/dL (60-115); HDL Cholesterol 43 mg/dL (>40); Iron 47 mcg/dL (30-160); LDL Cholesterol Calculated 117 mg/dL (<100); Percent Iron Saturation 17 % (15-50); Potassium 3.8 mmol/L (3.3-5.1); Sodium 139 mmol/L (135-145); Total Iron Binding Capacity 274 mcg/dL (228-428); Total Protein 7.4 g/dL (6.5-8.0); Triglycerides 82 mg/dL (<150); Unsaturated Iron Binding 227 ug/dL
[2025-02-20 14:12] LABS: Alanine Aminotransferase 13 U/L (0-31); Albumin Level 3.8 g/dL (3.5-5.0); Alkaline Phosphatase 96 U/L (39-117); Anion Gap 10 (12-20); Aspartate Amino Transferase 22 U/L (5-31); Bilirubin Total 0.5 mg/dL (0.0-1.0); Blood Urea Nitrogen 14 mg/dL (9-16); Calcium 9.1 mg/dL (8.4-10.2); Carbon Dioxide 24 mmol/L (22-29); Chloride 109 mmol/L (96-108); Cholesterol 173 mg/dL (<200); Estimated Glomerular Filt Rate > 60; Glucose Random 126 mg/dL (60-115); HDL Cholesterol 43 mg/dL (>40); LDL Cholesterol Calculated 114 mg/dL (<100); Potassium 3.8 mmol/L (3.3-5.1); Sodium 139 mmol/L (135-145); Total Protein 7.4 g/dL (6.5-8.0); Triglycerides 83 mg/dL (<150)
[2025-02-20 14:14] LABS: Ferritin 180 ng/mL (10-250)
[2025-02-20 14:26] LABS: Vitamin D 25-OH Total 24.8 ng/mL (>30)
[2025-02-20 14:32] LABS: Folate 5.1 ng/mL (> or = 4.0); Vitamin B12 445 pg/mL (200-900)
[2025-02-20 15:12] LABS: Erythrocyte Sedimentation Rate 27 MM/HR (0-20)
[2025-02-22 22:08] LABS: Zinc 67 mcg/dL (60-130)
[2025-02-26 06:18] LABS: Vitamin B6 2.2 ng/mL (2.1-21.7)
[2025-03-04 15:28] LABS: Vitamin B1 10 nmol/L (8-30)
== END 2025-02-20 09:30 | disposition home or self-care (01) ==
LOC: HO.HMGCLDS 09:29
PROVIDERS: PCP Nurse Practitioner Family; Referring Provider Nurse Practitioner Family; Visit Provider Nurse Practitioner Family
DX: R07.81 Pleurodynia (principal); Z00.01 Encounter for general adult medical examination with abnormal findings; R20.2 Paresthesia of skin; M79.601 Pain in right arm; M79.602 Pain in left arm; E66.9 Obesity, unspecified; E11.9 Type 2 diabetes mellitus without complications; E60 Dietary zinc deficiency; E53.1 Pyridoxine deficiency; E55.9 Vitamin D deficiency, unspecified; E46 Unspecified protein-calorie malnutrition; Z79.4 Long term (current) use of insulin; E78.5 Hyperlipidemia, unspecified
CPT/HCPCS: 36415; 80053; 80061; 81003; 82306; 82607; 82728; 82746; 83540; 84207; 84425; 84443; 84630; 85025; 85652; 99212

== ENCOUNTER 2025-02-26 16:14 | Outpatient (REF) | payer OTHER, SELFPAY ==
--- NOTE | ~2025-02-26 | US_ITS ---
EXAMINATION: US ABDOMEN LIMITED HISTORY: R07.81 - Pleurodynia TECHNIQUE: Real-time grayscale ultrasound imaging of the left anterior abdominal wall in the region of the palpable abnormality was performed and images were reviewed. COMPARISON: There are no prior studies for comparison. FINDINGS: There is the suggestion of an approximately 3 mm nonspecific rounded hypoechoic structure in the subcutaneous fat as seen on cine loops. US/US abdomen limited IMPRESSION: Possible 3 mm nonspecific rounded hypoechoic structure in the subcutaneous fat corresponding to the palpable findings. Electronically signed by: Mike Moran MD 02/27/2025 07:16 AM EDT
== END 2025-02-26 16:15 | disposition home or self-care (01) ==
LOC: HO.US 16:14
PROVIDERS: PCP Nurse Practitioner Family; Visit Provider Nurse Practitioner Family
DX: R07.81 Pleurodynia (principal); R10.12 Left upper quadrant pain
CPT/HCPCS: 76705

== ENCOUNTER → 2025-02-26 16:17 | Outpatient (BNV) | payer OTHER, SELFPAY | PROVIDERS: PCP Nurse Practitioner Family; Visit Provider Radiology Diagnostic Radiology | DX: R10.12 Left upper quadrant pain (principal) | CPT/HCPCS: 76705 ==

== ENCOUNTER 2025-03-19 08:26 | Outpatient (REF) | payer OTHER, SELFPAY ==
--- NOTE | 2025-03-19 08:33 | EMG_ITS ---
Bilateral median and ulnar motor and sensory studies were performed. Bilateral radial sensory studies were performed, and paraspinal muscles were tested with a needle. IMPRESSION: Aatk-sk-wglasfry bilateral median neuropathy across carpal tunnel. MD MADDIE Moe/KOSTAS / [id number]
== END 2025-03-19 08:27 | disposition home or self-care (01) ==
LOC: HO.NEURO 08:26
PROVIDERS: PCP Nurse Practitioner Family; Visit Provider Nurse Practitioner Family
DX: M79.601 Pain in right arm (principal); M79.602 Pain in left arm; R20.2 Paresthesia of skin; R29.898 Other symptoms and signs involving the musculoskeletal system
CPT/HCPCS: 95886; 95911

== ENCOUNTER 2025-03-29 13:11 | Outpatient (REF) | payer OTHER, SELFPAY ==
--- NOTE | ~2025-03-29 | CT_ITS ---
EXAMINATION: CT ABDOMEN PELVIS WITHOUT IV CONTRAST HISTORY: I88.0 - Nonspecific mesenteric lymphadenitis COMPARISON: Comparison is made with the prior examination dated 12/12/2024. TECHNIQUE: CT scan of the abdomen and pelvis was performed without contrast using standard departmental protocol. Coronal and sagittal reformatted images were generated and reviewed. Oral contrast material was not administered at the request of the referring physician. This CT exam was performed with one or more of the following dose reduction techniques: automated exposure control, adjustment of the mA and/or kV according to patient size, use of iterative reconstruction technique. DLP: 904 mGy-cm FINDINGS: LOWER CHEST: The visualized lung bases are clear. There is no pleural effusion. CARDIOVASCULATURE: The heart is normal in size. There is no pericardial effusion. LIVER: The liver is normal in size and contour. The liver has an unremarkable unenhanced appearance. GALLBLADDER / BILE DUCTS: The gallbladder is surgically absent. There is no intra or extrahepatic biliary ductal dilatation. SPLEEN: The spleen is normal in size and has an unremarkable unenhanced appearance. PANCREAS: The pancreas has an unremarkable unenhanced appearance. ADRENAL GLANDS: Unremarkable. KIDNEYS/RETROPERITONEUM: No renal calculi are identified. There is no hydronephrosis. LYMPH NODES: No retroperitoneal lymphadenopathy is identified in the abdomen or pelvis. VASCULATURE: The abdominal aorta is normal in caliber. MESENTERY/PERITONEUM: No free fluid. Again seen is diffuse haziness of the fat of the mesentery which appears more prominent than on the prior study. There are scattered normal size lymph nodes. No masses. There is no free intraperitoneal gas. STOMACH: Postsurgical changes are again noted involving the stomach. SMALL BOWEL: The small bowel is normal in caliber. COLON: The colon is unremarkable. APPENDIX: The appendix is not seen, however no inflammatory changes are seen adjacent to the cecum. URINARY BLADDER/PELVIC ORGANS: The urinary bladder is collapsed, limiting evaluation. The uterus and ovaries have an unremarkable unenhanced appearance. BONES / SOFT TISSUES: No suspicious bony or soft tissue abnormalities. 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 Electronically signed by: Mike Moran MD 03/29/2025 01:55 PM EDT
== END 2025-03-29 13:12 | disposition home or self-care (01) ==
LOC: HO.CT 13:11
PROVIDERS: PCP Nurse Practitioner Family; Visit Provider Nurse Practitioner Family
DX: I88.0 Nonspecific mesenteric lymphadenitis (principal)
CPT/HCPCS: 74176

== ENCOUNTER → 2025-03-29 13:14 | Outpatient (BNV) | payer OTHER, SELFPAY | PROVIDERS: PCP Nurse Practitioner Family; Visit Provider Radiology Diagnostic Radiology | DX: I88.0 Nonspecific mesenteric lymphadenitis (principal) | CPT/HCPCS: 74176 ==

== ENCOUNTER 2025-04-26 14:25 | Outpatient (AMB) | payer OTHER, SELFPAY ==
--- NOTE | 2025-04-26 14:27 | A.OFFVIS_ITS ---
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 Patient reports she is having difficulty with squeezing, gripping, grasping, and lifting. Reports she has dropped objects out of her hands due to her therapist respiratory not being there. Her reports she has cut herself with knives in the pastb and has burned herself from lose of sensation in the hands and loss of her therapist respiratory. She enjoys reading on a Nook or a book and reports holding these objects for a prolonged period of time cause an exacerbation in her cramping and pains. She has numbness and tingling in her bilateral digits, mainly in the thumbs, ring finger, and small fingers. Willing to discuss surgery. Hx of diabetes, last A1C was ~6.0 w/ Endocrinology. Hx of Parkinsons. EMG/NCS done on 03/19/25 IMPRESSION: [id number] bilateral median neuropathy across carpal tunnel. 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 Patient reports she is having difficulty with squeezing, gripping, grasping, and lifting. Reports she has dropped objects out of her hands due to her therapist respiratory not being there. Her reports she has cut herself with knives in the pastb and has burned herself from lose of sensation in the hands and loss of her therapist respiratory. She enjoys reading on a Nook or a book and reports holding these objects for a prolonged period of time cause an exacerbation in her cramping and pains. She has numbness and tingling in her bilateral digits, mainly in the thumbs, ring finger, and small fingers. Willing to discuss surgery. Hx of diabetes, last A1C was ~6.0 w/ Endocrinology. Hx of Parkinsons. EMG/NCS done on 03/19/25 IMPRESSION: [id number]-[id number] bilateral median neuropathy across carpal tunnel. [facility] Medical History Urinary frequency Chronic abdominal pain Hypertension Hyperlipidemia Diabetic neuropathy Diabetes mellitus with hyperglycemia Parkinsons HLA B27 (HLA B27 positive) Retention of urine, unspecified UTI (urinary tract infection) Sacroiliitis Knee pain, bilateral Surgical History Hx of colonoscopy S/P gastric sleeve procedure Hx of cholecystectomy Family History Father HTN (hypertension) Diabetes Mother HTN (hypertension) Diabetes HLD (hyperlipidemia) Maternal Grandfather Substance use disorder Maternal Grandmother Diabetes Substance use disorder Maternal Uncle Substance use disorder Mental health disorder Paternal Grandmother Substance use disorder Social History (Updated 04/26/25 @ 14:33 by MALACHI Hair) Housing: House Alcohol intake: never Patient Tobacco Use Status: Never used Tobacco e-Cigarette/Vaping Use: Never Used Second Hand Smoke Exposure: No service: No Current occupational status: unemployed and disabled Cognitive needs: No Hearing needs: No Vision needs: No Review of Systems Const All systems reviewed & are unremarkable except as noted in HPI and below Physical Exam Vital Signs: BMI result Body Mass Index 40.5 Extrem Other: Neuro: Decreased sensation in the tips of all digits of bilateral hands in the office today Mild thenar wasting, no intrinsic wasting. Good APB muscle firing and good finger cross. Vascular: Capillary refill brisk. ROM: Patient can make a fist and extend all their digits. Skin: No lacerations or abrasions noted. General: No ecchymosis. No erythema or evidence of infection. Assessment & Plan Assessment & Plan (1) Bilateral carpal tunnel syndrome: Code(s): G56.03 - Carpal tunnel syndrome, bilateral upper limbs Category: Medical Plan 1. Carpal tunnel syndrome, right Symptoms intermittent, daily, worse at night I educated the patient about the condition. I discussed both operative and nonoperative treatment options. The patient would like to proceed with surgery. The risks and benefits of operative treatment were discussed with the patient and the patient wishes to proceed with surgery. These risks include, but are not limited to, risk of damage to blood vessels, nerves, tendons, infection, recurrence, incomplete relief of preoperative symptoms, persistent pain, possible need for further surgery, and the risks associated with regional blocks and/or anesthesia. Plan is to take the patient to the operating room at some point in the next few weeks for the following procedures: 1. Right carpal tunnel release under local All of the preoperative paperwork including the consent was discussed today. All of the patient's questions were answered in the clinic today. The patient understands that they will be in contact with our surgical elastic knitter hand frame to discuss scheduling their procedure. Patient reports diabetes, last A1c 6.0 Denies blood thinners, asthma, heart issues, lung issues, kidney issues, or current smoking. Coding Level of Care Code New Pt Level 4 (11143) Diagnoses Bilateral carpal tunnel syndrome G56.03
[2025-04-26 14:29] VITALS: BMI 40.5
== END 2025-04-26 15:07 | disposition home or self-care (01) ==
LOC: HO.HOS 14:26
PROVIDERS: PCP Nurse Practitioner Family
DX: G56.03 Carpal tunnel syndrome, bilateral upper limbs (principal)
CPT/HCPCS: 99204

== ENCOUNTER → 2025-04-26 14:25 | Outpatient (BNVA) | payer OTHER, SELFPAY | PROVIDERS: PCP Nurse Practitioner Family | DX: G56.03 Carpal tunnel syndrome, bilateral upper limbs (principal) | CPT/HCPCS: 99202 ==

== ENCOUNTER 2025-05-03 10:56 | Outpatient (AMB) | payer OTHER, SELFPAY ==
[2025-05-03 11:04] VITALS: BP 104/82; PULSE 74; O2SAT 96
--- NOTE | 2025-05-03 11:04 | A.OFFVIS_ITS ---
Vital Signs 05/03/25 11:04 BMI Reason not done Patient refused/unable BP 104/82 Blood Pressure Location Rt brachial Position Sitting Pulse 74 Pulse Source Pulse Oximeter Pulse Oximetry (%) 96 Oxygen Delivery Method Room Air Intake Visit Reasons: T2DM Intake Note: Patient present today to follow up on Type 2 Diabetes Mellitus. 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: No Accompanied by: Uncle Allergies No Known Allergies Allergy (Verified 05/03/25 11:05) Medication List - Last Reconciled 05/03/25 by ROGE Roach [4 wheeled walker with seat daily use] alcohol swabs (CareTouch Alcohol Prep Pad topical pads) 1 pad topical DAILY ascorbic acid (vitamin C) 500 mg PO BID 30 days aspirin 81 mg PO DAILY 90 days atorvastatin 80 mg PO BEDTIME blood sugar diagnostic (FreeStyle Lite Strips) test blood sugar 3 times per day blood-glucose sensor (Dexcom G7 Sensor device) apply new sensor every 10 days as directed blood-glucose,graduation coach,cont (Dexcom G7 Building Superintendent) DIRECTED carbidopa-levodopa 25-100 mg 1 tab PO QID 90 days cholecalciferol (vitamin D3) 1,250 mcg PO QWEEK 8 weeks ezetimibe (Zetia) 10 mg PO DAILY ferrous sulfate 325 mg PO TID 90 days gabapentin 400 mg PO TID galcanezumab-gnlm (Emgality Pen) 120 mg subcut Q30D 30 days glucose 16 grams (4 x 4 gram) PO Q15M PRN insulin degludec (Tresiba FlexTouch U-100 insulin) 40 units (0.4 mL) subcut BEDTIME lancets (FreeStyle Lancets) Use to check blood sugar daily lisinopril 5 mg PO DAILY magnesium oxide 400 mg PO BEDTIME 30 days metformin ER orally 2 times a day; Take 2 tablets qam and 1 tablet in the evening. omeprazole 40 mg PO DAILY 90 days ondansetron HCl 4 mg PO Q8H pen needle, diabetic (BD Ultra-Fine Emily Pen Needle) Use to inject insulin daily pyridoxine (vitamin B6) 50 mg PO BID 30 days riboflavin (vitamin B2) 400 mg PO DAILY 30 days semaglutide (Ozempic) 2 mg (0.75 mL) subcut QWEEK sertraline 200 mg (2 x 100 mg) PO DAILY sumatriptan succinate 100 mg PO Q2H PRN 30 days tizanidine 4 mg PO TID trazodone 100 mg PO BEDTIME 90 days trazodone 25 mg (1/2 x 50 mg) PO BEDTIME 30 days zinc gluconate 50 mg PO DAILY 30 days HPI Comments Details: This is a 54-year-old female with a past medical history of type 2 diabetes with neuropathy, parkinsonism, migraine, pulmonary nodules, multinodular thyroid, IBS and obesity presenting for continued diabetic management. Accompanied by her , Kailash. She was diagnosed about 4.5 years ago with type 2 diabetes. Reviewed Dexcom data April 20 to May 03 GMI 6.4% Average glucose 128 90% in range 9% high 1% low She has infrequent hypoglycemia buffer chrome on her sensor, but she is not certain if this is accurate. She does not have symptoms and does not treat episodes. Hemoglobin a1c 6.1% today. Current medication regimen: Ozempic 2 mg weekly, metformin 1000 mg twice daily, Tresiba 40 units She had gastric sleeve surgery more than 10 years ago. 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 She is happy with her weight loss. Hypoglycemia symptoms: no hypoglycemic events Hyperglycemia symptoms: None. [facility] exam: [facility]. Microvascular complications: bilateral neuropathy Macrovascular complications: no known Hypertension: Controlled on lisinopril 5 mg daily. Hyperlipidemia: treated with Atorvastatin 80 mg and Zetia 10 mg daily. Zetia was added in February when her LDL was 114. She saw her primary care provider to evaluate chronic abdominal pain. It started more than a year ago, and she says it predated her medications for diabetes. She had a CAT scan which showed mesenteric panniculitis, and she has been referred to General surgery. ROS: Constitutional: No unexplained weight loss, fever, chills or night sweats. Respiratory: No shortness of breath Cardiovascular: No chest pain Gastrointestinal: No anorexia, nausea, vomiting or diarrhea. No blood in stool. Endocrine: No cold or heat intolerance. No polyuria or polydipsia. Physical exam: Constitutional: Alert, in no distress. Neck: Supple, Full range of motion. No lymphadenopathy. Respiratory: Clear to auscultation. Cardiovascular: S1 S2 regular. No murmurs. Right foot: Warm and well perfused. No clubbing, cyanosis or edema. Intact the people's. Decreased vibratory sensation. Decreased sensation to monofilament. No open wound. Left foot: Warm and well perfused. No clubbing, cyanosis or edema. Intact DP pulse. Decreased vibratory sensation. Intact sensation to monofilament. No open wound. [facility] Medical History Urinary frequency Chronic abdominal pain Hypertension Hyperlipidemia Diabetic neuropathy Diabetes mellitus with hyperglycemia Parkinsons HLA B27 (HLA B27 positive) Retention of urine, unspecified UTI (urinary tract infection) Sacroiliitis Knee pain, bilateral Surgical History Hx of colonoscopy S/P gastric sleeve procedure Hx of cholecystectomy Family History Father HTN (hypertension) Diabetes Mother HTN (hypertension) Diabetes HLD (hyperlipidemia) Maternal Grandfather Substance use disorder Maternal Grandmother Diabetes Substance use disorder Maternal Uncle Substance use disorder Mental health disorder Paternal Grandmother Substance use disorder Social History Housing: House Alcohol intake: never Patient Tobacco Use Status: Never used Tobacco e-Cigarette/Vaping Use: Never Used Second Hand Smoke Exposure: No service: No Current occupational status: unemployed and disabled Cognitive needs: No Hearing needs: No Vision needs: No Physical Exam Vital Signs: Last Vital Signs Pulse 74 05/03/25 11:04 BP 104/82 05/03/25 11:04 Pulse Ox 96 05/03/25 11:04 Oxygen Delivery Method Room Air 05/03/25 11:04 Office Procedures Glucose Monitoring Details Details: See HPI 64920 - Glucose monitoring, continuous-physician I&R Procedure code (CPT) selection complete Results AMB Hemoglobin A1c AMB Hemoglobin A1c 6.1 % Last Edit by BERNICE Epps on 05/03/25 11:24 Results Reviewed Results Reviewed: Laboratory Last Values Glucose (Clinic) 94 mg/dL (60-115) 05/03/25 11:13 Hgb A1c (Clinic) 6.1 % (4.0-6.0) H 05/03/25 11:16 Laboratory Tests 07/18/24 02/20/25 12:10 10:15 Creatinine 0.65 Estimated GFR > 60 AST 22 ALT 13 Triglycerides 83 Cholesterol 173 LDL Cholesterol, Calc 114 H HDL Cholesterol 43 TSH 0.90 Urine Creatinine 96.32 Urine Microalbumin 7.0 Microalb/Creat Ratio 7.2 Assessment & Plan Assessment & Plan (1) Diabetes mellitus with hyperglycemia: Code(s): E11.65 - Type 2 diabetes mellitus with hyperglycemia Category: Medical Qualifiers: Diabetes mellitus intermodal dispatcher insulin use: with detention use Diabetes mellitus type: type 2 Qualified Code(s): E11.65 - Type 2 diabetes mellitus with hyperglycemia; Z79.4 - terminal superintendent (current) use of insulin (2) Diabetic neuropathy: Code(s): E11.40 - Type 2 diabetes mellitus with diabetic neuropathy, unspecified Category: Medical Qualifiers: Diabetes mellitus complication detail: diabetic polyneuropathy Diabetes mellitus type: type 2 Qualified Code(s): E11.42 - Type 2 diabetes mellitus with diabetic polyneuropathy (3) Hyperlipidemia: Code(s): E78.5 - Hyperlipidemia, unspecified Category: Medical Qualifiers: Hyperlipidemia type: mixed hyperlipidemia Qualified Code(s): E78.2 - Mixed hyperlipidemia (4) Hypertension: Code(s): I10 - Essential (primary) hypertension Category: Medical Qualifiers: Hypertension type: primary hypertension Qualified Code(s): I10 - Essential (primary) hypertension Plan In summary this is a very pleasant, 54-year-old female with Parkinson's seen today for controlled Type II diabetes. Reviewed treatment for hypo and hyperglycemia. If CGM alerts to low sugar confirm with fingerstick if asymp tomatic. She will continue Tresiba 40 units nightly, Ozempic to 2 mg weekly and decrease metformin to 1000 mg in the morning and 500 mg at night. Congratulated patient on weight loss. She has made substantial efforts to improve her diet. Discussed pathophysiology of Type II Diabetes Mellitus with the patient in detail.? I explained the intermodal dispatcher risks and complications associated with uncontrolled diabetes including nephropathy, neuropathy, peripheral vascular disease, retinopathy, increased risk of heart disease and stroke.? Her LDL cholesterol was not at goal and Zetia was added to atorvastatin. Check lipid profile. Hypertension-Controlled. Continue Lisinopril to 5 mg daily. Follow-up in 3 months for Type II diabetes. Orders: Orders AMB Hemoglobin A1c Today E11.65 - Type 2 diabetes mellitus with hyperglycemia, Z79.4 - terminal superintendent (current) use of insulin Lipid Panel Today E78.5 - Hyperlipidemia, unspecified Microalbumin, Random (w Creat) Today E11.9 - Type 2 diabetes mellitus without complications Creatinine Today E11.9 - Type 2 diabetes mellitus without complications AMB Glucose Monitoring Today E11.9 - Type 2 diabetes mellitus without complicat ions Medications: Changed From metformin ER 1,000 mg (2 x 500 mg) PO BID 360 tabs 3RF To metformin ER orally 2 times a day; Take 2 tablets qam and 1 tablet in the evening. Coding Level of Care Code Est Pt Level 4 (18811) Diagnoses Type 2 diabetes mellitus with hyperglycemia, with long-term current use of insulin E11.65; Z79.4 Diabetes mellitus intermodal dispatcher insulin use: with detention use Diabetes mellitus type: type 2 Diabetic polyneuropathy associated with type 2 diabetes mellitus E11.42 Diabetes mellitus complication detail: diabetic polyneuropathy Diabetes mellitus type: type 2 Mixed hyperlipidemia E78.2 Hyperlipidemia type: mixed hyperlipidemia Primary hypertension I10 Hypertension type: primary hypertension CPT Codes Details - CPT: 76930 - Glucose monitoring, continuous-physician I&R ([id number])
[2025-05-03 11:18] LABS: Glucose, Whole Blood 94 mg/dL (60-115)
== END 2025-05-03 11:52 | disposition home or self-care (01) ==
LOC: HO.ENCR 10:57
PROVIDERS: PCP Nurse Practitioner Family; Visit Provider Physician Assistant Medical
DX: E11.65 Type 2 diabetes mellitus with hyperglycemia (principal); Z79.4 Long term (current) use of insulin; E11.42 Type 2 diabetes mellitus with diabetic polyneuropathy; E78.2 Mixed hyperlipidemia; I10 Essential (primary) hypertension

== ENCOUNTER → 2025-05-03 10:56 | Outpatient (BNVA) | payer OTHER, SELFPAY | PROVIDERS: PCP Nurse Practitioner Family; Visit Provider Physician Assistant Medical | DX: E11.65 Type 2 diabetes mellitus with hyperglycemia (principal); E11.42 Type 2 diabetes mellitus with diabetic polyneuropathy; I10 Essential (primary) hypertension; E78.5 Hyperlipidemia, unspecified; Z79.4 Long term (current) use of insulin | CPT/HCPCS: 82947; 83036; 99212 ==

== ENCOUNTER 2025-05-10 11:05 | Outpatient (AMB) | payer OTHER, SELFPAY ==
--- NOTE | 2025-05-10 11:12 | MHC.OFFVIS ---
Vital Signs 05/10/25 11:27 Height 5 ft 9 in Weight 274 lb BMI 40.5 BP 130/75 Blood Pressure Location Lt brachial Position Sitting Pulse 83 Intake Visit Reasons: Sclerosing mesenteritis Intake Note: Patient is seen in office for evaluation and treatment of Sclerosing mesenteritis. Pt c/o: constant pain in all her stomach, bloated, onset few yrs, past few months worse, constipation/diarrhea on/off, pain worse with meals CT:03/29/25 us:02/26/25 Acrobatic Rigger Required: No Accompanied by: Family/Other Allergies No Known Allergies Allergy (Verified 05/10/25 11:25) Medication List - Last Reconciled 05/13/25 by Omer Thrasher MD [4 wheeled walker with seat daily use] alcohol swabs (CareTouch Alcohol Prep Pad topical pads) 1 pad topical DAILY ascorbic acid (vitamin C) 500 mg PO BID 30 days aspirin 81 mg PO DAILY 90 days atorvastatin 80 mg PO BEDTIME blood sugar diagnostic (FreeStyle Lite Strips) test blood sugar 3 times per day blood-glucose sensor (DexThermoCeramix G7 Sensor device) apply new sensor every 10 days as directed blood-glucose,product development actuary,cont (Dexcom G7 Production Consultant) DIRECTED carbidopa-levodopa 25-100 mg 1 tab PO QID 90 days cholecalciferol (vitamin D3) 1,250 mcg PO QWEEK 8 weeks ezetimibe (Zetia) 10 mg PO DAILY ferrous sulfate 325 mg PO TID 90 days gabapentin 400 mg PO TID galcanezumab-gnlm (Emgality Pen) 120 mg subcut Q30D 30 days glucose 16 grams (4 x 4 gram) PO Q15M PRN insulin degludec (Tresiba FlexTouch U-100 insulin) 40 units (0.4 mL) subcut BEDTIME lancets (FreeStyle Lancets) Use to check blood sugar daily lisinopril 5 mg PO DAILY magnesium oxide 400 mg PO BEDTIME 30 days metformin ER orally 2 times a day; Take 2 tablets qam and 1 tablet in the evening. omeprazole 40 mg PO DAILY 90 days ondansetron HCl 4 mg PO Q8H pen needle, diabetic (BD Ultra-Fine Emily Pen Needle) Use to inject insulin daily pyridoxine (vitamin B6) 50 mg PO BID 30 days riboflavin (vitamin B2) 400 mg PO DAILY 30 days semaglutide (Ozempic) 2 mg (0.75 mL) subcut QWEEK sertraline 200 mg (2 x 100 mg) PO DAILY sumatriptan succinate 100 mg PO Q2H PRN 30 days tizanidine 4 mg PO TID trazodone 100 mg PO BEDTIME 90 days trazodone 25 mg (1/2 x 50 mg) PO BEDTIME 30 days zinc gluconate 50 mg PO DAILY 30 days HPI Comments Details: 54-year-old female patient with a past medical history significant for diabetes mellitus, cervicalgia, gait difficulties, IBS and ankylosing spondylitis, presenting with complaints diffuse abdominal pain with the associated bloating. The pain began several years ago but over the last several months has increased in severity. The pain is associated with constipation with episodes of diarrhea on and off. The pain seems to be made worse with meals and no relieving factors have been identified. Workup with CT abdomen and pelvis performed on 03/29/2025 revealed a diffuse haziness of the fat of the mesentery which appears to be more prominent than the prior study performed on 12/13/2024. There are scattered normal-sized lymph nodes but no mass and no free intraperitoneal gas. No free fluid was identified as well. Findings were felt to be suggestive of mesenteric pancolitis of unknown etiology. She presents today for any surgical options. [facility] Medical History Urinary frequency Chronic abdominal pain Hypertension Hyperlipidemia Diabetic neuropathy Diabetes mellitus with hyperglycemia Parkinsons HLA B27 (HLA B27 positive) Retention of urine, unspecified UTI (urinary tract infection) Sacroiliitis Knee pain, bilateral Surgical History Hx of colonoscopy S/P gastric sleeve procedure Hx of cholecystectomy Family History Father HTN (hypertension) Diabetes Mother HTN (hypertension) Diabetes HLD (hyperlipidemia) Maternal Grandfather Substance use disorder Maternal Grandmother Diabetes Substance use disorder Maternal Uncle Substance use disorder Mental health disorder Paternal Grandmother Substance use disorder Social History Housing: House Alcohol intake: never Patient Tobacco Use Status: Never used Tobacco e-Cigarette/Vaping Use: Never Used Second Hand Smoke Exposure: No service: No Current occupational status: unemployed and disabled Cognitive needs: No Hearing needs: No Vision needs: No Review of Systems Const All systems reviewed & are unremarkable except as noted in HPI and below Physical Exam Vital Signs: Last Vital Signs Pulse 83 05/10/25 11:27 BP 130/75 05/10/25 11:27 BMI result Body Mass Index 40.5 Const General: cooperative and no acute distress Nutritional Appearance: well nourished Orientation/consciousness: patient oriented x3 Limitations: ambulation with walker HEENT Head: Yes normocephalic and Yes atraumatic Ears: hearing grossly normal bilaterally Resp Effort & Inspection: normal respiratory effort, no audible wheezes, no cough and no respiratory distress Cardio Jugular venous distension: no JVD GI Other: Soft, nondistended, large pannus, no rebound, guarding or rigidity. Tenderness to deep palpation diffusely without peritoneal signs. Inspection: Yes normal to inspection Skin Other: Warm, dry, no rash Neuro General: patient oriented x3 Extrem General: Yes no clubbing, cyanosis or edema Assessment & Plan Assessment & Plan (1) Mesenteric panniculitis: Code(s): K65.4 - Sclerosing mesenteritis Category: Medical Plan 54-year-old female patient presenting for evaluation of diffuse abdominal pain found on workup to have evidence of mesenteric pain colitis. I reviewed the CT abdomen and pelvis with the patient and her family and discussed the surgical options. The etiology of this pain colitis is uncertain as the role of surgical intervention. One option for diagnostic purpose would be an exploratory laparoscopy with possible biopsy of the mesenteric panniculitis. Evaluation of the bowel vascularity for evidence of ischemia may also be helpful. Should areas of ischemic be identified a bowel resection may be necessary. After discussion of the procedure, risks, and alternatives, the patient consents to an exploratory laparoscopy, possible bowel resection. This will be performed as a short-stay surgery. Coding Level of Care Code New Pt Level 4 (33967) Diagnoses Mesenteric panniculitis K65.4
[2025-05-10 11:27] VITALS: BP 130/75; PULSE 83; BMI 40.5
== END 2025-05-10 11:48 | disposition home or self-care (01) ==
LOC: HO.HGS 11:05
PROVIDERS: PCP Nurse Practitioner Family; Visit Provider Surgery
DX: K65.4 Sclerosing mesenteritis (principal)
CPT/HCPCS: 99204

== ENCOUNTER → 2025-05-10 11:05 | Outpatient (BNVA) | payer OTHER, SELFPAY | PROVIDERS: PCP Nurse Practitioner Family; Visit Provider Surgery | DX: Z71.2 Person consulting for explanation of examination or test findings (principal); R10.84 Generalized abdominal pain; K65.4 Sclerosing mesenteritis | CPT/HCPCS: 99202 ==

== ENCOUNTER → 2025-05-20 07:45 | Outpatient (BNV) | payer OTHER, SELFPAY | PROVIDERS: PCP Nurse Practitioner Family; Visit Provider Internal Medicine Cardiovascular Disease | DX: K65.4 Sclerosing mesenteritis (principal) | CPT/HCPCS: 93010 ==

== ENCOUNTER 2025-05-20 09:12 | Day surgery (SDC) | payer OTHER, SELFPAY ==
--- NOTE | 2025-05-20 07:45 | ECG_ITS ---
Test Reason : k65.4 Blood Pressure : */* mmHG Vent. Rate : 67 BPM Atrial Rate : 67 BPM P-R Int : 154 ms QRS Dur : 82 ms QT Int : 382 ms P-R-T Axes : 18 -11 40 degrees QTcB Int : 403 ms Normal sinus rhythm Normal ECG When compared with ECG of 16-Sep-2023 18:05, Vent. rate has decreased by [address] no longer depressed in Inferior leads ST no longer depressed in Anterior leads Nonspecific T wave abnormality no longer evident in Inferior leads Referred By: Omer Pérez Electronically Signed By: Herb Rios
[2025-05-20 08:01] LABS: MANUAL DIFF FLAG NO
[2025-05-20 08:52] LABS: Hematocrit 39.3 % (37.0-47.0); Hemoglobin 12.5 g/dl (12.0-16.0); Imm Gran Abs Auto 0.03 X10*3/uL (0.00-0.03); Imm Gran Pct Auto 0.3 % (0.0-0.4); Lymphocytes Absolute Auto 2.8 X10*3/uL (1.2-4.9); Mean Corpuscular HGB Conc 31.8 g/dl (31.0-35.0); Mean Corpuscular Hemoglobin 25.3 pg (27.0-33.0); Mean Corpuscular Volume 79.4 fL (80.0-98.0); NRBC Abs Auto 0.000 X10*3/uL (0.0-0.012); NRBC Pct Auto 0.0 /100WBC (0.0-0.2); Platelet Count 344 X10*3/uL (160-400); Red Blood Count 4.95 X10*6/uL (4.20-5.50); White Blood Count 11.2 X10*3/uL (4.8-10.8)
[2025-05-20 09:22] LABS: Appearance Urine Clear; Glucose Urine UA Negative (Negative); PH 6.5 (5.0-9.0); Specific Gravity - Urine 1.015 (1.005-1.025)
[2025-05-20 09:54] VITALS: BMI 39.9
[2025-05-20 10:10] VITALS: BP 119/63; PULSE 76; RESP 15; TEMP 36.4; O2SAT 98
--- NOTE | 2025-05-20 10:10 | MHC.SHP ---
Pre-Procedural Eval Section A - 24 Hr Update-Section A only Date of Service: 05/20/25 The patient is an INPATIENT: No Changes since office visit: No Cold of Flu in the past 2 weeks, No New Medical Problems, No Changes in Medication and No Patient answered all questions The patient has been examined within 24 hours of the surgical procedure. The History & Physical has been completed within 30 days and I have reviewed it.: Yes Section B - Complete if H&P > 30 days Chief Complaint: Carpal tunnel syndrome, right upper limb Allergies: Allergies Allergy/AdvReac Type Severity Reaction Status Date / Time No Known Allergies Allergy Verified 05/10/25 11:25 Plan Diagnosis/Plan: Unchanged I have reviewed the history and physical and performed a pertinent physical examination on my patient. No changes have occurred unless specified. Time Spent With Patient Time: Total time managing care of this patient today ____ minutes.
--- NOTE | 2025-05-20 10:11 | P.OP_ITS ---
Operative Note Operative Note Date of Service: 05/20/25 Narrative: Preop diagnosis: 1. Right Carpal tunnel syndrome Postop diagnosis: same Procedure: 1. Right Carpal tunnel release Surgeon: Zenia Whiting MD Supervisor Cemetery Workers: None Anesthesia: local block using 1% lidocaine with epinephrine Findings: Thickened transverse carpal ligament. EBL: Less than 5 mL Specimens: None Complications: None Disposition: Brought to recovery room in stable condition Plan: Follow-up for 10-14 days for wound check and suture removal Indications: The patient is 54 years old, with right carpal tunnel syndrome that has been unresponsive to nonoperative management. The risks and benefits of operative treatment including but not limited to risk of damage to blood vessels, nerves, tendons, infection, persistent pain, persistent symptoms, or possible need for additional surgery were discussed with the patient and the patient wishes to proceed with surgery. Procedure: Once consent was obtained a local block was performed using a combination of 1% lidocaine with epinephrine. The patient was then brought back to the operating suite and placed on the operative table in supine position. The right upper extremity was prepped and draped in a standard surgical fashion. Once assured that we had a good block, a 2.0 cm longitudinal incision was made centered over the carpal tunnel. The incision was made through the skin to the subcutaneous tissues using a #15 blade. Dissection was made down to the level of the transverse carpal ligament with care being taken to protect the palmar cutaneous nerve. Once the transverse carpal ligament was clearly visualized, a longitudinal incision was made in the transverse carpal ligament 1st using a #15 blade, then using tenotomy scissors under direct visualization. Care was taken to look for and protect the motor branch of the median nerve when seen in this area. Once satisfied with our carpal tunnel release the wound was copiously irrigated with normal saline and hemostasis was obtained with a brief period of local pressure. The skin edges were reapproximated with some 5.0 nylon suture material and a sterile dressing was applied. The patient appears to have tolerated the procedure well and with no complic ations. All digits were well vascularized at the conclusion of the case.
[2025-05-20 10:23] LABS: Alanine Aminotransferase 12 U/L (0-31); Albumin Level 4.0 g/dL (3.5-5.0); Alkaline Phosphatase 83 U/L (39-117); Anion Gap 13 (12-20); Aspartate Amino Transferase 20 U/L (5-31); Blood Urea Nitrogen 17 mg/dL (9-16); Calcium 9.3 mg/dL (8.4-10.2); Carbon Dioxide 26 mmol/L (22-29); Chloride 106 mmol/L (96-108); Creatinine Clr Calc Pharmacy 132.9; Estimated Glomerular Filt Rate > 60; Potassium 4.7 mmol/L (3.3-5.1); Sodium 140 mmol/L (135-145); Total Protein 7.4 g/dL (6.5-8.0)
[2025-05-20 11:35] VITALS: BP 137/80; PULSE 74; RESP 18; O2SAT 98
== END 2025-05-20 12:25 | disposition home or self-care (01) ==
PROVIDERS: PCP Nurse Practitioner Family; Visit Provider Orthopaedic Surgery
PROC: (CPT 64721; principal; 2025-05-20 10:50)
DX: G56.01 Carpal tunnel syndrome, right upper limb (principal); M79.641 Pain in right hand; R20.0 Anesthesia of skin; R20.2 Paresthesia of skin; G20.A1 Parkinson's disease without dyskinesia, without mention of fluctuations; I10 Essential (primary) hypertension; E11.40 Type 2 diabetes mellitus with diabetic neuropathy, unspecified; E11.65 Type 2 diabetes mellitus with hyperglycemia; E78.5 Hyperlipidemia, unspecified; Z15.89 Genetic susceptibility to other disease; Z98.84 Bariatric surgery status; Z90.49 Acquired absence of other specified parts of digestive tract; Z56.0 Unemployment, unspecified
CPT/HCPCS: 64721; 36415; 80053; 81003; 85025; 93005; J0165; J2003

== ENCOUNTER → 2025-05-20 09:12 | Outpatient (BNV) | payer OTHER, SELFPAY | PROVIDERS: PCP Nurse Practitioner Family; Visit Provider Orthopaedic Surgery | DX: G56.01 Carpal tunnel syndrome, right upper limb (principal) | CPT/HCPCS: 64721 ==

== ENCOUNTER 2025-05-23 11:06 | Outpatient (REF) | payer OTHER, SELFPAY ==
--- NOTE | ~2025-05-23 | XR_ITS ---
EXAMINATION: XR CHEST 2 VIEWS HISTORY: D72.829 - Elevated white blood cell count, unspecified COMPARISON: Comparison is made with the prior examination dated 03/04/2020. FINDINGS: PA and lateral views of the chest are submitted. The lungs are expanded and clear. There is no pleural effusion, pneumothorax, or pulmonary vascular congestion. The heart is normal in size. There is mild degenerative disc disease of the spine. XR/XR chest 2V IMPRESSION: No acute cardiopulmonary abnormality. Electronically signed by: Mike Moran MD 05/23/2025 11:24 AM EDT
== END 2025-05-23 11:07 | disposition home or self-care (01) ==
LOC: HO.HMGCX 11:06
PROVIDERS: PCP Nurse Practitioner Family; Visit Provider Nurse Practitioner Family
DX: D72.829 Elevated white blood cell count, unspecified (principal)
CPT/HCPCS: 71046

== ENCOUNTER → 2025-05-23 11:09 | Outpatient (BNV) | payer OTHER, SELFPAY | PROVIDERS: PCP Nurse Practitioner Family; Visit Provider Radiology Diagnostic Radiology | DX: D72.829 Elevated white blood cell count, unspecified (principal) | CPT/HCPCS: 71046 ==

== ENCOUNTER 2025-06-04 09:09 | Outpatient (AMB) | payer OTHER, SELFPAY ==
[2025-06-04 09:56] VITALS: BMI 39.9
--- NOTE | 2025-06-04 09:56 | A.OFFVIS_ITS ---
Vital Signs 06/04/25 09:56 Height 5 ft 9 in Weight 270 lb BMI 39.9 Intake Visit Reasons: PO-Rt CTR 05/20/25 Intake Note: Jackie 54 yr old right hand dominant female presents today for her P/O visit for her right carpal tunnel release from 05/20/[address] Whiting. Sutures removed and steri strips applied. States her symptoms have improved. She is still having mild numbness but its better over all. Allergies No Known Allergies Allergy (Verified 06/04/25 10:06) HPI HPI PO-Rt CTR 05/20/25: Details: Jackie is a 54 year od right hand dominant Diabetic woman who returns S/P right carpal tunnel release. She says she is doing okay and her sensation has been improving. She still has some mild numbness & tingling primarily in the middle & ring fingers, but says this is better than prior to her surgery, and now normal in the thumb & index fingers In regards to her left carpal tunnel syndrome, she has numbness intermittent but daily, worse at night. She has Parkinsons & diabetes, along with Diabetic neuropathy. [facility] Medical History Urinary frequency Chronic abdominal pain Hypertension Hyperlipidemia Diabetic neuropathy Diabetes mellitus with hyperglycemia Parkinsons HLA B27 (HLA B27 positive) Retention of urine, unspecified UTI (urinary tract infection) Sacroiliitis Knee pain, bilateral Surgical History Hx of colonoscopy S/P gastric sleeve procedure Hx of cholecystectomy Family History Father HTN (hypertension) Diabetes Mother HTN (hypertension) Diabetes HLD (hyperlipidemia) Maternal Grandfather Substance use disorder Maternal Grandmother Diabetes Substance use disorder Maternal Uncle Substance use disorder Mental health disorder Paternal Grandmother Substance use disorder Social History Housing: House Alcohol intake: never Comment: counts correct Patient Tobacco Use Status: Never used Tobacco e-Cigarette/Vaping Use: Never Used Second Hand Smoke Exposure: No service: No Current occupational status: unemployed and disabled Cognitive needs: No Hearing needs: No Vision needs: No Review of Systems Const All systems reviewed & are unremarkable except as noted in HPI and below Physical Exam Vital Signs: BMI result Body Mass Index 39.9 Const General: no acute distress and alert Orientation/consciousness: patient oriented x3 Neuro General: patient oriented x3 Extrem Other: The patient was alert oriented and in no acute distress The incision is healing well with no erythema drainage or evidence of infection. Sutures removed and Steri-Strips applied She can make a fist and extend all her digits Sensation is improved but still with persistent numbness & tingling to the mid dle & ring fingers No thenar or intrinsic wasting Good APB muscle belly firing and good finger cross Regarding the left hand: decreased subjective sensation to the index, middle, and ring fingers, no intrinsic or thenar wasting, good APB muscle belly firing Cap refill is brisk Nerve Conduction study: IMPRESSION: Khmz-ac-khlxseog bilateral median neuropathy across carpal tunnel. 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 Right carpal tunnel syndrome, S/P release DOS: 05/20/25 Pre-operative symptoms intermittent, but daily worse at night Now with improved sensation but persistent mild tingling in her middle & ring fingers Normal sensation in the thumb & index fingers The patient appears to be doing well post-operatively I educated her about the post-operative course I explained the signs and symptoms of infection, if the patient develops any new or worsening erythema, drainage, pain, or warmth they should contact the clinic or attend the ED. I explained that it may take up to 9 months post-operatively for any sensation to return. I discussed activity modifications, she is to lift nothing heavier than a cellphone for the next 2 weeks She will perform gentle ROM exercises at home She should avoid any underwater activities for the next 5 days She should gently massage about the incision site to reduce the risk of hypersensitivity 2. Left carpal tunnel syndrome, mild-moderate Persistent numbness index middle and ring fingers I educated her about this condition I discussed operative and non-operative treatment options The patient would like to proceed with surgery The risks and benefits of operative treatment were discussed with the patient and the patient wishes to proceed with surgery. These risks include, but are not limited to risk of damage to blood vessels, nerves, tendons, infection, recurrence, incomplete relief of preoperative symptoms, persistent pain, possible need for further surgery and the risks associated with regional blocks and anesthesia. The plan is to take the patient to the operating room sometime in the next few months for the following procedures: 1. Left carpal tunnel release, under local All of the preoperative paperwork including the consent was reviewed today. All the patient's questions were answered. The patient understands that they will be contacted by our patient scheduler soon to schedule this procedure She denies blood thinners, asthma, heart, kidney issues She has Parkinsons disease, Diabetic neuropathy, and pulmonary nodules She is a Diabetic. They will need an updated HgA1c that is <8.1% in order to proceed with surgery, and they expressed understanding Scribed for Zenia Whiting MD by Daryl Flynn, medical aides teacher, on 06/04/25 at 10:20 AM, EST. Coding Level of Care Code Est Pt Level 4 (70973) Diagnoses Bilateral carpal tunnel syndrome G56.03 Diabetes E11.9 Parkinsonism G20 Diabetic polyneuropathy associated with type 2 diabetes mellitus E11.42 Diabetes mellitus complication detail: diabetic polyneuropathy Diabetes mellitus type: type 2
== END 2025-06-04 10:29 | disposition home or self-care (01) ==
LOC: HO.HOS 09:10
PROVIDERS: PCP Nurse Practitioner Family; Visit Provider Orthopaedic Surgery
DX: G56.03 Carpal tunnel syndrome, bilateral upper limbs (principal); E11.42 Type 2 diabetes mellitus with diabetic polyneuropathy; G20.A1 Parkinson's disease without dyskinesia, without mention of fluctuations
CPT/HCPCS: 99214

== ENCOUNTER → 2025-06-04 09:09 | Outpatient (BNVA) | payer OTHER, SELFPAY | PROVIDERS: PCP Nurse Practitioner Family; Visit Provider Orthopaedic Surgery | DX: R20.2 Paresthesia of skin (principal); G56.03 Carpal tunnel syndrome, bilateral upper limbs; G20.C Parkinsonism, unspecified; E11.42 Type 2 diabetes mellitus with diabetic polyneuropathy; Z98.890 Other specified postprocedural states | CPT/HCPCS: 99212 ==

== ENCOUNTER → 2025-06-12 10:30 | Day surgery (SDC) | payer OTHER, SELFPAY ==
[2025-06-06 10:05] VITALS: BP 140/86; PULSE 68; RESP 20; O2SAT 97; BMI 41.2
--- NOTE | 2025-06-11 11:50 | HO.ANESPROP2 ---
Documented by User: Rivka Mcginnis NP 06/11/25 11:59 HPI - Anesthesia Eval Consult details Narrative: 54yo F for Exploratory Laparotomy,possible Bowel Resection PAT 06/06/25 with LM Anesthesia Pre-Procedure Meds Is the patient on any of the following meds?: GLP1/DPP4 PMFSH Active Problems Active Problems: All Active Problems Pre-op evaluation (Acute) Bilateral carpal tunnel syndrome (Acute) Mesenteric panniculitis (Acute) LUQ pain (Acute) Rib pain on left side (Acute) Paresthesia and pain of both upper extremities (Acute) Hand weakness (Acute) Encounter for routine adult physical exam with abnormal findings (Acute) Mesenteric lymphadenitis (Acute) Right sided abdominal pain (Acute) Myofascial neck pain (Acute) Myofascial low back pain (Acute) Malnutrition (Acute) Vitamin D deficiency (Acute) Constipation (Acute) Elevated calcitonin level (Acute) Zinc deficiency (Acute) Vitamin B6 deficiency (Acute) Vitamin C deficiency (Acute) Immunization counseling (Acute) Nausea & vomiting (Acute) Restless leg syndrome (Acute) Parkinsonism (Acute) Ankylosing spondylitis (Acute) Diabetes (Acute) Mental confusion (Acute) Stuttering (Acute) Retention of urine, unspecified (Acute) UTI (urinary tract infection) (Acute) Pulmonary nodules/lesions, multiple (Acute) Cervicalgia (Acute) Gait difficulty (Acute) Migraine (Acute) Sleep disorder (Acute) Tremor (Acute) Body aches (Acute) Leukocytosis (Acute) Fatigue (Acute) Obesity (Acute) Pulmonary nodules (Acute) Urinary incontinence (Acute) Touch sensitivity increased (Acute) Fatigue (Acute) Visual disturbances (Acute) Increasing shortness of breath (Acute) IBS (irritable bowel syndrome) (Acute) Diabetes (Acute) Elevated BP without diagnosis of hypertension (Acute) Lower back pain (Acute) Right hip pain (Acute) Knee pain, bilateral (Acute) UTI (urinary tract infection) (Acute) Urinary frequency (Acute) Chronic abdominal pain (Acute) Hypertension (Acute) Hyperlipidemia (Acute) Diabetic neuropathy (Acute) Diabetes mellitus with hyperglycemia (Acute) Past Medical History Medical History (Updated 06/06/25 @ 09:54 by Linda Jones RN) Parkinson disease Cervicalgia Migraines Pulmonary nodule RLS (restless legs syndrome) IBS (irritable bowel syndrome) Neuroleptic induced parkinsonism Urinary frequency Chronic abdominal pain Hypertension Hyperlipidemia Diabetic neuropathy Diabetes mellitus with hyperglycemia HLA B27 (HLA B27 positive) Sacroiliitis Family History Family History Father HTN (hypertension) Diabetes Mother HTN (hypertension) Diabetes HLD (hyperlipidemia) Maternal Grandfather Substance use disorder Maternal Grandmother Diabetes Substance use disorder Maternal Uncle Substance use disorder Mental health disorder Paternal Grandmother Substance use disorder Family history of problems with anesthesia: No Surgical History Surgical History (Updated 06/06/25 @ 09:55 by Linda Jones RN) Hx of umbilical hernia repair History of esophagogastroduodenoscopy (EGD) History of carpal tunnel release Hx of colonoscopy S/P gastric sleeve procedure Hx of cholecystectomy History of Problems with Anesthesia: No Social History Social History Housing: House Are you a primary care professional to a significant other at home: No Do you presently have visiting nurse or other home services: No Alcohol intake: never Comment: counts correct Patient Tobacco Use Status: Never used Tobacco e-Cigarette/Vaping Use: Never Used Second Hand Smoke Exposure: No service: No Current occupational status: unemployed and disabled Cognitive needs: No Hearing needs: No Vision needs: No Meds Allergies Allergy/AdvReac Type Severity Reaction Status Date / Time No Known Allergies Allergy Verified 06/04/25 10:06 Home Medications ?Medication ?Instructions ?Recorded ?Confirmed ?Last Taken ?Type metformin 500 mg tablet,extended 1,000 mg PO BID 05/03/25 06/06/25 06/11/25 History release 24 hr aspirin 81 mg chewable tablet 81 mg PO QAM 06/06/25 06/06/25 06/09/25 History ezetimibe 10 mg tablet (Zetia) 10 mg PO QAM 06/06/25 06/06/25 06/11/25 History lisinopril 5 mg tablet 5 mg PO QAM 06/06/25 06/06/25 06/11/25 History magnesium oxide 400 mg (241.3 mg 400 mg PO BEDTIME migraines 06/06/25 06/06/25 06/09/25 History magnesium) tablet omeprazole 40 mg capsule,delayed 40 mg PO QAM 06/06/25 06/06/25 06/11/25 History release ondansetron HCl 4 mg tablet 4 mg PO Q8H PRN Nausea 06/06/25 06/06/25 06/09/25 History riboflavin (vitamin B2) 400 mg 400 mg PO QAM 06/06/25 06/06/25 06/09/25 History tablet tizanidine 4 mg tablet 4 mg PO TID PRN for muscle spasm 06/06/25 06/06/25 06/11/25 History zinc gluconate 50 mg tablet 50 mg PO QAM 06/06/25 06/06/25 06/09/25 History Exam Height,Weight and Vital Signs: Height 5 ft 9 in Weight 126.552 kg Last Vital Signs Pulse 68 06/06/25 10:05 Resp 20 06/06/25 10:05 BP 140/86 H 06/06/25 10:05 Pulse Ox 97 06/06/25 10:05 O2 Del Method Room Air 06/06/25 10:05 Pertinent Lab Results Pertinent Lab Results: Laboratory Tests 06/06/25 10:50 Blood Type A Positive Antibody Screen NEGATIVE Laboratory Tests 05/20/25 08:00 WBC 11.2 H Hgb 12.5 Hct 39.3 Plt Count 344 Sodium 140 Potassium 4.7 D Chloride 106 Carbon Dioxide 26 BUN 17 H Creatinine 0.67 A1C = 6.1 on 04/2025 Narrative Narrative: EKG 05/2025 Vent. Rate : 67 BPM Atrial Rate : 67 BPM P-R Int : 154 ms QRS Dur : 82 ms QT Int : 382 ms P-R-T Axes : 18 -11 40 degrees QTcB Int : 403 ms Normal sinus rhythm Normal ECG When compared with ECG of 16-Sep-2023 18:05, Vent. rate has decreased by [address] no longer depressed in Inferior leads ST no longer depressed in Anterior leads Nonspecific T wave abnormality no longer evident in Inferior leads XR chest 2V 05/2025 IMPRESSION: No acute cardiopulmonary abnormality. CT abdomen pelvis wo IV con 03/2025 IMPRESSION: The previously seen diffuse haziness of the mesenteric fat, possibly representing mesenteric pancolitis, is more prominent. Assessment and Plan Assessment Anesthesia Assessment: Chart Reviewed Final Anesthetic Review Family History of Problems with Anesthesia: No History of Problems with Anesthesia: No Documented by User: Candido Arboleda MD 06/12/25 14:07 HPI - Anesthesia Eval Consult details Narrative: 54yo F for Exploratory Laparoscopy/E-lap, possible Bowel Resection PAT 06/06/25 with LM PMFSH Past Medical History Medical History (Updated 06/06/25 @ 09:54 by Linda Jones RN) Parkinson disease Cervicalgia Migraines Pulmonary nodule RLS (restless legs syndrome) IBS (irritable bowel syndrome) Neuroleptic induced parkinsonism Urinary frequency Chronic abdominal pain Hypertension Hyperlipidemia Diabetic neuropathy Diabetes mellitus with hyperglycemia HLA B27 (HLA B27 positive) Sacroiliitis Family History Family History Father HTN (hypertension) Diabetes Mother HTN (hypertension) Diabetes HLD (hyperlipidemia) Maternal Grandfather Substance use disorder Maternal Grandmother Diabetes Substance use disorder Maternal Uncle Substance use disorder Mental health disorder Paternal Grandmother Substance use disorder Surgical History Surgical History (Updated 06/06/25 @ 09:55 by Linda Jones RN) Hx of umbilical hernia repair History of esophagogastroduodenoscopy (EGD) History of carpal tunnel release Hx of colonoscopy S/P gastric sleeve procedure Hx of cholecystectomy Social History Social History Housing: House Are you a primary care professional to a significant other at home: No Do you presently have visiting nurse or other home services: No Alcohol intake: never Comment: counts correct Patient Tobacco Use Status: Never used Tobacco e-Cigarette/Vaping Use: Never Used Second Hand Smoke Exposure: No service: No Current occupational status: unemployed and disabled Cognitive needs: No Hearing needs: No Vision needs: No Meds Allergies Allergy/AdvReac Type Severity Reaction Status Date / Time No Known Allergies Allergy Verified 06/04/25 10:06 Home Medications ?Medication ?Instructions ?Recorded ?Confirmed ?Last Taken ?Type metformin 500 mg tablet,extended 1,000 mg PO BID 05/03/25 06/06/25 06/11/25 History release 24 hr aspirin 81 mg chewable tablet 81 mg PO QAM 06/06/25 06/06/25 06/09/25 History ezetimibe 10 mg tablet (Zetia) 10 mg PO QAM 06/06/25 06/06/25 06/11/25 History lisinopril 5 mg tablet 5 mg PO QAM 06/06/25 06/06/25 06/11/25 History magnesium oxide 400 mg (241.3 mg 400 mg PO BEDTIME migraines 06/06/25 06/06/25 06/09/25 History magnesium) tablet omeprazole 40 mg capsule,delayed 40 mg PO QAM 06/06/25 06/06/25 06/11/25 History release ondansetron HCl 4 mg tablet 4 mg PO Q8H PRN Nausea 06/06/25 06/06/25 06/09/25 History riboflavin (vitamin B2) 400 mg 400 mg PO QAM 06/06/25 06/06/25 06/09/25 History tablet tizanidine 4 mg tablet 4 mg PO TID PRN for muscle spasm 06/06/25 06/06/25 06/11/25 History zinc gluconate 50 mg tablet 50 mg PO QAM 06/06/25 06/06/25 06/09/25 History Exam Airway Mallampati Class: II TM Dist: <=3cm Neck ROM: Full Loose/Missing/Broken Teeth: Yes and Upper Heart: ok Lungs: ok Assessment and Plan Assessment Anesthesia Assessment: Anesthesia Plan Discussed and Chart Reviewed Final Anesthetic Review NPO: Yes ASA Class: III Final Preanesthetic Review: No Changes in Pt Med Stat, Meds/Allgs Chart Reviewed, Consent Obtained/Reviewed and Anes Risks/Benef Reviewed Patient Risk: High Procedure Risk: Intermediate Anesthetic Plan Anesthetic Plan: GA and Agree w/ Assess. and Plan Disposition: Standard PACU
[2025-06-12] VITALS (7 sets, daily range): BP systolic 114–130; BP diastolic 63–77; PULSE 68–92; RESP 16–18; TEMP 36.3; O2SAT 92–96; BMI 40.6
[2025-06-12] MEDS: Lactated Ringers 1,000 ML 100 ML IVCONT (10:13)
--- NOTE | 2025-06-12 10:32 | MHC.SHP ---
Pre-Procedural Eval Section A - 24 Hr Update-Section A only Date of Service: 06/12/25 The patient is an INPATIENT: No Changes since office visit: Yes Patient answered all questions; No Cold of Flu in the past 2 weeks, No New Medical Problems and No Changes in Medication The patient has been examined within 24 hours of the surgical procedure. The History & Physical has been completed within 30 days and I have reviewed it.: No Section B - Complete if H&P > 30 days Chief Complaint: Sclerosing mesenteritis Details of Present Illness: No change in patient's symptoms Relevant Family History (Specify if Yes): No Relevant Social History: None Present Medications: see Short Stay Collaborative assessment Medical History: No relevant PMH History of Previous Operations: No relevant previous surgery Allergies: Allergies Allergy/AdvReac Type Severity Reaction Status Date / Time No Known Allergies Allergy Verified 06/04/25 10:06 Review of Systems Sugical H&P ROS: Negative: Constitution, Cardiovascular, Respiratory, Neurological, Psychiatric, Hem-Onc, Allergic/Immunologic, Genitourinary, Musculoskeletal, Integumentary, Endocrine and Eyes/Ears/Nose/Throat and Yes, Specify: Gastrointestinal (Abdominal pain) Exam Surgical H&P Exam: Normal: HEENT, Normal: Heart, Normal: Lungs, Normal: Extremities, Normal: Skin and Normal: Neurological and Significant Findings: Abdomen (Tenderness) Plan Diagnosis/Plan: Unchanged I have reviewed the history and physical and performed a pertinent physical examination on my patient. No changes have occurred unless specified. Time Spent With Patient Time: Total time managing care of this patient today ____ minutes.
[2025-06-12] MEDS: Indocyanine Green 25 MG KIT 5 MG IVPUSH (10:33)
[2025-06-12 12:16] LABS: Glucose, Whole Blood 114 mg/dL (60-115)
--- NOTE | 2025-06-12 13:20 | P.OP_ITS ---
Operative Note Operative Note Date of Service: 06/12/25 Narrative: Preoperative diagnosis:Terminal pain lower abdomen, mesenteric panniculitis Postoperative diagnosis: dense adhesions to anterior abdominal wall from prior hernia repair Procedure: exploratory laparoscopy, ICG examination of bowel vascularity, lysis of adhesions to prior hernia repair Surgeon: Omer Thrasher MD Kindergarten Teacher: Corey Martini PA-C, Vijaya Diane, MS-3 Anesthesia: general endotracheal Indications for procedure: 54-year-old female patient presenting with a diffuse abdominal pain with CT findings suggestive of mesenteric panniculitis presenting for exploratory laparoscopy possible mesenteric biopsy, possible bowel resection. Operative findings: Dense adhesions noted to the anterior abdominal wall from a prior midline hernia repair with intraperitoneal mesh. ICG examination of bowel vascularity appeared normal. No evidence of panniculitis in surrounding mesentery. Specimen: None Estimated blood loss: 10 mL Complications: none Procedure details: patient was brought to the OR and placed in a supine position. After administering general anesthesia the patient's abdomen was prepped with ChloraPrep and draped in a sterile fashion. A surgical time-out was called the consent confirmed. Patient received preoperative antibiotics and Venodyne boots were in place. Local anesthesia was infiltrated in a periumbilical region and a 5 mm incision made in this location. A Veress needle was then inserted in the abdominal cavity while elevating the abdominal cavity with towel clips. After positive drop test the abdomen was insufflated to a pressure 15 mmHg with CO2. The Veress needle was removed and a 5 mm trocar inserted under direct vision. The camera was then inserted in the abdomen explored. Dense adhesions were noted in the periumbilical region. A 2nd 5 mm trocar was then placed in the epigastric region and a 3rd in the right lower quadrant. Patient had previously received ICG dye in the preoperative area. Examination with the IR light was used to examine vascularity of the large and small bowel. This was found to light up with the fluorescent dye. This indicated normal blood flow to the bowel without evidence of ischemia. Next the mesentery was examined surrounding the small and large bowel. No unusual inflammatory changes were identified. The dense adhesions were then taken down off the anterior abdominal wall using LigaSure. Patient was found to have a prior hernia repair with intraperitoneal mesh noted in the periumbilical region. These adhesions were gently taken down using LigaSure dissection. Wounds were checked for hemostasis. Wounds were irrigated with saline solution and suctioned dry. No other abnormal findings were noted on exploration. CO2 was then evacuated and all trocars removed. No bleeding was noted from the trocar sites. Skin was closed in all incisions using a subcuticular 4-0 Polysorb suture. Sterile dressings consisting of Steri-Strips, 2 x 2 gauze and Tegaderm were then applied. The patient tolerated the procedure well. Sponge, instrument, and needle counts reported as correct. The patient was transferred to PACU in stable condition.
== END | disposition home or self-care (01) ==
LOC: HO.SSS 06-13 08:25
PROVIDERS: PCP Nurse Practitioner Family; Visit Provider Surgery
PROC: (CPT 49320; principal; 2025-06-12 12:00)
DX: K65.4 Sclerosing mesenteritis (principal); K66.0 Peritoneal adhesions (postprocedural) (postinfection); G89.29 Other chronic pain; R10.30 Lower abdominal pain, unspecified; R14.0 Abdominal distension (gaseous); K58.9 Irritable bowel syndrome, unspecified; I10 Essential (primary) hypertension; E78.5 Hyperlipidemia, unspecified; E11.65 Type 2 diabetes mellitus with hyperglycemia; E11.40 Type 2 diabetes mellitus with diabetic neuropathy, unspecified; G20.A1 Parkinson's disease without dyskinesia, without mention of fluctuations; R33.9 Retention of urine, unspecified; R35.0 Frequency of micturition; M46.1 Sacroiliitis, not elsewhere classified; Z79.4 Long term (current) use of insulin; Z79.84 Long term (current) use of oral hypoglycemic drugs; Z79.85 Long-term (current) use of injectable non-insulin antidiabetic drugs; Z79.899 Other long term (current) drug therapy; Z98.84 Bariatric surgery status; Z90.49 Acquired absence of other specified parts of digestive tract; Z56.0 Unemployment, unspecified
CPT/HCPCS: 44180; 82947; 86850; 86900; 86901; J0131

== ENCOUNTER → 2025-06-12 12:00 | Outpatient (BNV) | payer OTHER, SELFPAY | PROVIDERS: PCP Nurse Practitioner Family; Visit Provider Surgery | DX: K66.0 Peritoneal adhesions (postprocedural) (postinfection) (principal) | CPT/HCPCS: 44180 ==

== ENCOUNTER 2025-06-25 10:08 | Outpatient (AMB) | payer OTHER, SELFPAY ==
--- NOTE | 2025-06-25 10:15 | MHC.OFFVIS ---
Vital Signs 06/25/25 10:22 Height 5 ft 9 in Weight 273 lb 5.971 oz BMI 40.4 BP 109/67 Blood Pressure Location Lt brachial Position Sitting Pulse 81 Intake Visit Reasons: s/p Exploratory lap, poss bowel resection Intake Note: Patient is seen in office for post op assessment post exploratory laparascopy. Pt c/o: has been struggling to eat, has pain and nausea with meals, diarrhea after meals, pain in the incision area, denies redness or discharge surgery:06/12/25 Warehouse Order Filler Required: No Accompanied by: Daughter Allergies No Known Allergies Allergy (Verified 06/25/25 10:23) HPI Comments Details: Patient returns following exploratory laparoscopy, lysis of adhesions performed on 06/12/2025 for persistent abdominal pain, nausea and vomiting, diarrhea. Operative findings revealed intact vascular supply to the bowel with no evidence of inflammatory changes to the mesentery. The intra-abdominal infection or internal hernias were identified. Adhesions were noted from the previous abdominal wall hernia repair with mesh. A lysis of adhesions was performed. Since her surgery she continues to note similar symptoms of abdominal pain mainly in the right upper and lower quadrants with the associated nausea and vomiting. She continues to have diarrhea as well. [facility] Medical History Parkinson disease Cervicalgia Migraines Pulmonary nodule RLS (restless legs syndrome) IBS (irritable bowel syndrome) Neuroleptic induced parkinsonism Urinary frequency Chronic abdominal pain Hypertension Hyperlipidemia Diabetic neuropathy Diabetes mellitus with hyperglycemia HLA B27 (HLA B27 positive) Sacroiliitis Surgical History Hx of exploratory laparotomy (06/12/25) Hx of umbilical hernia repair History of esophagogastroduodenoscopy (EGD) History of carpal tunnel release Hx of colonoscopy S/P gastric sleeve procedure Hx of cholecystectomy Family History Father HTN (hypertension) Diabetes Mother HTN (hypertension) Diabetes HLD (hyperlipidemia) Maternal Grandfather Substance use disorder Maternal Grandmother Diabetes Substance use disorder Maternal Uncle Substance use disorder Mental health disorder Paternal Grandmother Substance use disorder Social History Housing: House Are you a primary career services assistant to a significant other at home: No Do you presently have visiting nurse or other home services: No Alcohol intake: never Comment: counts correct Patient Tobacco Use Status: Never used Tobacco e-Cigarette/Vaping Use: Never Used Second Hand Smoke Exposure: No service: No Current occupational status: unemployed and disabled Cognitive needs: No Hearing needs: No Vision needs: No Physical Exam Vital Signs: Last Vital Signs Pulse 81 06/25/25 10:22 BP 109/67 06/25/25 10:22 BMI result Body Mass Index 40.4 Const General: no acute distress Nutritional Appearance: well nourished Orientation/consciousness: patient oriented x3 Limitations: wheelchair Resp Effort & Inspection: normal respiratory effort, no audible wheezes, no cough and no respiratory distress GI Other: Three trocar incisions are clean, dry, and intact without redness or discharge. Skin Other: Warm, dry, no rash Neuro General: patient oriented x3 Assessment & Plan Assessment & Plan (1) Nausea & vomiting: Code(s): R11.2 - Nausea with vomiting, unspecified Category: Medical (2) Chronic abdominal pain: Code(s): R10.9 - Unspecified abdominal pain; G89.29 - Other chronic pain Category: Medical Plan Patient continues to have similar symptoms of abdominal pain, nausea and vomiting, diarrhea following the surgery. A lysis of adhesions was performed however this has not seem to change the patient's symptoms unfortunately. No evidence of intestinal ischemia or infection were identified. The patient's wounds were well healed with no signs of infection. She should follow up as needed. Coding Level of Care Code Global (25831) Diagnoses Nausea & vomiting R11.2 Chronic abdominal pain R10.9; G89.29
[2025-06-25 10:22] VITALS: BP 109/67; PULSE 81; BMI 40.4
== END 2025-06-25 10:58 | disposition home or self-care (01) ==
LOC: HO.HGS 10:09
PROVIDERS: PCP Nurse Practitioner Family; Visit Provider Surgery
DX: R11.2 Nausea with vomiting, unspecified (principal); R10.9 Unspecified abdominal pain; G89.29 Other chronic pain
CPT/HCPCS: 99024

== ENCOUNTER → 2025-06-25 10:08 | Outpatient (BNVA) | payer OTHER, SELFPAY | PROVIDERS: PCP Nurse Practitioner Family; Visit Provider Surgery | DX: R11.2 Nausea with vomiting, unspecified (principal); R10.9 Unspecified abdominal pain; G89.29 Other chronic pain; Z90.49 Acquired absence of other specified parts of digestive tract | CPT/HCPCS: 99212 ==

== ENCOUNTER 2025-07-29 07:42 | Day surgery (SDC) | payer OTHER, SELFPAY ==
[2025-07-28 09:22] VITALS: BMI 40.3
[2025-07-29 07:46] VITALS: BP 151/67; PULSE 73; RESP 20; TEMP 36.4; O2SAT 98
--- NOTE | 2025-07-29 09:42 | MHC.SHP ---
Pre-Procedural Eval Section A - 24 Hr Update-Section A only Date of Service: 07/29/25 The patient is an INPATIENT: No Changes since office visit: No Cold of Flu in the past 2 weeks, No New Medical Problems, No Changes in Medication and No Patient answered all questions The patient has been examined within 24 hours of the surgical procedure. The History & Physical has been completed within 30 days and I have reviewed it.: Yes Section B - Complete if H&P > 30 days Chief Complaint: Carpal tunnel syndrome, left upper limb Allergies: Allergies Allergy/AdvReac Type Severity Reaction Status Date / Time No Known Allergies Allergy Verified 06/25/25 10:23 Plan Diagnosis/Plan: Unchanged I have reviewed the history and physical and performed a pertinent physical examination on my patient. No changes have occurred unless specified. Time Spent With Patient Time: Total time managing care of this patient today ____ minutes.
--- NOTE | 2025-07-29 09:42 | W.PM.OPN ---
Operative Note Operative Note Date of Service: 07/29/25 Narrative: Preop diagnosis: 1. Left Carpal tunnel syndrome Postop diagnosis: same Procedure: 1. Left Carpal tunnel release Surgeon: Zenia Whiting MD Railway Signal Operator: None Anesthesia: local block using 1% lidocaine with epinephrine Findings: Thickened transverse carpal ligament. EBL: Less than 5 mL Specimens: None Complications: None Disposition: Brought to recovery room in stable condition Plan: Follow-up for 10-14 days for wound check and suture removal Indications: The patient is a 55 years old, with left carpal tunnel syndrome that has been unresponsive to nonoperative management. The risks and benefits of operative treatment including but not limited to risk of damage to blood vessels, nerves, tendons, infection, persistent pain, persistent symptoms, or possible need for additional surgery were discussed with the patient and the patient wishes to proceed with surgery. Procedure: Once consent was obtained a local block was performed using a combination of 1% lidocaine with epinephrine. The patient was then brought back to the operating suite and placed on the operative table in supine position. The left upper extremity was prepped and draped in a standard surgical fashion. Once assured that we had a good block, a 2.0 cm longitudinal incision was made centered over the carpal tunnel. The incision was made through the skin to the subcutaneous tissues using a #15 blade. Dissection was made down to the level of the transverse carpal ligament with care being taken to protect the palmar cutaneous nerve. Once the transverse carpal ligament was clearly visualized, a longitudinal incision was made in the transverse carpal ligament 1st using a #15 blade, then using tenotomy scissors under direct visualization. Care was taken to look for and protect the motor branch of the median nerve when seen in this area. Once satisfied with our carpal tunnel release the wound was copiously irrigated with normal saline and hemostasis was obtained with a brief period of local pressure. The skin edges were reapproximated with some 5.0 nylon suture material and a sterile dressing was applied. The patient appears to have tolerated the procedure well and with no complications. All digits were well vascularized at the conclusion of the case.
[2025-07-29 10:59] VITALS: BP 121/57; PULSE 67; O2SAT 98
== END 2025-07-29 12:30 | disposition home or self-care (01) ==
PROVIDERS: PCP Nurse Practitioner Family; Visit Provider Orthopaedic Surgery
PROC: (CPT 64721; principal; 2025-07-29 09:30)
DX: G56.02 Carpal tunnel syndrome, left upper limb (principal); R20.0 Anesthesia of skin; E11.42 Type 2 diabetes mellitus with diabetic polyneuropathy; E11.65 Type 2 diabetes mellitus with hyperglycemia; G20.A1 Parkinson's disease without dyskinesia, without mention of fluctuations; G89.29 Other chronic pain; R10.9 Unspecified abdominal pain; I10 Essential (primary) hypertension; E78.5 Hyperlipidemia, unspecified; Z98.84 Bariatric surgery status; Z90.49 Acquired absence of other specified parts of digestive tract; Z56.0 Unemployment, unspecified
CPT/HCPCS: 64721; J0165; J2003; J2704; J3010

== ENCOUNTER → 2025-07-29 07:42 | Outpatient (BNV) | payer OTHER, SELFPAY | PROVIDERS: PCP Nurse Practitioner Family; Visit Provider Orthopaedic Surgery | DX: G56.02 Carpal tunnel syndrome, left upper limb (principal) | CPT/HCPCS: 64721 ==

== ENCOUNTER 2025-08-06 10:52 | Outpatient (AMB) | payer OTHER, SELFPAY ==
--- NOTE | 2025-08-06 10:58 | MHC.OFFVIS ---
Vital Signs 08/06/25 10:59 Height 5 ft 9 in Weight 282 lb 3.067 oz BMI 41.7 BP 120/70 Blood Pressure Location Rt brachial Position Sitting Pulse 82 Pulse Source Pulse Oximeter Pulse Oximetry (%) 94 Oxygen Delivery Method Room Air Intake Visit Reasons: Type II diabetes Intake Note: Patient present today to follow up on Type 2 Diabetes Mellitus. Last Diabetic Eye exam: 07/23/2025 [facility] Last Podiatry Visit: Does not see a Cocktail Lounge Manager Random Glucose: 118 mg/dL HgA1C: 6.0%, 08/06/2025 [employer] 9 [employer]ru 12 Visiting Teacher Required: No Accompanied by: Self / Same As Patient Allergies dulaglutide (From [facility]) Adverse Reaction (Intermediate, Verified 08/06/25 11:15) abdominal pain Medication List - Last Reconciled 08/06/25 by ROGE Roach [4 wheeled walker with seat daily use] ascorbic acid (vitamin C) 500 mg PO BID 30 days aspirin 81 mg PO QAM atorvastatin 80 mg PO BEDTIME blood sugar diagnostic (FreeStyle Lite Strips) test blood sugar 3 times per day blood-glucose sensor (Dexcom G7 Sensor device) APPLY NEW SENSOR EVERY 10 DAYS DIRECTED blood-glucose,surgical pathologist,cont (Dexcom G7 Lock Setter) DIRECTED carbidopa-levodopa 25-100 mg 1 tab PO QID 90 days cholecalciferol (vitamin D3) 1,250 mcg PO QWEEK 8 weeks ezetimibe (Zetia) 10 mg PO QAM ferrous sulfate 325 mg PO TID 90 days gabapentin 400 mg PO TID galcanezumab-gnlm (Emgality Pen) 120 mg subcut Q30D 30 days glucose 16 grams (4 x 4 gram) PO Q15M PRN hydrocodone-acetaminophen 5-325 mg 1 tab PO Q4-6H PRN insulin degludec (Tresiba FlexTouch U-100 insulin) 40 units (0.4 mL) subcut BEDTIME lancets (FreeStyle Lancets) Use to check blood sugar daily lisinopril 5 mg PO QAM magnesium oxide 400 mg PO BEDTIME metformin ER 1,000 mg PO BID omeprazole 40 mg PO QAM ondansetron HCl 4 mg PO Q8H PRN oxycodone 5 mg PO Q6H PRN pen needle, diabetic (BD Ultra-Fine Emily Pen Needle) Use to inject insulin daily pyridoxine (vitamin B6) 50 mg PO BID 30 days riboflavin (vitamin B2) 400 mg PO QAM semaglutide (Ozempic) 2 mg (0.75 mL) subcut QWEEK sertraline 200 mg (2 x 100 mg) PO DAILY sumatriptan succinate 100 mg PO Q2H PRN 30 days tizanidine 4 mg PO TID PRN trazodone 25 mg (1/2 x 50 mg) PO BEDTIME 30 days trazodone 100 mg PO BEDTIME 90 days zinc gluconate 50 mg PO QAM HPI Comments Details: This is a 54-year-old female with a past medical history of type 2 diabetes with neuropathy, parkinsonism, migraine, pulmonary nodules, multinodular thyroid, IBS and obesity presenting for continued diabetic management. Accompanied by her , Kailash. She was diagnosed about 5 years ago with type 2 diabetes. Hemglobin a1c today 08/06/25: 6.0% Reviewed Dexcom data from July 24 to August 06 G MA 7.1% 4% very high 21% high 75% in range 0% hypoglycemia My interpretation is that the majority of her blood sugars are within target range but she does have postprandial hyperglycemia recently. Patient explains that she has been out of Ozempic for the past 2 weeks. Current medication regimen: Ozempic 2 mg weekly, metformin 1000 mg BID, Tresiba 40 units She had gastric sleeve surgery more than 10 years ago. Past medication: Trulicity discontinued in the past because of intolerable GI side effect (abdominal pain) Compliance issues: none She met with the wellness educator and underground roof bolter. Hypoglycemia symptoms: Rare hypoglycemia. Hyperglycemia symptoms: None. [facility]: [facility]. Microvascular complications: bilateral neuropathy Macrovascular complications: no known Hypertension: Controlled on lisinopril 5 mg daily. Hyperlipidemia: treated with Atorvastatin 80 mg and Zetia 10 mg daily. Zetia was added in February when her LDL. ROS: Constitutional: No unexplained weight loss, fever, chills or night sweats. Respiratory: No shortness of breath Cardiovascular: No chest pain Gastrointestinal: No anorexia, nausea, vomiting or diarrhea. No blood in stool. Endocrine: No cold or heat intolerance. No polyuria or polydipsia. Physical exam: Constitutional: Alert, in no distress. Neck: Supple, Full range of motion. No lymphadenopathy. Respiratory: Clear to auscultation. Cardiovascular: S1 S2 regular. No murmurs. [facility] Medical History Parkinson disease Cervicalgia Migraines Pulmonary nodule RLS (restless legs syndrome) IBS (irritable bowel syndrome) Neuroleptic induced parkinsonism Urinary frequency Chronic abdominal pain Hypertension Hyperlipidemia Diabetic neuropathy Diabetes mellitus with hyperglycemia HLA B27 (HLA B27 positive) Sacroiliitis Surgical History Hx of exploratory laparotomy (06/12/25) Hx of umbilical hernia repair History of esophagogastroduodenoscopy (EGD) History of carpal tunnel release Hx of colonoscopy S/P gastric sleeve procedure Hx of cholecystectomy Family History Father HTN (hypertension) Diabetes Mother HTN (hypertension) Diabetes HLD (hyperlipidemia) Maternal Grandfather Substance use disorder Maternal Grandmother Diabetes Substance use disorder Maternal Uncle Substance use disorder Mental health disorder Paternal Grandmother Substance use disorder Social History Housing: House Are you a primary care taker to a significant other at home: No Do you presently have visiting nurse or other home services: No Alcohol intake: never Comment: counts correct Patient Tobacco Use Status: Never used Tobacco e-Cigarette/Vaping Use: Never Used Second Hand Smoke Exposure: No service: No Current occupational status: unemployed and disabled Cognitive needs: No Hearing needs: No Vision needs: No Physical Exam Vital Signs: Last Vital Signs Pulse 82 08/06/25 10:59 BP 120/70 08/06/25 10:59 Pulse Ox 94 08/06/25 10:59 Oxygen Delivery Method Room Air 08/06/25 10:59 BMI result Body Mass Index 41.7 Office Procedures Glucose Monitoring Details Details: See [facility] [address] - Glucose monitoring, continuous-physician I&R Procedure code (CPT) selection complete Results AMB Hemoglobin A1c AMB Hemoglobin A1c 6.0 % Last Edit by BERNICE Teran on 08/06/25 11:18 Results Reviewed Results Reviewed: Laboratory Last Values Glucose (Clinic) 118 mg/dL (60-115) H 08/06/25 11:04 Hgb A1c (Clinic) 6.0 % (4.0-6.0) 08/06/25 11:09 Laboratory Tests 07/18/24 02/20/25 05/20/25 12:10 10:15 08:00 Creatinine 0.67 Estimated GFR > 60 AST 20 ALT 12 Triglycerides 83 Cholesterol 173 LDL Cholesterol, Calc 114 H HDL Cholesterol 43 TSH 0.90 Urine Creatinine 96.32 Urine Microalbumin 7.0 Microalb/Creat Ratio 7.2 Assessment & Plan Assessment & Plan (1) Diabetes mellitus with hyperglycemia: Code(s): E11.65 - Type 2 diabetes mellitus with hyperglycemia Category: Medical Qualifiers: Diabetes mellitus long term acute care registered nurse insulin use: with detention use Diabetes mellitus type: type 2 Qualified Code(s): E11.65 - Type 2 diabetes mellitus with hyperglycemia; Z79.4 - manager intermediate (current) use of insulin (2) Diabetic neuropathy: Code(s): E11.40 - Type 2 diabetes mellitus with diabetic neuropathy, unspecified Category: Medical Qualifiers: Diabetes mellitus complication detail: diabetic polyneuropathy Diabetes mellitus type: type 2 Qualified Code(s): E11.42 - Type 2 diabetes mellitus with diabetic polyneuropathy (3) Hyperlipidemia: Code(s): E78.5 - Hyperlipidemia, unspecified Category: Medical Qualifiers: Hyperlipidemia type: mixed hyperlipidemia Qualified Code(s): E78.2 - Mixed hyperlipidemia (4) Hypertension: Code(s): I10 - Essential (primary) hypertension Category: Medical Qualifiers: Hypertension type: primary hypertension Qualified Code(s): I10 - Essential (primary) hypertension Plan In summary this is a very pleasant, 55-year-old female with Parkinson's seen today for controlled Type II diabetes. Reviewed treatment for hypo and hyperglycemia. She will continue Tresiba 40 units nightly and metformin 1000 mg twice daily. Her pharmacy did not dispense Ozempic for the last couple of weeks. I am sending a new prescription. Patient says a similar issue is happening with her so there may have been a formulary change. If there is a pharmacy request for an alternative I can prescribe Mounjaro. She did not tolerate Trulicity. Discussed pathophysiology of Type II Diabetes Mellitus with the patient in detail.? I explained the long term acute care registered nurse risks and complications associated with uncontrolled diabetes including nephropathy, neuropathy, peripheral vascular disease, retinopathy, increased risk of heart disease and stroke.? Her LDL cholesterol was not at goal and Zetia was added to atorvastatin. Check lipid profile prior to next visit. Hypertension-Controlled. Continue Lisinopril to 5 mg daily. Follow-up in 3 months for Type II diabetes. Orders: Orders AMB Hemoglobin A1c Today E11.65 - Type 2 diabetes mellitus with hyperglycemia, Z79.4 - manager intermediate (current) use of insulin Vitamin B12 Today E11.65 - Type 2 diabetes mellitus with hyperglycemia, I10 - Essential (primary) hypertension, Z79.4 - manager intermediate (current) use of insulin, Z91.89 - Other specified personal risk factors, not elsewhere classified Aspartate Amino Transferase Today E11.65 - Type 2 diabetes mellitus with hyperglycemia, I10 - Essential (primary) hypertension, Z79.4 - care home (current) use of insulin Alanine Aminotransferase Today E11.65 - Type 2 diabetes mellitus with hyperglycemia, I10 - Essential (primary) hypertension, R79.89 - Other specified abnormal findings of blood chemistry, Z79.4 - manager intermediate (current) use of insulin Creatinine Today E11.65 - Type 2 diabetes mellitus with hyperglycemia, E11.9 - Type 2 diabetes mellitus without complications, I10 - Essential (primary) hypertension, Z79.4 - manager intermediate (current) use of insulin AMB Glucose Monitoring Today E11.9 - Type 2 diabetes mellitus without complications Lipid Panel Today E11.65 - Type 2 diabetes mellitus with hyperglycemia, E78.5 - Hyperlipidemia, unspecified, I10 - Essential (primary) hypertension, Z79.4 - care home (current) use of insulin Microalbumin, Random (w Creat) Today E11.65 - Type 2 diabetes mellitus with hyperglycemia, E11.9 - Type 2 diabetes mellitus without complications, I10 - Essential (primary) hypertension, Z79.4 - manager intermediate (current) use of insulin Medications: Refilled semaglutide (Ozempic) takes on Saturdays 2 mg (0.75 mL) subcut QWEEK 3 mL 5RF Coding Level of Care Code Est Pt Level 4 (98782) Diagnoses Type 2 diabetes mellitus with hyperglycemia, with long-term current use of insulin E11.65; Z79.4 Diabetes mellitus detention insulin use: with long term acute care registered nurse use Diabetes mellitus type: type 2 Diabetic polyneuropathy associated with type 2 diabetes mellitus E11.42 Diabetes mellitus complication detail: diabetic polyneuropathy Diabetes mellitus type: type 2 Mixed hyperlipidemia E78.2 Hyperlipidemia type: mixed hyperlipidemia Primary hypertension I10 Hypertension type: primary hypertension CPT Codes Details - CPT: 31492 - Glucose monitoring, continuous-physician I&R ([id number])
[2025-08-06 10:59] VITALS: BP 120/70; PULSE 82; O2SAT 94; BMI 41.7
== END 2025-08-06 11:37 | disposition home or self-care (01) ==
LOC: HO.ENCR 10:53
PROVIDERS: PCP Nurse Practitioner Family; Visit Provider Physician Assistant Medical
DX: E11.65 Type 2 diabetes mellitus with hyperglycemia (principal); Z79.4 Long term (current) use of insulin; E11.42 Type 2 diabetes mellitus with diabetic polyneuropathy; E78.2 Mixed hyperlipidemia; I10 Essential (primary) hypertension

== ENCOUNTER → 2025-08-06 10:52 | Outpatient (BNVA) | payer OTHER, SELFPAY | PROVIDERS: PCP Nurse Practitioner Family; Visit Provider Physician Assistant Medical | DX: E11.65 Type 2 diabetes mellitus with hyperglycemia (principal); E11.42 Type 2 diabetes mellitus with diabetic polyneuropathy; I10 Essential (primary) hypertension; E78.2 Mixed hyperlipidemia; Z79.4 Long term (current) use of insulin; Z79.84 Long term (current) use of oral hypoglycemic drugs | CPT/HCPCS: 82947; 83036; 99212 ==

== ENCOUNTER 2025-08-12 10:59 | Outpatient (AMB) | payer OTHER, SELFPAY ==
[2025-08-12 11:03] VITALS: BMI 41.6
--- NOTE | 2025-08-12 11:03 | MHC.OFFVIS ---
Vital Signs 08/12/25 11:03 Height 5 ft 9 in Weight 282 lb BMI 41.6 Intake Visit Reasons: PO-Lt CTR 07/29/25 Intake Note: Jackie is a 54 year old right hand dominant female who presents today post-operatively status post Left Carpal Tunnel Release performed by Dr. Whiting on 07/29/25. Patient reports she continues having numbness of the left middle finger. She continues having a lot of pain with tenderness to the touch. She has finished her Hydrocodone and is currently taking Ibuprofen and Tylenol without relief. Sutures removed and steri strips applied. [facility] Adverse Reaction (Intermediate, Verified 08/12/25 11:03) abdominal pain HPI HPI PO-Lt CTR 07/29/25: Details: Jackie is a 54 year old right hand dominant female who presents today post-operatively status post Left Carpal Tunnel Release performed by Dr. Whiting on 07/29/25. Patient reports she continues having numbness of the left middle finger. She continues having a lot of pain with tenderness to the touch. She has finished her Hydrocodone and is currently taking Ibuprofen and Tylenol without relief. Sutures removed and steri strips applied. COUNT INCLUDES THE [facility] Medical History Parkinson disease Cervicalgia Migraines Pulmonary nodule RLS (restless legs syndrome) IBS (irritable bowel syndrome) Neuroleptic induced parkinsonism Urinary frequency Chronic abdominal pain Hypertension Hyperlipidemia Diabetic neuropathy Diabetes mellitus with hyperglycemia HLA B27 (HLA B27 positive) Sacroiliitis Surgical History Hx of exploratory laparotomy (06/12/25) Hx of umbilical hernia repair History of esophagogastroduodenoscopy (EGD) History of carpal tunnel release Hx of colonoscopy S/P gastric sleeve procedure Hx of cholecystectomy Family History Father HTN (hypertension) Diabetes Mother HTN (hypertension) Diabetes HLD (hyperlipidemia) Maternal Grandfather Substance use disorder Maternal Grandmother Diabetes Substance use disorder Maternal Uncle Substance use disorder Mental health disorder Paternal Grandmother Substance use disorder Social History Housing: House Are you a primary rn managed care to a significant other at home: No Do you presently have visiting nurse or other home services: No Alcohol intake: never Comment: counts correct Patient Tobacco Use Status: Never used Tobacco e-Cigarette/Vaping Use: Never Used Second Hand Smoke Exposure: No service: No Current occupational status: unemployed and disabled Cognitive needs: No Hearing needs: No Vision needs: No Review of Systems Const All systems reviewed & are unremarkable except as noted in HPI and below Physical Exam Vital Signs: BMI result Body Mass Index 41.6 Extrem Other: Patient is alert, oriented, and in no acute distress. Neuro: Normal sensation of the tips of all digits of the left hand at this time Vascular: Cap refill brisk Pain: tenderness to very very gentle palpation of the incision site of the volar left wrist discomfort with range of motion of the digits of the left hand ROM: patient is able to make a closed fist and extend all digits of the left hand fully, but with some discomfort in the dorsal aspect of the digits Skin: well approximated and well healing incision site noted on the volar aspect of the left wrist No lacerations or abrasions. General: No ecchymosis, erythema, or evidence of infection. Psych: Appears grossly normal Affect normal Attitude cooperative Assessment & Plan Assessment & Plan (1) Bilateral carpal tunnel syndrome: Code(s): G56.03 - Carpal tunnel syndrome, bilateral upper limbs Category: Medical Plan 1. Status post left carpal tunnel release DOS 07/29/2025 experiencing hypersensitivity symptoms postoperatively, resolution of numbness and tingling complete patient appears to be recovering fairly well postoperatively Patient is educated about the typical recovery course At this time, patient is referred to OT for range of motion and gentle strengthening of the left hand, as well as desensitization of incision site on left wrist follow-up in 4 weeks for [id number] check, sooner with any acute concerns Orders: Orders OT Evaluation and Treatment Today G56.03 - Carpal tunnel syndrome, bilateral upper limbs Coding Level of Care Code Global (80112) Diagnoses Bilateral carpal tunnel syndrome G56.03
== END 2025-08-12 11:33 | disposition home or self-care (01) ==
LOC: HO.HOS 11:00
PROVIDERS: PCP Nurse Practitioner Family
DX: G56.03 Carpal tunnel syndrome, bilateral upper limbs (principal)
CPT/HCPCS: 99024

== ENCOUNTER → 2025-08-12 10:59 | Outpatient (BNVA) | payer OTHER, SELFPAY | PROVIDERS: PCP Nurse Practitioner Family | DX: Z98.890 Other specified postprocedural states (principal); G56.03 Carpal tunnel syndrome, bilateral upper limbs; R20.0 Anesthesia of skin | CPT/HCPCS: 99212 ==

== ENCOUNTER 2025-08-30 12:46 | Outpatient (AMB) | payer OTHER, SELFPAY ==
[2025-08-30 12:55] VITALS: BP 116/70; PULSE 79; O2SAT 96
--- NOTE | 2025-08-30 12:55 | A.OFFVIS_ITS ---
Vital Signs 08/30/25 12:55 Height 5 ft 9 in BMI Reason not done Patient refused/unable BP 116/70 Blood Pressure Location Rt brachial Position Sitting Pulse 79 Pulse Source Pulse Oximeter Pulse Oximetry (%) 96 Oxygen Delivery Method Room Air Intake Visit Reasons: T2DM, f/u on medication Intake Note: Patient present today to follow up on Type 2 Diabetes Mellitus. Last Diabetic Eye exam: 07/23/2025 [facility] Last Podiatry Visit: Does not see a Advertising Teacher Random Glucose: 112 mg/dL Most recent HgA1C: 6.0%, 08/06/2025 Accompanied by: Significant Other Allergies dulaglutide (From [facility]) Adverse Reaction (Intermediate, Verified 08/12/25 11:03) abdominal pain Medication List - Last Reconciled 08/30/25 by ROGE Roach [4 wheeled walker with seat daily use] ascorbic acid (vitamin C) 500 mg PO BID 30 days aspirin 81 mg PO QAM atorvastatin 80 mg PO BEDTIME blood sugar diagnostic (FreeStyle Lite Strips) test blood sugar 3 times per day blood-glucose sensor (Dexcom G7 Sensor device) APPLY NEW SENSOR EVERY 10 DAYS DIRECTED blood-glucose,automatic head sawyer,cont (Dexcom G7 Automatic Beading Lathe Operator) DIRECTED carbidopa-levodopa 25-100 mg 1 tab PO QID 90 days cholecalciferol (vitamin D3) 1,250 mcg PO QWEEK 8 weeks ezetimibe (Zetia) 10 mg PO QAM ferrous sulfate 325 mg PO TID 90 days gabapentin 400 mg PO TID galcanezumab-gnlm (Emgality Pen) 120 mg subcut Q30D 30 days glucose 16 grams (4 x 4 gram) PO Q15M PRN insulin degludec (Tresiba FlexTouch U-100 insulin) 40 units (0.4 mL) subcut BEDTIME lancets (FreeStyle Lancets) Use to check blood sugar daily lisinopril 5 mg PO QAM magnesium oxide 400 mg PO BEDTIME metformin ER 1,000 mg PO BID omeprazole 40 mg PO QAM ondansetron HCl 4 mg PO Q8H PRN oxycodone 5 mg PO Q6H PRN pen needle, diabetic (BD Ultra-Fine Emily Pen Needle) Use to inject insulin daily pyridoxine (vitamin B6) 50 mg PO BID 30 days riboflavin (vitamin B2) 400 mg PO QAM sertraline 200 mg (2 x 100 mg) PO DAILY sumatriptan succinate 100 mg PO Q2H PRN 30 days tirzepatide (Mounjaro) 5 mg (0.5 mL) subcut QWEEK tizanidine 4 mg PO TID PRN trazodone 25 mg (1/2 x 50 mg) PO BEDTIME 30 days trazodone 100 mg PO BEDTIME 90 days zinc gluconate 50 mg PO QAM HPI Comments Details: This is a 55-year-old female with a past medical history of type 2 diabetes with neuropathy, parkinsonism, migraine, pulmonary nodules, multinodular thyroid, IBS and obesity presenting for continued diabetic management. Accompanied by her , Kailash. She was diagnosed about 5 years ago with type 2 diabetes. Hemglobin a1c 08/06/25: 6.0% Reviewed Dexcom data for the past 14 days G ND 7.2% Very high 5% High 27% In range 68% 0% hypoglycemia My interpretation is that she has blood sugars within target overnight and mild hyperglycemia throughout the day and evening. She had to stop 2 mg Ozempic and switch to Mounjaro since her insurance stopped covering Ozempic. She denies side effects on Mounjaro. Current medication regimen: Mounjaro 2.5 mg weekly, metformin 1000 mg BID, Tresiba 40 units She had gastric sleeve surgery more than 10 years ago. Past medication: Trulicity discontinued in the past because of intolerable GI side effect (abdominal pain). Ozempic was switch to Mounjaro because her insurance stopped covering it. Compliance issues: none She met with the primary special educator and automobile upholsterer. Hypoglycemia symptoms: Rare hypoglycemia. Hyperglycemia symptoms: None. [facility]: [facility]. Microvascular complications: bilateral neuropathy Macrovascular complications: no known Hypertension: Controlled on lisinopril 5 mg daily. Hyperlipidemia: treated with Atorvastatin 80 mg and Zetia 10 mg daily. ROS: Constitutional: No unexplained weight loss, fever, chills or night sweats. Respiratory: No shortness of breath Cardiovascular: No chest pain Gastrointestinal: No anorexia, nausea, vomiting or diarrhea. No blood in stool. Endocrine: No cold or heat intolerance. No polyuria or polydipsia. Physical exam: Constitutional: Alert, in no distress. Neck: Supple, Full range of motion. No lymphadenopathy. Respiratory: Clear to auscultation. Cardiovascular: S1 S2 regular. No murmurs. COUNT INCLUDES THE [facility] Medical History Parkinson disease Cervicalgia Migraines Pulmonary nodule RLS (restless legs syndrome) IBS (irritable bowel syndrome) Neuroleptic induced parkinsonism Urinary frequency Chronic abdominal pain Hypertension Hyperlipidemia Diabetic neuropathy Diabetes mellitus with hyperglycemia HLA B27 (HLA B27 positive) Sacroiliitis Surgical History Hx of exploratory laparotomy (06/12/25) Hx of umbilical hernia repair History of esophagogastroduodenoscopy (EGD) History of carpal tunnel release Hx of colonoscopy S/P gastric sleeve procedure Hx of cholecystectomy Family History Father HTN (hypertension) Diabetes Mother HTN (hypertension) Diabetes HLD (hyperlipidemia) Maternal Grandfather Substance use disorder Maternal Grandmother Diabetes Substance use disorder Maternal Uncle Substance use disorder Mental health disorder Paternal Grandmother Substance use disorder Social History Housing: House Are you a primary health care facility administrator to a significant other at home: No Do you presently have visiting nurse or other home services: No Alcohol intake: never Comment: counts correct Patient Tobacco Use Status: Never used Tobacco e-Cigarette/Vaping Use: Never Used Second Hand Smoke Exposure: No service: No Current occupational status: unemployed and disabled Cognitive needs: No Hearing needs: No Vision needs: No Physical Exam Vital Signs: Last Vital Signs Pulse 79 08/30/25 12:55 BP 116/70 08/30/25 12:55 Pulse Ox 96 08/30/25 12:55 Oxygen Delivery Method Room Air 08/30/25 12:55 Office Procedures Glucose Monitoring Details Details: see HPI 15860 - Glucose monitoring, continuous-physician I&R Procedure code (CPT) selection complete Results Reviewed Results Reviewed: Laboratory Last Values Glucose (Clinic) 112 mg/dL (60-115) 08/30/25 13:01 Laboratory Tests 07/18/24 02/20/25 05/20/25 12:10 10:15 08:00 Creatinine 0.67 Estimated GFR > 60 AST 20 ALT 12 Triglycerides 83 Cholesterol 173 LDL Cholesterol, Calc 114 H HDL Cholesterol 43 TSH 0.90 Urine Creatinine 96.32 Urine Microalbumin 7.0 Microalb/Creat Ratio 7.2 Assessment & Plan Assessment & Plan (1) Diabetes mellitus with hyperglycemia: Code(s): E11.65 - Type 2 diabetes mellitus with hyperglycemia Category: Medical Qualifiers: Diabetes mellitus type: type 2 Diabetes mellitus chcf insulin use: with application performance engineer use Qualified Code(s): E11.65 - Type 2 diabetes mellitus with hyperglycemia; Z79.4 - retirement (current) use of insulin (2) Diabetic neuropathy: Code(s): E11.40 - Type 2 diabetes mellitus with diabetic neuropathy, unspecified Category: Medical Qualifiers: Diabetes mellitus type: type 2 Diabetes mellitus complication detail: diabetic polyneuropathy Qualified Code(s): E11.42 - Type 2 diabetes mellitus with diabetic polyneuropathy (3) Hyperlipidemia: Code(s): E78.5 - Hyperlipidemia, unspecified Category: Medical Qualifiers: Hyperlipidemia type: mixed hyperlipidemia Qualified Code(s): E78.2 - Mixed hyperlipidemia (4) Hypertension: Code(s): I10 - Essential (primary) hypertension Category: Medical Qualifiers: Hypertension type: primary hypertension Qualified Code(s): I10 - Essential (primary) hypertension Plan In summary this is a very pleasant, 55-year-old female with Parkinson's seen today for controlled Type II diabetes. Reviewed treatment for hypo and hyperglycemia. She will continue Tresiba 40 units nightly and metformin 1000 mg twice daily. Increase Mounjaro to 5 mg weekly. Discussed pathophysiology of Type II Diabetes Mellitus with the patient in detail.? I explained the chcf risks and complications associated with uncontrolled diabetes including nephropathy, neuropathy, peripheral vascular disease, retinopathy, increased risk of heart disease and stroke.? Her LDL cholesterol was not at goal and Zetia was added to atorvastatin. Check lipid profile prior to next visit. Hypertension-Controlled. Continue Lisinopril to 5 mg daily. She has a follow up scheduled in October for type 2 diabetes. Orders: Orders AMB Glucose Monitoring Today E11.9 - Type 2 diabetes mellitus without complications Medications: New tirzepatide (Mounjaro) 5 mg (0.5 mL) subcut QWEEK 2 mL 1RF Discontinued tirzepatide (Mounjaro) for 4 weeks Discontinued Reason: Doctor's Order 2.5 mg (0.5 mL) subcut QWEEK 2 mL 0RF Patient Instructions: Increase Mounjaro 5 mg weekly and continue metformin 1000 mg BID and Tresiba 40 units If you develop low blood sugars reduce Tresiba 36 units nightly. Coding Level of Care Code Est Pt Level 4 (47051) Diagnoses Type 2 diabetes mellitus with hyperglycemia, with long-term current use of insulin E11.65; Z79.4 Diabetes mellitus type: type 2 Diabetes mellitus chcf insulin use: with application performance engineer use Diabetic polyneuropathy associated with type 2 diabetes mellitus E11.42 Diabetes mellitus type: type 2 Diabetes mellitus complication detail: diabetic polyneuropathy Mixed hyperlipidemia E78.2 Hyperlipidemia type: mixed hyperlipidemia Primary hypertension I10 Hypertension type: primary hypertension CPT Codes Details - CPT: 82736 - Glucose monitoring, continuous-physician I&R ([id number])
[2025-08-30 13:05] LABS: Glucose, Whole Blood 112 mg/dL (60-115)
== END 2025-08-30 13:42 | disposition home or self-care (01) ==
LOC: HO.ENCR 12:46
PROVIDERS: PCP Nurse Practitioner Family; Visit Provider Physician Assistant Medical
DX: E11.65 Type 2 diabetes mellitus with hyperglycemia (principal); Z79.4 Long term (current) use of insulin; E11.42 Type 2 diabetes mellitus with diabetic polyneuropathy; E78.2 Mixed hyperlipidemia; I10 Essential (primary) hypertension

== ENCOUNTER → 2025-08-30 12:46 | Outpatient (BNVA) | payer OTHER, SELFPAY | PROVIDERS: PCP Nurse Practitioner Family; Visit Provider Physician Assistant Medical | DX: E11.65 Type 2 diabetes mellitus with hyperglycemia (principal); E11.42 Type 2 diabetes mellitus with diabetic polyneuropathy; I10 Essential (primary) hypertension; E78.2 Mixed hyperlipidemia; Z79.4 Long term (current) use of insulin | CPT/HCPCS: 82947; 99212 ==

== ENCOUNTER 2025-09-09 09:58 | Outpatient (AMB) | payer OTHER, SELFPAY ==
[2025-09-09 10:08] VITALS: BMI 41.6
--- NOTE | 2025-09-09 10:08 | A.OFFVIS_ITS ---
Vital Signs 09/09/25 10:08 Height 5 ft 9 in Weight 282 lb BMI 41.6 Intake Visit Reasons: PO-Lt CTR 07/29/25-ROM check Intake Note: Jackie is a 55 year old right hand dominant female who presents today for a Wound Check status post Left Carpal Tunnel Release performed by Dr. Whiting on 07/29/25. At her last visit, she was referred to Occupational Therapy for strengthening and desensitization of incision site. Patient reports today she was unable to start OT due to transportation and concerns it would not help. She continues experiencing swelling and pain along the radial aspect of the left thumb. She is concerned there might be something in there. She has been working on ROM exercises at home. Allergies [facility] Adverse Reaction (Intermediate, Verified 09/09/25 10:17) abdominal pain HPI HPI PO-Lt CTR 07/29/25-ROM check: Details: Jackie is a 55 year old right hand dominant female who presents today for a Wound Check status post Left Carpal Tunnel Release performed by Dr. Whiting on 07/29/25. At her last visit, she was referred to Occupational Therapy for strengthening and desensitization of incision site. Patient reports today she was unable to start OT due to transportation and concerns it would not help. She continues experiencing swelling and pain along the radial aspect of the left thumb. She is concerned there might be something in there. She has been working on ROM exercises at home. [facility] Medical History Parkinson disease Cervicalgia Migraines Pulmonary nodule RLS (restless legs syndrome) IBS (irritable bowel syndrome) Neuroleptic induced parkinsonism Urinary frequency Chronic abdominal pain Hypertension Hyperlipidemia Diabetic neuropathy Diabetes mellitus with hyperglycemia HLA B27 (HLA B27 positive) Sacroiliitis Surgical History Hx of exploratory laparotomy (06/12/25) Hx of umbilical hernia repair History of esophagogastroduodenoscopy (EGD) History of carpal tunnel release Hx of colonoscopy S/P gastric sleeve procedure Hx of cholecystectomy Family History Father HTN (hypertension) Diabetes Mother HTN (hypertension) Diabetes HLD (hyperlipidemia) Maternal Grandfather Substance use disorder Maternal Grandmother Diabetes Substance use disorder Maternal Uncle Substance use disorder Mental health disorder Paternal Grandmother Substance use disorder Social History Housing: House Are you a primary assistant child care teacher to a significant other at home: No Do you presently have visiting nurse or other home services: No Alcohol intake: never Comment: counts correct Patient Tobacco Use Status: Never used Tobacco e-Cigarette/Vaping Use: Never Used Second Hand Smoke Exposure: No service: No Current occupational status: unemployed and disabled Cognitive needs: No Hearing needs: No Vision needs: No Review of Systems Const All systems reviewed & are unremarkable except as noted in HPI and below Physical Exam Vital Signs: BMI result Body Mass Index 41.6 Extrem Other: Patient is alert, oriented, and in no acute distress. Neuro: Normal sensation of the tips of all digits of the left hand at this time Vascular: Cap refill brisk Pain: Minimal tenderness to palpation of the incision site of the volar left wrist Mild discomfort with range of motion of the digits of the left hand ROM: patient is able to make a closed fist and extend all digits of the left hand fully, but with some discomfort in the dorsal aspect of the digits Skin: well approximated and well healing incision site noted on the volar aspect of the left wrist No lacerations or abrasions. General: No ecchymosis, erythema, or evidence of infection. Psych: Appears grossly normal Affect normal Attitude cooperative Assessment & Plan Assessment & Plan (1) Bilateral carpal tunnel syndrome: Code(s): G56.03 - Carpal tunnel syndrome, bilateral upper limbs Category: Medical Plan 1. Status post left carpal tunnel release DOS 07/29/2025 experiencing hypersensitivity symptoms postoperatively, resolution of numbness and tingling complete patient appears to be recovering fairly well postoperatively Patient is educated about the typical recovery course At this time, patient is referred to OT for range of motion and gentle strengthening of the left hand, as well as desensitization of incision site on left wrist, patient states she can go for 1-2 sessions to get exercises follow-up as needed with any acute concerns Coding Level of Care Code Global (14875) Diagnoses Bilateral carpal tunnel syndrome G56.03
== END 2025-09-09 10:45 | disposition home or self-care (01) ==
LOC: HO.HOS 09:59
PROVIDERS: PCP Nurse Practitioner Family
DX: G56.03 Carpal tunnel syndrome, bilateral upper limbs (principal)
CPT/HCPCS: 99024

== ENCOUNTER → 2025-09-09 09:58 | Outpatient (BNVA) | payer OTHER, SELFPAY | PROVIDERS: PCP Nurse Practitioner Family | DX: G56.03 Carpal tunnel syndrome, bilateral upper limbs (principal) | CPT/HCPCS: 99212 ==

== ENCOUNTER 2025-09-25 10:07 | Outpatient (AMB) | payer OTHER, SELFPAY ==
--- NOTE | 2025-09-25 10:27 | A.OFFVIS_ITS ---
Vital Signs 09/25/25 10:33 Height 5 ft 9 in BP 140/82 H Blood Pressure Location Rt brachial Position Sitting Pulse 75 Pulse Source Pulse Oximeter Pulse Oximetry (%) 97 Oxygen Delivery Method Room Air Intake Visit Reasons: 6 mnts f/u appt (COMF.) Intake Note: Patient presents for follow up. 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 Accompanied by: Self / Same As Patient Allergies dulaglutide (From [facility]) Adverse Reaction (Intermediate, Verified 09/25/25 10:34) abdominal pain Medication List - Last Reconciled 09/25/25 by ELENA Amaya [4 wheeled walker with seat daily use] ascorbic acid (vitamin C) 500 mg PO BID 30 days aspirin 81 mg PO QAM atorvastatin 80 mg PO BEDTIME blood sugar diagnostic (FreeStyle Lite Strips) test blood sugar 3 times per day blood-glucose sensor (H[employer] G7 Sensor device) APPLY NEW SENSOR EVERY 10 DAYS DIRECTED blood-glucose,flaker operator,cont (Dexcom G7 Outside Sales Representative Insurance) DIRECTED carbidopa-levodopa 25-100 mg 1 tab PO QID 90 days cholecalciferol (vitamin D3) 1,250 mcg PO QWEEK 8 weeks ezetimibe (Zetia) 10 mg PO QAM ferrous sulfate 325 mg PO TID 90 days gabapentin 400 mg PO TID galcanezumab-gnlm (Emgality Pen) 120 mg subcut Q30D 30 days glucose 16 grams (4 x 4 gram) PO Q15M PRN insulin degludec (Tresiba FlexTouch U-100 insulin) 40 units (0.4 mL) subcut BEDTIME lancets (FreeStyle Lancets) Use to check blood sugar daily lisinopril 5 mg PO QAM magnesium oxide 400 mg PO BEDTIME metformin ER 1,000 mg PO BID omeprazole 40 mg PO QAM ondansetron HCl 4 mg PO Q8H PRN oxycodone 5 mg PO Q6H PRN pen needle, diabetic (BD Ultra-Fine Emily Pen Needle) Use to inject insulin daily pyridoxine (vitamin B6) 50 mg PO BID 30 days riboflavin (vitamin B2) 400 mg PO QAM sertraline 200 mg (2 x 100 mg) PO DAILY sumatriptan succinate 100 mg PO Q2H PRN 30 days tirzepatide (Mounjaro) 5 mg (0.5 mL) subcut QWEEK tizanidine 4 mg PO TID PRN trazodone 25 mg (1/2 x 50 mg) PO BEDTIME 30 days trazodone 100 mg PO BEDTIME 90 days zinc gluconate 50 mg PO QAM HPI Comments Details: 55-year-old female presents for f/u visit of parkinsonism, migraine, and RLS. Patient is accompanied by her dtr, Diamond. Interval hsitory: 06/12/2025, underwent exploratory laparoscopy, lysis of adhesions vy Dr Martin, [facility] gen'l surgery, for persistent abdominal pain, nausea and vomiting, diarrhea. 03/19/2025, BUE EMG/NCS: [id number] bilateral median neuropathy across carpal tunnel. Rt carpal tunnel repair 07/29/25 Lt carpal tunnel repair Parkinsonism: She continues to have tremor and voice, her CD-LD is helpful, but sometimes needs to take an extra 1-2 tablets in a day. She states she is not dropping things as much since the grain shipper, and is doing the hand exercises regularly. She states her tremor is stable, but CD-LD helps. She may sometimes spill something, for example the sugar she is trying to pour into her coffee. She tries to stand slowly with her feet centered and planted. She can still be off-balance or shaky at times. Has difficulty getting up from lower positions. Denies interval falls. Using a cane or walker for shorter distances, and w/c for longer distances. She is trying to stay active and be as Ind as possible. She is still prone to forgetfulness. Swallowing is stable- tries to eat slowly and take small bites, but sometimes can cough while eating but no actual choking. She reports her RLS is stable, it is a familial condition. Continues meditation and soothing hobbies- which is overall helpful.. Migraines: She is having 2-3 migraine days per week- the migraine attacks are not as severe- not needing to lay down during the attacks. She does think the Amitriptyline is helpful She has not resumed Emgality, as she states she cannot fill this at her local [facility], and feels that was upright helpful anyways. Sumatriptan usually works well, if taken at the 1st sign and lies down. But sometimes if if she takes the sumatriptan too late, the migraine attack we will be more severe in the sumatriptan may not work as well.?? ? Typical migraine characteristics: usually right frontal or parietal associated with photophobia, phonophobia, dizziness, nausea, vomiting, brain fog, runny nose. [facility] Medical History Parkinson disease Cervicalgia Migraines Pulmonary nodule RLS (restless legs syndrome) IBS (irritable bowel syndrome) Neuroleptic induced parkinsonism Urinary frequency Chronic abdominal pain Hypertension Hyperlipidemia Diabetic neuropathy Diabetes mellitus with hyperglycemia HLA B27 (HLA B27 positive) Sacroiliitis Surgical History Hx of exploratory laparotomy (06/12/25) Hx of umbilical hernia repair History of esophagogastroduodenoscopy (EGD) History of carpal tunnel release Hx of colonoscopy S/P gastric sleeve procedure Hx of cholecystectomy Family History Father HTN (hypertension) Diabetes Mother HTN (hypertension) Diabetes HLD (hyperlipidemia) Maternal Grandfather Substance use disorder Maternal Grandmother Diabetes Substance use disorder Maternal Uncle Substance use disorder Mental health disorder Paternal Grandmother Substance use disorder Social History Housing: House Are you a primary manager respiratory care to a significant other at home: No Do you presently have visiting nurse or other home services: No Alcohol intake: never Comment: counts correct Patient Tobacco Use Status: Never used Tobacco e-Cigarette/Vaping Use: Never Used Second Hand Smoke Exposure: No service: No Current occupational status: unemployed and disabled Cognitive needs: No Hearing needs: No Vision needs: No Physical Exam Vital Signs: Last Vital Signs Pulse 75 09/25/25 10:33 BP 140/82 H 09/25/25 10:33 Pulse Ox 97 09/25/25 10:33 Oxygen Delivery Method Room Air 09/25/25 10:33 Const General: cooperative and no acute distress Resp Effort & Inspection: normal respiratory effort and able to speak in complete sen tences Neuro Other: General: Decreased facial expression Mild hypophonia- less stuttering and bradyphrenia BUE R > L postural tremor. FFM- slightly decreased fluidity, right more so Foot taps- decreased fluidity, right more so Stands slowly, short steps, steady gait with walker Assessment & Plan Assessment & Plan (1) Parkinsonism: Comment: ? neuroleptic induced PDism Code(s): G20 - Parkinson's disease Category: Medical Qualifiers: Parkinsonism type: secondary Parkinsonism Secondary Parkinsonism type: neuroleptic-induced Qualified Code(s): G21.11 - Neuroleptic induced parkinsonism (2) Tremor: Comment: ? neuroleptic induced PDism Code(s): R25.1 - Tremor, unspecified Category: Medical (3) Restless leg syndrome: Code(s): G25.81 - Restless legs syndrome Category: Medical (4) Migraine: Comment: Episodic migraine without aura Code(s): G43.909 - Migraine, unspecified, not intractable, without status migrainosus Category: Medical Qualifiers: Intractability: not intractable Migraine type: migraine (< 15 days per month) without aura Status migrainosus presence: without status migrainosus Qualified Code(s): G43.009 - Migraine without aura, not intractable, without status migrainosus Plan For hand weakness and paresthesias s/p bilateral carpal tunnel repair: Continue hand exercises per orthopedics. Follow-up with orthopedics as scheduled For tremor, gait difficulties, and visual/olfactory disturbances: DaTSCAN- normal. EEG- normal. Continue Carbidopa-Levodopa 25-100mg to 1 tab 4 times a day, may take extra 1-2 tabs per day as needed. Engage in regular physical activity as able. For restless legs: February 2025 ferritin- 180 WNL Continue decreased dose of trazodone 125mg daily at bedtime Continue Gabapentin 400 mg t.i.d. Patient education resources previously shared, such as the both ?navigating life with restless leg syndrome? by Dr. Henderson. ? For swallowing issues: Continue safe swallowing strategies- chin tuck, double swallow, alt liquids/solids, avoiding high choke risk foods. Consider FILLER SIFTER MACHINE eval & tx if s/s worsen. ? Episodic migraine without aura prevention Continue riboflavin 400 mg daily in a.m. Continue Amitriptyline at 10mg qhs- d/t RLS s/s. Discontinue Emgality 120mg/ml auto-injection, she states this has been difficult to obtain, and it was not her effective after all. Trial Rimegepant ODT (Nurtec ODT) 75mg, 1 tab every other day. Max of 1 tabs (75mg) per 24 hours. * May adjunct with OTC Tylenol 650-1000mg every 4-6 hours as needed. * Potential adverse effects, include but are not limited to fatigue, nausea, dry mouth, constipation. Continue magnesium 400 mg daily at bedtime. Previous tx trials- Topiramate- effective but caused cognitive difficulties. Pt currently on Lisinopril- no effect for migraine. Propranolol- ineffective after 2 months. Migraine treatment contraindications: Beta-blockers due to insulin dependent diabetic. Would use caution with Aimovig or Qulipta due to recurrent constipation. For acute migraine treatment Discontinue sumatriptan 100 mg order, as it is not consistently effective. Trial Rizatriptan 10mg tab, 1/2 - 1 tab (5-10mg) at onset of headache, may repeat in 2 hours. Max of 2 tabs (200mg) per 24 hours. * May adjunct with OTC Tylenol 650-1000mg every 4-6 hours as needed. * Potential adverse effects of triptans, include but are not limited to nausea, fatigue, chest tightness/tingling (usually passes within a few minutes), medication overuse headaches. Previous acute migraine treatments: Sumatriptan- Acute migraine tx contraindications- None at this time. ? f/u in 6 months or sooner prn. Medications: New rizatriptan max 3 tabs per day or 6 tabs per week 5 - 10 mg (0.5 - 1 x 10 mg) PO Q2H PRN 12 tabs 3RF migraine headache 21 days amitriptyline 10 mg PO BEDTIME 30 tabs 3RF 30 days rimegepant (Nurtec ODT) 75 mg PO Q OTHER DAY 16 tabs 6RF 32 days G43.009 - Migraine without aura, not intractable, without status migrainosus Discontinued galcanezumab-gnlm (Emgality Pen) maintenance dose of 120 mg subcu q.month. PA 05/13/25-11/09/25 Discontinued Reason: Doctor's Order 120 mg subcut Q30D 30 days 1 mL 6RF Coding Level of Care Code Est Pt Level 4 (38690) Complex EM visit Add On G2211 Diagnoses Neuroleptic-induced parkinsonism G21.11 Parkinsonism type: secondary Parkinsonism Secondary Parkinsonism type: neuroleptic-induced Tremor R25.1 Restless leg syndrome G25.81 Migraine without aura and without status migrainosus, not intractable G43.009 Intractability: not intractable Migraine type: migraine (< 15 days per month) without aura Status migrainosus presence: without status migrainosus
[2025-09-25 10:33] VITALS: BP 140/82; PULSE 75; O2SAT 97
== END 2025-09-25 11:37 | disposition home or self-care (01) ==
LOC: HO.HSMS 10:08
PROVIDERS: PCP Nurse Practitioner Family; Visit Provider Nurse Practitioner Family
DX: G21.11 Neuroleptic induced parkinsonism (principal); R25.1 Tremor, unspecified; G25.81 Restless legs syndrome; G43.009 Migraine without aura, not intractable, without status migrainosus
CPT/HCPCS: 99214

== ENCOUNTER → 2025-09-25 10:07 | Outpatient (BNVA) | payer OTHER, SELFPAY | PROVIDERS: PCP Nurse Practitioner Family; Visit Provider Nurse Practitioner Family | DX: G21.11 Neuroleptic induced parkinsonism (principal); R25.1 Tremor, unspecified; G25.81 Restless legs syndrome; G43.009 Migraine without aura, not intractable, without status migrainosus | CPT/HCPCS: 99212 ==

== ENCOUNTER 2025-10-24 12:15 | Outpatient (REF) | payer OTHER, SELFPAY ==
[2025-10-24 14:20] LABS: MANUAL DIFF FLAG NO
[2025-10-24 14:24] LABS: Hematocrit 39.1 % (37.0-47.0); Hemoglobin 12.5 g/dl (12.0-16.0); Imm Gran Abs Auto 0.03 X10*3/uL (0.00-0.03); Imm Gran Pct Auto 0.3 % (0.0-0.4); Lymphocytes Absolute Auto 2.9 X10*3/uL (1.2-4.9); Mean Corpuscular HGB Conc 32.0 g/dl (31.0-35.0); Mean Corpuscular Hemoglobin 25.9 pg (27.0-33.0); Mean Corpuscular Volume 81.1 fL (80.0-98.0); NRBC Abs Auto 0.000 X10*3/uL (0.0-0.012); NRBC Pct Auto 0.0 /100WBC (0.0-0.2); Platelet Count 329 X10*3/uL (160-400); Red Blood Count 4.82 X10*6/uL (4.20-5.50); White Blood Count 10.5 X10*3/uL (4.8-10.8)
[2025-10-24 14:51] LABS: Alanine Aminotransferase 17 U/L (0-31); Albumin Level 4.0 g/dL (3.5-5.0); Alkaline Phosphatase 89 U/L (39-117); Anion Gap 12 (12-20); Aspartate Amino Transferase 22 U/L (5-31); Blood Urea Nitrogen 13 mg/dL (9-16); Calcium 9.0 mg/dL (8.4-10.2); Carbon Dioxide 25 mmol/L (22-29); Chloride 107 mmol/L (96-108); Cholesterol 193 mg/dL (<200); Estimated Glomerular Filt Rate > 60; HDL Cholesterol 49 mg/dL (>40); Potassium 4.2 mmol/L (3.3-5.1); Sodium 140 mmol/L (135-145); Total Protein 7.4 g/dL (6.5-8.0); Triglycerides 71 mg/dL (<150)
[2025-10-24 14:53] LABS: Vitamin B12 389 pg/mL (200-900)
[2025-10-24 18:04] LABS: Appearance Urine Turbid; Glucose Urine UA Negative (Negative); PH 5.0 (5.0-9.0); Specific Gravity - Urine 1.025 (1.005-1.025)
[2025-10-24 18:31] LABS: Microalbum/Creatinine Ratio Ur 6.1 ug/mg cr (<30)
== END 2025-10-24 12:16 | disposition home or self-care (01) ==
LOC: HO.HMGCLDS 12:15
PROVIDERS: Physician Assistant Medical; PCP Nurse Practitioner Family; Visit Provider Nurse Practitioner Family
DX: Z23 Encounter for immunization (principal); Z12.4 Encounter for screening for malignant neoplasm of cervix; Z00.01 Encounter for general adult medical examination with abnormal findings; G21.11 Neuroleptic induced parkinsonism; E11.65 Type 2 diabetes mellitus with hyperglycemia; E11.42 Type 2 diabetes mellitus with diabetic polyneuropathy; E55.9 Vitamin D deficiency, unspecified; I10 Essential (primary) hypertension; Z91.89 Other specified personal risk factors, not elsewhere classified; Z79.4 Long term (current) use of insulin
CPT/HCPCS: 36415; 80053; 80061; 81003; 82043; 82306; 82570; 82607; 83036; 84443; 85025; 90471; 90656; 96127; 99396

== ENCOUNTER 2025-10-24 13:11 | Outpatient (AMB) | payer OTHER, SELFPAY ==
--- NOTE | 2025-10-24 13:24 | A.OFFPC_ITS ---
Vital Signs 10/24/25 13:25 Height 5 ft 9 in BP 138/78 Blood Pressure Location Lt brachial Position Sitting Respiration 16 Pulse 78 Pulse Source Pulse Oximeter Pulse Oximetry (%) 97 Oxygen Delivery Method Room Air Intake Visit Reasons: CPE Allergies dulaglutide (From [facility]) Adverse Reaction (Intermediate, Verified 10/24/25 14:08) abdominal pain Medication List - Last Reconciled 10/24/25 by Omer Pérez, CREATIVE INTERN-BC [4 wheeled walker with seat daily use] amitriptyline 10 mg PO BEDTIME 30 days ascorbic acid (vitamin C) 500 mg PO BID 30 days aspirin 81 mg PO QAM atorvastatin 80 mg PO BEDTIME blood sugar diagnostic (FreeStyle Lite Strips) test blood sugar 3 times per day blood-glucose sensor ([employer]ovation G7 Sensor device) APPLY NEW SENSOR EVERY 10 DAYS DIRECTED blood-glucose,spinning lathe operator hydraulic,cont (Dexcom G7 Follow Up Manager) DIRECTED carbidopa-levodopa 25-100 mg 1 tab PO QID 90 days cholecalciferol (vitamin D3) 1,250 mcg PO QWEEK 8 weeks ezetimibe (Zetia) 10 mg PO QAM ferrous sulfate 325 mg PO TID 90 days gabapentin 400 mg PO TID glucose 16 grams (4 x 4 gram) PO Q15M PRN insulin degludec (Tresiba FlexTouch U-100 insulin) 40 units (0.4 mL) subcut BEDTIME lancets (FreeStyle Lancets) Use to check blood sugar daily lisinopril 5 mg PO QAM magnesium oxide 400 mg PO BEDTIME metformin ER 1,000 mg PO BID omeprazole 40 mg PO QAM ondansetron HCl 4 mg PO Q8H PRN oxycodone 5 mg PO Q6H PRN pen needle, diabetic (BD Ultra-Fine Emily Pen Needle) Use to inject insulin daily pyridoxine (vitamin B6) 50 mg PO BID 30 days riboflavin (vitamin B2) 400 mg PO QAM rimegepant (Nurtec ODT) 75 mg PO Q OTHER DAY 32 days rizatriptan 5 - 10 mg (0.5 - 1 x 10 mg) PO Q2H PRN 21 days sertraline 200 mg (2 x 100 mg) PO DAILY sumatriptan succinate 100 mg PO Q2H PRN 30 days tirzepatide (Mounjaro) 7.5 mg (0.5 mL) subcut QWEEK tizanidine 4 mg PO TID PRN trazodone 25 mg (1/2 x 50 mg) PO BEDTIME 30 days trazodone 100 mg PO BEDTIME 90 days zinc gluconate 50 mg PO QAM Tobacco use date assessed: 01/31/25 Dental Screening Dental Screen Date: 01/31/25 HPI CPE HPI Details History of Present Illness The patient is a 55 year old female presenting for a physical exam. She has a history of Parkinson's disease and is followed by neurology. She is morbidly obese and uses a wheelchair. The patient has a history of diabetes, sees an clothespin machine operator, and has a recent A1c of 7.8%. She experiences bilateral extremity weakness and neuropathy, although sensation is positive on monofilament testing. She reports a history of IBS-CD, characterized by alternating constipation and diarrhea. Her colon cancer screening is up to date. She is due for a mammogram and a pap smear. She received a flu vaccine today. [facility] Maintenance A referral will be placed for a mammogram as she is due for screening. A referral will be placed for a Pap smear as she is also due for this screening. The patient received an influenza vaccine during the visit. She will receive the Prevnar vaccine in the near future. colon screen is up to date Social History - Functional Status: The patient is in a wheelchair and has bilateral extremity weakness. Review of Systems - General: Reports doing well overall. - Neurological: Reports bilateral extrem ity weakness and neuropathies. - Gastrointestinal: Reports alternating constipation and diarrhea. -denies any fevers, chills, si or hi Physical Exam General: Cooperative, healthy appearing, comfortable, no acute distress and well developed, morbidly obese, in a wheelchair Orientation: Patient oriented x3 Limitations: Weakness to bilateral extremities Head: Normal to inspection Ears: Hearing grossly normal bilaterally Nose: Normal external nose present Face and sinus: Normal facial exam Eyes: Appearance normal, both eyes and all related structures Neck: Normal visual inspection and Yes full ROM Respiratory: Normal respiratory effort and able to speak in complete sentences. Clear to auscultation bilaterally Cardiovascular: Regular rate and rhythm. Normal S1 and S2 GI: Normal to inspection. Soft to palpation and nontender Skin: No rashes or lesions noted Neuro: Patient oriented x3, positive sensation with use of monofilament, despite lack of sensation overall, feet intact Extremities: Normal to inspection, weakness with bilateral extremities Results - Labs: Hemoglobin A1c is 7.8%. Plan 1. Diabetes Mellitus The patient is working on improving her glycemic control, with a recent A1c of 7.8. The plan includes increasing her GLP-1 agonist over time to help manage her diabetes. She continues to follow up with endocrinology. Discussion Notes I discussed the management of the patient's diabetes and my belief that increasing her GLP-1 agonist medication will be helpful. I informed her that I would place referrals for her overdue mammogram and Pap smear. We also discussed vaccinations, noting she received the flu vaccine today and will get the Prevnar vaccine soon. Patient Instructions - We will be placing referrals for you t o get a mammogram and a Pap smear. - Continue to work on managing your diab etes. We will be increasing your GLP-1 agonist medication over time. - You received your flu shot today. - Please schedule an appointment to get your Prevnar vaccine in the near future. [facility] Medical History Parkinson disease Cervicalgia Migraines Pulmonary nodule RLS (restless legs syndrome) IBS (irritable bowel syndrome) Neuroleptic induced parkinsonism Urinary frequency Chronic abdominal pain Hypertension Hyperlipidemia Diabetic neuropathy Diabetes mellitus with hyperglycemia HLA B27 (HLA B27 positive) Sacroiliitis Surgical History Hx of exploratory laparotomy (06/12/25) Hx of umbilical hernia repair History of esophagogastroduodenoscopy (EGD) History of carpal tunnel release Hx of colonoscopy S/P gastric sleeve procedure Hx of cholecystectomy Family History Father HTN (hypertension) Diabetes Mother HTN (hypertension) Diabetes HLD (hyperlipidemia) Maternal Grandfather Substance use disorder Maternal Grandmother Diabetes Substance use disorder Maternal Uncle Substance use disorder Mental health disorder Paternal Grandmother Substance use disorder Social History Housing: House Are you a primary women's health care nurse practitioner to a significant other at home: No Do you presently have visiting nurse or other home services: No Alcohol intake: never Comment: counts correct Patient Tobacco Use Status: Never used Tobacco e-Cigarette/Vaping Use: Never Used Second Hand Smoke Exposure: No service: No Current occupational status: unemployed and disabled Cognitive needs: No Hearing needs: No Vision needs: No Questionnaire PHQ-9 Over the last 2 weeks, how often have you been bothered by any of the following problems? 1. Little interest or pleasure in doing things: not at all 2. Feeling down, depressed, or hopeless: not at all 3. Trouble falling or staying asleep, or sleeping too much: not at all 4. Feeling tired or having little energy: not at all 5. Poor appetite or overeating: not at all 6. Feeling bad about yourself - or that you are a failure or have let yourself or your family down: not at all 7. Trouble concentrating on things, such as reading the newspaper or watching television: not at all 8. Moving or speaking so slowly that other people could have noticed. Or the opposite - being so fidgety or restless that you have been moving around a lot more than usual: not at all 9. Thoughts that you would be better off or of hurting yourself in some way: not at all Total score: 0 Depression Screening Interpretation: Negative Depression Screening Done: Yes 78219 - PHQ-9 Billing: Patient declined-do not bill Source: Developed by Drs. Mike Busch, Patricia Brandt, Dashawn David and colleagues, with an educational annika from [employer]. Thrive Questionnaire Date Thrive assessed: 01/28/25 I am a: Patient What is your living situation today?: I have a steady place to live Within the past 12 months, did the food you bought not last and you didn't have the money to get more?: Never true Within the past 12 months, did you worry whether your food would run out before you got money to buy more?: Never true Do you have trouble paying for medicines?: I choose not to answer this question Do you have trouble getting transportation to medical appointments?: Yes Do you have trouble paying your heating and electricity bill?: I choose not to answer this question Do you have trouble taking care of your child, family member or friend?: No Do you have trouble with day-to-day activities such as bathing, preparing meals, shopping, managing finances, etc.?: I choose not to answer this question Are you currently unemployed and looking for a job?: No Are you interested in more education?: No Please select the resources that you would like help with: None Currently or been in a relationship where the following occur: No concerns reported THRIVE Score: 1 MANUELA-7 AMB Questionnaire MANUELA-7 Date MANUELA - 7 assessed: 10/24/25 Feeling nervous, anxious, or on edge: 1 = Several days Not being able to stop or control worryin = Several days Worrying too much about different things: 0 = Not at all Trouble relaxin = Several days Being so restless that it is hard to sit still: 0 = Not at all Becoming easily annoyed or irritable: 0 = Not at all Feeling afraid as if something awful might happen: 0 = Not at all Total MANUELA-7 score (0-4 normal; 5-9 mild; 10-14 moderate; 15-21 severe): 3 Source: Developed by Drs. Mike Busch, Patricia Brandt, Dashawn David and colleagues, with an educational annika from [employer]. MANUELA-7 Assessment Billing MANUELA-7 Assessment Tool: MANUELA-7 Assessment 88474 Physical exam (Primary Care) Vital Signs: Last Vital Signs Pulse 78 10/24/25 13:25 Resp 16 10/24/25 13:25 BP 138/78 10/24/25 13:25 Pulse Ox 97 10/24/25 13:25 Oxygen Delivery Method Room Air 10/24/25 13:25 Tobacco/Smoking Status: Tobacco use Status Tobacco use date assessed 01/31/25 10/24/25 13:24 Patient Tobacco Use Status Never used Tobacco 10/24/25 13:24 e-Cigarette/Vaping Use Never Used 10/24/25 13:24 PHQ-9: PHQ-9 Score PHQ-9: Total score 0 10/24/25 13:28 Depression Screening Interpretation: Negative Thrive Assessment: Date of Thrive Assessment Date Thrive assessed 01/28/25 10/24/25 13:24 Currently or been in a relationship where the following occur: No concerns reported Office Procedures Flu Questionnaire Does the patient have a severe egg allergy?: No Does the patient have severe life threatening allergies?: No Does the patient have a fever or illness today?: No Has the patient ever had Guillain-Arbela Syndrome?: No Has the patient ever had any past reaction to a flu shot?: No Immunizations Fluarix [id number] (PF) 45 mcg (15 mcg x 3)/0.5 mL IM syringe Performing Provider: CESILIA Avalos [place] [facility] [facility] Administered by: Kristin Melendrez MA on 10/24/25 13:29 Dose Route Admin Location Dispensed Lot Number Expiration Date NDC Director Of Software Engineering 0.5 mL IM Left Deltoid 0.5 mL [id number] 05/13/26 84889-619-75 [employer] VIS Given Date VIS Provided VIS Publication Date 10/24/25 Single Vaccine 24 Eligibility Eligibility Date Funding Source Not [facility] Eligible 10/24/25 Private Coding Level of Care Code Est Pt Level 3 (55534) Est Pt Prev Care 40-64y(26083) Diagnoses Screening for cervical cancer Z12.4 Diabetes E11.9 Neuroleptic-induced parkinsonism G21.11 Parkinsonism type: secondary Parkinsonism Secondary Parkinsonism type: neuroleptic-induced Diabetic polyneuropathy associated with type 2 diabetes mellitus E11.42 Diabetes mellitus type: type 2 Diabetes mellitus complication detail: diabetic polyneuropathy Encounter for routine adult physical exam with abnormal findings Z00.01 Additional Codes MANUELA-7 Assessment Billing - MANUELA-7 Assessment Tool: MANUELA-7 Assessment 59010 ([id number]) Assessment & Plan Assessment & Plan (1) Screening for cervical cancer: Code(s): Z12.4 - Encounter for screening for malignant neoplasm of cervix Category: Medical (2) Diabetes: Code(s): E11.9 - Type 2 diabetes mellitus without complications Category: Medical (3) Parkinsonism: Comment: ? neuroleptic induced PDism Code(s): G20 - Parkinson's disease Category: Medical Qualifiers: Parkinsonism type: secondary Parkinsonism Secondary Parkinsonism type: neuroleptic-induced Qualified Code(s): G21.11 - Neuroleptic induced parkinsonism (4) Diabetic neuropathy: Code(s): E11.40 - Type 2 diabetes mellitus with diabetic neuropathy, unspecified Category: Medical Qualifiers: Diabetes mellitus type: type 2 Diabetes mellitus complication detail: diabetic polyneuropathy Qualified Code(s): E11.42 - Type 2 diabetes mellitus with diabetic polyneuropathy (5) Encounter for routine adult physical exam with abnormal findings: Code(s): Z00.01 - Encounter for general adult medical examination with abnormal findings Category: Medical Plan . Orders: Orders Influenza [id number] Immunization Today Z23 - Encounter for immunization AMB Hemoglobin A1c Today E11.9 - Type 2 diabetes mellitus without complications MM screening mammo BI Today Z12.31 - Encounter for screening mammogram for malignant neoplasm of breast Referrals PERIPATOLOGIST Referral Z12.4 - Encounter for screening for malignant neoplasm of cervix
[2025-10-24 13:25] VITALS: BP 138/78; PULSE 78; RESP 16; O2SAT 97
== END 2025-10-24 14:15 | disposition home or self-care (01) ==
LOC: HO.HMCC 13:12
PROVIDERS: PCP Nurse Practitioner Family; Visit Provider Nurse Practitioner Family
DX: Z00.01 Encounter for general adult medical examination with abnormal findings (principal); E11.42 Type 2 diabetes mellitus with diabetic polyneuropathy; Z12.4 Encounter for screening for malignant neoplasm of cervix; G21.11 Neuroleptic induced parkinsonism; Z23 Encounter for immunization

== ENCOUNTER 2025-10-29 10:18 | Outpatient (AMB) | payer OTHER, SELFPAY ==
[2025-10-29 10:21] VITALS: BP 124/88; PULSE 84; O2SAT 98
--- NOTE | 2025-10-29 10:21 | A.OFFVIS_ITS ---
Vital Signs 10/29/25 10:21 Height 5 ft 9 in BP 124/88 Blood Pressure Location Lt brachial Position Sitting Pulse 84 Pulse Source Pulse Oximeter Pulse Oximetry (%) 98 Oxygen Delivery Method Room Air Intake Visit Reasons: Type II diabetes Intake Note: Patient present today to follow up on Type 2 Diabetes Mellitus. Last Diabetic Eye exam: 07/23/2025 [facility] Last Podiatry Visit: Does not see a Adult Neuropsychologist Random Glucose: 205 mg/dL Most recent HgA1C: 7.8% 10/24/2025 [employer] Required: No Accompanied by: Daughter Allergies dulaglutide (From Trulicity) Adverse Reaction (Intermediate, Verified 10/29/25 10:29) abdominal pain HPI Comments Details: This is a 55-year-old female with a past medical history of type 2 diabetes with neuropathy, parkinsonism, migraine, pulmonary nodules, multinodular thyroid, IBS and obesity presenting for continued diabetic management. Accompanied by her , Kailash. She was diagnosed about 5 years ago with type 2 diabetes. Hemglobin a1c 7.8% up from 6%. She was previously well-controlled, but her insurance stopped covering Ozempic. Current medication regimen: Mounjaro 7.5 mg weekly, metformin 1000 mg BID, Tresiba 40 units She had gastric sleeve surgery more than 10 years ago. Past medication: Trulicity discontinued in the past because of intolerable GI side effect (abdominal pain). Ozempic was switch to Mounjaro because her insurance stopped covering it. Compliance issues: none She met with the childbirth educator and hr internship. Hypoglycemia symptoms: No hypoglycemia Hyperglycemia symptoms: None. [facility] Microvascular complications: bilateral neuropathy Macrovascular complications: no known Hypertension: Controlled on lisinopril 5 mg daily. Hyperlipidemia: treated with Atorvastatin 80 mg and Zetia 10 mg daily. LDL 130 with a target of less than 100. She is forgetful, and she admits that she has not been using her pillbox. Her vitamin-D level is low. Currently taking 2000 IU daily. ROS: Constitutional: No unexplained weight loss, fever, chills or night sweats. Respiratory: No shortness of breath Cardiovascular: No chest pain Gastrointestinal: No anorexia, nausea, vomiting or diarrhea. No blood in stool. Endocrine: No cold or heat intolerance. No polyuria or polydipsia. Physical exam: Constitutional: Alert, in no distress. Neck: Supple, Full range of motion. No lymphadenopathy. Respiratory: Clear to auscultation. Cardiovascular: S1 S2 regular. No murmurs. [facility] Medical History Parkinson disease Cervicalgia Migraines Pulmonary nodule RLS (restless legs syndrome) IBS (irritable bowel syndrome) Neuroleptic induced parkinsonism Urinary frequency Chronic abdominal pain Hypertension Hyperlipidemia Diabetic neuropathy Diabetes mellitus with hyperglycemia HLA B27 (HLA B27 positive) Sacroiliitis Surgical History Hx of exploratory laparotomy (06/12/25) Hx of umbilical hernia repair History of esophagogastroduodenoscopy (EGD) History of carpal tunnel release Hx of colonoscopy S/P gastric sleeve procedure Hx of cholecystectomy Family History Father HTN (hypertension) Diabetes Mother HTN (hypertension) Diabetes HLD (hyperlipidemia) Maternal Grandfather Substance use disorder Maternal Grandmother Diabetes Substance use disorder Maternal Uncle Substance use disorder Mental health disorder Paternal Grandmother Substance use disorder Social History Housing: House Are you a primary lawn care specialist to a significant other at home: No Do you presently have visiting nurse or other home services: No Alcohol intake: never Comment: counts correct Patient Tobacco Use Status: Never used Tobacco e-Cigarette/Vaping Use: Never Used Second Hand Smoke Exposure: No service: No Current occupational status: unemployed and disabled Cognitive needs: No Hearing needs: No Vision needs: No Physical Exam Vital Signs: Last Vital Signs Pulse 84 10/29/25 10:21 BP 124/88 10/29/25 10:21 Pulse Ox 98 10/29/25 10:21 Oxygen Delivery Method Room Air 10/29/25 10:21 Results Reviewed Results Reviewed: Laboratory Last Values Glucose (Clinic) 205 mg/dL (60-115) H 10/29/25 10:32 Laboratory Tests 10/24/25 10/24/25 12:20 13:37 Creatinine 0.61 Estimated GFR > 60 Hgb A1c (Clinic) 7.8 H Hemoglobin A1c % 8.3 H AST 22 ALT 17 Triglycerides 71 Cholesterol 193 LDL Cholesterol, Calc 130 H HDL Cholesterol 49 Vitamin B12 389 25-OH Vitamin D Total 22.9 L TSH 0.84 Urine Creatinine 194.71 Urine Microalbumin 12.0 Microalb/Creat Ratio 6.1 Assessment & Plan Assessment & Plan (1) Diabetes mellitus with hyperglycemia: Code(s): E11.65 - Type 2 diabetes mellitus with hyperglycemia Category: Medical Qualifiers: Diabetes mellitus type: type 2 Diabetes mellitus senior care insulin use: with senior care use Qualified Code(s): E11.65 - Type 2 diabetes mellitus with hyperglycemia; Z79.4 - USP (current) use of insulin (2) Diabetic neuropathy: Code(s): E11.40 - Type 2 diabetes mellitus with diabetic neuropathy, unspecified Category: Medical Qualifiers: Diabetes mellitus type: type 2 Diabetes mellitus complication detail: diabetic polyneuropathy Qualified Code(s): E11.42 - Type 2 diabetes mellitus with diabetic polyneuropathy (3) Hyperlipidemia: Code(s): E78.5 - Hyperlipidemia, unspecified Category: Medical Qualifiers: Hyperlipidemia type: mixed hyperlipidemia Qualified Code(s): E78.2 - Mixed hyperlipidemia (4) Hypertension: Code(s): I10 - Essential (primary) hypertension Category: Medical Qualifiers: Hypertension type: primary hypertension Qualified Code(s): I10 - Essential (primary) hypertension (5) Vitamin D deficiency: Code(s): E55.9 - Vitamin D deficiency, unspecified Category: Medical Plan In summary this is a very pleasant, 55-year-old female with Parkinson's seen today for type 2 diabetes. She was previously well-controlled until insurance stopped covering Ozempic. We are titrating Mounjaro now. She will continue Tresiba 40 units nightly and metformin 1000 mg twice daily. Finish current prescription of Mounjaro and then increase to 10 mg weekly. Discussed pathophysiology of Type II Diabetes Mellitus with the patient in detail.? 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 Continue Zetia and atorvastatin. Use pillbox to help with compliance. Hypertension continue lisinopril 5 mg daily. Increase vitamin-D supplement to 4000 IU daily. Follow up in 6 weeks for type 2 diabetes. Medications: New tirzepatide (Mounjaro) 10 mg (0.5 mL) subcut QWEEK 2 mL 0RF cholecalciferol (vitamin D3) (D3-2000) 100 mcg (2 x 50 mcg (2,000 unit)) PO DAILY 180 caps 1RF 90 days Discontinued cholecalciferol (vitamin D3) Discontinued Reason: Doctor's Order 1,250 mcg PO QWEEK 8 weeks 8 caps 0RF tirzepatide (Mounjaro) Discontinued Reason: Doctor's Order 7.5 mg (0.5 mL) subcut QWEEK 2 mL 0RF Coding Level of Care Code Est Pt Level 4 (37246) Add On Problem Visit Only Diagnoses Type 2 diabetes mellitus with hyperglycemia, with long-term current use of insulin E11.65; Z79.4 Diabetes mellitus type: type 2 Diabetes mellitus 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
[2025-10-29 10:37] LABS: Glucose, Whole Blood 205 mg/dL (60-115)
== END 2025-10-29 11:04 | disposition home or self-care (01) ==
LOC: HO.ENCR 10:19
PROVIDERS: PCP Nurse Practitioner Family; Visit Provider Physician Assistant Medical
DX: E11.65 Type 2 diabetes mellitus with hyperglycemia (principal); Z79.4 Long term (current) use of insulin; E11.42 Type 2 diabetes mellitus with diabetic polyneuropathy; E78.2 Mixed hyperlipidemia; I10 Essential (primary) hypertension; E55.9 Vitamin D deficiency, unspecified

== ENCOUNTER → 2025-10-29 10:18 | Outpatient (BNVA) | payer OTHER, SELFPAY | PROVIDERS: PCP Nurse Practitioner Family; Visit Provider Physician Assistant Medical | DX: E11.65 Type 2 diabetes mellitus with hyperglycemia (principal); E11.42 Type 2 diabetes mellitus with diabetic polyneuropathy; E78.2 Mixed hyperlipidemia; I10 Essential (primary) hypertension; E55.9 Vitamin D deficiency, unspecified; Z79.4 Long term (current) use of insulin | CPT/HCPCS: 82947; 99212 ==